=== PATIENT | female | born 1965 | race Caucasian/White ===

== ENCOUNTER 2020-10-10 13:19 | Observation (INO) | payer OTHER ==
--- NOTE | 2020-10-10 13:33 | ERPHSYRPT ---
- History of Present Illness Time Seen by Provider: 10/10/20 13:30 Source: patient Physician History: Patient is a 55-year-old female presents to our ED with complaints of shortness of breath and left lower quadrant pain. Patient has been experiencing left lower quadrant pain since September 01. Patient states the left lower quadrant pain has gotten worse. Pain described as a sharp sensation rated 8 out of 10. Patient states the pain makes her feel short of breath. No chest pain. No wendy sea or vomiting. No diaphoresis. No trauma. No fever. Symptoms are moderate in intensity. Movement and palpation to the left lower quadrant reproduces symptoms. Patient voices no other complaints concerns at this time. Timing/Duration: week(s) (3 weeks) Severity: moderate Modifying Factors: Improves With: nothing Associated Symptoms: shortness of breath, No nausea, No diaphoresis, No fever, No headaches, No syncope Allergies/Adverse Reactions: aripiprazole [From Abilify] Allergy (Verified 10/10/20 13:22) clarithromycin [From Biaxin] Allergy (Verified 10/10/20 13:22) prednisone Allergy (Verified 10/10/20 13:22) Sulfa (Sulfonamide Antibiotics) Allergy (Verified 10/10/20 13:22) zolpidem [From Ambien] Allergy (Verified 10/10/20 13:22) - Review of Systems Constitutional: No Symptoms, No Fever, No Chills Eyes: No Symptoms Ears, Nose, & Throat: No Symptoms Respiratory: No Symptoms, No Cough, No Dyspnea Cardiac: No Symptoms, No Chest Pain, No Edema, No Syncope Abdominal/Gastrointestinal: No Symptoms, No Abdominal Pain, No Nausea, No Vomiting, No Diarrhea Genitourinary Symptoms: No Symptoms, No Dysuria Musculoskeletal: No Symptoms, No Back Pain, No Neck Pain Skin: No Rash Neurological: No Dizziness, No Focal Weakness, No Sensory Changes Psychological: No Symptoms Endocrine: No Symptoms Hematologic/Lymphatic: No Symptoms Immunological/Allergic: No Symptoms All Other Systems: Reviewed and Negative - Nursing Vital Signs Nursing Vital Signs: Initial Vital Signs Temperature 98.8 F 10/10/20 13:23 Pulse Rate 82 10/10/20 13:23 Respiratory Rate 22 10/10/20 13:23 Blood Pressure 154/114 10/10/20 13:23 O2 Sat by Pulse Oximetry 98 10/10/20 13:23 Pain Scale Pain Intensity 4 - Physical Exam General Appearance: no apparent distress, alert Eye Exam: PERRL/EOMI, eyes nml inspection Ears, Nose, Throat Exam: normal ENT inspection, TMs normal, pharynx normal, moist mucous membranes Neck Exam: normal inspection, non-tender, supple, full range of motion Respiratory Exam: normal breath sounds, lungs clear, No respiratory distress Cardiovascular Exam: regular rate/rhythm, normal heart sounds, normal peripheral pulses Gastrointestinal/Abdomen Exam: soft, normal bowel sounds, other (Tenderness to palpation left lower quadrant.), No tenderness, No mass Pelvic Exam: other (No pelvic pain. Pain at left lower quadrant.) Back Exam: normal inspection, normal range of motion, No CVA tenderness, No vertebral tenderness Extremity Exam: normal inspection, normal range of motion, pelvis stable Neurologic Exam: alert, oriented x 3, cooperative, normal mood/affect, nml cerebellar function, nml station & gait, sensation nml, No motor deficits Skin Exam: normal color, warm, dry, No rash Lymphatic Exam: No adenopathy SpO2 Interpretation: normal SpO2: 98 O2 Delivery: Room Air - Course Nursing assessment & vital signs reviewed: Yes EKG Interpreted by Me: RATE (84), Sinus Rhythm, NORMAL AXIS, NORMAL INTERVALS - Radiology Exams Chest X-ray Interpretation: Teleradiologist Report (Portable chest demonstrates normal heart lungs and bony thorax.) - CT Exams Abdomen/Pelvis CT Interpretation: Tele-radiologist Report (Minimal urinary bladder wall thickening either incomplete distention versus cystitis, staple in the descending duodenum of uncertain etiology no perforation or complications. Incidental pulmonary emphysema.) Ordered Tests: Active Orders 24 hr Category Date Time Status Finance Vice President STAT Care 10/10/20 13:34 Active EKG-ER Only STAT Care 10/10/20 13:33 Active IV Insertion STAT Care 10/10/20 13:33 Active Pulse Oximetry (ED) STAT Care 10/10/20 13:33 Active ABDOMEN AND PELVIS W CONTRAST [CT] Stat Exams 10/10/20 15:03 Completed CHEST 1 VIEW (PORTABLE) Stat Exams 10/10/20 13:34 Completed CBC W DIFF Stat Lab 10/10/20 13:10 Completed CMP Stat Lab 10/10/20 13:10 Completed D-DIMER QUANTITATIVE Stat Lab 10/10/20 13:10 Completed HCG,QUALITATIVE URINE Stat Lab 10/10/20 13:36 Completed MAGNESIUM Stat Lab 10/10/20 13:10 Completed NT PRO BNP Stat Lab 10/10/20 13:10 Completed TROPONIN Q3H Lab 10/10/20 13:10 Completed TROPONIN Q3H Lab 10/10/20 17:45 Received TROPONIN Q3H Lab 10/10/20 19:45 Ordered TROPONIN Q3H Lab 10/10/20 22:45 Ordered TROPONIN Q3H Lab 10/11/20 01:45 Ordered UA W/RFX UR CULTURE Stat Lab 10/10/20 13:36 Completed Transfer Order Routine Transfer 10/10/20 Ordered Medication Summary Generic Name Dose Route Start Last Admin Trade Name Freq PRN Reason Stop Dose Admin Sodium Chloride 1,000 mls @ 100 mls/hr 10/10/20 13:45 10/10/20 13:39 Sodium Chloride 0.9% 1000 Ml IV 11/09/20 13:44 100 mls/hr .Q10H RIGOBERTO Administration Discontinued Medications Generic Name Dose Route Start Last Admin Trade Name Freq PRN Reason Stop Dose Admin Enoxaparin Sodium 80 mg 10/10/20 18:15 Enoxaparin Sodium SQ 10/10/20 18:16 STAT ONE Morphine Sulfate 2 mg 10/10/20 16:55 10/10/20 16:59 Morphine Sulfate 2 Mg Inj IV 10/10/20 16:56 2 mg STAT ONE Administration Morphine Sulfate Confirm 10/10/20 16:59 Morphine Sulfate 2 Mg Inj Administered 10/10/20 17:00 Dose 2 mg .ROUTE .[employer] [employer] ONE Lab/Rad Data: Laboratory Result Diagrams 10/10/20 13:10 10/10/20 13:10 Laboratory Results 10/10/20 10/10/20 10/10/20 Range/Units 13:36 13:36 13:10 WBC (4.0-10.5) K/mm3 RBC (4.1-5.4) M/mm3 Hgb (12.0-16.0) gm/dl Hct (35-47) % MCV (78-100) fl MCH (26-32) pg MCHC (32-36) g/dl RDW (11.5-14.0) % Plt Count (150-450) K/mm3 MPV (7.5-11.0) fl Gran % (36.0-66.0) % Eos # (Auto) (0-0.5) Absolute Lymphs (auto) (1.0-4.6) Absolute Monos (auto) (0.0-1.3) Lymphocytes % (24.0-44.0) % Monocytes % (0.0-12.0) % Eosinophils % (0.00-5.0) % Basophils % (0.0-0.4) % Absolute Granulocytes (1.4-6.9) Basophils # (0-0.4) D-Dimer (215-500) ng/mL Sodium (137-145) mmol/L Potassium (3.5-5.1) mmol/L Chloride (98-107) mmol/L Carbon Dioxide (22-30) mmol/L Anion Gap (5-15) MEQ/L BUN (7-17) mg/dL Creatinine (0.52-1.04) mg/dL Estimated GFR ML/MIN Glucose (74-106) mg/dL Calcium (8.4-10.2) mg/dL Magnesium (1.6-2.3) mg/dL Total Bilirubin (0.2-1.3) mg/dL AST (14-36) U/L ALT (0-35) U/L Alkaline Phosphatase (38-126) U/L Troponin I < 0.012 (0.000-0.034) ng/mL NT-Pro-B Natriuret Pep (0-900) pg/mL Serum Total Protein (6.3-8.2) g/dL Albumin (3.5-5.0) g/dL Urine Color YELLOW (YELLOW) Urine Appearance CLEAR (CLEAR) Urine pH 5.0 (5-6) Ur Specific [place] 1.021 (1.005-1.025) Urine Protein NEGATIVE (Negative) Urine Ketones NEGATIVE (NEGATIVE) Urine Blood SMALL (0-5) Oliver/ul Urine Nitrite NEGATIVE (NEGATIVE) Urine Bilirubin NEGATIVE (NEGATIVE) Urine Urobilinogen NEGATIVE (0-1) mg/dL Ur Leukocyte Esterase NEGATIVE (NEGATIVE) Urine WBC (Auto) NONE (0-5) /HPF Urine RBC (Auto) 0-2 (0-2) /HPF U Epithel Cells (Auto) NONE (FEW) /HPF Urine Bacteria (Auto) NONE (NEGATIVE) /HPF Urine Mucus (Auto) SLIGHT (NEGATIVE) /HPF Urine Culture Reflexed NO (NO) Urine Glucose NEGATIVE (NEGATIVE) mg/dL Urine HCG, Qual NEGATIVE (Negative) 10/10/20 10/10/20 10/10/20 Range/Units 13:10 13:10 13:10 WBC 7.0 (4.0-10.5) K/mm3 RBC 5.27 (4.1-5.4) M/mm3 Hgb 15.0 (12.0-16.0) gm/dl Hct 45.4 (35-47) % MCV 86.1 (78-100) fl MCH 28.5 (26-32) pg MCHC 33.0 (32-36) g/dl RDW 14.9 H (11.5-14.0) % Plt Count 350 (150-450) K/mm3 MPV 10.5 (7.5-11.0) fl Gran % 63.5 (36.0-66.0) % Eos # (Auto) 0.15 (0-0.5) Absolute Lymphs (auto) 1.68 (1.0-4.6) Absolute Monos (auto) 0.71 (0.0-1.3) Lymphocytes % 23.9 L (24.0-44.0) % Monocytes % 10.1 (0.0-12.0) % Eosinophils % 2.1 (0.00-5.0) % Basophils % 0.4 (0.0-0.4) % Absolute Granulocytes 4.46 (1.4-6.9) Basophils # 0.03 (0-0.4) D-Dimer 748 H* (215-500) ng/mL Sodium 141 (137-145) mmol/L Potassium 4.1 (3.5-5.1) mmol/L Chloride 109 H (98-107) mmol/L Carbon Dioxide 23 (22-30) mmol/L Anion Gap 12.0 (5-15) MEQ/L BUN 7 (7-17) mg/dL Creatinine 0.97 (0.52-1.04) mg/dL Estimated GFR > 60.0 ML/MIN Glucose 103 (74-106) mg/dL Calcium 10.6 H (8.4-10.2) mg/dL Magnesium 1.8 (1.6-2.3) mg/dL Total Bilirubin 0.60 (0.2-1.3) mg/dL AST 33 (14-36) U/L ALT 33 (0-35) U/L Alkaline Phosphatase 143 H (38-126) U/L Troponin I (0.000-0.034) ng/mL NT-Pro-B Natriuret Pep 91.3 (0-900) pg/mL Serum Total Protein 7.1 (6.3-8.2) g/dL Albumin 4.3 (3.5-5.0) g/dL Urine Color (YELLOW) Urine Appearance (CLEAR) Urine pH (5-6) Ur Specific [place] (1.005-1.025) Urine Protein (Negative) Urine Ketones (NEGATIVE) Urine Blood (0-5) Oliver/ul Urine Nitrite (NEGATIVE) Urine Bilirubin (NEGATIVE) Urine Urobilinogen (0-1) mg/dL Ur Leukocyte Esterase (NEGATIVE) Urine WBC (Auto) (0-5) /HPF Urine RBC (Auto) (0-2) /HPF U Epithel Cells (Auto) (FEW) /HPF Urine Bacteria (Auto) (NEGATIVE) /HPF Urine Mucus (Auto) (NEGATIVE) /HPF Urine Culture Reflexed (NO) Urine Glucose (NEGATIVE) mg/dL Urine HCG, Qual (Negative) - Progress Progress: improved Progress Note: 10/10/20 18:20 Patient reassessed. She continues to experience abdominal pain. CT scan reveals an incidental 1.5 cm staple-like foreign body in the duodenum. Case discussed with Dr. Torres who does not feel that the foreign body is causing patient's pain. D-dimer elevated. Patient already received a dose of contrast for her CT abdomen pelvis. She is not a candidate for CTA of her chest at this time. We will admit patient for intractable abdominal pain. We will perform repeat imaging study likely an x-ray/KUB to assess whether or not the foreign body has moved. There is a good possibility this stable may be residual from her previous surgery. Patient will have a CT of her chest tomorrow after 24 hours. Patient has no pelvic pain. No vaginal discharge. Pain is left to the umbilicus and slightly inferior. Care discussed with patient. She agrees to admission to [facility] for further evaluation and treatment. With a positive D-dimer patient received a dose of Lovenox to cover her until the CTA rules out PE. Patient be admitted to the Covid unit as we have a policy in our hospital that states if patient has been Covid positive for the last 90 days patient should be admitted to the Covid unit. Patient was Covid positive approximately 30 days ago. Therefore patient be admitted to the Covid unit. 10/10/20 18:22 10/10/20 18:23 Discussed with DrBrianda: Other (Mirta) Will see patient in: hospital (observation) Counseled pt/family regarding: lab results, diagnosis, rad results - Departure Clinical Impression: Abdominal pain, Pulmonary emphysema, Aortic calcification Condition: Stable Critical Care Time: No Referrals: JUAN GUDINO [Primary Care Provider] - Instructions: Chronic Obstructive Pulmonary Disease
[2020-10-10] MEDS: Sodium Chloride 0.9% 1000 ML 1,000 ML IV SCH (13:39)
[2020-10-10 13:54] LABS: Appearance CLEAR (CLEAR); Bilirubin NEGATIVE (NEGATIVE); Blood SMALL Ery/ul (0-5); Glucose NEGATIVE (NEGATIVE); Ketones NEGATIVE (NEGATIVE); Leukocyte Esterase NEGATIVE (NEGATIVE); Mucus SLIGHT /HPF (NEGATIVE); Nitrite NEGATIVE (NEGATIVE); Protein,Urine Dip NEGATIVE (Negative); RBC 0-2 /HPF (0-2); Specific Gravity 1.021 (1.005-1.025); Urobilinogen NEGATIVE mg/dL (0-1)
[2020-10-10 13:56] LABS: Absolute Neutrophil Ct (ANC) 4.46 (1.4-6.9); BASOPHIL % 0.4 % (0.0-0.4); Basophil (Absolute #) 0.03 (0-0.4); Eosinophil % 2.1 % (0.00-5.0); Eosinophil (Absolute #) 0.15 (0-0.5); Hematocrit 45.4 % (35-47); Lymphocyte (Absolute #) 1.68 (1.0-4.6); Lymphocytes % 23.9 % (24.0-44.0); Mean Cell Volume 86.1 fl (78-100); Mean Corpuscular Hemoglobin 28.5 pg (26-32); Mean Platelet Volume 10.5 fl (7.5-11.0); Monocyte (Absolute #) 0.71 (0.0-1.3); Monocytes % 10.1 % (0.0-12.0); Neutrophil % 63.5 % (36.0-66.0); Platelet Count 350 K/mm3 (150-450); Red Blood Count 5.27 M/mm3 (4.1-5.4); Red Cell Distribution Width 14.9 % (11.5-14.0)
[2020-10-10 14:10] LABS: ALBUMIN 4.3 g/dL (3.5-5.0); ALKALINE PHOSPHATASE 143 U/L (38-126); BLOOD UREA NITROGEN 7 mg/dL (7-17); CHLORIDE 109 mmol/L (98-107); Calcium 10.6 mg/dL (8.4-10.2); Carbon Dioxide 23 mmol/L (22-30); Creatinine 1 0.97 mg/dL (0.52-1.04); EST GLOMERULAR FILTRATION RATE > 60.0 ML/MIN; Glucose 103 mg/dL (74-106); MAGNESIUM 1.8 mg/dL (1.6-2.3); NT PRO BNP 91.3 pg/mL (0-900); Potassium 4.1 mmol/L (3.5-5.1); SGOT/AST 33 U/L (14-36); SGPT/ALT 33 U/L (0-35); SODIUM 141 mmol/L (137-145); Total Protein 7.1 g/dL (6.3-8.2)
--- NOTE | 2020-10-10 14:13 | XRAY ---
Indication: Short of breath. Positive Covid 19. Comparison: None. Portable chest demonstrates normal heart, lungs, and bony thorax.
--- NOTE | 2020-10-10 15:36 | XRAY ---
Indication: Bilateral pelvic pain. Diarrhea. Multiple contiguous axial images obtained through the abdomen and pelvis using 80 cc Isovue 370 contrast only. Comparison: None Lung bases demonstrates pulmonary emphysema and bibasilar posterior atelectasis/scarring. No effusion. Heart is not enlarged. Noncontrasted stomach and bowel loops appear nonobstructed. Descending duodenum demonstrates a 1.5 cm staple of uncertain etiology. Normal appendix. Previous cholecystectomy and hysterectomy. No free fluid/air. Urinary bladder normally distended with minimal wall thickening anteriorly either incomplete distention versus cystitis. Remaining liver, pancreas, spleen, adrenal glands, kidneys, ureters, and bladder appear unremarkable. Mild aortic calcifications. No AAA or pathologic retroperitoneal lymphadenopathy. Osseous structures intact. Impression: 1. Minimal urinary bladder wall thickening either incomplete distention versus cystitis. 2. Staple in the descending duodenum of uncertain etiology. No perforation or complications. 3. Incidental pulmonary emphysema.
[2020-10-10] MEDS ORDERED: MORPHINE SULFATE 2 MG INJ IV ONE (16:55)
[2020-10-10] MEDS ORDERED: MORPHINE SULFATE 2 MG INJ ONE (16:59)
[2020-10-10] MEDS ORDERED: ENOXAPARIN SODIUM SQ ONE ×2 (18:15→18:36)
[2020-10-10] MEDS: MORPHINE SULFATE 4 MG INJ IV PRN (22:08)
[2020-10-11] MEDS: Sodium Chloride 0.9% 1000 ML 1,000 ML IV SCH ×2 (00:13→21:46)
[2020-10-11] MEDS: MORPHINE SULFATE 4 MG INJ IV PRN ×4 (02:26→20:40)
[2020-10-11 02:40] LABS: ALBUMIN 3.8 g/dL (3.5-5.0); ANION GAP 9.7 MEQ/L (5-15); BILIRUBIN,TOTAL 0.7 mg/dL (0.2-1.3); Calcium 9.6 mg/dL (8.4-10.2); Creatinine 1 1.05 mg/dL (0.52-1.04); EST GLOMERULAR FILTRATION RATE 57.6 ML/MIN; Potassium 3.9 mmol/L (3.5-5.1); Total Protein 6.1 g/dL (6.3-8.2)
[2020-10-11 04:51] LABS: Absolute Neutrophil Ct (ANC) 2.49 (1.4-6.9); BASOPHIL % 0.2 % (0.0-0.4); Basophil (Absolute #) 0.01 (0-0.4); Eosinophil % 2.7 % (0.00-5.0); Eosinophil (Absolute #) 0.14 (0-0.5); Hematocrit 42.4 % (35-47); Hemoglobin 13.8 gm/dl (12.0-16.0); Lymphocyte (Absolute #) 1.86 (1.0-4.6); Lymphocytes % 35.4 % (24.0-44.0); Mean Cell Volume 88.1 fl (78-100); Mean Corpuscular Hemoglobin 28.7 pg (26-32); Mean Corpuscular Hgb Concent. 32.5 g/dl (32-36); Mean Platelet Volume 11.1 fl (7.5-11.0); Monocyte (Absolute #) 0.75 (0.0-1.3); Monocytes % 14.3 % (0.0-12.0); Neutrophil % 47.4 % (36.0-66.0); Platelet Count 297 K/mm3 (150-450); Red Blood Count 4.81 M/mm3 (4.1-5.4); Red Cell Distribution Width 14.9 % (11.5-14.0); White Blood Count 5.3 K/mm3 (4.0-10.5)
[2020-10-11] MEDS: Advair Hfa 115/21 Common canister IH SCH ×2 (07:38→19:28)
[2020-10-11] MEDS ORDERED: ENOXAPARIN SODIUM SQ ONE (08:52)
[2020-10-11] MEDS: FLAGYL 500 MG IVPB 500 MG/100 ML BAG IV SCH ×2 (10:45→18:22)
[2020-10-11] MEDS: Levofloxacin 500MG/100ML D5W 500 MG/100 ML BAG IV SCH (10:45)
--- NOTE | 2020-10-11 10:51 | XRAY ---
Indication: Abdomen pain. Foreign body on CT one day earlier. KUB nonacute and nonobstructed with contrast from CT one day earlier. 15 mm metallic density overlies the cecum, previously in duodenum on CT exam. Cholecystectomy clips. Remaining solid organs and osseous structures unremarkable.
--- NOTE | 2020-10-11 10:59 | XRAY ---
Indication: Short of breath. Elevated d-dimer. Multiple contiguous axial images obtained through the chest using 80 cc Isovue 370 contrast and PE protocol. Comparison: None There is good opacification of the pulmonary arteries to include the lobar and segmental branches. No pulmonary embolus. Heart is not enlarged. Aorta is minimally arteriosclerotic without aneurysm/dissection. No pathologic mediastinal/hilar lymphadenopathy. Lungs demonstrates moderate pulmonary emphysema, moderate bilateral dependent atelectasis greatest near the lung bases, and mild bibasilar fibrosis/scarring. No suspicious pulmonary mass, infiltrate, or effusion. Bony thorax intact. CT abdomen reported one day earlier. Impression: 1. Negative pulmonary embolus. No acute cardiopulmonary abnormalities. 2. Incidental pulmonary emphysema, bilateral dependent atelectasis, and bibasilar fibrosis/scarring.
[2020-10-11] MEDS ORDERED: MEDICATION INTERVENTION PO SCH (11:30)
[2020-10-11] MEDS ORDERED: Zestril 5 MG PO SCH (12:00)
--- NOTE | 2020-10-11 12:29 | PCM.HP ---
History of Present Illness - Chief Complaint Chief Complaint: Intractable Abdominal Pain, Intestinal Foreign Body, Elevated D-Dimer History of Present Illness: is a 55 year old female pt of Dr. Sterling in [place] who was admitted through ER with SOB and LLQ pain. She has had LLQ pain since Sep 01, is not 8/10, constant. Initially pain was in her back but is now in her abdomen. Worse with sitting up or walking. Has nausea and SOB when the pain is worse. No fever. Occ diarrhea. No vomiting. Abd xr found foreign body in the descending duodenum. Pt had elevated d-dimer and was given 1 dose of lovenox in the ER. Unable to do CT chest at that time. CT abd pelvis nonacute - some bladder wall thickening, possibly infectious. Has had gross hematuria x 3 weeks. - Review of Systems Abdominal/Gastrointestinal: Abdominal Pain, Diarrhea Genitourinary Symptoms: Hematuria Psychological: Depression, No Suicidal Ideations Medications & Allergies Home Medications: Home Medication List Dexlansoprazole [Dexilant] 60 mg PO HS 10/10/20 [History Confirmed 10/10/20] Donepezil HCl 10 mg [Aricept 10 MG] 10 mg PO HS 10/10/20 [History Confir med 10/10/20] Fluticasone/Vilanterol [Breo Ellipta 200-25 Mcg INH] 1 puff IH DAILY 10/10/20 [History Confirmed 10/10/20] Levothyroxine Sodium [Tirosint-Kymberly] 112 mcg PO DAILY 10/10/20 [History Confirmed 10/10/20] Lisinopril 10 mg [Zestril 10 MG] 5 mg PO DAILY 10/10/20 [History Confirmed 10/10/20] Memantine HCl [Memantine HCl ER] 28 mg PO HS 10/10/20 [History Confirmed 10/10/20] Non-Formulary Drug [Non-Formulary Item] 99 mg PO DAILY 10/10/20 [History Confirmed 10/10/20] Semaglutide [Ozempic] 0.5 mg SQ WEEKLY 10/10/20 [History Confirmed 10/10/20] Simvastatin 20Mg [Zocor 20Mg] 40 mg PO HS 10/10/20 [History Confirmed 10/10/20] Tizanidine HCl 4 mg [Zanaflex 4 MG] 12 mg PO HS 10/10/20 [History Confirmed 10/10/20] Allergies/Adverse Reactions: Allergies Allergy/AdvReac Type Severity Reaction Status Date / Time aripiprazole [From Abilify] Allergy Verified 10/10/20 13:22 clarithromycin [From Biaxin] Allergy Verified 10/10/20 13:22 prednisone Allergy Verified 10/10/20 13:22 Sulfa (Sulfonamide Allergy Verified 10/10/20 13:22 Antibiotics) zolpidem [From Ambien] Allergy Verified 10/10/20 13:22 - Past Medical History Past Medical History: Yes Neurological History: Alzheimer's Disease ENT History: No Pertinent History Cardiac History: Hypertension, Other Respiratory History: Asthma, COPD Endocrine Medical History: Diabetes Type II Musculoskelatal History: No Pertinent History GI Medical History: No Pertinent History History: No Pertinent History Pyscho-Social History: Bipolar, Depression Reproductive Disorders: No Pertinent History Comment: pt states early onset Alzheimers. mitral valve prolapse - Female History Hx Last Menstrual Period: hysterctomy Are you now?: No - Past Surgical History Past Surgical History: Yes Neuro Surgical History: No Pertinent History Cardiac History: No Pertinent History Respiratory Surgery: No Pertinent History GI Surgical History: Cholecystectomy Genitourinary Surgical Hx: No Pertinent History Musculskeletal Surgical Hx: Other Female Surgical History: Hysterectomy Other Surgical History: Lump removed from right breast. Tendon surgery right wrist. Exploratory surgery through belly button. Thyroid removed - Social History Smoking Status: Former smoker Exposure to second hand smoke: No Alcohol: None Drug Use: marijuana - Physical Exam Vital Signs: Vital Signs - 24 hr Temp Pulse Resp BP Pulse Ox 10/11/20 07:41 76 18 94 L 10/11/20 07:23 98.6 F 75 16 131/72 94 L 10/11/20 00:00 98.0 F 78 18 131/67 95 10/10/20 22:13 72 18 96 10/10/20 21:20 97.9 F 74 18 134/94 98 10/10/20 21:11 87 19 150/83 98 10/10/20 20:00 65 18 151/91 99 10/10/20 19:00 68 24 161/86 97 10/10/20 18:23 98 10/10/20 18:02 66 18 154/77 98 10/10/20 17:08 102 H 18 169/109 98 10/10/20 15:24 74 20 140/73 98 10/10/20 14:38 69 15 152/85 100 10/10/20 13:36 97 10/10/20 13:23 98.8 F 82 22 154/114 98 General Appearance: mild distress, alert, other (lying in the bed propped on her R side) Neurologic Exam: oriented x 3, cooperative Eye Exam: eyes nml inspection Ears, Nose, Throat Exam: moist mucous membranes Neck Exam: normal inspection Respiratory Exam: normal breath sounds, lungs clear, No crackles/rales, No rhonchi, No wheezing Cardiovascular Exam: regular rate/rhythm, normal heart sounds, No murmur Gastrointestinal/Abdomen Exam: soft, normal bowel sounds, tenderness (LLQ), No distention, No mass, No guarding, No rebound Back Exam: normal inspection, No CVA tenderness Extremity Exam: No pedal edema, No swelling Skin Exam: normal color, warm, dry, No rash Results - Labs Lab/Micro Results: Lab Results-Last 24 Hours 10/10/20 10/10/20 10/10/20 Range/Units 13:10 13:10 13:10 WBC 7.0 (4.0-10.5) K/mm3 RBC 5.27 (4.1-5.4) M/mm3 Hgb 15.0 (12.0-16.0) gm/dl Hct 45.4 (35-47) % MCV 86.1 (78-100) fl MCH 28.5 (26-32) pg MCHC 33.0 (32-36) g/dl RDW 14.9 H (11.5-14.0) % Plt Count 350 (150-450) K/mm3 MPV 10.5 (7.5-11.0) fl Gran % 63.5 (36.0-66.0) % Eos # (Auto) 0.15 (0-0.5) Absolute Lymphs (auto) 1.68 (1.0-4.6) Absolute Monos (auto) 0.71 (0.0-1.3) Lymphocytes % 23.9 L (24.0-44.0) % Monocytes % 10.1 (0.0-12.0) % Eosinophils % 2.1 (0.00-5.0) % Basophils % 0.4 (0.0-0.4) % Absolute Granulocytes 4.46 (1.4-6.9) Basophils # 0.03 (0-0.4) D-Dimer 748 H* (215-500) ng/mL Sodium 141 (137-145) mmol/L Potassium 4.1 (3.5-5.1) mmol/L Chloride 109 H (98-107) mmol/L Carbon Dioxide 23 (22-30) mmol/L Anion Gap 12.0 (5-15) MEQ/L BUN 7 (7-17) mg/dL Creatinine 0.97 (0.52-1.04) mg/dL Estimated GFR > 60.0 ML/MIN Glucose 103 (74-106) mg/dL POC Glucometer (74 to 106) mg/dL Hemoglobin A1c (4.5-6.0) % Calcium 10.6 H (8.4-10.2) mg/dL Magnesium 1.8 (1.6-2.3) mg/dL Total Bilirubin 0.60 (0.2-1.3) mg/dL AST 33 (14-36) U/L ALT 33 (0-35) U/L Alkaline Phosphatase 143 H (38-126) U/L Troponin I (0.000-0.034) ng/mL NT-Pro-B Natriuret Pep 91.3 (0-900) pg/mL Serum Total Protein 7.1 (6.3-8.2) g/dL Albumin 4.3 (3.5-5.0) g/dL Urine Color (YELLOW) Urine Appearance (CLEAR) Urine pH (5-6) Ur Specific [place] (1.005-1.025) Urine Protein (Negative) Urine Ketones (NEGATIVE) Urine Blood (0-5) Oliver/ul Urine Nitrite (NEGATIVE) Urine Bilirubin (NEGATIVE) Urine Urobilinogen (0-1) mg/dL Ur Leukocyte Esterase (NEGATIVE) Urine WBC (Auto) (0-5) /HPF Urine RBC (Auto) (0-2) /HPF U Epithel Cells (Auto) (FEW) /HPF Urine Bacteria (Auto) (NEGATIVE) /HPF Urine Mucus (Auto) (NEGATIVE) /HPF Urine Culture Reflexed (NO) Urine Glucose (NEGATIVE) mg/dL Urine HCG, Qual (Negative) 10/10/20 10/10/20 10/10/20 Range/Units 13:10 13:36 13:36 WBC (4.0-10.5) K/mm3 RBC (4.1-5.4) M/mm3 Hgb (12.0-16.0) gm/dl Hct (35-47) % MCV (78-100) fl MCH (26-32) pg MCHC (32-36) g/dl RDW (11.5-14.0) % Plt Count (150-450) K/mm3 MPV (7.5-11.0) fl Gran % (36.0-66.0) % Eos # (Auto) (0-0.5) Absolute Lymphs (auto) (1.0-4.6) Absolute Monos (auto) (0.0-1.3) Lymphocytes % (24.0-44.0) % Monocytes % (0.0-12.0) % Eosinophils % (0.00-5.0) % Basophils % (0.0-0.4) % Absolute Granulocytes (1.4-6.9) Basophils # (0-0.4) D-Dimer (215-500) ng/mL Sodium (137-145) mmol/L Potassium (3.5-5.1) mmol/L Chloride (98-107) mmol/L Carbon Dioxide (22-30) mmol/L Anion Gap (5-15) MEQ/L BUN (7-17) mg/dL Creatinine (0.52-1.04) mg/dL Estimated GFR ML/MIN Glucose (74-106) mg/dL POC Glucometer (74 to 106) mg/dL Hemoglobin A1c (4.5-6.0) % Calcium (8.4-10.2) mg/dL Magnesium (1.6-2.3) mg/dL Total Bilirubin (0.2-1.3) mg/dL AST (14-36) U/L ALT (0-35) U/L Alkaline Phosphatase (38-126) U/L Troponin I < 0.012 (0.000-0.034) ng/mL NT-Pro-B Natriuret Pep (0-900) pg/mL Serum Total Protein (6.3-8.2) g/dL Albumin (3.5-5.0) g/dL Urine Color YELLOW (YELLOW) Urine Appearance CLEAR (CLEAR) Urine pH 5.0 (5-6) Ur Specific [place] 1.021 (1.005-1.025) Urine Protein NEGATIVE (Negative) Urine Ketones NEGATIVE (NEGATIVE) Urine Blood SMALL (0-5) Oliver/ul Urine Nitrite NEGATIVE (NEGATIVE) Urine Bilirubin NEGATIVE (NEGATIVE) Urine Urobilinogen NEGATIVE (0-1) mg/dL Ur Leukocyte Esterase NEGATIVE (NEGATIVE) Urine WBC (Auto) NONE (0-5) /HPF Urine RBC (Auto) 0-2 (0-2) /HPF U Epithel Cells (Auto) NONE (FEW) /HPF Urine Bacteria (Auto) NONE (NEGATIVE) /HPF Urine Mucus (Auto) SLIGHT (NEGATIVE) /HPF Urine Culture Reflexed NO (NO) Urine Glucose NEGATIVE (NEGATIVE) mg/dL Urine HCG, Qual NEGATIVE (Negative) 10/10/20 10/10/20 10/10/20 Range/Units 17:45 19:50 22:47 WBC (4.0-10.5) K/mm3 RBC (4.1-5.4) M/mm3 Hgb (12.0-16.0) gm/dl Hct (35-47) % MCV (78-100) fl MCH (26-32) pg MCHC (32-36) g/dl RDW (11.5-14.0) % Plt Count (150-450) K/mm3 MPV (7.5-11.0) fl Gran % (36.0-66.0) % Eos # (Auto) (0-0.5) Absolute Lymphs (auto) (1.0-4.6) Absolute Monos (auto) (0.0-1.3) Lymphocytes % (24.0-44.0) % Monocytes % (0.0-12.0) % Eosinophils % (0.00-5.0) % Basophils % (0.0-0.4) % Absolute Granulocytes (1.4-6.9) Basophils # (0-0.4) D-Dimer (215-500) ng/mL Sodium (137-145) mmol/L Potassium (3.5-5.1) mmol/L Chloride (98-107) mmol/L Carbon Dioxide (22-30) mmol/L Anion Gap (5-15) MEQ/L BUN (7-17) mg/dL Creatinine (0.52-1.04) mg/dL Estimated GFR ML/MIN Glucose (74-106) mg/dL POC Glucometer (74 to 106) mg/dL Hemoglobin A1c (4.5-6.0) % Calcium (8.4-10.2) mg/dL Magnesium (1.6-2.3) mg/dL Total Bilirubin (0.2-1.3) mg/dL AST (14-36) U/L ALT (0-35) U/L Alkaline Phosphatase (38-126) U/L Troponin I < 0.012 < 0.012 < 0.012 (0.000-0.034) ng/mL NT-Pro-B Natriuret Pep (0-900) pg/mL Serum Total Protein (6.3-8.2) g/dL Albumin (3.5-5.0) g/dL Urine Color (YELLOW) Urine Appearance (CLEAR) Urine pH (5-6) Ur Specific [place] (1.005-1.025) Urine Protein (Negative) Urine Ketones (NEGATIVE) Urine Blood (0-5) Oliver/ul Urine Nitrite (NEGATIVE) Urine Bilirubin (NEGATIVE) Urine Urobilinogen (0-1) mg/dL Ur Leukocyte Esterase (NEGATIVE) Urine WBC (Auto) (0-5) /HPF Urine RBC (Auto) (0-2) /HPF U Epithel Cells (Auto) (FEW) /HPF Urine Bacteria (Auto) (NEGATIVE) /HPF Urine Mucus (Auto) (NEGATIVE) /HPF Urine Culture Reflexed (NO) Urine Glucose (NEGATIVE) mg/dL Urine HCG, Qual (Negative) 10/11/20 10/11/20 10/11/20 Range/Units 02:10 02:10 02:10 WBC 5.3 (4.0-10.5) K/mm3 RBC 4.81 (4.1-5.4) M/mm3 Hgb 13.8 (12.0-16.0) gm/dl Hct 42.4 (35-47) % MCV 88.1 (78-100) fl MCH 28.7 (26-32) pg MCHC 32.5 (32-36) g/dl RDW 14.9 H (11.5-14.0) % Plt Count 297 (150-450) K/mm3 MPV 11.1 H (7.5-11.0) fl Gran % 47.4 (36.0-66.0) % Eos # (Auto) 0.14 (0-0.5) Absolute Lymphs (auto) 1.86 (1.0-4.6) Absolute Monos (auto) 0.75 (0.0-1.3) Lymphocytes % 35.4 (24.0-44.0) % Monocytes % 14.3 H (0.0-12.0) % Eosinophils % 2.7 (0.00-5.0) % Basophils % 0.2 (0.0-0.4) % Absolute Granulocytes 2.49 (1.4-6.9) Basophils # 0.01 (0-0.4) D-Dimer (215-500) ng/mL Sodium 139 (137-145) mmol/L Potassium 3.9 (3.5-5.1) mmol/L Chloride 107 (98-107) mmol/L Carbon Dioxide 26 (22-30) mmol/L Anion Gap 9.7 (5-15) MEQ/L BUN 5 L (7-17) mg/dL Creatinine 1.05 H (0.52-1.04) mg/dL Estimated GFR 57.6 ML/MIN Glucose 93 (74-106) mg/dL POC Glucometer (74 to 106) mg/dL Hemoglobin A1c (4.5-6.0) % Calcium 9.6 (8.4-10.2) mg/dL Magnesium (1.6-2.3) mg/dL Total Bilirubin 0.70 (0.2-1.3) mg/dL AST 27 (14-36) U/L ALT 30 (0-35) U/L Alkaline Phosphatase 123 (38-126) U/L Troponin I < 0.012 (0.000-0.034) ng/mL NT-Pro-B Natriuret Pep (0-900) pg/mL Serum Total Protein 6.1 L (6.3-8.2) g/dL Albumin 3.8 (3.5-5.0) g/dL Urine Color (YELLOW) Urine Appearance (CLEAR) Urine pH (5-6) Ur Specific [place] (1.005-1.025) Urine Protein (Negative) Urine Ketones (NEGATIVE) Urine Blood (0-5) Oliver/ul Urine Nitrite (NEGATIVE) Urine Bilirubin (NEGATIVE) Urine Urobilinogen (0-1) mg/dL Ur Leukocyte Esterase (NEGATIVE) Urine WBC (Auto) (0-5) /HPF Urine RBC (Auto) (0-2) /HPF U Epithel Cells (Auto) (FEW) /HPF Urine Bacteria (Auto) (NEGATIVE) /HPF Urine Mucus (Auto) (NEGATIVE) /HPF Urine Culture Reflexed (NO) Urine Glucose (NEGATIVE) mg/dL Urine HCG, Qual (Negative) 10/11/20 10/11/20 Range/Units 05:00 11:45 WBC (4.0-10.5) K/mm3 RBC (4.1-5.4) M/mm3 Hgb (12.0-16.0) gm/dl Hct (35-47) % MCV (78-100) fl MCH (26-32) pg MCHC (32-36) g/dl RDW (11.5-14.0) % Plt Count (150-450) K/mm3 MPV (7.5-11.0) fl Gran % (36.0-66.0) % Eos # (Auto) (0-0.5) Absolute Lymphs (auto) (1.0-4.6) Absolute Monos (auto) (0.0-1.3) Lymphocytes % (24.0-44.0) % Monocytes % (0.0-12.0) % Eosinophils % (0.00-5.0) % Basophils % (0.0-0.4) % Absolute Granulocytes (1.4-6.9) Basophils # (0-0.4) D-Dimer (215-500) ng/mL Sodium (137-145) mmol/L Potassium (3.5-5.1) mmol/L Chloride (98-107) mmol/L Carbon Dioxide (22-30) mmol/L Anion Gap (5-15) MEQ/L BUN (7-17) mg/dL Creatinine (0.52-1.04) mg/dL Estimated GFR ML/MIN Glucose (74-106) mg/dL POC Glucometer 82 (74 to 106) mg/dL Hemoglobin A1c 5.14 (4.5-6.0) % Calcium (8.4-10.2) mg/dL Magnesium (1.6-2.3) mg/dL Total Bilirubin (0.2-1.3) mg/dL AST (14-36) U/L ALT (0-35) U/L Alkaline Phosphatase (38-126) U/L Troponin I (0.000-0.034) ng/mL NT-Pro-B Natriuret Pep (0-900) pg/mL Serum Total Protein (6.3-8.2) g/dL Albumin (3.5-5.0) g/dL Urine Color (YELLOW) Urine Appearance (CLEAR) Urine pH (5-6) Ur Specific [place] (1.005-1.025) Urine Protein (Negative) Urine Ketones (NEGATIVE) Urine Blood (0-5) Oliver/ul Urine Nitrite (NEGATIVE) Urine Bilirubin (NEGATIVE) Urine Urobilinogen (0-1) mg/dL Ur Leukocyte Esterase (NEGATIVE) Urine WBC (Auto) (0-5) /HPF Urine RBC (Auto) (0-2) /HPF U Epithel Cells (Auto) (FEW) /HPF Urine Bacteria (Auto) (NEGATIVE) /HPF Urine Mucus (Auto) (NEGATIVE) /HPF Urine Culture Reflexed (NO) Urine Glucose (NEGATIVE) mg/dL Urine HCG, Qual (Negative) Accuchecks Date 10/11/20 Time 07:00 - Radiology Impressions Radiology Exams & Impressions: Radiology Procedures Category Date Time Status ABDOMEN AND PELVIS W CONTRAST [CT] Stat Exams 10/10/20 15:03 Completed CHEST 1 VIEW (PORTABLE) Stat Exams 10/10/20 13:34 Completed CHEST WITH CONTRAST [CT] Routine Exams 10/11/20 10:44 Completed KUB Routine Exams 10/11/20 10:41 Completed - Other Procedures and Tests Respiratory Therapy 10/10/20 22:11 Respiratory Therapy Assessment DAILY Assessment/Plan (1) Abdominal pain Current Visit: Yes Status: Acute Qualifiers: Abdominal location: left lower quadrant Qualified Code(s): R10.32 - Left lower quadrant pain Assessment & Plan: Rechecking KUB to see if FB has moved. ER physician spoke with DR. Elias and he did not feel the FB was causing the pain. Treating for intestinal pathology with flagyl (pt also on levaquin for possible urinary issue). Code(s): R10.9 - UNSPECIFIED ABDOMINAL PAIN (2) Gross hematuria Current Visit: Yes Status: Acute Assessment & Plan: Will go ahead and treat for UTI with IV levaquin. Culture pending. (3) Foreign body Current Visit: Yes Status: Acute Assessment & Plan: In descending duodenum; possibly post-surgical. Code(s): [id number] -
[2020-10-11] MEDS: SYNTHROID 112 MCG PO SCH (13:15)
--- NOTE | 2020-10-11 15:18 | CONS ---
CONSULT DATE: 10/11/2020 HISTORY: The patient is a 55 year old female who has had chronic left lower quadrant pain since she had COVID infection in the past. She had back work up and results are unknown. She had a prior cholecystectomy in the past. CT scan showed a little metallic density over the duodenal area. It is unclear whether this is a clip from prior cholecystectomy versus something inside the abdomen that area where the duodenum, was soft in the left lower quadrant. It was felt that the emergency room was going to release the patient and apparently admitted the patient and asked that I see the patient here today. PAST MEDICAL HISTORY: Hypothyroidism, hypertension, chronic pain, hyperlipidemia. She had prior COVID infection. She has diabetes, chronic obstructive pulmonary disease. She has gradual onset of Alzheimer's. History of mitral valve prolapse. PAST SURGICAL HISTORY: Hysterectomy in the past. Last colonoscopy a year ago. It sounds like by one of the [facility] GI doctors. Surgery on the wrist. Right breast surgery. She had exploration surgery in the past. Thyroid surgery in the past. Cholecystectomy. MEDICATIONS: Dexilant, Aricept, Breo Ellipta, Tirosint-Kymberly, Zestril, memantine, Ozempic, Zocor, Zanaflex. ALLERGIES: SULFA. ARIPIPRAZOLE. BIAXIN. PREDNISONE. ZOLPIDEM. LAB DATA AND TESTS: White count 5.3, hemoglobin 13.8. Liver function test I think they said were okay. Troponins were negative. CT scan did not show any obvious acute process in the left lower quadrant where she is having her aches and pains. It should be noted that she did have KUB today that showed metallic density that I mentioned earlier may have been in bowel overlying the cecum previously with no free air. FAMILY HISTORY: Negative in regards to this specific problem. SOCIAL HISTORY: Former smoking. No alcohol abuse. REVIEW OF SYSTEMS: Fourteen systems reviewed. Chronic aches and pains since her COVID infection. No chest pain or palpitations. PHYSICAL EXAMINATION: GENERAL: No acute distress. HEENT: Sclera nonicteric. NECK: No JVD. CHEST: Equal excursion, nonlabored breathing. CVS: Regular rate and rhythm. ABDOMEN: Very soft. She has got some mild tenderness left lower quadrant. No rebound. No guarding. She is nontender over the right abdomen where her little metallic density was whether a clip or staple. EXTREMITIES: No cyanosis. NEURO: Alert, moving extremities symmetrically. No gross motor deficits. IMPRESSION: Afebrile, nontoxic female with normal white count. CT scan does not show any obvious acute process in the left lower abdomen where she is having her symptoms. She has a metallic density that may be passing through her GI tract. I do not feel this is causing her left lower quadrant pain as this is up in the right upper quadrant on original CT scan. Whether this is a clip from the time of her cholecystectomy or clip from another surgery or whether truly may be something she inadvertently ingested when eating that seems to be passing through according to the radiology report. No need for any emergent surgical intervention regarding that. As there does not appear to be any obvious acute surgical process, no acute surgical intervention necessary at this point. She might benefit from consideration of outpatient colonoscopy at some point in the future given her symptoms. Otherwise get MRI report and she may need to see a pain specialist. If she does end up needing endoscopy, she could follow up with her [facility] GI doctors if so desires as they scoped her in the past according to the patient. Either way no emergent general surgery necessary at this time. Continue medical management. She is afebrile, nontoxic. She had a normal white count of 5.3.
[2020-10-11] MEDS: Zanaflex 4 MG PO SCH (21:43)
[2020-10-11] MEDS: Protonix 40MG Tablet PO SCH (21:43)
[2020-10-11] MEDS ORDERED: NON-FORMULARY ITEM (Dexlansoprazole [Dexilant] 60 MG) PO SCH (22:00)
[2020-10-11] MEDS ORDERED: MEMANTINE HCL 28 MG PO SCH (22:00)
[2020-10-12] MEDS: FLAGYL 500 MG IVPB 500 MG/100 ML BAG IV SCH ×4 (00:09→18:09)
[2020-10-12] MEDS ORDERED: Sodium Chloride 0.9% 500 ML 500 ML IV ONE (01:00)
[2020-10-12] MEDS: Sodium Chloride 0.9% 1000 ML 1,000 ML IV SCH ×2 (04:04→18:09)
[2020-10-12] MEDS: Advair Hfa 115/21 Common canister IH SCH ×2 (06:57→19:42)
[2020-10-12] MEDS ORDERED: TYLENOL 325 MG PO PRN (09:13)
[2020-10-12] MEDS ORDERED: Zofran 4 MG/2 ML VIAL IV PRN (09:13)
--- NOTE | 2020-10-12 09:17 | PCM.NOTE ---
Date and Time: 10/12/20914 Subjective Assessment: patient continues to complain of low abd pain and nausea, no vomiting but is NPO. no acute surgical intervention plan, KUB yesterday showed foreign body moved to cecum Objective Exam General Appearance: no apparent distress, alert Skin Exam: normal color, warm, dry Respiratory Exam: normal breath sounds, lungs clear, No respiratory distress Cardiovascular Exam: regular rate/rhythm, normal heart sounds Gastrointestinal/Abdomen Exam: soft, normal bowel sounds, tenderness, No distention, No mass, No guarding, No rebound Extremity Exam: normal inspection, normal range of motion OBJECTIVE DATA Vital Signs: Vital Signs - 24 hr Temp Pulse Resp BP Pulse Ox 10/12/20 07:58 98.0 F 59 L 16 119/63 94 L 10/12/20 07:00 57 L 16 94 L 10/12/20 02:27 97.8 F 69 18 89/57 94 L 10/12/20 00:39 78/50 10/12/20 00:00 97.4 F 77 16 80/46 90 L 10/11/20 19:41 97.6 F 84 19 132/73 94 L 10/11/20 19:28 67 16 96 10/11/20 16:00 97.8 F 77 16 134/73 94 L 10/11/20 12:00 98.4 F 72 16 139/68 92 L Pain Assessment - Last Documented Pain Intensity 7 Pain Scale Used 0-10 Pain Scale Intake and Output: Intake & Output 10/09/20 10/10/20 10/11/20 10/12/20 11:59 11:59 11:59 11:59 Intake Total 0 3458 Output Total 900 2500 Balance -900 958 Weight 95.4 kg Lab Results: Lab Results-Last 24 Hours 10/11/20 10/11/20 10/11/20 Range/Units 05:00 11:45 16:19 POC Glucometer 82 79 (74 to 106) mg/dL Hemoglobin A1c 5.14 (4.5-6.0) % 10/11/20 10/12/20 Range/Units 21:51 08:13 POC Glucometer 90 88 (74 to 106) mg/dL Hemoglobin A1c (4.5-6.0) % Radiology Exams: Radiology Procedures Category Date Time Status ABDOMEN AND PELVIS W CONTRAST [CT] Stat Exams 10/10/20 15:03 Completed CHEST 1 VIEW (PORTABLE) Stat Exams 10/10/20 13:34 Completed CHEST WITH CONTRAST [CT] Routine Exams 10/11/20 10:44 Completed KUB Routine Exams 10/11/20 10:41 Completed KUB Routine Exams 10/12/20 Ordered Assessment/Plan (1) Abdominal pain Current Visit: Yes Status: Acute Qualifiers: Abdominal location: left lower quadrant Qualified Code(s): R10.32 - Left lower quadrant pain Assessment & Plan: no obvious etiology found, treating emperically with abx for presumed early diverticulitis but white count is normal and no evidence of intra-abdominal process on CT. PE was ruled out, continue PPI, start clear liquids Code(s): R10.9 - UNSPECIFIED ABDOMINAL PAIN (2) Foreign body Current Visit: Yes Status: Acute Assessment & Plan: f/u KUB today, r/o free air and verify location of metallic density, should pass since made it to the cecum Code(s): [id number] -
[2020-10-12 09:48] LABS: Absolute Neutrophil Ct (ANC) 3.17 (1.4-6.9); BASOPHIL % 0.2 % (0.0-0.4); Basophil (Absolute #) 0.01 (0-0.4); Eosinophil % 1.6 % (0.00-5.0); Eosinophil (Absolute #) 0.08 (0-0.5); Hematocrit 38.6 % (35-47); Hemoglobin 12.8 gm/dl (12.0-16.0); Lymphocyte (Absolute #) 1.24 (1.0-4.6); Lymphocytes % 24.6 % (24.0-44.0); Mean Cell Volume 87.7 fl (78-100); Mean Corpuscular Hemoglobin 29.1 pg (26-32); Mean Corpuscular Hgb Concent. 33.2 g/dl (32-36); Mean Platelet Volume 9.9 fl (7.5-11.0); Monocyte (Absolute #) 0.55 (0.0-1.3); Monocytes % 10.9 % (0.0-12.0); Neutrophil % 62.7 % (36.0-66.0); Platelet Count 241 K/mm3 (150-450); Red Cell Distribution Width 14.6 % (11.5-14.0); White Blood Count 5.1 K/mm3 (4.0-10.5)
[2020-10-12] MEDS ORDERED: LEVOTHYROXINE SODIUM 112 MCG PO SCH (10:00)
--- NOTE | 2020-10-12 10:06 | XRAY ---
Indication: Follow-up foreign body. Comparison: One day earlier. KUB remains nonacute and nonobstructed with previous 15 mm metallic density now seen right midabdomen, probable ascending colon. Remaining solid organs and osseous structures unremarkable again with incidental cholecystectomy clips.
[2020-10-12 10:18] LABS: ALBUMIN 3.3 g/dL (3.5-5.0); ALKALINE PHOSPHATASE 104 U/L (38-126); ANION GAP 8.2 MEQ/L (5-15); BLOOD UREA NITROGEN 6 mg/dL (7-17); CHLORIDE 111 mmol/L (98-107); Calcium 9.4 mg/dL (8.4-10.2); Carbon Dioxide 24 mmol/L (22-30); Creatinine 1 0.93 mg/dL (0.52-1.04); EST GLOMERULAR FILTRATION RATE > 60.0 ML/MIN; Glucose 99 mg/dL (74-106); Potassium 3.9 mmol/L (3.5-5.1); SGOT/AST 25 U/L (14-36); SGPT/ALT 27 U/L (0-35); SODIUM 139 mmol/L (137-145); Total Protein 5.8 g/dL (6.3-8.2)
[2020-10-12] MEDS: SYNTHROID 112 MCG PO SCH (10:44)
[2020-10-12] MEDS: Levofloxacin 500MG/100ML D5W 500 MG/100 ML BAG IV SCH (10:44)
[2020-10-12] MEDS: MORPHINE SULFATE 4 MG INJ IV PRN (17:03)
[2020-10-12] MEDS: Protonix 40MG Tablet PO SCH (21:34)
[2020-10-12] MEDS: Zanaflex 4 MG PO SCH (21:34)
[2020-10-13] MEDS: FLAGYL 500 MG IVPB 500 MG/100 ML BAG IV SCH ×2 (00:18→05:37)
[2020-10-13] MEDS: MORPHINE SULFATE 4 MG INJ IV PRN (04:38)
[2020-10-13 05:20] LABS: Absolute Neutrophil Ct (ANC) 2.14 (1.4-6.9); BASOPHIL % 0.3 % (0.0-0.4); Basophil (Absolute #) 0.01 (0-0.4); Eosinophil % 4.2 % (0.00-5.0); Eosinophil (Absolute #) 0.16 (0-0.5); Hematocrit 36.3 % (35-47); Hemoglobin 11.7 gm/dl (12.0-16.0); Lymphocytes % 26.4 % (24.0-44.0); Mean Cell Volume 89.4 fl (78-100); Mean Corpuscular Hemoglobin 28.8 pg (26-32); Mean Corpuscular Hgb Concent. 32.2 g/dl (32-36); Mean Platelet Volume 10.4 fl (7.5-11.0); Monocyte (Absolute #) 0.48 (0.0-1.3); Monocytes % 12.7 % (0.0-12.0); Neutrophil % 56.4 % (36.0-66.0); Platelet Count 245 K/mm3 (150-450); Red Blood Count 4.06 M/mm3 (4.1-5.4); Red Cell Distribution Width 14.9 % (11.5-14.0); White Blood Count 3.8 K/mm3 (4.0-10.5)
[2020-10-13 05:26] LABS: ALBUMIN 3.3 g/dL (3.5-5.0); ALKALINE PHOSPHATASE 93 U/L (38-126); ANION GAP 10.7 MEQ/L (5-15); BLOOD UREA NITROGEN 4 mg/dL (7-17); CHLORIDE 107 mmol/L (98-107); Calcium 9.5 mg/dL (8.4-10.2); Carbon Dioxide 24 mmol/L (22-30); Creatinine 1 0.94 mg/dL (0.52-1.04); EST GLOMERULAR FILTRATION RATE > 60.0 ML/MIN; Glucose 114 mg/dL (74-106); Potassium 4.2 mmol/L (3.5-5.1); SGOT/AST 22 U/L (14-36); SGPT/ALT 23 U/L (0-35); SODIUM 137 mmol/L (137-145); Total Protein 5.6 g/dL (6.3-8.2)
[2020-10-13] MEDS: Sodium Chloride 0.9% 1000 ML 1,000 ML IV SCH (05:37)
[2020-10-13] MEDS: Advair Hfa 115/21 Common canister IH SCH ×2 (07:33→19:07)
[2020-10-13] MEDS: Levofloxacin 500MG/100ML D5W 500 MG/100 ML BAG IV SCH (09:33)
[2020-10-13] MEDS: SYNTHROID 112 MCG PO SCH (09:33)
[2020-10-13] MEDS: Flagyl 500 MG PO SCH ×2 (13:52→21:07)
[2020-10-13] MEDS: Norco 10/325 MG Tablet PO PRN ×2 (13:53→21:07)
[2020-10-13] MEDS: Levofloxacin 500 MG Tablet PO SCH (13:53)
[2020-10-13] MEDS ORDERED: Sodium Chloride 0.9% 1000 ML 1,000 ML IV SCH (17:45)
[2020-10-13] MEDS: Protonix 40MG Tablet PO SCH (21:07)
[2020-10-13] MEDS: Zanaflex 4 MG PO SCH (21:08)
[2020-10-14] MEDS: Flagyl 500 MG PO SCH ×2 (06:17→10:59)
[2020-10-14] MEDS: Norco 10/325 MG Tablet PO PRN ×2 (06:18→10:48)
[2020-10-14 06:33] LABS: Absolute Neutrophil Ct (ANC) 2.19 (1.4-6.9); BASOPHIL % 0.2 % (0.0-0.4); Basophil (Absolute #) 0.01 (0-0.4); Eosinophil % 3.2 % (0.00-5.0); Eosinophil (Absolute #) 0.13 (0-0.5); Hematocrit 37.8 % (35-47); Hemoglobin 12.2 gm/dl (12.0-16.0); Lymphocyte (Absolute #) 1.23 (1.0-4.6); Lymphocytes % 29.9 % (24.0-44.0); Mean Cell Volume 88.7 fl (78-100); Mean Corpuscular Hemoglobin 28.6 pg (26-32); Mean Corpuscular Hgb Concent. 32.3 g/dl (32-36); Mean Platelet Volume 10.3 fl (7.5-11.0); Monocyte (Absolute #) 0.55 (0.0-1.3); Monocytes % 13.4 % (0.0-12.0); Neutrophil % 53.3 % (36.0-66.0); Platelet Count 238 K/mm3 (150-450); Red Blood Count 4.26 M/mm3 (4.1-5.4); Red Cell Distribution Width 14.9 % (11.5-14.0); White Blood Count 4.1 K/mm3 (4.0-10.5)
[2020-10-14 06:37] LABS: ALBUMIN 3.4 g/dL (3.5-5.0); ANION GAP 8.9 MEQ/L (5-15); BILIRUBIN,TOTAL 0.2 mg/dL (0.2-1.3); Calcium 9.5 mg/dL (8.4-10.2); Creatinine 1 1.03 mg/dL (0.52-1.04); EST GLOMERULAR FILTRATION RATE 58.9 ML/MIN; Potassium 3.5 mmol/L (3.5-5.1); Total Protein 5.7 g/dL (6.3-8.2)
[2020-10-14] MEDS: Sodium Chloride 0.9% 1000 ML 1,000 ML IV SCH (07:34)
[2020-10-14 07:52] VITALS: BP 101/49
[2020-10-14] MEDS: Advair Hfa 115/21 Common canister IH SCH (08:10)
[2020-10-14 08:45] VITALS: PULSE 70; O2SAT 98
[2020-10-14] MEDS: SYNTHROID 112 MCG PO SCH (09:26)
[2020-10-14] MEDS: Levofloxacin 500 MG Tablet PO SCH (09:26)
[2020-10-14] MEDS ORDERED: Levofloxacin 500 MG Tablet PO SCH (10:00)
--- NOTE | 2020-10-14 10:26 | PCM.DS ---
Discharge Summary Date of Admission: 10/10/20 21:08 Admitting Physician: SOFÍA DE PAZ Consults: Consults on Case 10/10/20 22:28 Consult Surgery ROUTINE Primary Care Provider: FEMI NEGRON Allergies Allergies aripiprazole [From Abilify] Allergy (Verified 10/10/20 13:22) clarithromycin [From Biaxin] Allergy (Verified 10/10/20 13:22) prednisone Allergy (Verified 10/10/20 13:22) Sulfa (Sulfonamide Antibiotics) Allergy (Verified 10/10/20 13:22) zolpidem [From Ambien] Allergy (Verified 10/10/20 13:22) Hospital Summary - Hospital Course Hospital Course: patient arrived with LLQ abd pain, had negative workup including ct, also had some chest pain. MN was ruled out, PE was ruled out with CTA as well. she had a metallic foreign body seen on ct, moved to cecum then ascending colon on f/u images, unknown etiology, surgery consulted and no intervention required, she is tolerating po intake. started emeperically on levaquin and flagyl for clinical diverticulitis, home today and will f/u with PCP next week - Vitals & Intake/Output Vital Signs: Vital Signs Temperature 97.6 F 10/14/20 07:52 Pulse Rate 70 10/14/20 08:10 Respiratory Rate 16 10/14/20 08:10 Blood Pressure 101/49 10/14/20 07:52 O2 Sat by Pulse Oximetry 98 10/14/20 08:10 Intake & Output: Intake & Output 10/11/20 10/12/20 10/13/20 10/14/20 11:59 11:59 11:59 11:59 Intake Total 0 3498 4206 1580 Output Total 900 2500 2400 500 Balance -466 245 2890 1080 Weight 95.4 kg - Lab Result Diagrams: 10/14/20 04:43 10/14/20 04:43 Lab Results-Last 24 Hrs: Lab Results-Last 24 Hours 10/13/20 10/13/20 10/13/20 Range/Units 11:11 16:13 20:21 WBC (4.0-10.5) K/mm3 RBC (4.1-5.4) M/mm3 Hgb (12.0-16.0) gm/dl Hct (35-47) % MCV (78-100) fl MCH (26-32) pg MCHC (32-36) g/dl RDW (11.5-14.0) % Plt Count (150-450) K/mm3 MPV (7.5-11.0) fl Gran % (36.0-66.0) % Eos # (Auto) (0-0.5) Absolute Lymphs (auto) (1.0-4.6) Absolute Monos (auto) (0.0-1.3) Lymphocytes % (24.0-44.0) % Monocytes % (0.0-12.0) % Eosinophils % (0.00-5.0) % Basophils % (0.0-0.4) % Absolute Granulocytes (1.4-6.9) Basophils # (0-0.4) Sodium (137-145) mmol/L Potassium (3.5-5.1) mmol/L Chloride (98-107) mmol/L Carbon Dioxide (22-30) mmol/L Anion Gap (5-15) MEQ/L BUN (7-17) mg/dL Creatinine (0.52-1.04) mg/dL Estimated GFR ML/MIN Glucose (74-106) mg/dL POC Glucometer 85 88 97 (74 to 106) mg/dL Calcium (8.4-10.2) mg/dL Total Bilirubin (0.2-1.3) mg/dL AST (14-36) U/L ALT (0-35) U/L Alkaline Phosphatase (38-126) U/L Serum Total Protein (6.3-8.2) g/dL Albumin (3.5-5.0) g/dL 10/14/20 10/14/20 Range/Units 04:43 04:43 WBC 4.1 (4.0-10.5) K/mm3 RBC 4.26 (4.1-5.4) M/mm3 Hgb 12.2 (12.0-16.0) gm/dl Hct 37.8 (35-47) % MCV 88.7 (78-100) fl MCH 28.6 (26-32) pg MCHC 32.3 (32-36) g/dl RDW 14.9 H (11.5-14.0) % Plt Count 238 (150-450) K/mm3 MPV 10.3 (7.5-11.0) fl Gran % 53.3 (36.0-66.0) % Eos # (Auto) 0.13 (0-0.5) Absolute Lymphs (auto) 1.23 (1.0-4.6) Absolute Monos (auto) 0.55 (0.0-1.3) Lymphocytes % 29.9 (24.0-44.0) % Monocytes % 13.4 H (0.0-12.0) % Eosinophils % 3.2 (0.00-5.0) % Basophils % 0.2 (0.0-0.4) % Absolute Granulocytes 2.19 (1.4-6.9) Basophils # 0.01 (0-0.4) Sodium 137 (137-145) mmol/L Potassium 3.5 (3.5-5.1) mmol/L Chloride 106 (98-107) mmol/L Carbon Dioxide 26 (22-30) mmol/L Anion Gap 8.9 (5-15) MEQ/L BUN 8 (7-17) mg/dL Creatinine 1.03 (0.52-1.04) mg/dL Estimated GFR 58.9 ML/MIN Glucose 114 H (74-106) mg/dL POC Glucometer (74 to 106) mg/dL Calcium 9.5 (8.4-10.2) mg/dL Total Bilirubin 0.20 (0.2-1.3) mg/dL AST 34 (14-36) U/L ALT 27 (0-35) U/L Alkaline Phosphatase 100 (38-126) U/L Serum Total Protein 5.7 L (6.3-8.2) g/dL Albumin 3.4 L (3.5-5.0) g/dL Micro Results-Entire Visit: Accuchecks Date 10/14/20 Date 10/13/20 Date 10/13/20 Date 10/13/20 Date 10/13/20 Time 07:00 Time 22:00 Time 22:00 Time 16:14 Time 11:30 - Radiology Exams Ordered Rad Exams-Entire Visit: Radiology Procedures Category Date Time Status KUB Routine Exams 10/12/20 09:57 Completed - Procedures and Test Procedures and Tests throughout Hospitalization: Therapy Orders & Screens 12/21/20 21:11 Respiratory Therapy Consult ROUTINE Comment: Reason For Exam: 10/10/20 22:11 Respiratory Therapy Assessment DAILY Comment: Diagnosis: Intractable Abdominal Pain, Intestinal Foreign Body, Elevated D-D palmer Discharge Exam General Appearance: no apparent distress, alert Neurologic Exam: alert, oriented x 3, cooperative, normal mood/affect, nml cerebellar function, sensation nml, No motor deficits Respiratory Exam: normal breath sounds, lungs clear, No respiratory distress Cardiovascular Exam: regular rate/rhythm, normal heart sounds Gastrointestinal/Abdomen Exam: soft, tenderness (minimal lower left abdomen), No distention, No mass, No guarding, No rebound, No hepatomegaly, No organomegaly Extremity Exam: normal inspection, normal range of motion Final Diagnosis/Problem List - Final Discharge Diagnosis/Problem (1) Diverticulitis Current Visit: Yes Status: Acute Assessment & Plan: emperically treated, white count normal, afebrile and tolerating po upon discharge Code(s): K57.92 - DVTRCLI OF INTEST, PART UNSP, W/O PERF OR ABSCESS W/O BLEED (2) Abdominal pain Current Visit: Yes Status: Acute Code(s): R10.9 - UNSPECIFIED ABDOMINAL PAIN (3) Foreign body Current Visit: Yes Status: Acute Assessment & Plan: no intervention required, surgery was consulted Code(s): IFR2609 - - Discharge Disposition: Home, Self-Care Condition: Stable Prescriptions: New Metronidazole 500 mg [Flagyl 500 MG] 500 mg PO Q8HT #21 tablet Levofloxacin [Levofloxacin 500 MG Tablet] 500 mg PO DAILY #7 tablet Hydrocodone/APAP 10/325 mg [Cornell 10/325 MG Tablet] 1 tab PO Q4H PRN PRN #30 tablet MDD 5 PRN Reason: Pain Ondansetron ODT 4 MG [Zofran Odt 4 mg] 4 mg PO Q6H PRN PRN #30 tab.rapdis PRN Reason: Nausea Continue Tizanidine HCl 4 mg [Zanaflex 4 MG] 12 mg PO HS Simvastatin 20Mg [Zocor 20Mg] 40 mg PO HS Semaglutide [Ozempic] 0.5 mg SQ WEEKLY Memantine HCl [Memantine HCl ER] 28 mg PO HS Lisinopril 10 mg [Zestril 10 MG] 5 mg PO DAILY Levothyroxine Sodium [Tirosint-Kymberly] 112 mcg PO DAILY Fluticasone/Vilanterol [Breo Ellipta 200-25 Mcg INH] 1 puff IH DAILY Donepezil HCl 10 mg [Aricept 10 MG] 10 mg PO HS Dexlansoprazole [Dexilant] 60 mg PO HS Non-Formulary Drug [Non-Formulary Item] 99 mg PO DAILY Instructions: Colitis Follow up with: FEMI NEGRON [Primary Care Provider] - 1 Week
[2020-10-14] MEDS ORDERED: ZOFRAN ODT 4 MG PO PRN (10:52)
== END 2020-10-14 11:33 | disposition home or self-care (01) ==
LOC: ED 13:19 → MED SURG 21:04
PROVIDERS: ADMIT Family Medicine; ATTEND Family Medicine
DX: K57.92 Diverticulitis of intestine, part unspecified, without perforation or abscess without bleeding (principal); R07.9 Chest pain, unspecified; Z79.899 Other long term (current) drug therapy; F32.9 Major depressive disorder, single episode, unspecified; R79.1 Abnormal coagulation profile; T18.3XXA Foreign body in small intestine, initial encounter; R31.9 Hematuria, unspecified; R19.7 Diarrhea, unspecified; J44.9 Chronic obstructive pulmonary disease, unspecified; E11.9 Type 2 diabetes mellitus without complications; I10 Essential (primary) hypertension; E03.9 Hypothyroidism, unspecified; E78.5 Hyperlipidemia, unspecified
CPT/HCPCS: 36000; 36415; 71045; 71260; 74018; 74177; 80053; 81001; 82947; 83036; 83735; 83880; 84484; 84703; 85025; 85379; 93005; 93041; 93268; 94640; 94760; 96372; 96374; 99284; G0378; J1650; J1956; J2270; J2405; Q0162; A9270-GY

== ENCOUNTER 2021-03-14 14:26 | Emergency (ER) | payer OTHER ==
--- NOTE | 2021-03-14 14:30 | ERPHSYRPT ---
- History of Present Illness Time Seen by Provider: 03/14/21 14:30 Historian: patient Exam Limitations: no limitations Physician History: This is a 55-year-old white female who has a known "spot" on her pancreas and presents with intermittent periumbilical abdominal pain without radiation described as a ache and associated intermittent vomiting episodes. Her symptoms have worsened in the last 4 days and she states she cannot hold anything down. She has had no diarrhea. She denies chest pain. She denies shortness of breath. Her primary care physician is in [facility]. Patient denies fevers and chills. She has a history of hypothyroidism, hypertension and Alzheimer's dementia. Timing/Duration: intermittent, other (Over 2 months) Quality: aching Abdominal Pain Onset Location: periumbilical Pain Radiation: no radiation Severity of Pain-Max: moderate Severity of Pain-Current: moderate Modifying Factors: Improves With: vomiting Associated Symptoms: nausea, vomiting, No chest pain, No diarrhea, No fever/chills, No shortness of breath Previous symptoms: same symptoms as today Allergies/Adverse Reactions: aripiprazole [From Abilify] Allergy (Verified 03/14/21 14:40) clarithromycin [From Biaxin] Allergy (Verified 03/14/21 14:40) prednisone Allergy (Verified 03/14/21 14:40) Sulfa (Sulfonamide Antibiotics) Allergy (Verified 03/14/21 14:40) zolpidem [From Ambien] Allergy (Verified 03/14/21 14:40) Home Medications: Dexlansoprazole [Dexilant] 60 mg PO HS 10/10/20 [History] Donepezil HCl 10 mg [Aricept 10 MG] 10 mg PO HS 10/10/20 [History] Fluticasone/Vilanterol [Breo Ellipta 200-25 Mcg INH] 1 puff IH DAILY 10/10/20 [History] Levothyroxine Sodium [Tirosint-Kymberly] 112 mcg PO DAILY 10/10/20 [History] Lisinopril 10 mg [Zestril 10 MG] 5 mg PO DAILY 10/10/20 [History] Memantine HCl [Memantine HCl ER] 28 mg PO HS 10/10/20 [History] Non-Formulary Drug [Non-Formulary Item] 99 mg PO DAILY 10/10/20 [History] Semaglutide [Ozempic] 0.5 mg SQ WEEKLY 10/10/20 [History] Simvastatin 20Mg [Zocor 20Mg] 40 mg PO HS 10/10/20 [History] Tizanidine HCl 4 mg [Zanaflex 4 MG] 12 mg PO HS 10/10/20 [History] Hx Influenza Vaccination/Date Given: Yes Hx Pneumococcal Vaccination/Date Given: No - Past Medical History Pertinent Past Medical History: Yes Neurological History: Alzheimer's Disease ENT History: No Pertinent History Cardiac History: Hypertension, Other Respiratory History: Asthma, COPD Endocrine Medical History: Diabetes Type II Musculoskeletal History: No Pertinent History GI Medical History: No Pertinent History History: No Pertinent History Psycho-Social History: Bipolar, Depression Female Reproductive Disorders: No Pertinent History Other Medical History: pt states early onset Alzheimers. mitral valve prolapse - Past Surgical History Past Surgical History: Yes Neuro Surgical History: No Pertinent History Cardiac: No Pertinent History Respiratory: No Pertinent History Gastrointestinal: Cholecystectomy Genitourinary: No Pertinent History Musculoskeletal: Other Female Surgical History: Hysterectomy Other Surgical History: Lump removed from right breast. Tendon surgery right wrist. Exploratory surgery through belly button. Thyroid removed - Social History Smoking Status: Former smoker Exposure to second hand smoke: No Drug Use: marijuana Patient Lives Alone: No - Nursing Vital Signs Nursing Vital Signs: Initial Vital Signs Temperature 97.8 F 03/14/21 14:40 Pulse Rate 76 03/14/21 14:40 Respiratory Rate 18 03/14/21 14:40 Blood Pressure 158/102 03/14/21 14:40 O2 Sat by Pulse Oximetry 99 03/14/21 14:40 Pain Scale Pain Intensity 7 Ordered Tests: Active Orders 24 hr Category Date Time Status IV Insertion STAT Care 03/14/21 14:43 Active Oxygen-ED Only Nasal Cannula 2 lpm Care 03/14/21 16:11 Active ABDOMEN AND PELVIS W/0 CONTRAS [CT] Stat Exams 03/14/21 14:44 Completed AMYLASE Stat Lab 03/14/21 14:50 Completed CBC W DIFF Stat Lab 03/14/21 14:50 Completed CMP Stat Lab 03/14/21 14:50 Completed LIPASE Stat Lab 03/14/21 14:50 Completed Lactic Acid Stat Lab 03/14/21 14:55 Completed Lactic Acid Stat Lab 03/14/21 16:59 Completed UA W/RFX UR CULTURE Stat Lab 03/14/21 14:46 Completed Medication Summary Discontinued Medications Generic Name Dose Route Start Last Admin Trade Name Abigail PRN Reason Stop Dose Admin Hydromorphone HCl 1 mg 03/14/21 14:43 03/14/21 14:50 Hydromorphone 1 Mg/Ml Injection IV 03/14/21 14:44 1 mg STAT ONE Administration Hydromorphone HCl Confirm 03/14/21 14:47 Hydromorphone 1 Mg/Ml Injection Administered 03/14/21 14:48 Dose 1 mg .ROUTE .STK-MED ONE Hydromorphone HCl 0.5 mg 03/14/21 16:54 03/14/21 16:59 Hydromorphone 1 Mg/Ml Injection IV 03/14/21 16:55 0.5 mg STAT ONE Administration Hydromorphone HCl Confirm 03/14/21 16:56 Hydromorphone 1 Mg/Ml Injection Administered 03/14/21 16:57 Dose 1 mg .ROUTE .STK-MED ONE Sodium Chloride 1,000 mls @ 999 mls/hr 03/14/21 14:43 03/14/21 16:14 Sodium Chloride 0.9% 1000 Ml IV 03/14/21 15:43 Infused .Q1H1M STA Infusion Sodium Chloride Confirm 03/14/21 14:47 Sodium Chloride 0.9% 1000 Ml Administered 03/14/21 14:48 Dose 1,000 mls @ ud .ROUTE .STK-MED ONE Sodium Chloride 500 mls @ 500 mls/hr 03/14/21 16:47 03/14/21 16:59 Sodium Chloride 0.9% 500 Ml IV 03/14/21 17:46 500 mls/hr .Q1H ONE Administration Sodium Chloride Confirm 03/14/21 16:56 Sodium Chloride 0.9% 500 Ml Administered 03/14/21 16:57 Dose 500 mls @ ud IV .STK-MED ONE Ondansetron HCl 4 mg 03/14/21 14:43 03/14/21 14:50 Zofran 4 Mg/2 Ml Vial IV 03/14/21 14:44 4 mg STAT ONE Administration Ondansetron HCl Confirm 03/14/21 14:47 Zofran 4 Mg/2 Ml Vial Administered 03/14/21 14:48 Dose 4 mg .ROUTE .[facility] ONE Pantoprazole Sodium 40 mg 03/14/21 16:54 03/14/21 16:59 Protonix 40 Mg Iv IV 03/14/21 16:55 40 mg STAT ONE Administration Pantoprazole Sodium Confirm 03/14/21 16:55 Protonix 40 Mg Iv Administered 03/14/21 16:56 Dose 40 mg IV .[facility] ONE Lab/Rad Data: Laboratory Result Diagrams 03/14/21 14:50 03/14/21 14:50 Laboratory Results 03/14/21 03/14/21 03/14/21 Range/Units 16:59 14:55 14:50 WBC (4.0-10.5) K/mm3 RBC (4.1-5.4) M/mm3 Hgb (12.0-16.0) gm/dl Hct (35-47) % MCV (78-100) fl MCH (26-32) pg MCHC (32-36) g/dl RDW (11.5-14.0) % Plt Count (150-450) K/mm3 MPV (7.5-11.0) fl Gran % (36.0-66.0) % Eos # (Auto) (0-0.5) Absolute Lymphs (auto) (1.0-4.6) Absolute Monos (auto) (0.0-1.3) Lymphocytes % (24.0-44.0) % Monocytes % (0.0-12.0) % Eosinophils % (0.00-5.0) % Basophils % (0.0-0.4) % Absolute Granulocytes (1.4-6.9) Basophils # (0-0.4) Sodium 138 (137-145) mmol/L Potassium 3.3 L (3.5-5.1) mmol/L Chloride 102 (98-107) mmol/L Carbon Dioxide 21 L (22-30) mmol/L Anion Gap 17.3 H (5-15) MEQ/L BUN 9 (7-17) mg/dL Creatinine 0.97 (0.52-1.04) mg/dL Estimated GFR > 60.0 ML/MIN Glucose 113 H (74-106) mg/dL Lactic Acid 0.9 3.1 H (0.4-2.0) Calcium 10.3 H (8.4-10.2) mg/dL Total Bilirubin 0.80 (0.2-1.3) mg/dL AST 34 (14-36) U/L ALT 24 (0-35) U/L Alkaline Phosphatase 111 (38-126) U/L Serum Total Protein 7.3 (6.3-8.2) g/dL Albumin 4.7 (3.5-5.0) g/dL Amylase 66 (30-110) U/L Lipase 153 (23-300) U/L Urine Color (YELLOW) Urine Appearance (CLEAR) Urine pH (5-6) Ur Specific Cooter (1.005-1.025) Urine Protein (Negative) Urine Ketones (NEGATIVE) Urine Blood (0-5) Oliver/ul Urine Nitrite (NEGATIVE) Urine Bilirubin (NEGATIVE) Urine Urobilinogen (0-1) mg/dL Ur Leukocyte Esterase (NEGATIVE) Urine WBC (Auto) (0-5) /HPF Urine RBC (Auto) (0-2) /HPF U Epithel Cells (Auto) (FEW) /HPF Urine Bacteria (Auto) (NEGATIVE) /HPF Urine Mucus (Auto) (NEGATIVE) /HPF Urine Culture Reflexed (NO) Urine Glucose (NEGATIVE) mg/dL 03/14/21 03/14/21 Range/Units 14:50 14:46 WBC 7.9 (4.0-10.5) K/mm3 RBC 5.79 H (4.1-5.4) M/mm3 Hgb 16.8 H (12.0-16.0) gm/dl Hct 49.3 H (35-47) % MCV 85.1 (78-100) fl MCH 29.0 (26-32) pg MCHC 34.1 (32-36) g/dl RDW 12.6 (11.5-14.0) % Plt Count 287 (150-450) K/mm3 MPV 11.8 H (7.5-11.0) fl Gran % 62.8 (36.0-66.0) % Eos # (Auto) 0.08 (0-0.5) Absolute Lymphs (auto) 2.02 (1.0-4.6) Absolute Monos (auto) 0.81 (0.0-1.3) Lymphocytes % 25.6 (24.0-44.0) % Monocytes % 10.3 (0.0-12.0) % Eosinophils % 1.0 (0.00-5.0) % Basophils % 0.3 (0.0-0.4) % Absolute Granulocytes 4.97 (1.4-6.9) Basophils # 0.02 (0-0.4) Sodium (137-145) mmol/L Potassium (3.5-5.1) mmol/L Chloride (98-107) mmol/L Carbon Dioxide (22-30) mmol/L Anion Gap (5-15) MEQ/L BUN (7-17) mg/dL Creatinine (0.52-1.04) mg/dL Estimated GFR ML/MIN Glucose (74-106) mg/dL Lactic Acid (0.4-2.0) Calcium (8.4-10.2) mg/dL Total Bilirubin (0.2-1.3) mg/dL AST (14-36) U/L ALT (0-35) U/L Alkaline Phosphatase (38-126) U/L Serum Total Protein (6.3-8.2) g/dL Albumin (3.5-5.0) g/dL Amylase (30-110) U/L Lipase (23-300) U/L Urine Color YELLOW (YELLOW) Urine Appearance CLEAR (CLEAR) Urine pH 5.0 (5-6) Ur Specific Cooter 1.018 (1.005-1.025) Urine Protein NEGATIVE (Negative) Urine Ketones NEGATIVE (NEGATIVE) Urine Blood SMALL (0-5) Oliver/ul Urine Nitrite NEGATIVE (NEGATIVE) Urine Bilirubin NEGATIVE (NEGATIVE) Urine Urobilinogen NEGATIVE (0-1) mg/dL Ur Leukocyte Esterase NEGATIVE (NEGATIVE) Urine WBC (Auto) 3-5 (0-5) /HPF Urine RBC (Auto) 0-2 (0-2) /HPF U Epithel Cells (Auto) NONE (FEW) /HPF Urine Bacteria (Auto) NONE (NEGATIVE) /HPF Urine Mucus (Auto) MANY (NEGATIVE) /HPF Urine Culture Reflexed NO (NO) Urine Glucose NEGATIVE (NEGATIVE) mg/dL - Progress Progress: improved Progress Note: 03/14/21 18:05 CAT scan of the abdomen and pelvis shows no acute obstruction of stomach or bowels although there is evidence of fluid within the stomach. ? gastritis Counseled pt/family regarding: lab results, diagnosis, need for follow-up - Departure Departure Disposition: Home Clinical Impression: Vomiting, Abdominal pain Condition: Stable Critical Care Time: No Referrals: FEMI NEGRON [Primary Care Provider] - Additional Instructions: Take all your medication as prescribed. Follow-up with your prescribing physician tomorrow morning for further management. Avoid fatty greasy spicy foods. Drink plenty of fluids. Prescriptions: Ondansetron ODT 4 MG [Zofran Odt 4 mg] 4 mg PO Q6H PRN PRN #10 tab.rapdis PRN Reason: Vomiting
[2021-03-14] MEDS ORDERED: Zofran 4 MG/2 ML VIAL IV ONE (14:43)
[2021-03-14] MEDS ORDERED: Hydromorphone 1 mg/ml Injection IV ONE ×2 (14:43→16:54)
[2021-03-14] MEDS ORDERED: Sodium Chloride 0.9% 1000 ML 1,000 ML IV STA (14:43)
[2021-03-14] MEDS ORDERED: Hydromorphone 1 mg/ml Injection ONE ×2 (14:47→16:56)
[2021-03-14] MEDS ORDERED: Zofran 4 MG/2 ML VIAL ONE (14:47)
[2021-03-14] MEDS ORDERED: Sodium Chloride 0.9% 1000 ML 1,000 ML ONE (14:47)
[2021-03-14 15:05] LABS: Absolute Neutrophil Ct (ANC) 4.97 (1.4-6.9); BASOPHIL % 0.3 % (0.0-0.4); Basophil (Absolute #) 0.02 (0-0.4); Eosinophil (Absolute #) 0.08 (0-0.5); Hematocrit 49.3 % (35-47); Hemoglobin 16.8 gm/dl (12.0-16.0); Lymphocyte (Absolute #) 2.02 (1.0-4.6); Lymphocytes % 25.6 % (24.0-44.0); Mean Cell Volume 85.1 fl (78-100); Mean Corpuscular Hgb Concent. 34.1 g/dl (32-36); Mean Platelet Volume 11.8 fl (7.5-11.0); Monocyte (Absolute #) 0.81 (0.0-1.3); Monocytes % 10.3 % (0.0-12.0); Neutrophil % 62.8 % (36.0-66.0); Platelet Count 287 K/mm3 (150-450); Red Blood Count 5.79 M/mm3 (4.1-5.4); Red Cell Distribution Width 12.6 % (11.5-14.0); White Blood Count 7.9 K/mm3 (4.0-10.5)
[2021-03-14 15:17] LABS: ALBUMIN 4.7 g/dL (3.5-5.0); ALKALINE PHOSPHATASE 111 U/L (38-126); AMYLASE 66 U/L (30-110); ANION GAP 17.3 MEQ/L (5-15); BLOOD UREA NITROGEN 9 mg/dL (7-17); CHLORIDE 102 mmol/L (98-107); Calcium 10.3 mg/dL (8.4-10.2); Carbon Dioxide 21 mmol/L (22-30); Creatinine 1 0.97 mg/dL (0.52-1.04); EST GLOMERULAR FILTRATION RATE > 60.0 ML/MIN; Glucose 113 mg/dL (74-106); LIPASE 153 U/L (23-300); Potassium 3.3 mmol/L (3.5-5.1); SGOT/AST 34 U/L (14-36); SGPT/ALT 24 U/L (0-35); SODIUM 138 mmol/L (137-145); Total Protein 7.3 g/dL (6.3-8.2)
--- NOTE | 2021-03-14 15:24 | XRAY ---
Indication: Abdomen pain, nausea, and vomiting. Multiple contiguous axial images obtained through the abdomen and pelvis without contrast. Comparison: October 10, 2020. Lung bases again demonstrates pulmonary emphysema and minimal right base fibrosis/scarring. No infiltrate or effusion. Heart is not enlarged. Stomach is moderately fluid distended. Noncontrasted stomach and bowel loops are nonobstructed. Normal appendix. Again cholecystectomy and hysterectomy. No free fluid/air. Remaining liver, pancreas, spleen, adrenal glands, kidneys, ureters, and bladder are unremarkable for noncontrast exam. Mild aortoiliac calcifications without AAA. Osseous structures intact. Impression: 1. New moderate fluid distended stomach either recent ingestion of fluid versus hypersecretory process such as gastritis. 2. Again incidental pulmonary emphysema. 3. Remaining CT abdomen/pelvis without contrast exam is negative.
[2021-03-14] MEDS ORDERED: Sodium Chloride 0.9% 500 ML 500 ML IV ONE ×2 (16:47→16:56)
[2021-03-14] MEDS ORDERED: PROTONIX 40 MG IV IV ONE ×2 (16:54→16:55)
[2021-03-14 17:38] LABS: Appearance CLEAR (CLEAR); Bilirubin NEGATIVE (NEGATIVE); Blood SMALL Ery/ul (0-5); Glucose NEGATIVE (NEGATIVE); Ketones NEGATIVE (NEGATIVE); Leukocyte Esterase NEGATIVE (NEGATIVE); Mucus MANY /HPF (NEGATIVE); Nitrite NEGATIVE (NEGATIVE); Protein,Urine Dip NEGATIVE (Negative); RBC 0-2 /HPF (0-2); Specific Gravity 1.018 (1.005-1.025); Urobilinogen NEGATIVE mg/dL (0-1)
[2021-03-14 18:03] VITALS: BP 155/95; PULSE 58; O2SAT 93
== END 2021-03-14 18:14 | disposition home or self-care (01) ==
LOC: ED 14:26
DX: R11.10 Vomiting, unspecified (principal); R10.9 Unspecified abdominal pain
CPT/HCPCS: 36000; 36415; 74176; 80053; 81001; 82150; 83605; 83690; 85025; 96360; 96374; 96375; 96376; 99284; J1170; J2405

== ENCOUNTER 2021-03-27 14:46 | Emergency (ER) | payer OTHER ==
[2021-03-27] MEDS ORDERED: Sodium Chloride 0.9% 1000 ML 1,000 ML IV STA (15:52)
[2021-03-27] MEDS ORDERED: Sodium Chloride 0.9% 1000 ML 1,000 ML ONE (15:53)
[2021-03-27] MEDS ORDERED: Zofran 4 MG/2 ML VIAL ONE (15:53)
[2021-03-27] MEDS ORDERED: Zofran 4 MG/2 ML VIAL IV ONE (15:53)
[2021-03-27 16:00] LABS: Absolute Neutrophil Ct (ANC) 8.37 (1.4-6.9); BASOPHIL % 0.2 % (0.0-0.4); Basophil (Absolute #) 0.03 (0-0.4); Eosinophil % 0.2 % (0.00-5.0); Eosinophil (Absolute #) 0.03 (0-0.5); Hematocrit 51.7 % (35-47); Hemoglobin 18.6 gm/dl (12.0-16.0); Lymphocyte (Absolute #) 2.74 (1.0-4.6); Lymphocytes % 22.6 % (24.0-44.0); Mean Cell Volume 81.3 fl (78-100); Mean Corpuscular Hemoglobin 29.2 pg (26-32); Mean Platelet Volume 11.8 fl (7.5-11.0); Monocyte (Absolute #) 0.98 (0.0-1.3); Monocytes % 8.1 % (0.0-12.0); Neutrophil % 68.9 % (36.0-66.0); Platelet Count 345 K/mm3 (150-450); Red Blood Count 6.36 M/mm3 (4.1-5.4); Red Cell Distribution Width 13.2 % (11.5-14.0); White Blood Count 12.2 K/mm3 (4.0-10.5)
[2021-03-27] MEDS ORDERED: Hydromorphone 1 mg/ml Injection IV ONE (16:32)
[2021-03-27] MEDS ORDERED: Hydromorphone 1 mg/ml Injection ONE (16:51)
[2021-03-27 17:08] LABS: ALBUMIN 4.2 g/dL (3.5-5.0); ANION GAP 15.5 MEQ/L (5-15); BILIRUBIN,TOTAL 0.7 mg/dL (0.2-1.3); Calcium 9.6 mg/dL (8.4-10.2); Creatinine 1 1.04 mg/dL (0.52-1.04); EST GLOMERULAR FILTRATION RATE 58.3 ML/MIN; Total Protein 6.6 g/dL (6.3-8.2)
[2021-03-27 17:16] LABS: Potassium 2.6 mmol/L (3.5-5.1)
[2021-03-27 17:49] LABS: Appearance CLEAR (CLEAR); Bilirubin NEGATIVE (NEGATIVE); Blood SMALL Ery/ul (0-5); Epithelial Cells RARE /HPF (FEW); Glucose NEGATIVE (NEGATIVE); Hyaline Casts 26-50 /LPF (0-2); Ketones NEGATIVE (NEGATIVE); Leukocyte Esterase NEGATIVE (NEGATIVE); Mucus MANY /HPF (NEGATIVE); Nitrite NEGATIVE (NEGATIVE); Protein,Urine Dip NEGATIVE (Negative); Specific Gravity 1.016 (1.005-1.025); Urobilinogen NEGATIVE mg/dL (0-1); WBC 0-2 /HPF (0-5)
--- NOTE | 2021-03-27 18:52 | ERPHSYRPT ---
- History of Present Illness Historian: patient Exam Limitations: no limitations Patient Subjective Stated Complaint: " I have had abdominal pain for a month and last night it got a lot worse and hasn't stopped. I have threw up 5 times." Triage Nursing Assessment: Pt presents to ER with complaints of upper middle epigastric and abdominal pains. Pt rates pain 8 on 10 scale and states it has been sharp and stabbing in nature, constant since last night. She states pains h ave been coming and going for a month but haven't stopped since last night. Pt states she has vomited 5 times, denies diarrhea. Abd is soft but tender upon exam. Pt states feels short of breath, respirations are slightly labored, lungs clear. Active bowel sounds. Unsteady weak gait noted. Pt appears in pain. Skin pink, warm, and dry. Physician History: 55 yo wf w epigastric pain x2 months. Pt under care of her GI physician for this pain. Pain is rated 8/10. stabbing, and nothing makes better or worse. She has chronic nausea/vomiting wo diarrhea/melena/hematochezia/fever/dysuria/hematuria. Timing/Duration: other (2 months) Quality: stabbing Abdominal Pain Onset Location: epigastric Pain Radiation: no radiation Modifying Factors: Improves With: nothing Associated Symptoms: nausea, vomiting, No back, No chest pain, No diaphoresis, No diarrhea, No fever/chills, No fatigue, No headache, No heartburn, No loss of appetite, No neck pain, No rash, No shortness of breath, No syncope, No weakness Previous symptoms: same symptoms as today, recently seen, recently treated Allergies/Adverse Reactions: aripiprazole [From Abilify] Allergy (Verified 03/27/21 15:19) clarithromycin [From Biaxin] Allergy (Verified 03/27/21 15:19) prednisone Allergy (Verified 03/27/21 15:19) Sulfa (Sulfonamide Antibiotics) Allergy (Verified 03/27/21 15:19) zolpidem [From Ambien] Allergy (Verified 03/27/21 15:19) Home Medications: Dexlansoprazole [Dexilant] 60 mg PO HS 10/10/20 [History] Donepezil HCl 10 mg [Aricept 10 MG] 10 mg PO HS 10/10/20 [History] Fluticasone/Vilanterol [Breo Ellipta 200-25 Mcg INH] 1 puff IH DAILY 10/10/20 [History] Levothyroxine Sodium [Tirosint-Kymberly] 112 mcg PO DAILY 10/10/20 [History] Lisinopril 10 mg [Zestril 10 MG] 5 mg PO DAILY 10/10/20 [History] Memantine HCl [Memantine HCl ER] 28 mg PO HS 10/10/20 [History] Non-Formulary Drug [Non-Formulary Item] 99 mg PO DAILY 10/10/20 [History] Semaglutide [Ozempic] 0.5 mg SQ WEEKLY 10/10/20 [History] Simvastatin 20Mg [Zocor 20Mg] 40 mg PO HS 10/10/20 [History] Tizanidine HCl 4 mg [Zanaflex 4 MG] 12 mg PO HS 10/10/20 [History] Hx Tetanus, Diphtheria Vaccination/Date Given: Yes Hx Influenza Vaccination/Date Given: Yes Hx Pneumococcal Vaccination/Date Given: No Immunizations Up to Date: Yes Travel Risk - International Travel Have you traveled outside of the country in past 3 weeks: No - Coronavirus Screening Are you exhibiting any of the following symptoms?: No - Vaccine Status Have you recieved a Covid-19 vaccination: No - Review of Systems Constitutional: No Symptoms Eyes: No Symptoms Ears, Nose, & Throat: No Symptoms Respiratory: No Symptoms Cardiac: No Symptoms, Orthopnea Abdominal/Gastrointestinal: Abdominal Pain, Nausea, Vomiting Genitourinary Symptoms: No Symptoms Musculoskeletal: No Symptoms Skin: No Symptoms Neurological: No Symptoms Psychological: No Symptoms Endocrine: No Symptoms Hematologic/Lymphatic: No Symptoms Immunological/Allergic: No Symptoms - Past Medical History Pertinent Past Medical History: Yes Neurological History: Alzheimer's Disease ENT History: No Pertinent History Cardiac History: Hypertension, Other Respiratory History: Asthma, COPD Endocrine Medical History: Diabetes Type II Musculoskeletal History: No Pertinent History GI Medical History: No Pertinent History History: No Pertinent History Psycho-Social History: Bipolar, Depression Female Reproductive Disorders: No Pertinent History Other Medical History: pt states early onset Alzheimers. mitral valve prolapse - Past Surgical History Past Surgical History: Yes Neuro Surgical History: No Pertinent History Cardiac: No Pertinent History Respiratory: No Pertinent History Gastrointestinal: Cholecystectomy Genitourinary: No Pertinent History Musculoskeletal: Other Female Surgical History: Hysterectomy Other Surgical History: Lump removed from right breast. Tendon surgery right wrist. Exploratory surgery through belly button. Thyroid removed - Social History Smoking Status: Never smoker Exposure to second hand smoke: No Drug Use: none Patient Lives Alone: No Significant Family History: no pertinent family hx - Female History Hx Last Menstrual Period: 2009 Hx Now: No - Nursing Vital Signs Nursing Vital Signs: Initial Vital Signs Temperature 97.5 F 03/27/21 15:10 Pulse Rate 116 H 03/27/21 15:10 Respiratory Rate 18 03/27/21 15:10 Blood Pressure 136/100 03/27/21 15:10 Pain Scale Pain Intensity 4 - Physical Exam General Appearance: no apparent distress Eye Exam: PERRL/EOMI, eyes nml inspection Ears, Nose, Throat Exam: normal ENT inspection, TMs normal, pharynx normal, moist mucous membranes Neck Exam: normal inspection, non-tender, supple, full range of motion, No meningismus, No mass, No Brudzinski, No Kernig's, No carotid bruit Respiratory Exam: normal breath sounds, lungs clear, airway intact, No respiratory distress Cardiovascular Exam: regular rate/rhythm, normal heart sounds, normal peripheral pulses, No murmur Gastrointestinal/Abdomen Exam: soft, normal bowel sounds, tenderness (Mild-mod epigastric TTP wo guarding or murmur) Pelvic Exam: not done Back Exam: normal inspection, normal range of motion, No CVA tenderness Extremity Exam: normal inspection, normal range of motion Neurologic Exam: alert, oriented x 3, cooperative, damage prevention coordinator II-XII nml as tested, normal mood/affect, nml station & gait, sensation nml Skin Exam: normal color, warm, dry Lymphatic Exam: adenopathy - Course Nursing assessment & vital signs reviewed: Yes EKG Interpreted by Me: RATE (NSR/R81/PVC/Prolonged QT-QTc/Nonspecific ST abnormality) - CT Exams Abdomen/Pelvis CT Interpretation: Discussed w/radiologist (Fluid filled stomach/Nothing acute) Ordered Tests: Active Orders 24 hr Category Date Time Status EKG-ER Only STAT Care 03/27/21 15:29 Completed IV Insertion STAT Care 03/27/21 15:29 Completed ABDOMEN AND PELVIS W CONTRAST [CT] Stat Exams 03/27/21 18:05 Taken AMYLASE Stat Lab 03/27/21 15:50 Completed CBC W DIFF Stat Lab 03/27/21 15:50 Completed CMP Stat Lab 03/27/21 15:50 Completed LIPASE Stat Lab 03/27/21 15:50 Completed TROPONIN Q3H Lab 03/27/21 15:50 Completed TROPONIN Q3H Lab 03/27/21 18:31 Completed UA W/RFX UR CULTURE Stat Lab 03/27/21 15:55 Completed Medication Summary Discontinued Medications Generic Name Dose Route Start Last Admin Trade Name Abigail PRN Reason Stop Dose Admin Hydromorphone HCl 1 mg 03/27/21 16:32 03/27/21 16:51 Hydromorphone 1 Mg/Ml Injection IV 03/27/21 16:33 1 mg STAT ONE Administration Hydromorphone HCl Confirm 03/27/21 16:51 Hydromorphone 1 Mg/Ml Injection Administered 03/27/21 16:52 Dose 1 mg .ROUTE .STK-MED ONE Sodium Chloride 1,000 mls @ 999 mls/hr 03/27/21 15:52 03/27/21 17:02 Sodium Chloride 0.9% 1000 Ml IV 03/27/21 16:52 Infused .Q1H1M STA Infusion Sodium Chloride Confirm 03/27/21 15:53 Sodium Chloride 0.9% 1000 Ml Administered 03/27/21 15:54 Dose 1,000 mls @ ud .ROUTE .STK-MED ONE Ondansetron HCl 4 mg 03/27/21 15:53 03/27/21 15:54 Zofran 4 Mg/2 Ml Vial IV 03/27/21 15:54 4 mg STAT ONE Administration Ondansetron HCl Confirm 03/27/21 15:53 Zofran 4 Mg/2 Ml Vial Administered 03/27/21 15:54 Dose 4 mg .ROUTE .STK-MED ONE Lab/Rad Data: Laboratory Result Diagrams 03/27/21 15:50 03/27/21 15:50 Laboratory Results 03/27/21 03/27/21 03/27/21 Range/Units 18:31 15:55 15:50 WBC (4.0-10.5) K/mm3 RBC (4.1-5.4) M/mm3 Hgb (12.0-16.0) gm/dl Hct (35-47) % MCV (78-100) fl MCH (26-32) pg MCHC (32-36) g/dl RDW (11.5-14.0) % Plt Count (150-450) K/mm3 MPV (7.5-11.0) fl Gran % (36.0-66.0) % Eos # (Auto) (0-0.5) Absolute Lymphs (auto) (1.0-4.6) Absolute Monos (auto) (0.0-1.3) Lymphocytes % (24.0-44.0) % Monocytes % (0.0-12.0) % Eosinophils % (0.00-5.0) % Basophils % (0.0-0.4) % Absolute Granulocytes (1.4-6.9) Basophils # (0-0.4) Sodium (137-145) mmol/L Potassium (3.5-5.1) mmol/L Chloride (98-107) mmol/L Carbon Dioxide (22-30) mmol/L Anion Gap (5-15) MEQ/L BUN (7-17) mg/dL Creatinine (0.52-1.04) mg/dL Estimated GFR ML/MIN Glucose (74-106) mg/dL Calcium (8.4-10.2) mg/dL Total Bilirubin (0.2-1.3) mg/dL AST (14-36) U/L ALT (0-35) U/L Alkaline Phosphatase (38-126) U/L Troponin I < 0.012 < 0.012 (0.000-0.034) ng/mL Serum Total Protein (6.3-8.2) g/dL Albumin (3.5-5.0) g/dL Amylase (30-110) U/L Lipase (23-300) U/L Urine Color YELLOW (YELLOW) Urine Appearance CLEAR (CLEAR) Urine pH 7.0 (5-6) Ur Specific [place] 1.016 (1.005-1.025) Urine Protein NEGATIVE (Negative) Urine Ketones NEGATIVE (NEGATIVE) Urine Blood SMALL (0-5) Oliver/ul Urine Nitrite NEGATIVE (NEGATIVE) Urine Bilirubin NEGATIVE (NEGATIVE) Urine Urobilinogen NEGATIVE (0-1) mg/dL Ur Leukocyte Esterase NEGATIVE (NEGATIVE) Urine WBC (Auto) 0-2 (0-5) /HPF Urine RBC (Auto) 3-5 (0-2) /HPF U Hyaline Cast (Auto) 26-50 (0-2) /LPF U Epithel Cells (Auto) RARE (FEW) /HPF Urine Bacteria (Auto) NONE (NEGATIVE) /HPF Urine Mucus (Auto) MANY (NEGATIVE) /HPF Urine Culture Reflexed NO (NO) Urine Glucose NEGATIVE (NEGATIVE) mg/dL 03/27/21 03/27/21 Range/Units 15:50 15:50 WBC 12.2 H (4.0-10.5) K/mm3 RBC 6.36 H* (4.1-5.4) M/mm3 Hgb 18.6 H (12.0-16.0) gm/dl Hct 51.7 H (35-47) % MCV 81.3 (78-100) fl MCH 29.2 (26-32) pg MCHC 36.0 (32-36) g/dl RDW 13.2 (11.5-14.0) % Plt Count 345 (150-450) K/mm3 MPV 11.8 H (7.5-11.0) fl Gran % 68.9 H (36.0-66.0) % Eos # (Auto) 0.03 (0-0.5) Absolute Lymphs (auto) 2.74 (1.0-4.6) Absolute Monos (auto) 0.98 (0.0-1.3) Lymphocytes % 22.6 L (24.0-44.0) % Monocytes % 8.1 (0.0-12.0) % Eosinophils % 0.2 (0.00-5.0) % Basophils % 0.2 (0.0-0.4) % Absolute Granulocytes 8.37 H (1.4-6.9) Basophils # 0.03 (0-0.4) Sodium 140 (137-145) mmol/L Potassium 2.6 L* (3.5-5.1) mmol/L Chloride 102 (98-107) mmol/L Carbon Dioxide 25 (22-30) mmol/L Anion Gap 15.5 H (5-15) MEQ/L BUN 6 L (7-17) mg/dL Creatinine 1.04 (0.52-1.04) mg/dL Estimated GFR 58.3 ML/MIN Glucose 87 (74-106) mg/dL Calcium 9.6 (8.4-10.2) mg/dL Total Bilirubin 0.70 (0.2-1.3) mg/dL AST 25 (14-36) U/L ALT 16 (0-35) U/L Alkaline Phosphatase 119 (38-126) U/L Troponin I (0.000-0.034) ng/mL Serum Total Protein 6.6 (6.3-8.2) g/dL Albumin 4.2 (3.5-5.0) g/dL Amylase 68 (30-110) U/L Lipase 111 (23-300) U/L Urine Color (YELLOW) Urine Appearance (CLEAR) Urine pH (5-6) Ur Specific [place] (1.005-1.025) Urine Protein (Negative) Urine Ketones (NEGATIVE) Urine Blood (0-5) Oliver/ul Urine Nitrite (NEGATIVE) Urine Bilirubin (NEGATIVE) Urine Urobilinogen (0-1) mg/dL Ur Leukocyte Esterase (NEGATIVE) Urine WBC (Auto) (0-5) /HPF Urine RBC (Auto) (0-2) /HPF U Hyaline Cast (Auto) (0-2) /LPF U Epithel Cells (Auto) (FEW) /HPF Urine Bacteria (Auto) (NEGATIVE) /HPF Urine Mucus (Auto) (NEGATIVE) /HPF Urine Culture Reflexed (NO) Urine Glucose (NEGATIVE) mg/dL - Progress Progress: improved Progress Note: 03/27/21 18:56 Pain much improved w 1mg IV dilaudid 03/27/21 22:18 1L NS bolus/4mg IV Zofran Pt started to vomit after IV removed and before discharge. She did not vomit during her entire hospital stay until after she was told that she was being discharged. Pt discharged and advised to f/u w her GI physician who is closely following her for this problem and to take her Zofran at home. She appeared nontoxic and in NAD. 03/27/21 22:21 Counseled pt/family regarding: lab results, diagnosis, need for follow-up, rad results - Departure Departure Disposition: Home Clinical Impression: Abdominal pain, Hypokalemia Condition: Stable Critical Care Time: No Referrals: FEMI NEGRON [Primary Care Provider] - Instructions: Hypokalemia (DC), Acute Abdomen (Belly Pain) Additional Instructions: Follow up with your GI physician in the AM Return to ER for increasing pain or temperature greater than 100.5 Prescriptions: Potassium Chloride 40 meq PO BID #10 [email or web address]
[2021-03-27 18:56] VITALS: BP 135/91; PULSE 85; O2SAT 97
--- NOTE | 2021-03-28 08:39 | XRAY ---
Indication: Abdomen pain and vomiting 2 months. Multiple contiguous images obtained through the abdomen and pelvis using 80 cc Isovue 370 contrast. Comparison: March 14, 2021. Lung bases again demonstrates mild pulmonary emphysema with minimal fibrosis/scarring and tiny right base calcified granuloma. No infiltrate or effusion. Heart not enlarged. Stomach remains moderately fluid distended either from recent ingestion versus hypersecretory process such as gastritis. Noncontrasted bowel loops nonobstructed with normal appendix. No free fluid/air. Again fatty liver, cholecystectomy, and hysterectomy. Remaining liver, pancreas, spleen, adrenal glands, kidneys, ureters, and bladder unremarkable. Mild aortoiliac calcifications without AAA or pathologic retroperitoneal lymphadenopathy. Osseous structures remain intact. Impression: 1. Continued fluid distended stomach either from recent ingestion versus gastritis. 2. Again incidental fatty liver and pulmonary emphysema.
== END 2021-03-27 19:17 | disposition home or self-care (01) ==
LOC: ED 14:46
DX: R10.9 Unspecified abdominal pain (principal); E87.6 Hypokalemia
CPT/HCPCS: 36000; 36415; 74177; 80053; 81001; 82150; 83690; 84484; 85025; 93005; 96360; 96374; 96375; 99284; J1170; J2405

== ENCOUNTER 2021-05-01 23:09 | Emergency (ER) | payer OTHER ==
[2021-05-01] MEDS ORDERED: Sodium Chloride 0.9% 1000 ML 1,000 ML IV STA (23:54)
[2021-05-02] MEDS ORDERED: Sodium Chloride 0.9% 1000 ML 1,000 ML ONE ×2 (00:06→02:57)
[2021-05-02 00:39] LABS: Absolute Neutrophil Ct (ANC) 3.72 (1.4-6.9); BASOPHIL % 0.3 % (0.0-0.4); Basophil (Absolute #) 0.02 (0-0.4); Eosinophil % 2.1 % (0.00-5.0); Eosinophil (Absolute #) 0.13 (0-0.5); Hematocrit 43.4 % (35-47); Hemoglobin 15.1 gm/dl (12.0-16.0); Lymphocyte (Absolute #) 1.72 (1.0-4.6); Lymphocytes % 28.4 % (24.0-44.0); Mean Cell Volume 86.3 fl (78-100); Mean Corpuscular Hgb Concent. 34.8 g/dl (32-36); Mean Platelet Volume 11.4 fl (7.5-11.0); Monocyte (Absolute #) 0.46 (0.0-1.3); Monocytes % 7.6 % (0.0-12.0); Neutrophil % 61.6 % (36.0-66.0); Platelet Count 245 K/mm3 (150-450); Red Blood Count 5.03 M/mm3 (4.1-5.4); Red Cell Distribution Width 13.3 % (11.5-14.0); White Blood Count 6.1 K/mm3 (4.0-10.5)
[2021-05-02 01:02] LABS: ACETAMINOPHEN < 10 ug/ml (10-30); ALBUMIN 3.7 g/dL (3.5-5.0); ALKALINE PHOSPHATASE 75 U/L (38-126); ANION GAP 13.4 MEQ/L (5-15); BLOOD UREA NITROGEN 8 mg/dL (7-17); CHLORIDE 101 mmol/L (98-107); Calcium 9.4 mg/dL (8.4-10.2); Carbon Dioxide 23 mmol/L (22-30); EST GLOMERULAR FILTRATION RATE 49.4 ML/MIN; ETHYL ALCOHOL < 10 mg/dL (0-10); Glucose 114 mg/dL (74-106); SALICYLATE < 1.0 mg/dL (2-20); SGOT/AST 30 U/L (14-36); SGPT/ALT 19 U/L (0-35); SODIUM 135 mmol/L (137-145); Total Protein 5.9 g/dL (6.3-8.2)
--- NOTE | 2021-05-02 01:30 | ERPHSYRPT ---
- History of Present Illness Time Seen by Provider: 05/01/21 23:30 Source: patient Exam Limitations: no limitations Patient Subjective Stated Complaint: pt states she got up to go to the bathroom and passed out. denies hitting her head. c/o pain in rt hip with movement Triage Nursing Assessment: pt wakes to voice, answers questions, alert and adrien ented x3. falls asleep quickly. pt arrive per ambulance on backboard. removed per md order. respirations nonlabored. lungs cta. pupils pinpoint and equal. skin tear x2 noted to rt lower arm with minmal bleeding. rt leg shortened and rotated. tenderness noted to rt hip area with palpation. pedal pulse and cap refill to bilat lower ext wnl. Physician History: Patient is a 55-year-old female presents to our ED via EMS for evaluation of a fall and hip pain. Patient lives with her mother. Mother states that patient tends to sleep walk. It is believed that patient was walking in her sleep and tripped over a fence that was set up by her door to stop the dog from going into her bedroom. Injury occurred prior to arrival. Pain at the right hip described as an ache that is well localized. No radiation. The right lower extremity is shortened and externally rotated. No other injuries reported. No BHT or LOC. Patient ANO x3. No chest pain or shortness of breath. No nausea vomiting or diaphoresis. No fevers. The fall was believed to be mechanical. Patient ot herwise feels well. She voices no other complaints or concerns at this time. Timing/Duration: today Severity: moderate Modifying Factors: Improves With: nothing Associated Symptoms: denies symptoms Allergies/Adverse Reactions: aripiprazole [From Abilify] Allergy (Verified 05/02/21 01:45) clarithromycin [From Biaxin] Allergy (Verified 05/02/21 01:45) prednisone Allergy (Verified 05/02/21 01:45) Sulfa (Sulfonamide Antibiotics) Allergy (Verified 05/02/21 01:45) zolpidem [From Ambien] Allergy (Verified 05/02/21 01:45) Home Medications: Donepezil HCl 10 mg [Aricept 10 MG] 10 mg PO HS 10/10/20 [History] Levothyroxine Sodium [Tirosint-Kymberly] 112 mcg PO DAILY 10/10/20 [History] Lisinopril 10 mg [Zestril 10 MG] 2.5 mg PO DAILY 10/10/20 [History] Memantine HCl [Memantine HCl ER] 28 mg PO HS 10/10/20 [History] Semaglutide [Ozempic] 0.5 mg SQ WEEKLY 10/10/20 [History] Simvastatin 20Mg [Zocor 20Mg] 40 mg PO HS 10/10/20 [History] Tizanidine HCl 4 mg [Zanaflex 4 MG] 12 mg PO HS 10/10/20 [History] Buprenorphine HCl [Belbuca] 300 mcg BC BID 05/02/21 [History] Cariprazine HCl [Vraylar] 1.5 mg PO DAILY 05/02/21 [History] Fluticasone/Umeclidin/Vilanter [Trelegy Ellipta 200-62.5-25] 1 each IH DAILY 05/02/21 [History] Hydrocodone/Acetaminophen [Hydrocodone-Acetamin 7.5-325] 1 each PO Q4-6HPRN PRN 05/02/21 [History] Topiramate 50 mg PO BID 05/02/21 [History] Hx Tetanus, Diphtheria Vaccination/Date Given: Yes Hx Influenza Vaccination/Date Given: Yes Hx Pneumococcal Vaccination/Date Given: No Immunizations Up to Date: Yes Travel Risk - International Travel Have you traveled outside of the country in past 3 weeks: No - Coronavirus Screening Are you exhibiting any of the following symptoms?: No Close contact with a COVID-19 positive Pt in past 14-21 Days: No - Vaccine Status Have you recieved a Covid-19 vaccination: No - Review of Systems Constitutional: No Symptoms, No Fever, No Chills Eyes: No Symptoms Ears, Nose, & Throat: No Symptoms Respiratory: No Symptoms, No Cough, No Dyspnea Cardiac: No Symptoms, No Chest Pain, No Edema, No Syncope Abdominal/Gastrointestinal: No Symptoms, No Abdominal Pain, No Nausea, No Vomiting, No Diarrhea Genitourinary Symptoms: No Symptoms, No Dysuria Musculoskeletal: No Symptoms, No Back Pain, No Neck Pain Skin: No Symptoms, No Rash Neurological: No Symptoms, No Dizziness, No Focal Weakness, No Sensory Changes Psychological: No Symptoms Endocrine: No Symptoms Hematologic/Lymphatic: No Symptoms Immunological/Allergic: No Symptoms All Other Systems: Reviewed and Negative - Past Medical History Pertinent Past Medical History: Yes Neurological History: Alzheimer's Disease ENT History: No Pertinent History Cardiac History: High Cholesterol, Hypertension, Other Respiratory History: Asthma, COPD Endocrine Medical History: Diabetes Type II Musculoskeletal History: No Pertinent History GI Medical History: No Pertinent History History: No Pertinent History Psycho-Social History: Bipolar, Depression Female Reproductive Disorders: No Pertinent History Other Medical History: pt states early onset Alzheimers. mitral valve prolapse - Past Surgical History Past Surgical History: Yes Neuro Surgical History: No Pertinent History Cardiac: No Pertinent History Respiratory: No Pertinent History Gastrointestinal: Cholecystectomy Genitourinary: No Pertinent History Musculoskeletal: Other Female Surgical History: Hysterectomy Other Surgical History: Lump removed from right breast. Tendon surgery right wrist. Exploratory surgery through belly button. Thyroid removed - Social History Smoking Status: Former smoker Exposure to second hand smoke: No Drug Use: none Patient Lives Alone: No Significant Family History: no pertinent family hx - Nursing Vital Signs Nursing Vital Signs: Initial Vital Signs Temperature 97.4 F 05/01/21 23:15 Pulse Rate 50 L 05/01/21 23:15 Respiratory Rate 16 05/01/21 23:15 Blood Pressure 97/64 05/01/21 23:15 O2 Sat by Pulse Oximetry 95 05/01/21 23:15 Pain Scale Pain Intensity 5 - Physical Exam General Appearance: no apparent distress, alert Eye Exam: PERRL/EOMI, eyes nml inspection Ears, Nose, Throat Exam: normal ENT inspection, TMs normal, pharynx normal, moist mucous membranes Neck Exam: normal inspection, non-tender, supple, full range of motion Respiratory Exam: normal breath sounds, lungs clear, No respiratory distress Cardiovascular Exam: regular rate/rhythm, normal heart sounds, normal peripheral pulses Gastrointestinal/Abdomen Exam: soft, normal bowel sounds, No tenderness, No mass Back Exam: normal inspection, normal range of motion, No CVA tenderness, No vertebral tenderness Extremity Exam: normal inspection, pelvis stable, other (Shortened and externally rotated. The extremity is neurovascular intact distally. Compartments are soft. Cap refill less than 2 seconds.) Neurologic Exam: alert, oriented x 3, cooperative, normal mood/affect, sensation nml, No motor deficits Skin Exam: normal color, warm, dry, No rash Lymphatic Exam: No adenopathy SpO2 Interpretation: normal SpO2: 96 O2 Delivery: Room Air - Course Nursing assessment & vital signs reviewed: Yes EKG Interpreted by Me: RATE (48), Sinus Terry, NORMAL AXIS, prolonged QT interval - Radiology Exams Chest X-ray Interpretation: Interpreted by me (The lung maldonado. Normal cardiac silhouette. Osteopenia. Intact bony thorax. No acute cardiopulmonary process. ) Femur X-ray Interpretation: Interpreted by me (Anteriorly displaced subcapital femur fracture.) - CT Exams Head CT Interpretation: Tele-radiologist Report (Intracranial findings. Posterior gl obe calcifications bilaterally. Postsurgical changes of the paranasal sinuses. Bilateral basal ganglia calcifications. Right basal ganglia dilated perivascular space. Mild chronic brain volume loss and chronic small vessel ischemic changes.) Cervical Spine CT Interpretation: Tele-radiologist Report Abdomen/Pelvis CT Interpretation: Tele-radiologist Report (Hepatic steatosis. Mild atherosclerotic changes of the arteries. Moderate right hip lipohemarthrosis. Anteriorly displaced subcapital right femoral neck fracture. Lumbar spine demonstrates mild degenerative changes at multiple levels. Tiny fat-containing umbilical hernia.) Ordered Tests: Active Orders 24 hr Category Date Time Status Motor Winder STAT Care 05/01/21 23:55 Active EKG-ER Only STAT Care 05/01/21 23:54 Active IV Insertion STAT Care 05/01/21 23:54 Active Pulse Oximetry (ED) STAT Care 05/01/21 23:54 Active ABDOMEN AND PELVIS W CONTRAST [CT] Routine Exams 05/02/21 01:42 Taken CERVICAL SPINE WO CONTRAST [CT] Routine Exams 05/02/21 01:18 Taken CHEST 1 VIEW (PORTABLE) Routine Exams 05/02/21 02:13 Taken FEMUR Routine Exams 05/02/21 00:15 Taken HEAD WITHOUT CONTRAST [CT] Routine Exams 05/02/21 01:13 Taken POCT GLUCOSE Stat Lab 05/01/21 23:41 Completed TROPONIN Q3H Lab 05/02/21 02:45 Completed TROPONIN Q3H Lab 05/02/21 05:45 Ordered TROPONIN Q3H Lab 05/02/21 08:45 Ordered TROPONIN Q3H Lab 05/02/21 11:45 Ordered TROPONIN Q3H Lab 05/02/21 14:45 Ordered Urine Triage Profile Stat Lab 05/02/21 02:35 Completed Medication Summary Generic Name Dose Route Start Last Admin Trade Name Freq PRN Reason Stop Dose Admin Potassium Chloride 20 meq in 100 mls @ 50 mls/hr 05/02/21 02:46 05/02/21 02:56 Potassium Chloride 20 Meq In Water 100ml IV 05/02/21 04:45 50 mls/hr STAT ONE Administration Sodium Chloride 1,000 mls @ 999 mls/hr 05/02/21 02:55 05/02/21 03:00 Sodium Chloride 0.9% 1000 Ml IV 05/02/21 03:55 999 mls/hr .Q1H1M STA Administration Discontinued Medications Generic Name Dose Route Start Last Admin Trade Name Abigail PRN Reason Stop Dose Admin Sodium Chloride 1,000 mls @ 999 mls/hr 05/01/21 23:54 05/02/21 03:01 Sodium Chloride 0.9% 1000 Ml IV 05/02/21 00:54 Infused .Q1H1M STA Infusion Sodium Chloride Confirm 05/02/21 00:06 Sodium Chloride 0.9% 1000 Ml Administered 05/02/21 00:07 Dose 1,000 mls @ ud .ROUTE .STK-MED ONE Potassium Chloride Confirm 05/02/21 02:53 Potassium Chloride 20 Meq In Water 100ml Administered 05/02/21 02:54 Dose 100 mls @ ud IV .STK-MED ONE Sodium Chloride Confirm 05/02/21 02:57 Sodium Chloride 0.9% 1000 Ml Administered 05/02/21 02:58 Dose 1,000 mls @ ud .ROUTE .STK-MED ONE Morphine Sulfate 2 mg 05/02/21 03:08 Morphine Sulfate 2 Mg Inj IV 05/02/21 03:09 STAT ONE Morphine Sulfate Confirm 05/02/21 03:09 Morphine Sulfate 2 Mg Inj Administered 05/02/21 03:10 Dose 2 mg .ROUTE .STK-MED ONE Lab/Rad Data: Laboratory Result Diagrams 05/01/21 00:30 05/01/21 00:30 Laboratory Results 05/02/21 05/02/21 05/01/21 Range/Units 02:45 02:35 23:41 WBC (4.0-10.5) K/mm3 RBC (4.1-5.4) M/mm3 Hgb (12.0-16.0) gm/dl Hct (35-47) % MCV (78-100) fl MCH (26-32) pg MCHC (32-36) g/dl RDW (11.5-14.0) % Plt Count (150-450) K/mm3 MPV (7.5-11.0) fl Gran % (36.0-66.0) % Eos # (Auto) (0-0.5) Absolute Lymphs (auto) (1.0-4.6) Absolute Monos (auto) (0.0-1.3) Lymphocytes % (24.0-44.0) % Monocytes % (0.0-12.0) % Eosinophils % (0.00-5.0) % Basophils % (0.0-0.4) % Absolute Granulocytes (1.4-6.9) Basophils # (0-0.4) Sodium (137-145) mmol/L Potassium (3.5-5.1) mmol/L Chloride (98-107) mmol/L Carbon Dioxide (22-30) mmol/L Anion Gap (5-15) MEQ/L BUN (7-17) mg/dL Creatinine (0.52-1.04) mg/dL Estimated GFR ML/MIN Glucose (74-106) mg/dL POC Glucometer 123 H (74 to 106) mg/dL Calcium (8.4-10.2) mg/dL Total Bilirubin (0.2-1.3) mg/dL AST (14-36) U/L ALT (0-35) U/L Alkaline Phosphatase (38-126) U/L Troponin I < 0.012 (0.000-0.034) ng/mL Serum Total Protein (6.3-8.2) g/dL Albumin (3.5-5.0) g/dL Salicylates (2-20) mg/dL Urine Opiates Level NEGATIVE (NEGATIVE) Ur Methadone NEGATIVE (NEGATIVE) Acetaminophen (10-30) ug/ml Urine Barbiturates NEGATIVE (NEGATIVE) Ur Phencyclidine (PCP) NEGATIVE (NEGATIVE) Urine Amphetamine NEGATIVE (NEGATIVE) U Benzodiazepine Level NEGATIVE (NEGATIVE) Urine Cocaine NEGATIVE (NEGATIVE) Urine Marijuana (THC) NEGATIVE (NEGATIVE) Ethyl Alcohol (0-10) mg/dL 05/01/21 05/01/21 Range/Units 00:30 00:30 WBC 6.1 (4.0-10.5) K/mm3 RBC 5.03 (4.1-5.4) M/mm3 Hgb 15.1 (12.0-16.0) gm/dl Hct 43.4 (35-47) % MCV 86.3 (78-100) fl MCH 30.0 (26-32) pg MCHC 34.8 (32-36) g/dl RDW 13.3 (11.5-14.0) % Plt Count 245 (150-450) K/mm3 MPV 11.4 H (7.5-11.0) fl Gran % 61.6 (36.0-66.0) % Eos # (Auto) 0.13 (0-0.5) Absolute Lymphs (auto) 1.72 (1.0-4.6) Absolute Monos (auto) 0.46 (0.0-1.3) Lymphocytes % 28.4 (24.0-44.0) % Monocytes % 7.6 (0.0-12.0) % Eosinophils % 2.1 (0.00-5.0) % Basophils % 0.3 (0.0-0.4) % Absolute Granulocytes 3.72 (1.4-6.9) Basophils # 0.02 (0-0.4) Sodium 135 L (137-145) mmol/L Potassium 3.0 L* (3.5-5.1) mmol/L Chloride 101 (98-107) mmol/L Carbon Dioxide 23 (22-30) mmol/L Anion Gap 13.4 (5-15) MEQ/L BUN 8 (7-17) mg/dL Creatinine 1.20 H (0.52-1.04) mg/dL Estimated GFR 49.4 ML/MIN Glucose 114 H (74-106) mg/dL POC Glucometer (74 to 106) mg/dL Calcium 9.4 (8.4-10.2) mg/dL Total Bilirubin 0.50 (0.2-1.3) mg/dL AST 30 (14-36) U/L ALT 19 (0-35) U/L Alkaline Phosphatase 75 (38-126) U/L Troponin I (0.000-0.034) ng/mL Serum Total Protein 5.9 L (6.3-8.2) g/dL Albumin 3.7 (3.5-5.0) g/dL Salicylates < 1.0 L (2-20) mg/dL Urine Opiates Level (NEGATIVE) Ur Methadone (NEGATIVE) Acetaminophen < 10 L (10-30) ug/ml Urine Barbiturates (NEGATIVE) Ur Phencyclidine (PCP) (NEGATIVE) Urine Amphetamine (NEGATIVE) U Benzodiazepine Level (NEGATIVE) Urine Cocaine (NEGATIVE) Urine Marijuana (THC) (NEGATIVE) Ethyl Alcohol < 10 (0-10) mg/dL - Progress Progress: improved Progress Note: Reassessed. Patient received morphine for pain control. Troponin negative. EKG similar to previous. CT head C-spine abdomen and pelvis negative for acute pathology. Abdomen pelvis incidentally observed a subcapital sure of the right femur. This was confirmed on x-ray. The fracture is anteriorly displaced. The involved extremity is neurovascular intact distally. Case discussed with Dr. Goodson surgeon at [facility] who accepts transfer. Plan of care discussed with patient and patient's mother who is at bedside. They agree to transfer to [facility] for further evaluation and treatment. They voiced no other complaints or concerns at this time. Potassium was slightly decreased at 3.0. Armando infused. Patient is maintained n.p.o. 05/02/21 03:12 Counseled pt/family regarding: lab results, diagnosis, rad results - Departure Departure Disposition: Transfer Clinical Impression: Cervical stenosis of spinal canal, Arthritis of spine, Emphysema lung, Hepatic steatosis, Atherosclerosis, Lipohemarthrosis, Subcapital fracture of right femur, Syncope and collapse, Hypokalemia Condition: Stable Critical Care Time: No Referrals: FEMI NEGRON [Primary Care Provider] - Instructions: Chronic Obstructive Pulmonary Disease
[2021-05-02] MEDS ORDERED: POTASSIUM CHLORIDE 20 mEq IN WATER 100ML 20 MEQ/100 ML BAG IV ONE (02:46)
[2021-05-02] MEDS ORDERED: POTASSIUM CHLORIDE 20 mEq IN WATER 100ML 100 ML IV ONE (02:53)
[2021-05-02] MEDS ORDERED: Sodium Chloride 0.9% 1000 ML 1,000 ML IV STA (02:55)
[2021-05-02 02:57] LABS: Amphetamine,Urine NEGATIVE (NEGATIVE); Barbiturate,Urine NEGATIVE (NEGATIVE); Benzodiazepine,Urine NEGATIVE (NEGATIVE); Cocaine,Urine NEGATIVE (NEGATIVE); Methadone,Urine NEGATIVE (NEGATIVE); Opiate,Urine NEGATIVE (NEGATIVE); PCP,Urine NEGATIVE (NEGATIVE); THC,Urine NEGATIVE (NEGATIVE)
[2021-05-02] MEDS ORDERED: MORPHINE SULFATE 2 MG INJ IV ONE (03:08)
[2021-05-02] MEDS ORDERED: MORPHINE SULFATE 2 MG INJ ONE (03:09)
[2021-05-02 03:17] VITALS: BP 109/61; PULSE 61; O2SAT 94
--- NOTE | 2021-05-02 22:15 | XRAY ---
Exam: AP portable chest film from 05/02/2021. Comparison: AP upright portable chest film from 10/10/2020. Indication: Fall. Findings: The heart size is normal. Vascular calcification is seen within the aortic arch, and there is slight tortuosity of the descending thoracic aorta. Otherwise, the wade and mediastinal structures appear unremarkable. There is average inflation of the lungs. The lung maldonado appear clear. Pulmonary vascularity is normal. No pneumothorax or pleural effusion is seen. Surgical clips consistent with prior cholecystectomy are seen. Impression: 1. No acute cardiopulmonary disease is seen, no change from 10/10/2020.
--- NOTE | 2021-05-02 22:22 | XRAY ---
Exam: 4 views of the right femur from 05/02/2021. Comparison: None. Indication: Patient fell and complains of right hip pain. Findings: 3 frontal views as the patient presented and a crosstable lateral view of the proximal right femur were obtained. There is an acute subcapital fracture of the right hip with moderate lateral displacement and mild posterior displacement of the distal right femoral shaft with respect to the femoral head. The right femoral shaft is also displaced slightly proximally with respect to the right femoral head. The right pubic ring appears intact. No other definite fracture of the right femur is seen. Impression: 1. Acute subcapital displaced fracture of the right hip, as discussed.
--- NOTE | 2021-05-02 22:42 | XRAY ---
Exam: CT of the cervical spine without IV contrast from 05/02/2021. CTDI: 41.95 mGy Comparison: None. Indication: Patient fell. Technique: Non-IV contrast axial images were obtained through the cervical spine. Reconstructed coronal and sagittal images were created and reviewed. Findings: I see no acute cervical spine fracture, AP subluxation, or prevertebral soft tissue swelling. Some degenerative changes seen at the preodontoid space. There is mild narrowing of both the C5-C6 and C6-C7 interspace heights associated with mild/moderate anterior and posterior vertebral endplate spurring indicating degenerative disc disease. The facet joints appear unremarkable. No central canal stenosis is seen. I note moderate degenerative changes of the C5-C6 uncovertebral joints bilaterally, and to a lesser extent, the C6-C7 uncovertebral joints. The C1-C2 relationship appears unremarkable on the coronal images. I believe there is mild narrowing of the C5-C6 neural foramen bilaterally. There is also minimal narrowing of the left C6-C7 neural foramen. The right C6-C7 neural foramen appears open. Some surgical clips are seen within the thyroid bed. Correlate clinically. The visualized lung apices reveal moderate centrilobular emphysematous changes. Some vascular calcification is seen within the large arteries arising from the aortic arch. Impression: 1. No acute cervical spine fracture or AP traumatic subluxation is seen. 2. Mild degenerative changes and neural foraminal narrowing are seen within the lower cervical spine, as discussed above. 3. Moderate centrilobular emphysematous changes within both visualized lung apices.
--- NOTE | 2021-05-02 23:07 | XRAY ---
Exam: CT of the abdomen and pelvis with IV contrast from 05/02/2021. CTDI: 3.28 mGy Comparison: CT of the abdomen and pelvis with IV contrast from 03/27/2021. Indication: 55-year-old female with injury/trauma; right lower quadrant; fall with pain in right hip area. Technique: Post-IV contrast axial images were obtained through the abdomen and pelvis during automated IV injection of Isovue-370 contrast material. Reconstructed coronal and sagittal images were created and reviewed. Findings: The lung bases reveal mild bilateral posterior dependent atelectatic changes. No posterior pleural fluid is seen. Some minimal left coronary vascular calcification is seen. The liver demonstrates diffuse fatty infiltration. No focal hepatic mass or biliary duct distention is seen. Surgical clips consistent with prior cholecystectomy are noted. The spleen is of normal size and reveals no mass. No abnormality of the pancreas or adrenal glands is seen. The kidneys appear of unremarkable size and function on delayed images. No renal mass or hydronephrosis is seen. No definite renal calculi are seen. The right kidney appears slightly small measuring about 8.5 cm in length on the coronal images. The left kidney measures about 9.4 cm in length. The abdominal aorta reveals mild atherosclerotic vascular calcification within its distal aspect. No abdominal aortic aneurysm or abnormal retroperitoneal lymphadenopathy is seen. There is no free intraperitoneal air or bowel containing ventral hernia. The appendix appears unremarkable within the right lower quadrant. I see no evidence of bowel obstruction or bowel wall thickening. A mild amount of scattered stool is seen within the colon. The pelvis reveals a surgically absent uterus. The urinary bladder appears unremarkable. No pelvic mass, abnormal pelvic lymphadenopathy, or free intraperitoneal fluid is seen. A few calcified phleboliths are seen within the lower pelvis. The skeleton reveals an acute subcapital fracture of the right hip with mild anterior displacement of the right femoral shaft with respect to the femoral head. No dislocation is seen. No other fracture or aggressive bone lesion is seen. Impression: 1. I note an acute subcapital fracture of the right hip with mild anterior displacement. 2. Hepatic steatosis. 3. Status post cholecystectomy and hysterectomy. 4. Small bilateral extrarenal pelvi are noted. There is no hydronephrosis. The right kidney is slightly small measuring 8.5 cm in length. The ureters and urinary bladder appear grossly unremarkable. 4. No other acute process is seen within the abdomen or pelvis.
--- NOTE | 2021-05-05 07:29 | XRAY ---
Exam: CT of the head without IV contrast from 05/02/2021. CTDI: 53.92 mGy Comparison: CT of the head without IV contrast from 08/26/2006. Indication: 55-year-old female with injury/trauma, patient fell. Technique: Non-IV contrast axial images were obtained through the brain. Reconstructed coronal and sagittal images were created and reviewed. Findings: The ventricles appear of normal size. No focal mass effect or midline shift is seen. I see no evidence of acute intracranial bleed. There is some prominence of the cortical sulci within the bifrontal subarachnoid space. This is somewhat more prominent as compared to 08/26/2006 and is likely due to cerebral volume loss/atrophy. Faint bilateral basal ganglia calcifications are seen. I note a prominent perivascular space at the inferior lateral aspect of the right lateral basal ganglia on axial image #28. This is easier to see on today's study as compared to 08/26/2006. A low attenuation infarct is not seen. The remainder of the cortical sulci and basilar cisterns appears unremarkable. The calvarium of the skull appears intact without fracture. There is evidence of prior paranasal sinus surgery with medial antral windows. Mild deviation of the anterior aspect of the nasal septum toward the right is seen. I believe there is also been some surgery within the lower aspect of the ethmoid sinus complex. The remainder of the paranasal sinuses appears clear. The mastoid air cells are clear without effusion. The orbits are remarkable for some calcification at the upper posterior margin of the globe of each eye. I believe this is faintly seen on the prior exam from 08/26/2006 as well. 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 Impression: 1. No acute intracranial bleed or other acute intracranial findings are seen. See above.
== END 2021-05-02 03:30 | disposition short-term general hospital (02) ==
LOC: ED 23:09
DX: S72.011A Unspecified intracapsular fracture of right femur, initial encounter for closed fracture (principal); W01.0XXA Fall on same level from slipping, tripping and stumbling without subsequent striking against object, initial encounter; M25.051 Hemarthrosis, right hip; E11.9 Type 2 diabetes mellitus without complications; R55 Syncope and collapse; I10 Essential (primary) hypertension; E78.00 Pure hypercholesterolemia, unspecified; Z79.899 Other long term (current) drug therapy; E87.6 Hypokalemia; M47.9 Spondylosis, unspecified; J43.9 Emphysema, unspecified; K76.0 Fatty (change of) liver, not elsewhere classified
CPT/HCPCS: 36000; 36415; 51702; 70450; 71045; 72125; 73552; 74177; 80053; 80307; 82947; 84484; 85025; 93005; 93041; 94760; 96360; 96374; 99285; G0480; J2270; J3480

== ENCOUNTER 2022-05-15 12:05 | Observation (INO) | payer MEDICARE ==
[2022-05-15] MEDS ORDERED: MORPHINE SULFATE 2 MG INJ IV ONE (13:11)
[2022-05-15] MEDS ORDERED: MORPHINE SULFATE 2 MG INJ ONE (13:20)
--- NOTE | 2022-05-15 13:28 | ERPHSYRPT ---
- History of Present Illness Time Seen by Provider: 05/15/22 12:45 Source: patient Exam Limitations: no limitations Patient Subjective Stated Complaint: C/O abdominal pain with vomiting and diarrhea since Saturday Triage Nursing Assessment: Patient shaking. Brought back to ED in a W/C. Pain in abdomen radiating through to her back. Abdomen is soft and flat. Some SOB noted. Patient is dry heaving during assessment. Unable to lay still for EKG; aritfact in reading. Physician History: Patient is a 56-year-old female presents to emergency department for evaluation of nausea vomiting and diarrhea x1 week. Patient states that she feels weak. She is experiencing epigastric pain. Patient also has been experiencing some mild chest discomfort and shortness of breath. Patient is not sure if the chest discomfort is due to the vomiting. She did not have chest pain when her nausea vomiting started 1 week ago. No trauma. No fever. No rash. Symptoms are mild to moderate in intensity. No specific worsening improving factors. Patient voices no other complaints or concerns at this time. Timing/Duration: week(s) (1 week) Severity: moderate Modifying Factors: Improves With: nothing Associated Symptoms: shortness of breath, chest pain, weakness Allergies/Adverse Reactions: aripiprazole [From Abilify] Allergy (Verified 05/15/22 12:10) clarithromycin [From Biaxin] Allergy (Verified 05/15/22 12:10) prednisone Allergy (Verified 05/15/22 12:10) Sulfa (Sulfonamide Antibiotics) Allergy (Verified 05/15/22 12:10) zolpidem [From Ambien] Allergy (Verified 05/15/22 12:10) Home Medications: Donepezil HCl 10 mg [Aricept 10 MG] 10 mg PO HS 10/10/20 [History] Levothyroxine Sodium [Tirosint-Kymberly] 112 mcg PO DAILY 10/10/20 [History] Lisinopril 10 mg [Zestril 10 MG] 2.5 mg PO DAILY 10/10/20 [History] Memantine HCl [Memantine HCl ER] 28 mg PO HS 10/10/20 [History] Semaglutide [Ozempic] 0.5 mg SQ WEEKLY 10/10/20 [History] Simvastatin 20Mg [Zocor 20Mg] 40 mg PO HS 10/10/20 [History] Tizanidine HCl 4 mg [Zanaflex 4 MG] 12 mg PO HS 10/10/20 [History] Buprenorphine HCl [Belbuca] 300 mcg BC BID 05/02/21 [History] Cariprazine HCl [Vraylar] 1.5 mg PO DAILY 05/02/21 [History] Fluticasone/Umeclidin/Vilanter [Trelegy Ellipta 200-62.5-25] 1 each IH DAILY 05/02/21 [History] Hydrocodone/Acetaminophen [Hydrocodone-Acetamin 7.5-325] 1 each PO Q4-6HPRN PRN 05/02/21 [History] Topiramate 50 mg PO BID 05/02/21 [History] Hx Tetanus, Diphtheria Vaccination/Date Given: Yes Hx Influenza Vaccination/Date Given: Yes Hx Pneumococcal Vaccination/Date Given: No Immunizations Up to Date: Yes Travel Risk - International Travel Have you traveled outside of the country in past 3 weeks: No - Coronavirus Screening Are you exhibiting any of the following symptoms?: Yes Symptoms: Shortness of Breath, Vomiting/Diarrhea - Vaccine Status Have you recieved a Covid-19 vaccination: Yes 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: [employer] - Vaccination Dates Date of 2cond Vaccination (if applicable): 2020 - Review of Systems Constitutional: No Symptoms, No Fever, No Chills Eyes: No Symptoms Ears, Nose, & Throat: No Symptoms Respiratory: No Symptoms, No Cough, No Dyspnea Cardiac: No Symptoms, No Chest Pain, No Edema, No Syncope Abdominal/Gastrointestinal: No Symptoms, No Abdominal Pain, No Nausea, No Vomiting, No Diarrhea Genitourinary Symptoms: No Symptoms, No Dysuria Musculoskeletal: No Symptoms, No Back Pain, No Neck Pain Skin: No Symptoms, No Rash Neurological: No Symptoms, No Dizziness, No Focal Weakness, No Sensory Changes Psychological: No Symptoms Endocrine: No Symptoms Hematologic/Lymphatic: No Symptoms Immunological/Allergic: No Symptoms All Other Systems: Reviewed and Negative - Past Medical History Pertinent Past Medical History: Yes Neurological History: Dementia ENT History: No Pertinent History Cardiac History: Arrhythmia, Hypertension, Other Respiratory History: Other Endocrine Medical History: Hypothyroidism Musculoskeletal History: Degenerative Disk Disease, Fractures, Osteoarthritis GI Medical History: Gallbladder Disease History: No Pertinent History Psycho-Social History: Bipolar, Depression Female Reproductive Disorders: No Pertinent History Other Medical History: RECENT DX (DURING HOSPITALIZATION) WITH CARDIOMYOPATHY WITH EJECTION FRACTION 15%. COVID AUGUST 2021. - Past Surgical History Past Surgical History: Yes Neuro Surgical History: No Pertinent History Cardiac: No Pertinent History Respiratory: No Pertinent History Gastrointestinal: Cholecystectomy Genitourinary: No Pertinent History Musculoskeletal: Other Female Surgical History: Hysterectomy, Lumpectomy Other Surgical History: Lump removed from right breast. Tendon surgery right wrist. Exploratory surgery through belly button. Thyroid removed - Social History Smoking Status: Former smoker Exposure to second hand smoke: No Drug Use: none Patient Lives Alone: No Significant Family History: no pertinent family hx - Nursing Vital Signs Nursing Vital Signs: Initial Vital Signs Temperature 97.6 F 05/15/22 12:10 Pulse Rate 120 H 05/15/22 12:10 Respiratory Rate 20 05/15/22 12:10 Blood Pressure 133/104 05/15/22 12:10 O2 Sat by Pulse Oximetry 99 05/15/22 12:10 Pain Scale Pain Intensity 5 - Physical Exam General Appearance: no apparent distress, alert Eye Exam: PERRL/EOMI, eyes nml inspection Ears, Nose, Throat Exam: normal ENT inspection, TMs normal, pharynx normal, moist mucous membranes Neck Exam: normal inspection, non-tender, supple, full range of motion Respiratory Exam: normal breath sounds, lungs clear, airway intact, No respiratory distress Cardiovascular Exam: regular rate/rhythm, normal heart sounds, normal peripheral pulses Gastrointestinal/Abdomen Exam: soft, normal bowel sounds, No tenderness, No mass Back Exam: normal inspection, normal range of motion, No CVA tenderness, No v ertebral tenderness Extremity Exam: normal inspection, normal range of motion, pelvis stable Neurologic Exam: alert, oriented x 3, cooperative, normal mood/affect, nml cerebellar function, nml station & gait, sensation nml, No motor deficits Skin Exam: normal color, warm, dry, No rash Lymphatic Exam: No adenopathy SpO2 Interpretation: normal SpO2: 97 O2 Delivery: Room Air - Course Nursing assessment & vital signs reviewed: Yes EKG Interpreted by Me: RATE ([id number]), Sinus Tach, NORMAL AXIS, NORMAL INTERVALS - Radiology Exams Chest X-ray Interpretation: Teleradiologist Report (No acute cardiopulmonary disease observed) Ordered Tests: Active Orders 24 hr Category Date Time Status Up With Assistance ROUTINE Activity 05/15/22 18:17 Active Code Status Order ROUTINE Care 05/15/22 18:17 Active EKG-ER Only STAT Care 05/15/22 13:11 Completed IV Care Q6H Care 05/15/22 18:17 Active IV Insertion STAT Care 05/15/22 13:11 Completed Neuro Checks Q4H Care 05/15/22 18:[address] in Observation ROUTINE Care 05/15/22 18:17 Active Telemetry q6h Care 05/15/22 18:17 Active Heart-Healthy Diet Diet 05/15/22 Dinner Active ABDOMEN AND PELVIS W/0 CONTRAS [CT] Stat Exams 05/15/22 13:13 Completed CHEST 1 VIEW (PORTABLE) Stat Exams 05/15/22 13:16 Completed CBC W DIFF AM.LAB Lab 05/16/22 04:00 Ordered CBC W DIFF Stat Lab 05/15/22 13:40 Completed CMP AM.LAB Lab 05/16/22 04:00 Ordered CMP Stat Lab 05/15/22 13:40 Completed LIPASE Stat Lab 05/15/22 13:40 Completed TROPONIN Q3H Lab 05/15/22 13:40 Completed TROPONIN Q3H Lab 05/15/22 14:59 Completed TROPONIN Q3H Lab 05/15/22 19:15 Ordered TROPONIN Q3H Lab 05/15/22 22:15 Ordered TROPONIN Q3H Lab 05/16/22 01:15 Ordered UA W/RFX CULTURE Stat Lab 05/15/22 Ordered Transfer Order Routine Transfer 05/15/22 Completed Medication Summary Generic Name Dose Route Start Last Admin Trade Name Freq PRN Reason Stop Dose Admin Sodium Chloride 1,000 mls @ 100 mls/hr 05/15/22 18:17 Sodium Chloride 0.9% 1000 Ml IV 06/14/22 18:16 .Q10H RIGOBERTO Morphine Sulfate 2 mg 05/15/22 18:17 Morphine Sulfate 2 Mg/Ml Inj IV 05/20/22 18:16 Q4H PRN PRN PAIN Discontinued Medications Generic Name Dose Route Start Last Admin Trade Name Freq PRN Reason Stop Dose Admin Diphenhydramine HCl 25 mg 05/15/22 13:33 05/15/22 13:41 Diphenhydramine Hcl 50 Mg/Ml Vial IV 05/15/22 13:34 25 mg STAT ONE Administration Diphenhydramine HCl Confirm 05/15/22 13:33 Diphenhydramine Hcl 50 Mg/Ml Vial Administered 05/15/22 13:34 Dose 50 mg .ROUTE .STK-MED ONE Diphenhydramine HCl 25 mg 05/15/22 17:55 05/15/22 18:05 Diphenhydramine Hcl 50 Mg/Ml Vial IV 05/15/22 17:56 25 mg STAT ONE Administration Diphenhydramine HCl Confirm 05/15/22 18:04 Diphenhydramine Hcl 50 Mg/Ml Vial Administered 05/15/22 18:05 Dose 50 mg .ROUTE .STK-MED ONE Potassium Chloride 20 meq in 100 mls @ 50 mls/hr 05/15/22 16:45 Potassium Chloride 20 Meq In Water 100ml IV 05/15/22 20:44 Q2H RIGOBERTO Sodium Chloride 1,000 mls @ 999 mls/hr 05/15/22 16:34 05/15/22 17:07 Sodium Chloride 0.9% 1000 Ml IV 05/15/22 17:34 999 mls/hr .Q1H1M STA Administration Magnesium Sulfate/Dextrose 100 mls @ 100 mls/hr 05/15/22 16:45 05/15/22 17:49 Magnesium 1 Gm / 100 Ml D5w IV 05/15/22 18:44 100 mls/hr Q1H RIGOBERTO Administration Sodium Chloride Confirm 05/15/22 17:06 Sodium Chloride 0.9% 1000 Ml Administered 05/15/22 17:07 Dose 1,000 mls @ ud .ROUTE .STK-MED ONE Magnesium Sulfate/Dextrose Confirm 05/15/22 17:06 Magnesium 1 Gm / 100 Ml D5w Administered 05/15/22 17:07 Dose 100 mls @ ud IV .STK-MED ONE Magnesium Sulfate/Dextrose Confirm 05/15/22 17:44 Magnesium 1 Gm / 100 Ml D5w Administered 05/15/22 17:45 Dose 100 mls @ ud IV .STK-MED ONE Morphine Sulfate 2 mg 05/15/22 13:11 05/15/22 13:21 Morphine Sulfate 2 Mg/Ml Inj IV 05/15/22 13:12 2 mg STAT ONE Administration Morphine Sulfate Confirm 05/15/22 13:20 Morphine Sulfate 2 Mg/Ml Inj Administered 05/15/22 13:21 Dose 2 mg .ROUTE .STK-MED ONE Prochlorperazine Edisylate 10 mg 05/15/22 13:32 05/15/22 13:41 Prochlorperazine Edisylate 10 Mg/2 Ml Vial IV 05/15/22 13:33 10 mg STAT ONE Administration Prochlorperazine Edisylate Confirm 05/15/22 13:34 Prochlorperazine Edisylate 10 Mg/2 Ml Vial Administered 05/15/22 13:35 Dose 10 mg .ROUTE .[facility] ONE Prochlorperazine Edisylate 10 mg 05/15/22 17:54 05/15/22 18:05 Prochlorperazine Edisylate 10 Mg/2 Ml Vial IV 05/15/22 17:55 10 mg STAT ONE Administration Prochlorperazine Edisylate Confirm 05/15/22 18:04 Prochlorperazine Edisylate 10 Mg/2 Ml Vial Administered 05/15/22 18:05 Dose 10 mg .ROUTE .[facility] Lab/Rad Data: Laboratory Result Diagrams 05/15/22 13:40 05/15/22 13:40 Laboratory Results 05/15/22 05/15/22 05/15/22 Range/Units 14:59 14:15 13:40 WBC (4.0-10.5) x10^3/uL RBC (4.1-5.4) x10^6/uL Hgb (12.0-16.0) g/dL Hct (35-47) % MCV (78-100) fL MCH (26-32) pg MCHC (32-36) g/dL RDW (11.5-14.0) % Plt Count (150-450) x10^3/uL MPV (7.5-11.0) fL Gran % (36.0-66.0) % Immature Gran % (Auto) (0.00-0.4) % Nucleat RBC Rel Count (0.00-0.1) % Eos # (Auto) (0-0.5) x10^3/uL Immature Gran # (Auto) (0.00-0.03) x10^3u/L Absolute Lymphs (auto) (1.0-4.6) x10^3/uL Absolute Monos (auto) (0.0-1.3) x10^3/uL Absolute Nucleated RBC (0.00-0.01) x10^3u/L Lymphocytes % (24.0-44.0) % Monocytes % (0.0-12.0) % Eosinophils % (0.00-5.0) % Basophils % (0.0-0.4) % Absolute Granulocytes (1.4-6.9) x10^3/uL Basophils # (0-0.4) x10^3/uL Sodium (137-145) mmol/L Potassium (3.5-5.1) mmol/L Chloride (98-107) mmol/L Carbon Dioxide (22-30) mmol/L Anion Gap (5-15) MEQ/L BUN (7-17) mg/dL Creatinine (0.52-1.04) mg/dL Estimated GFR ML/MIN Glucose (74-106) mg/dL Calcium (8.4-10.2) mg/dL Total Bilirubin (0.2-1.3) mg/dL AST (14-36) U/L ALT (0-35) U/L Alkaline Phosphatase (38-126) U/L Troponin I < 0.012 < 0.012 (0.000-0.034) ng/mL Serum Total Protein (6.3-8.2) g/dL Albumin (3.5-5.0) g/dL Lipase (23-300) U/L Influenza Type A Ag NEGATIVE (NEGATIVE) Influenza Type B Ag NEGATIVE (NEGATIVE) RSV (PCR) NEGATIVE (Negative) SARS-CoV-2 (PCR) NEGATIVE (NEGATIVE) 05/15/22 05/15/22 Range/Units 13:40 13:40 WBC 11.1 H (4.0-10.5) x10^3/uL RBC 6.05 H (4.1-5.4) x10^6/uL Hgb 18.1 H (12.0-16.0) g/dL Hct 52.5 H (35-47) % MCV 86.8 (78-100) fL MCH 29.9 (26-32) pg MCHC 34.5 (32-36) g/dL RDW 12.7 (11.5-14.0) % Plt Count 411 (150-450) x10^3/uL MPV 11.8 H (7.5-11.0) fL Gran % 69.7 H (36.0-66.0) % Immature Gran % (Auto) 0.5 H (0.00-0.4) % Nucleat RBC Rel Count 0.0 (0.00-0.1) % Eos # (Auto) 0 (0-0.5) x10^3/uL Immature Gran # (Auto) 0.06 H (0.00-0.03) x10^3u/L Absolute Lymphs (auto) 2.28 (1.0-4.6) x10^3/uL Absolute Monos (auto) 0.94 (0.0-1.3) x10^3/uL Absolute Nucleated RBC 0.00 (0.00-0.01) x10^3u/L Lymphocytes % 20.5 L (24.0-44.0) % Monocytes % 8.5 (0.0-12.0) % Eosinophils % 0.0 (0.00-5.0) % Basophils % 0.8 (0.0-0.4) % Absolute Granulocytes 7.73 H (1.4-6.9) x10^3/uL Basophils # 0.09 (0-0.4) x10^3/uL Sodium 142 (137-145) mmol/L Potassium 2.8 L* (3.5-5.1) mmol/L Chloride 101 (98-107) mmol/L Carbon Dioxide 21 L (22-30) mmol/L Anion Gap 24.0 H (5-15) MEQ/L BUN 8 (7-17) mg/dL Creatinine 1.68 H (0.52-1.04) mg/dL Estimated GFR 33.4 ML/MIN Glucose 110 H (74-106) mg/dL Calcium 11.0 H (8.4-10.2) mg/dL Total Bilirubin 1.30 (0.2-1.3) mg/dL AST 29 (14-36) U/L ALT 45 H (0-35) U/L Alkaline Phosphatase 154 H (38-126) U/L Troponin I (0.000-0.034) ng/mL Serum Total Protein 9.2 H (6.3-8.2) g/dL Albumin 5.4 H (3.5-5.0) g/dL Lipase 153 (23-300) U/L Influenza Type A Ag (NEGATIVE) Influenza Type B Ag (NEGATIVE) RSV (PCR) (Negative) SARS-CoV-2 (PCR) (NEGATIVE) - Progress Progress: improved Progress Note: Patient reassessed. She feels better. Work-up reveals dehydration, acute renal injury, hypokalemia. Patient received K rider as well as 2 g of magnesium. IV fluids infused. Case discussed with Dr. Timmons who excepts admission to observation. COVID test negative. Troponin negative. urinalysis ordered however patient has not produced urine. We advised the receiving floor to collect urine and send off urinalysis. Plan of care discussed with patient. She agrees to admission at [facility] for further evaluation and treatment. 05/15/22 18:[address] Nory Will see patient in: hospital (observation) Counseled pt/family regarding: lab results, diagnosis, rad results - Departure Departure Disposition: Observation Clinical Impression: Leukocytosis, Polycythemia, Hypokalemia, High anion gap metabolic acidosis, Acute renal injury, Nausea and vomiting, Dehydration Condition: Stable Critical Care Time: No
[2022-05-15] MEDS ORDERED: Compazine 10 MG/2 ML IV ONE ×2 (13:32→17:54)
[2022-05-15] MEDS ORDERED: BENADRYL 50 MG/ML ONE ×2 (13:33→18:04)
[2022-05-15] MEDS ORDERED: BENADRYL 50 MG/ML IV ONE ×2 (13:33→17:55)
[2022-05-15] MEDS ORDERED: Compazine 10 MG/2 ML ONE ×2 (13:34→18:04)
[2022-05-15 14:06] LABS: Absolute Neutrophil Ct (ANC) 7.73 x10^3/uL (1.4-6.9); Basophil (Absolute #) 0.09 x10^3/uL (0-0.4); Eosinophil (Absolute #) 0 x10^3/uL (0-0.5); Hematocrit 52.5 % (35-47); Hemoglobin 18.1 g/dL (12.0-16.0); Lymphocyte (Absolute #) 2.28 x10^3/uL (1.0-4.6); Lymphocytes % 20.5 % (24.0-44.0); Mean Cell Volume 86.8 fL (78-100); Mean Corpuscular Hemoglobin 29.9 pg (26-32); Mean Corpuscular Hgb Concent. 34.5 g/dL (32-36); Mean Platelet Volume 11.8 fL (7.5-11.0); Monocyte (Absolute #) 0.94 x10^3/uL (0.0-1.3); Monocytes % 8.5 % (0.0-12.0); Neutrophil % 69.7 % (36.0-66.0); Platelet Count 411 x10^3/uL (150-450); Red Blood Count 6.05 x10^6/uL (4.1-5.4); Red Cell Distribution Width 12.7 % (11.5-14.0); White Blood Count 11.1 x10^3/uL (4.0-10.5)
--- NOTE | 2022-05-15 14:16 | XRAY ---
Exam: AP upright portable chest film from 05/15/2022. Comparison: AP portable chest film from 05/02/2021. Indication: 56-year-old female with shortness of breath. Findings: The heart size and contour are normal. Minimal atherosclerotic calcification of the aortic arch and slight tortuosity of the descending thoracic aorta are seen. The wade and mediastinal structures appear unremarkable. The lungs are adequately expanded and appear clear. There is slight deformity of the lateral aspect of the right fourth rib suggestive of an old healed fracture. The pulmonary vascularity is normal. No pneumothorax or pleural effusion is seen. Surgical clips consistent with prior cholecystectomy are seen at the inferior margin of the film. No acute osseous process is seen. Impression: 1. No acute cardiopulmonary disease is seen.
[2022-05-15 14:21] LABS: ALBUMIN 5.4 g/dL (3.5-5.0); BILIRUBIN,TOTAL 1.3 mg/dL (0.2-1.3); Creatinine 1 1.68 mg/dL (0.52-1.04); EST GLOMERULAR FILTRATION RATE 33.4 ML/MIN; Total Protein 9.2 g/dL (6.3-8.2)
[2022-05-15 14:29] LABS: Potassium 2.8 mmol/L (3.5-5.1)
[2022-05-15 14:56] LABS: INFLUENZA A NEGATIVE (NEGATIVE); INFLUENZA B NEGATIVE (NEGATIVE); RESPIRATORY SYNCTIAL VIRUS NEGATIVE (Negative); SARS-CoV-2 Xpert Express NEGATIVE (NEGATIVE)
--- NOTE | 2022-05-15 14:56 | XRAY ---
Exam: CT of the abdomen and pelvis without IV contrast from 05/15/2022. CTDI: 4.69 mGy Comparison: CT of the abdomen and pelvis with IV contrast from 05/02/2021. Indication: 56-year-old female with mid abdominal pain and vomiting; shortness of breath for one week. Technique: Non-IV contrast axial images were obtained through the abdomen and pelvis. Reconstructed coronal and sagittal images were created and reviewed. No oral contrast was given. Findings: The visualized lung bases reveal mild compression atelectatic changes within both posterior lung sulci, right greater than left. The patient appears slightly rotated toward the right on the CT table. The heart size is normal. Assessment of the solid organs is limited without the use of IV contrast. With this limitation in mind, both the liver and spleen appear of unremarkable size and uniform attenuation. No intrahepatic biliary duct distention is seen. Surgical clips consistent with prior cholecystectomy are seen within the subhepatic space. The pancreas appears unremarkable. The adrenal glands appear unremarkable. The right kidney again appears to be slightly small measuring about 8.4 cm in greatest length on coronal image #80. The left kidney measures 9.5 cm in length on sagittal image #135. No renal calculi or hydronephrosis is seen. No gross renal mass is seen. The visualized ureters appear unremarkable. Beam hardening artifact from the patient's right hip arthroplasty makes assessment within the lower pelvis difficult. Atherosclerotic vascular calcification is seen within the distal descending thoracic aorta and abdominal aorta and proximal right common iliac artery. No abdominal aortic aneurysm is seen. No abnormal retroperitoneal lymphadenopathy is seen. No ventral abdominal wall hernia or free intraperitoneal air is seen. A portion of the appendix is seen within the right hemipelvis and appears unremarkable. Beam hardening artifact from the patient's right hip arthroplasty makes assessment more difficult in the lower pelvis. The uterus is surgically absent. I do not see either ovary. Correlate with surgical history. The urinary bladder is only partially distended. No other pelvic mass, abnormal lymphadenopathy, or free fluid within the pelvis is seen. I again see a right hip arthroplasty. Moderate L4-L5 and L5-S1 facet joint arthropathy is seen bilaterally. Minimal anterior vertebral endplate spurs are seen within the upper lumbar spine. Impression: 1. No acute intra-abdominal or pelvic process is seen. I see no findings to suggest appendicitis. 2. The patient is status post cholecystectomy and hysterectomy. I do not see either ovary with confidence. Correlate with surgical history. 3. The right kidney again appears to be slightly small measuring only about 8.4 cm in greatest length. This is unchanged. 4. The patient is status post right hip arthroplasty. This causes beam hardening artifact within the lower pelvis.
[2022-05-15] MEDS ORDERED: Sodium Chloride 0.9% 1000 ML 1,000 ML IV STA (16:34)
[2022-05-15] MEDS ORDERED: Magnesium 1 Gm / 100 Ml D5W*** 100 ML IV ONE ×2 (17:06→17:44)
[2022-05-15] MEDS ORDERED: Sodium Chloride 0.9% 1000 ML 1,000 ML ONE (17:06)
[2022-05-15] MEDS: Magnesium 1 Gm / 100 Ml D5W*** 100 ML IV SCH ×2 (17:07→17:49)
[2022-05-15] MEDS ORDERED: MORPHINE SULFATE 2 MG INJ IV PRN (18:17)
[2022-05-15] MEDS ORDERED: POTASSIUM CHLORIDE 20 mEq IN WATER 100ML 100 ML IV ONE ×2 (18:26→20:31)
[2022-05-15] MEDS: POTASSIUM CHLORIDE 20 mEq IN WATER 100ML 20 MEQ/100 ML BAG IV SCH ×2 (18:51→20:32)
[2022-05-15] MEDS: Sodium Chloride 0.9% 1000 ML 1,000 ML IV SCH (20:04)
[2022-05-15] MEDS ORDERED: Zanaflex 4 MG PO PRN (20:23)
[2022-05-15] MEDS ORDERED: Zanaflex 4 MG PO SCH (22:00)
[2022-05-15] MEDS ORDERED: Namenda 5 MG PO SCH ×2 (22:00)
[2022-05-15] MEDS: ZOCOR 20MG PO SCH (22:14)
[2022-05-15] MEDS: TOPIRAMATE PO SCH (22:16)
[2022-05-15] MEDS: Aricept 10 MG PO SCH (22:16)
[2022-05-16] MEDS: Sodium Chloride 0.9% 1000 ML 1,000 ML IV SCH ×3 (01:32→17:12)
[2022-05-16] MEDS: POTASSIUM CHLORIDE 20 mEq IN WATER 100ML 20 MEQ/100 ML BAG IV SCH ×2 (01:32→03:57)
[2022-05-16] MEDS ORDERED: Sodium Chloride 0.9% 1000 ML 1,000 ML ONE (06:42)
[2022-05-16] MEDS ORDERED: Sodium Chloride 0.9% 1000 ML 1,000 ML IV STA ×2 (06:50→07:53)
[2022-05-16 08:38] LABS: Absolute Neutrophil Ct (ANC) 2.42 x10^3/uL (1.4-6.9); Basophil (Absolute #) 0.06 x10^3/uL (0-0.4); Eosinophil % 1.3 % (0.00-5.0); Eosinophil (Absolute #) 0.06 x10^3/uL (0-0.5); Hematocrit 32.9 % (35-47); Hemoglobin 10.8 g/dL (12.0-16.0); Lymphocyte (Absolute #) 1.51 x10^3/uL (1.0-4.6); Lymphocytes % 33.2 % (24.0-44.0); Mean Cell Volume 92.2 fL (78-100); Mean Corpuscular Hemoglobin 30.3 pg (26-32); Mean Corpuscular Hgb Concent. 32.8 g/dL (32-36); Monocyte (Absolute #) 0.48 x10^3/uL (0.0-1.3); Monocytes % 10.5 % (0.0-12.0); Neutrophil % 53.3 % (36.0-66.0); Platelet Count 195 x10^3/uL (150-450); Red Blood Count 3.57 x10^6/uL (4.1-5.4); White Blood Count 4.6 x10^3/uL (4.0-10.5)
[2022-05-16 09:05] LABS: ALBUMIN 2.3 g/dL (3.5-5.0); ANION GAP 7.8 MEQ/L (5-15); BILIRUBIN,TOTAL 0.6 mg/dL (0.2-1.3); Creatinine 1 1.17 mg/dL (0.52-1.04); EST GLOMERULAR FILTRATION RATE 50.7 ML/MIN; Potassium 3.6 mmol/L (3.5-5.1); Total Protein 4.3 g/dL (6.3-8.2)
[2022-05-16 09:11] LABS: Calcium 7.3 mg/dL (8.4-10.2)
[2022-05-16] MEDS ORDERED: [UNRECOGNIZED DRUG - REMARK] SQ SCH (09:30)
[2022-05-16] MEDS ORDERED: MEDICATION INTERVENTION MC SCH ×4 (09:45→10:00)
[2022-05-16] MEDS ORDERED: BUPRENORPHINE HCL 300 MCG BC SCH (10:00)
[2022-05-16] MEDS ORDERED: NON-FORMULARY ITEM (Fluticasone/Umeclidin/Vilanter [Trelegy Ellipta 200-62.5-25] 1 EACH Bl IH SCH (10:00)
[2022-05-16] MEDS ORDERED: NON-FORMULARY ITEM (Cariprazine Hcl [Vraylar] 1.5 MG Capsule) PO SCH (10:00)
[2022-05-16] MEDS ORDERED: NON-FORMULARY ITEM (Lansoprazole [Lansoprazole] 30 MG Capsule.Dr) PO SCH (10:00)
[2022-05-16] MEDS ORDERED: LEVOTHYROXINE SODIUM PO SCH (10:00)
[2022-05-16] MEDS: TOPIRAMATE PO SCH ×2 (10:20→21:42)
[2022-05-16] MEDS: SYNTHROID 100 MCG PO SCH (10:20)
[2022-05-16] MEDS: Protonix 40MG Tablet PO SCH (10:20)
[2022-05-16] MEDS: Namenda 5 MG PO SCH ×2 (10:20→21:42)
[2022-05-16 10:42] LABS: MAGNESIUM 2.3 mg/dL (1.6-2.3); Potassium 2.9 mmol/L (3.5-5.1)
--- NOTE | 2022-05-16 13:11 | PCM.HP ---
History of Present Illness - Chief Complaint Chief Complaint: c/o nusea vomiting and diarrhea for 2-3 days History of Present Illness: is a 56 year old female.presents to emergency department for evaluation of nausea vomiting and diarrhea x1 week. Patient states that she feels weak. She is experiencing epigastric pain. Patient also has been experiencing some mild chest discomfort and shortness of breath. Patient is not sure if the chest discomfort is due to the vomiting. She did not have chest pain when her nausea vomiting started 1 week ago. No trauma. No fever. No rash. Symptoms are mild to moderate in intensity. No specific worsening improving factors. Patient voices no other complaints or concerns at this time. Timing/Duration: week(s) (1 week) Severity: moderate Modifying Factors: Improves With: nothing Associated Symptoms: shortness of breath, chest pain, weakness - Review of Systems Constitutional: Lethargy, Weakness, No Fever, No Chills Eyes: No Symptoms Ears, Nose, & Throat: No Symptoms Respiratory: No Cough, No Short Of Breath Cardiac: No Chest Pain, No Edema, No Syncope Abdominal/Gastrointestinal: Nausea, Vomiting, Diarrhea, No Abdominal Pain Genitourinary Symptoms: No Dysuria Musculoskeletal: No Back Pain, No Neck Pain Skin: No Rash Neurological: No Dizziness, No Focal Weakness, No Sensory Changes Psychological: No Symptoms Endocrine: No Symptoms Hematologic/Lymphatic: No Symptoms Immunological/Allergic: No Symptoms Medications & Allergies Home Medications: Home Medication List Donepezil HCl 10 mg [Aricept 10 MG] 10 mg PO HS 10/10/20 [History Confirmed 05/15/22] Levothyroxine Sodium [Tirosint-Kymberly] 100 mcg PO DAILY 10/10/20 [History Confirmed 05/15/22] Lisinopril 10 mg [Zestril 10 MG] 10 mg PO DAILY 10/10/20 [History Confirmed 05/15/22] Memantine HCl [Memantine HCl ER] 28 mg PO HS 10/10/20 [History Confirmed 05/15/22] Semaglutide [Ozempic] 0.5 mg SQ WEEKLY 10/10/20 [History Confirmed 05/15/22] Simvastatin 20Mg [Zocor 20Mg] 40 mg PO HS 10/10/20 [History Confirmed 05/15/22] Tizanidine HCl 4 mg [Zanaflex 4 MG] 12 mg PO HS 10/10/20 [History Confirmed 05/15/22] Buprenorphine HCl [Belbuca] 300 mcg BC BID 05/02/21 [History Confirmed 05/15/22] Cariprazine HCl [Vraylar] 1.5 mg PO DAILY 05/02/21 [History Confirmed 05/15/22] Fluticasone/Umeclidin/Vilanter [Trelegy Ellipta 200-62.5-25] 1 each IH DAILY [History Confirmed 05/15/22] Topiramate 50 mg PO BID 05/02/21 [History Confirmed 05/15/22] Lansoprazole 30 mg PO DAILY 05/15/22 [History Confirmed 05/15/22] Ondansetron ODT 4 MG [Zofran Odt 4 mg] 4 mg PO Q6-8HPRN PRN 05/15/22 [History Confirmed 05/15/22] Allergies/Adverse Reactions: Allergies Allergy/AdvReac Type Severity Reaction Status Date / Time aripiprazole [From Abilify] Allergy Verified 05/15/22 12:10 clarithromycin [From Biaxin] Allergy Verified 05/15/22 12:10 prednisone Allergy Verified 05/15/22 12:10 Sulfa (Sulfonamide Allergy Verified 05/15/22 12:10 Antibiotics) zolpidem [From Ambien] Allergy Verified 05/15/22 12:10 - Past Medical History Past Medical History: Yes Neurological History: Dementia ENT History: No Pertinent History Cardiac History: Arrhythmia, Hypertension, Other Respiratory History: Other Endocrine Medical History: Hypothyroidism Musculoskelatal History: Degenerative Disk Disease, Fractures, Osteoarthritis GI Medical History: Gallbladder Disease History: No Pertinent History Pyscho-Social History: Bipolar, Depression Reproductive Disorders: No Pertinent History Comment: RECENT DX (DURING HOSPITALIZATION) WITH CARDIOMYOPATHY WITH EJECTION FRACTION 15%. COVID AUGUST 2021. - Female History Are you now?: No - Past Surgical History Past Surgical History: Yes Neuro Surgical History: No Pertinent History Cardiac History: No Pertinent History Respiratory Surgery: No Pertinent History GI Surgical History: Cholecystectomy Genitourinary Surgical Hx: No Pertinent History Musculskeletal Surgical Hx: Other Female Surgical History: Hysterectomy, Lumpectomy Other Surgical History: Lump removed from right breast. Tendon surgery right wrist. Exploratory surgery through belly button. Thyroid removed - Social History Smoking Status: Former smoker Exposure to second hand smoke: No Alcohol: None Drug Use: none Significant Family History: no pertinent family hx - Physical Exam Vital Signs: Vital Signs - 24 hr Temp Pulse Resp BP Pulse Ox 05/16/22 12:21 97.7 F 61 16 111/62 98 05/16/22 12:00 16 05/16/22 10:32 69/45 05/16/22 08:00 16 05/16/22 07:52 97.9 F 58 L 16 69/44 97 05/16/22 04:00 97.1 F 72 16 76/50 94 L 05/16/22 00:00 18 05/15/22 23:49 97.8 F 81 18 117/66 97 05/15/22 20:00 20 05/15/22 19:54 96.4 F 101 H 20 176/102 94 L 05/15/22 18:36 96.4 F 101 H 20 176/102 94 L 05/15/22 18:28 97 05/15/22 17:09 99 H 180/119 97 05/15/22 15:00 94 H 26 H 153/100 98 05/15/22 14:38 94 H 97 05/15/22 13:10 111 H 22 167/111 97 General Appearance: no apparent distress, alert Neurologic Exam: alert, oriented x 3, cooperative, normal mood/affect, nml cerebellar function, nml station & gait, sensation nml, No motor deficits Eye Exam: PERRL/EOMI, eyes nml inspection Ears, Nose, Throat Exam: normal ENT inspection, TMs normal, pharynx normal, moist mucous membranes Neck Exam: normal inspection, non-tender, supple, full range of motion Respiratory Exam: normal breath sounds, lungs clear, No respiratory distress Cardiovascular Exam: regular rate/rhythm, normal heart sounds, normal peripheral pulses Gastrointestinal/Abdomen Exam: soft, normal bowel sounds, No tenderness, No mass Back Exam: normal inspection, normal range of motion, No CVA tenderness, No vertebral tenderness Extremity Exam: normal inspection, normal range of motion, pelvis stable Skin Exam: normal color, warm, dry, No rash Lymphatic Exam: No adenopathy Results - Labs Lab/Micro Results: Lab Results-Last 24 Hours 05/15/22 05/15/22 05/15/22 Range/Units 00:09 00:09 13:40 WBC 11.1 H (4.0-10.5) x10^3/uL RBC 6.05 H (4.1-5.4) x10^6/uL Hgb 18.1 H (12.0-16.0) g/dL Hct 52.5 H (35-47) % MCV 86.8 (78-100) fL MCH 29.9 (26-32) pg MCHC 34.5 (32-36) g/dL RDW 12.7 (11.5-14.0) % Plt Count 411 (150-450) x10^3/uL MPV 11.8 H (7.5-11.0) fL Gran % 69.7 H (36.0-66.0) % Immature Gran % (Auto) 0.5 H (0.00-0.4) % Nucleat RBC Rel Count 0.0 (0.00-0.1) % Eos # (Auto) 0 (0-0.5) x10^3/uL Immature Gran # (Auto) 0.06 H (0.00-0.03) x10^3u/L Absolute Lymphs (auto) 2.28 (1.0-4.6) x10^3/uL Absolute Monos (auto) 0.94 (0.0-1.3) x10^3/uL Absolute Nucleated RBC 0.00 (0.00-0.01) x10^3u/L Lymphocytes % 20.5 L (24.0-44.0) % Monocytes % 8.5 (0.0-12.0) % Eosinophils % 0.0 (0.00-5.0) % Basophils % 0.8 (0.0-0.4) % Absolute Granulocytes 7.73 H (1.4-6.9) x10^3/uL Basophils # 0.09 (0-0.4) x10^3/uL Sodium (137-145) mmol/L Potassium Cancelled Chloride (98-107) mmol/L Carbon Dioxide (22-30) mmol/L Anion Gap (5-15) MEQ/L BUN (7-17) mg/dL Creatinine (0.52-1.04) mg/dL Estimated GFR ML/MIN Glucose (74-106) mg/dL POC Glucometer (74 to 106) mg/dL Calcium (8.4-10.2) mg/dL Magnesium Cancelled Total Bilirubin (0.2-1.3) mg/dL AST (14-36) U/L ALT (0-35) U/L Alkaline Phosphatase (38-126) U/L Troponin I Cancelled Serum Total Protein (6.3-8.2) g/dL Albumin (3.5-5.0) g/dL Lipase (23-300) U/L Influenza Type A Ag (NEGATIVE) Influenza Type B Ag (NEGATIVE) RSV (PCR) (Negative) SARS-CoV-2 (PCR) (NEGATIVE) 05/15/22 05/15/22 05/15/22 Range/Units 13:40 13:40 14:15 WBC (4.0-10.5) x10^3/uL RBC (4.1-5.4) x10^6/uL Hgb (12.0-16.0) g/dL Hct (35-47) % MCV (78-100) fL MCH (26-32) pg MCHC (32-36) g/dL RDW (11.5-14.0) % Plt Count (150-450) x10^3/uL MPV (7.5-11.0) fL Gran % (36.0-66.0) % Immature Gran % (Auto) (0.00-0.4) % Nucleat RBC Rel Count (0.00-0.1) % Eos # (Auto) (0-0.5) x10^3/uL Immature Gran # (Auto) (0.00-0.03) x10^3u/L Absolute Lymphs (auto) (1.0-4.6) x10^3/uL Absolute Monos (auto) (0.0-1.3) x10^3/uL Absolute Nucleated RBC (0.00-0.01) x10^3u/L Lymphocytes % (24.0-44.0) % Monocytes % (0.0-12.0) % Eosinophils % (0.00-5.0) % Basophils % (0.0-0.4) % Absolute Granulocytes (1.4-6.9) x10^3/uL Basophils # (0-0.4) x10^3/uL Sodium 142 (137-145) mmol/L Potassium 2.8 L* Chloride 101 (98-107) mmol/L Carbon Dioxide 21 L (22-30) mmol/L Anion Gap 24.0 H (5-15) MEQ/L BUN 8 (7-17) mg/dL Creatinine 1.68 H (0.52-1.04) mg/dL Estimated GFR 33.4 ML/MIN Glucose 110 H (74-106) mg/dL POC Glucometer (74 to 106) mg/dL Calcium 11.0 H (8.4-10.2) mg/dL Magnesium Total Bilirubin 1.30 (0.2-1.3) mg/dL AST 29 (14-36) U/L ALT 45 H (0-35) U/L Alkaline Phosphatase 154 H (38-126) U/L Troponin I < 0.012 Serum Total Protein 9.2 H (6.3-8.2) g/dL Albumin 5.4 H (3.5-5.0) g/dL Lipase 153 (23-300) U/L Influenza Type A Ag NEGATIVE (NEGATIVE) Influenza Type B Ag NEGATIVE (NEGATIVE) RSV (PCR) NEGATIVE (Negative) SARS-CoV-2 (PCR) NEGATIVE (NEGATIVE) 05/15/22 05/15/22 05/15/22 Range/Units 14:59 19:37 20:26 WBC (4.0-10.5) x10^3/uL RBC (4.1-5.4) x10^6/uL Hgb (12.0-16.0) g/dL Hct (35-47) % MCV (78-100) fL MCH (26-32) pg MCHC (32-36) g/dL RDW (11.5-14.0) % Plt Count (150-450) x10^3/uL MPV (7.5-11.0) fL Gran % (36.0-66.0) % Immature Gran % (Auto) (0.00-0.4) % Nucleat RBC Rel Count (0.00-0.1) % Eos # (Auto) (0-0.5) x10^3/uL Immature Gran # (Auto) (0.00-0.03) x10^3u/L Absolute Lymphs (auto) (1.0-4.6) x10^3/uL Absolute Monos (auto) (0.0-1.3) x10^3/uL Absolute Nucleated RBC (0.00-0.01) x10^3u/L Lymphocytes % (24.0-44.0) % Monocytes % (0.0-12.0) % Eosinophils % (0.00-5.0) % Basophils % (0.0-0.4) % Absolute Granulocytes (1.4-6.9) x10^3/uL Basophils # (0-0.4) x10^3/uL Sodium (137-145) mmol/L Potassium Chloride (98-107) mmol/L Carbon Dioxide (22-30) mmol/L Anion Gap (5-15) MEQ/L BUN (7-17) mg/dL Creatinine (0.52-1.04) mg/dL Estimated GFR ML/MIN Glucose (74-106) mg/dL POC Glucometer 96 (74 to 106) mg/dL Calcium (8.4-10.2) mg/dL Magnesium Total Bilirubin (0.2-1.3) mg/dL AST (14-36) U/L ALT (0-35) U/L Alkaline Phosphatase (38-126) U/L Troponin I < 0.012 < 0.012 Serum Total Protein (6.3-8.2) g/dL Albumin (3.5-5.0) g/dL Lipase (23-300) U/L Influenza Type A Ag (NEGATIVE) Influenza Type B Ag (NEGATIVE) RSV (PCR) (Negative) SARS-CoV-2 (PCR) (NEGATIVE) 05/16/22 05/16/22 05/16/22 Range/Units 00:09 00:09 07:41 WBC (4.0-10.5) x10^3/uL RBC (4.1-5.4) x10^6/uL Hgb (12.0-16.0) g/dL Hct (35-47) % MCV (78-100) fL MCH (26-32) pg MCHC (32-36) g/dL RDW (11.5-14.0) % Plt Count (150-450) x10^3/uL MPV (7.5-11.0) fL Gran % (36.0-66.0) % Immature Gran % (Auto) (0.00-0.4) % Nucleat RBC Rel Count (0.00-0.1) % Eos # (Auto) (0-0.5) x10^3/uL Immature Gran # (Auto) (0.00-0.03) x10^3u/L Absolute Lymphs (auto) (1.0-4.6) x10^3/uL Absolute Monos (auto) (0.0-1.3) x10^3/uL Absolute Nucleated RBC (0.00-0.01) x10^3u/L Lymphocytes % (24.0-44.0) % Monocytes % (0.0-12.0) % Eosinophils % (0.00-5.0) % Basophils % (0.0-0.4) % Absolute Granulocytes (1.4-6.9) x10^3/uL Basophils # (0-0.4) x10^3/uL Sodium (137-145) mmol/L Potassium 2.9 L* Chloride (98-107) mmol/L Carbon Dioxide (22-30) mmol/L Anion Gap (5-15) MEQ/L BUN (7-17) mg/dL Creatinine (0.52-1.04) mg/dL Estimated GFR ML/MIN Glucose (74-106) mg/dL POC Glucometer 94 (74 to 106) mg/dL Calcium (8.4-10.2) mg/dL Magnesium 2.3 Total Bilirubin (0.2-1.3) mg/dL AST (14-36) U/L ALT (0-35) U/L Alkaline Phosphatase (38-126) U/L Troponin I 0.013 Serum Total Protein (6.3-8.2) g/dL Albumin (3.5-5.0) g/dL Lipase (23-300) U/L Influenza Type A Ag (NEGATIVE) Influenza Type B Ag (NEGATIVE) RSV (PCR) (Negative) SARS-CoV-2 (PCR) (NEGATIVE) 05/16/22 05/16/22 05/16/22 Range/Units 08:09 08:09 08:09 WBC 4.6 (4.0-10.5) x10^3/uL RBC 3.57 L (4.1-5.4) x10^6/uL Hgb 10.8 L D (12.0-16.0) g/dL Hct 32.9 L (35-47) % MCV 92.2 D (78-100) fL MCH 30.3 (26-32) pg MCHC 32.8 (32-36) g/dL RDW 13.0 (11.5-14.0) % Plt Count 195 D (150-450) x10^3/uL MPV 11.0 (7.5-11.0) fL Gran % 53.3 (36.0-66.0) % Immature Gran % (Auto) 0.4 (0.00-0.4) % Nucleat RBC Rel Count 0.0 (0.00-0.1) % Eos # (Auto) 0.06 (0-0.5) x10^3/uL Immature Gran # (Auto) 0.02 (0.00-0.03) x10^3u/L Absolute Lymphs (auto) 1.51 (1.0-4.6) x10^3/uL Absolute Monos (auto) 0.48 (0.0-1.3) x10^3/uL Absolute Nucleated RBC 0.00 (0.00-0.01) x10^3u/L Lymphocytes % 33.2 (24.0-44.0) % Monocytes % 10.5 (0.0-12.0) % Eosinophils % 1.3 (0.00-5.0) % Basophils % 1.3 (0.0-0.4) % Absolute Granulocytes 2.42 (1.4-6.9) x10^3/uL Basophils # 0.06 (0-0.4) x10^3/uL Sodium 137 (137-145) mmol/L Potassium 3.6 D Chloride 113 H (98-107) mmol/L Carbon Dioxide 20 L (22-30) mmol/L Anion Gap 7.8 (5-15) MEQ/L BUN 6 L (7-17) mg/dL Creatinine 1.17 H (0.52-1.04) mg/dL Estimated GFR 50.7 ML/MIN Glucose 96 (74-106) mg/dL POC Glucometer (74 to 106) mg/dL Calcium 7.3 L D (8.4-10.2) mg/dL Magnesium Total Bilirubin 0.60 (0.2-1.3) mg/dL AST 17 (14-36) U/L ALT 10 (0-35) U/L Alkaline Phosphatase 69 (38-126) U/L Troponin I < 0.012 Serum Total Protein 4.3 L (6.3-8.2) g/dL Albumin 2.3 L (3.5-5.0) g/dL Lipase (23-300) U/L Influenza Type A Ag (NEGATIVE) Influenza Type B Ag (NEGATIVE) RSV (PCR) (Negative) SARS-CoV-2 (PCR) (NEGATIVE) 05/16/22 Range/Units 11:55 WBC (4.0-10.5) x10^3/uL RBC (4.1-5.4) x10^6/uL Hgb (12.0-16.0) g/dL Hct (35-47) % MCV (78-100) fL MCH (26-32) pg MCHC (32-36) g/dL RDW (11.5-14.0) % Plt Count (150-450) x10^3/uL MPV (7.5-11.0) fL Gran % (36.0-66.0) % Immature Gran % (Auto) (0.00-0.4) % Nucleat RBC Rel Count (0.00-0.1) % Eos # (Auto) (0-0.5) x10^3/uL Immature Gran # (Auto) (0.00-0.03) x10^3u/L Absolute Lymphs (auto) (1.0-4.6) x10^3/uL Absolute Monos (auto) (0.0-1.3) x10^3/uL Absolute Nucleated RBC (0.00-0.01) x10^3u/L Lymphocytes % (24.0-44.0) % Monocytes % (0.0-12.0) % Eosinophils % (0.00-5.0) % Basophils % (0.0-0.4) % Absolute Granulocytes (1.4-6.9) x10^3/uL Basophils # (0-0.4) x10^3/uL Sodium (137-145) mmol/L Potassium Chloride (98-107) mmol/L Carbon Dioxide (22-30) mmol/L Anion Gap (5-15) MEQ/L BUN (7-17) mg/dL Creatinine (0.52-1.04) mg/dL Estimated GFR ML/MIN Glucose (74-106) mg/dL POC Glucometer 83 (74 to 106) mg/dL Calcium (8.4-10.2) mg/dL Magnesium Total Bilirubin (0.2-1.3) mg/dL AST (14-36) U/L ALT (0-35) U/L Alkaline Phosphatase (38-126) U/L Troponin I Serum Total Protein (6.3-8.2) g/dL Albumin (3.5-5.0) g/dL Lipase (23-300) U/L Influenza Type A Ag (NEGATIVE) Influenza Type B Ag (NEGATIVE) RSV (PCR) (Negative) SARS-CoV-2 (PCR) (NEGATIVE) Accuchecks Date 05/16/22 Time 12:22 Time 22:00 - Radiology Impressions Radiology Exams & Impressions: Radiology Procedures Category Date Time Status ABDOMEN AND PELVIS W/0 CONTRAS [CT] Stat Exams 05/15/22 13:13 Completed CHEST 1 VIEW (PORTABLE) Stat Exams 05/15/22 13:16 Completed Assessment/Plan (1) Hypokalemia Current Visit: Yes Status: Acute Code(s): E87.6 - HYPOKALEMIA (2) Dehydration Current Visit: Yes Status: Acute Code(s): E86.0 - DEHYDRATION (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
[2022-05-16] MEDS: ZOFRAN ODT 4 MG PO PRN (17:13)
[2022-05-16 17:32] LABS: 027 TOX PROD PRESUMPTIVE POSITIVE (NEGATIVE)
[2022-05-16 17:34] LABS: TOXIGENIC C. DIFF ORG POSITIVE (NEGATIVE)
[2022-05-16] MEDS: FLAGYL 500 MG IVPB 500 MG/100 ML BAG IV SCH (17:52)
[2022-05-16] MEDS: ZOCOR 20MG PO SCH (21:41)
[2022-05-16] MEDS: Aricept 10 MG PO SCH (21:42)
[2022-05-17] MEDS: ZOFRAN ODT 4 MG PO PRN
[2022-05-17] MEDS: Sodium Chloride 0.9% 1000 ML 1,000 ML IV SCH ×2 (03:22→20:24)
[2022-05-17] MEDS ORDERED: Sodium Chloride 0.9% 1000 ML 1,000 ML IV SCH (03:30)
[2022-05-17 05:05] LABS: Basophil (Absolute #) 0.08 x10^3/uL (0-0.4); Eosinophil % 1.5 % (0.00-5.0); Eosinophil (Absolute #) 0.09 x10^3/uL (0-0.5); Hematocrit 40.5 % (35-47); Hemoglobin 13.5 g/dL (12.0-16.0); Lymphocyte (Absolute #) 2.06 x10^3/uL (1.0-4.6); Lymphocytes % 35.2 % (24.0-44.0); Mean Cell Volume 91.4 fL (78-100); Mean Corpuscular Hemoglobin 30.5 pg (26-32); Mean Corpuscular Hgb Concent. 33.3 g/dL (32-36); Mean Platelet Volume 11.3 fL (7.5-11.0); Monocyte (Absolute #) 0.51 x10^3/uL (0.0-1.3); Monocytes % 8.7 % (0.0-12.0); Platelet Count 217 x10^3/uL (150-450); Red Blood Count 4.43 x10^6/uL (4.1-5.4); Red Cell Distribution Width 13.1 % (11.5-14.0); White Blood Count 5.9 x10^3/uL (4.0-10.5)
[2022-05-17] MEDS: FLAGYL 500 MG IVPB 500 MG/100 ML BAG IV SCH ×3 (05:12→20:43)
[2022-05-17 05:38] LABS: ALBUMIN 2.9 g/dL (3.5-5.0); ANION GAP 9.1 MEQ/L (5-15); BILIRUBIN,TOTAL 0.4 mg/dL (0.2-1.3); Calcium 8.3 mg/dL (8.4-10.2); Creatinine 1 1.16 mg/dL (0.52-1.04); EST GLOMERULAR FILTRATION RATE 51.2 ML/MIN; Total Protein 5.2 g/dL (6.3-8.2)
[2022-05-17] MEDS: POTASSIUM CHLORIDE 20 mEq IN WATER 100ML 20 MEQ/100 ML BAG IV SCH ×2 (06:33→08:56)
[2022-05-17 07:22] LABS: Mucus SLIGHT /HPF (NEGATIVE)
[2022-05-17 07:23] LABS: Appearance CLEAR (CLEAR); Bilirubin NEGATIVE (NEGATIVE); Glucose NEGATIVE (NEGATIVE); Ketones NEGATIVE (NEGATIVE); Nitrite NEGATIVE (NEGATIVE); Protein,Urine Dip NEGATIVE (Negative); RBC NEGATIVE Ery/ul (0-5); Specific Gravity 1.015 (1.005-1.025); Urine Cultured Indicated? NO; Urobilinogen 0.2 mg/dL (0-1)
[2022-05-17 07:25] LABS: Dipstick done @ ? MAIN LAB
[2022-05-17] MEDS: SYNTHROID 100 MCG PO SCH (08:57)
[2022-05-17] MEDS: Protonix 40MG Tablet PO SCH (08:57)
[2022-05-17] MEDS: TOPIRAMATE PO SCH ×2 (08:57→20:43)
[2022-05-17] MEDS: Namenda 5 MG PO SCH ×2 (08:57→20:44)
[2022-05-17] MEDS: Klor Con PO SCH ×2 (10:24→20:44)
[2022-05-17] MEDS: Sodium Chloride 0.9% W/ 20 mEq KCl/LITER 1,000 ML IV SCH ×2 (11:04→14:44)
[2022-05-17] MEDS: PATIENT OWN MEDICATION IH SCH (12:00)
[2022-05-17] MEDS: Zofran 4 MG/2 ML VIAL IV PRN (12:54)
[2022-05-17] MEDS: Zestril 10 MG PO SCH (15:21)
--- NOTE | 2022-05-17 20:08 | PCM.NOTE ---
Date and Time: 05/17/222005 Subjective Assessment: doing better. Stool positive for c diff. - Review of Systems Constitutional: No Fever, No Chills Eyes: No Symptoms Ears, Nose, & Throat: No Symptoms Respiratory: No Cough, No Short Of Breath Cardiac: No Chest Pain, No Edema, No Syncope Abdominal/Gastrointestinal: No Abdominal Pain, No Nausea, No Vomiting, No Diarrhea Genitourinary Symptoms: No Dysuria Musculoskeletal: No Back Pain, No Neck Pain Skin: No Rash Neurological: No Dizziness, No Focal Weakness, No Sensory Changes Psychological: No Symptoms Endocrine: No Symptoms Hematologic/Lymphatic: No Symptoms Immunological/Allergic: No Symptoms Objective Exam General Appearance: no apparent distress, alert Neurologic Exam: alert, oriented x 3, cooperative, normal mood/affect, nml cerebellar function, sensation nml, No motor deficits Skin Exam: normal color, warm, dry Eye Exam: PERRL, EOMI, eyes nml inspection Ears, Nose, Throat Exam: normal ENT inspection, pharynx normal, moist mucous membranes Neck Exam: normal inspection, non-tender, supple, full range of motion Respiratory Exam: normal breath sounds, lungs clear, No respiratory distress Cardiovascular Exam: regular rate/rhythm, normal heart sounds Gastrointestinal/Abdomen Exam: soft, No tenderness, No mass Extremity Exam: normal inspection, normal range of motion Back Exam: normal inspection, normal range of motion, No CVA tenderness, No vertebral tenderness Pelvic Exam: deferred Rectal Exam: deferred OBJECTIVE DATA Vital Signs: Vital Signs - 24 hr Temp Pulse Resp BP Pulse Ox 05/17/22 20:00 97.1 F 71 18 184/85 96 05/17/22 18:56 72 16 98 05/17/22 16:00 97.4 F 84 16 164/86 95 05/17/22 12:00 97.5 F 72 16 181/92 97 05/17/22 08:00 16 05/17/22 07:30 98.6 F 68 16 134/77 95 05/17/22 07:00 97 05/17/22 03:43 97.1 F 72 16 134/79 95 05/17/22 00:00 97.5 F 92 H 16 124/67 95 Pain Assessment - Last Documented Pain Intensity 0 Pain Scale Used 0-10 Pain Scale Intake and Output: Intake & Output 05/15/22 05/16/22 05/17/22 05/18/22 11:59 11:59 11:59 11:59 Intake Total 340 0559 300 Output Total 400 2300 1000 Balance -60 4223 -700 Weight 62 kg Lab Results: Lab Results-Last 24 Hours 05/15/22 05/16/22 05/17/22 Range/Units Unknown 20:59 05:02 WBC 5.9 (4.0-10.5) x10^3/uL RBC 4.43 (4.1-5.4) x10^6/uL Hgb 13.5 D (12.0-16.0) g/dL Hct 40.5 (35-47) % MCV 91.4 (78-100) fL MCH 30.5 (26-32) pg MCHC 33.3 (32-36) g/dL RDW 13.1 (11.5-14.0) % Plt Count 217 (150-450) x10^3/uL MPV 11.3 H (7.5-11.0) fL Gran % 53.0 (36.0-66.0) % Immature Gran % (Auto) 0.2 (0.00-0.4) % Nucleat RBC Rel Count 0.0 (0.00-0.1) % Eos # (Auto) 0.09 (0-0.5) x10^3/uL Immature Gran # (Auto) 0.01 (0.00-0.03) x10^3u/L Absolute Lymphs (auto) 2.06 (1.0-4.6) x10^3/uL Absolute Monos (auto) 0.51 (0.0-1.3) x10^3/uL Absolute Nucleated RBC 0.00 (0.00-0.01) x10^3u/L Lymphocytes % 35.2 (24.0-44.0) % Monocytes % 8.7 (0.0-12.0) % Eosinophils % 1.5 (0.00-5.0) % Basophils % 1.4 (0.0-0.4) % Absolute Granulocytes 3.10 (1.4-6.9) x10^3/uL Basophils # 0.08 (0-0.4) x10^3/uL Sodium (137-145) mmol/L Potassium (3.5-5.1) mmol/L Chloride (98-107) mmol/L Carbon Dioxide (22-30) mmol/L Anion Gap (5-15) MEQ/L BUN (7-17) mg/dL Creatinine (0.52-1.04) mg/dL Estimated GFR ML/MIN Glucose (74-106) mg/dL POC Glucometer 72 L (74 to 106) mg/dL Calcium (8.4-10.2) mg/dL Total Bilirubin (0.2-1.3) mg/dL AST (14-36) U/L ALT (0-35) U/L Alkaline Phosphatase (38-126) U/L Serum Total Protein (6.3-8.2) g/dL Albumin (3.5-5.0) g/dL Urinalys Dipstick Clnc MAIN LAB Urine Color YELLOW (YELLOW) Urine Appearance CLEAR (CLEAR) Urine pH 7.0 (5-6) Ur Specific [place] 1.015 (1.005-1.025) POC Urine Protein Conf NEGATIVE (Negative) Urine Ketones NEGATIVE (NEGATIVE) Urine Nitrite NEGATIVE (NEGATIVE) Urine Bilirubin NEGATIVE (NEGATIVE) Urine Urobilinogen 0.2 (0-1) mg/dL Urine Leukocytes NEGATIVE (NEGATIVE) Urine WBC (Auto) NONE (0-5) /HPF Urine RBC (Auto) NONE (0-2) /HPF U Epithel Cells (Auto) NONE (FEW) /HPF Urine Bacteria (Auto) NONE (NEGATIVE) /HPF Urine RBC NEGATIVE (0-5) Oliver/ul Urine Mucus (Auto) SLIGHT (NEGATIVE) /HPF Ur Culture Indicated? NO Urine Glucose NEGATIVE (NEGATIVE) mg/dL 05/17/22 05/17/22 05/17/22 Range/Units 05:02 07:05 11:40 WBC (4.0-10.5) x10^3/uL RBC (4.1-5.4) x10^6/uL Hgb (12.0-16.0) g/dL Hct (35-47) % MCV (78-100) fL MCH (26-32) pg MCHC (32-36) g/dL RDW (11.5-14.0) % Plt Count (150-450) x10^3/uL MPV (7.5-11.0) fL Gran % (36.0-66.0) % Immature Gran % (Auto) (0.00-0.4) % Nucleat RBC Rel Count (0.00-0.1) % Eos # (Auto) (0-0.5) x10^3/uL Immature Gran # (Auto) (0.00-0.03) x10^3u/L Absolute Lymphs (auto) (1.0-4.6) x10^3/uL Absolute Monos (auto) (0.0-1.3) x10^3/uL Absolute Nucleated RBC (0.00-0.01) x10^3u/L Lymphocytes % (24.0-44.0) % Monocytes % (0.0-12.0) % Eosinophils % (0.00-5.0) % Basophils % (0.0-0.4) % Absolute Granulocytes (1.4-6.9) x10^3/uL Basophils # (0-0.4) x10^3/uL Sodium 142 (137-145) mmol/L Potassium 3.0 L* (3.5-5.1) mmol/L Chloride 116 H (98-107) mmol/L Carbon Dioxide 20 L (22-30) mmol/L Anion Gap 9.1 (5-15) MEQ/L BUN 5 L (7-17) mg/dL Creatinine 1.16 H (0.52-1.04) mg/dL Estimated GFR 51.2 ML/MIN Glucose 85 (74-106) mg/dL POC Glucometer 81 80 (74 to 106) mg/dL Calcium 8.3 L (8.4-10.2) mg/dL Total Bilirubin 0.40 (0.2-1.3) mg/dL AST 23 (14-36) U/L ALT 13 (0-35) U/L Alkaline Phosphatase 88 (38-126) U/L Serum Total Protein 5.2 L (6.3-8.2) g/dL Albumin 2.9 L (3.5-5.0) g/dL Urinalys Dipstick Clnc Urine Color (YELLOW) Urine Appearance (CLEAR) Urine pH (5-6) Ur Specific [place] (1.005-1.025) POC Urine Protein Conf (Negative) Urine Ketones (NEGATIVE) Urine Nitrite (NEGATIVE) Urine Bilirubin (NEGATIVE) Urine Urobilinogen (0-1) mg/dL Urine Leukocytes (NEGATIVE) Urine WBC (Auto) (0-5) /HPF Urine RBC (Auto) (0-2) /HPF U Epithel Cells (Auto) (FEW) /HPF Urine Bacteria (Auto) (NEGATIVE) /HPF Urine RBC (0-5) Oliver/ul Urine Mucus (Auto) (NEGATIVE) /HPF Ur Culture Indicated? Urine Glucose (NEGATIVE) mg/dL 05/17/22 05/17/22 Range/Units 13:14 16:58 WBC (4.0-10.5) x10^3/uL RBC (4.1-5.4) x10^6/uL Hgb (12.0-16.0) g/dL Hct (35-47) % MCV (78-100) fL MCH (26-32) pg MCHC (32-36) g/dL RDW (11.5-14.0) % Plt Count (150-450) x10^3/uL MPV (7.5-11.0) fL Gran % (36.0-66.0) % Immature Gran % (Auto) (0.00-0.4) % Nucleat RBC Rel Count (0.00-0.1) % Eos # (Auto) (0-0.5) x10^3/uL Immature Gran # (Auto) (0.00-0.03) x10^3u/L Absolute Lymphs (auto) (1.0-4.6) x10^3/uL Absolute Monos (auto) (0.0-1.3) x10^3/uL Absolute Nucleated RBC (0.00-0.01) x10^3u/L Lymphocytes % (24.0-44.0) % Monocytes % (0.0-12.0) % Eosinophils % (0.00-5.0) % Basophils % (0.0-0.4) % Absolute Granulocytes (1.4-6.9) x10^3/uL Basophils # (0-0.4) x10^3/uL Sodium (137-145) mmol/L Potassium 4.8 D (3.5-5.1) mmol/L Chloride (98-107) mmol/L Carbon Dioxide (22-30) mmol/L Anion Gap (5-15) MEQ/L BUN (7-17) mg/dL Creatinine (0.52-1.04) mg/dL Estimated GFR ML/MIN Glucose (74-106) mg/dL POC Glucometer 68 L (74 to 106) mg/dL Calcium (8.4-10.2) mg/dL Total Bilirubin (0.2-1.3) mg/dL AST (14-36) U/L ALT (0-35) U/L Alkaline Phosphatase (38-126) U/L Serum Total Protein (6.3-8.2) g/dL Albumin (3.5-5.0) g/dL Urinalys Dipstick Clnc Urine Color (YELLOW) Urine Appearance (CLEAR) Urine pH (5-6) Ur Specific [place] (1.005-1.025) POC Urine Protein Conf (Negative) Urine Ketones (NEGATIVE) Urine Nitrite (NEGATIVE) Urine Bilirubin (NEGATIVE) Urine Urobilinogen (0-1) mg/dL Urine Leukocytes (NEGATIVE) Urine WBC (Auto) (0-5) /HPF Urine RBC (Auto) (0-2) /HPF U Epithel Cells (Auto) (FEW) /HPF Urine Bacteria (Auto) (NEGATIVE) /HPF Urine RBC (0-5) Oliver/ul Urine Mucus (Auto) (NEGATIVE) /HPF Ur Culture Indicated? Urine Glucose (NEGATIVE) mg/dL Multi-Disciplinary Progress Notes: Multi-Disciplinary Progress Notes 05/17/22 09:17 Case Management Note by [facility] PATIENT REPORTS SHE IS INDEPENDENT AT HOME, HAS MOTHER TO HELP IF NEEDED. NO ANTICIPATED D/C NEEDS, WILL FOLLOW FOR ANY D/C NEEDS. Initialized on 05/17/22 09:17 - END OF NOTE Assessment/Plan (1) C. difficile diarrhea Current Visit: Yes Status: Acute Assessment & Plan: Last Vital Signs Temp 97.1 F 05/17/22 20:00 Pulse 71 05/17/22 20:00 Resp 18 05/17/22 20:00 BP 184/85 05/17/22 20:00 Pulse Ox 96 05/17/22 20:00 Allergies aripiprazole [From Abilify] Allergy (Verified 05/15/22 12:10) clarithromycin [From Biaxin] Allergy (Verified 05/15/22 12:10) prednisone Allergy (Verified 05/15/22 12:10) Sulfa (Sulfonamide Antibiotics) Allergy (Verified 05/15/22 12:10) zolpidem [From Ambien] Allergy (Verified 05/15/22 12:10) Active Medications Donepezil HCl (Donepezil Hcl 10 Mg Tablet) 10 mg PO HS RIGOBERTO Stop: 06/14/22 21:59 Last Admin: 05/16/22 21:42 Dose: 10 mg Metronidazole (Flagyl 500 Mg Ivpb) 500 mg in 100 mls @ 200 mls/hr IV Q8HT RIGOBERTO Stop: 05/26/22 21:59 Last Admin: 05/17/22 13:51 Dose: 200 mls/hr Levothyroxine Sodium (Levothyroxine Sodium 100 Mcg Tablet) 100 mcg PO DAILY RIGOBERTO Stop: 06/15/22 09:59 Last Admin: 05/17/22 08:57 Dose: 100 mcg Lisinopril (Lisinopril 10 Mg Tablet) 10 mg PO DAILY RIGOBERTO Stop: 06/16/22 14:59 Last Admin: 05/17/22 15:21 Dose: 10 mg Memantine (Memantine Hcl 5 Mg Tablet) 10 mg PO BID RIGOBERTO Stop: 06/15/22 09:59 Last Admin: 05/17/22 08:57 Dose: 10 mg Miscellaneous Information (Medication Intervention 1 Each Each) 1 each MC .RN TO CHECK RIGOBERTO Stop: 06/15/22 09:59 Miscellaneous Information (Medication Intervention 1 Each Each) 1 each MC .RN TO CHECK RIGOBERTO Stop: 06/15/22 09:59 Morphine Sulfate (Morphine Sulfate 2 Mg/Ml Inj) 2 mg IV Q4H PRN PRN PRN Reason: PAIN Stop: 05/20/22 18:16 Ondansetron HCl (Zofran 4 Mg/Udtablet Orally Disintegrating) 4 mg PO Q6HPRN PRN PRN Reason: VOMITING Stop: 06/15/22 09:24 Last Admin: 05/17/22 00:00 Dose: 4 mg Ondansetron HCl (Ondansetron Hcl 4 Mg/2 Ml Vial) 4 mg IV Q4H PRN PRN PRN Reason: NAUSEA/VOMITING Stop: 06/16/22 09:05 Last Admin: 05/17/22 12:54 Dose: 4 mg Pantoprazole Sodium (Protonix (Pantoprazole) 40 Mg Tablet) 40 mg PO DAILY RIGOBERTO Stop: 06/15/22 09:59 Last Admin: 05/17/22 08:57 Dose: 40 mg Trelegy Inhaler 200/ (62.5/25mcg) 1 each 07 RIGOBERTO Stop: 06/16/22 11:59 Last Admin: 05/17/22 12:00 Dose: 1 each Potassium Chloride (Potassium Chloride Tab 10 Meq Tab) 10 meq PO BID RIGOBERTO Stop: 06/16/22 09:59 Last Admin: 05/17/22 10:24 Dose: 10 meq Simvastatin (Simvastatin 20 Mg Tablet) 40 mg PO HS RIGOBERTO Stop: 06/14/22 21:59 Last Admin: 05/16/22 21:41 Dose: 40 mg Topiramate (Topiramate 50 Mg Tablet) 50 mg PO BID RIGOBERTO Stop: 06/14/22 21:59 Last Admin: 05/17/22 08:57 Dose: 50 mg Intake & Output 05/17/22 05/18/22 11:59 11:59 Intake Total 6523 300 Output Total 2300 1000 Balance 4223 -700 Orders 05/16/22 22:00 Metronidazole 500 mg Premix [Flagyl 500 mg Ivpb] 500 mg in 100 ml IV Q8HT 05/17/22 07:00 Respiratory MDI DAILY 05/17/22 09:06 Ondansetron HCl 4 mg/2 ml [Zofran 4 MG/2 ML VIAL] 4 mg IV Q4H PRN PRN 05/17/22 10:00 Potassium Chloride Tab* [Klor Con] 10 meq PO BID 05/17/22 12:00 Patient Own Med [Patient Own Medication] 1 each 0705/17/22 13:34 Pulse Oximetry ROUTINE 05/17/22 15:00 Lisinopril 10 mg [Zestril 10 MG] 10 mg PO DAILY 05/18/22 07:00 Respiratory Therapy Assessment DAILY Lab Tests 05/15/22 05/16/22 05/17/22 Unknown 20:59 05:02 WBC 5.9 RBC 4.43 Hgb 13.5 D Hct 40.5 MCV 91.4 MCH 30.5 MCHC 33.3 RDW 13.1 Plt Count 217 MPV 11.3 H Gran % 53.0 Immature Gran % (Auto) 0.2 Nucleat RBC Rel Count 0.0 Eos # (Auto) 0.09 Immature Gran # (Auto) 0.01 Absolute Lymphs (auto) 2.06 Absolute Monos (auto) 0.51 Absolute Nucleated RBC 0.00 Lymphocytes % 35.2 Monocytes % 8.7 Eosinophils % 1.5 Basophils % 1.4 Absolute Granulocytes 3.10 Basophils # 0.08 Sodium Potassium Chloride Carbon Dioxide Anion Gap BUN Creatinine Estimated GFR Glucose POC Glucometer 72 L Calcium Total Bilirubin AST ALT Alkaline Phosphatase Serum Total Protein Albumin Urinalys Dipstick Clnc MAIN LAB Urine Color YELLOW Urine Appearance CLEAR Urine pH 7.0 Ur Specific [place] 1.015 POC Urine Protein Conf NEGATIVE Urine Ketones NEGATIVE Urine Nitrite NEGATIVE Urine Bilirubin NEGATIVE Urine Urobilinogen 0.2 Urine Leukocytes NEGATIVE Urine WBC (Auto) NONE Urine RBC (Auto) NONE U Epithel Cells (Auto) NONE Urine Bacteria (Auto) NONE Urine RBC NEGATIVE Urine Mucus (Auto) SLIGHT Ur Culture Indicated? NO Urine Glucose NEGATIVE 05/17/22 05/17/22 05/17/22 05:02 07:05 11:40 WBC RBC Hgb Hct MCV MCH MCHC RDW Plt Count MPV Gran % Immature Gran % (Auto) Nucleat RBC Rel Count Eos # (Auto) Immature Gran # (Auto) Absolute Lymphs (auto) Absolute Monos (auto) Absolute Nucleated RBC Lymphocytes % Monocytes % Eosinophils % Basophils % Absolute Granulocytes Basophils # Sodium 142 Potassium 3.0 L* Chloride 116 H Carbon Dioxide 20 L Anion Gap 9.1 BUN 5 L Creatinine 1.16 H Estimated GFR 51.2 Glucose 85 POC Glucometer 81 80 Calcium 8.3 L Total Bilirubin 0.40 AST 23 ALT 13 Alkaline Phosphatase 88 Serum Total Protein 5.2 L Albumin 2.9 L Urinalys Dipstick Clnc Urine Color Urine Appearance Urine pH Ur Specific [place] POC Urine Protein Conf Urine Ketones Urine Nitrite Urine Bilirubin Urine Urobilinogen Urine Leukocytes Urine WBC (Auto) Urine RBC (Auto) U Epithel Cells (Auto) Urine Bacteria (Auto) Urine RBC Urine Mucus (Auto) Ur Culture Indicated? Urine Glucose 05/17/22 05/17/22 13:14 16:58 WBC RBC Hgb Hct MCV MCH MCHC RDW Plt Count MPV Gran % Immature Gran % (Auto) Nucleat RBC Rel Count Eos # (Auto) Immature Gran # (Auto) Absolute Lymphs (auto) Absolute Monos (auto) Absolute Nucleated RBC Lymphocytes % Monocytes % Eosinophils % Basophils % Absolute Granulocytes Basophils # Sodium Potassium 4.8 D Chloride Carbon Dioxide Anion Gap BUN Creatinine Estimated GFR Glucose POC Glucometer 68 L Calcium Total Bilirubin AST ALT Alkaline Phosphatase Serum Total Protein Albumin Urinalys Dipstick Clnc Urine Color Urine Appearance Urine pH Ur Specific [place] POC Urine Protein Conf Urine Ketones Urine Nitrite Urine Bilirubin Urine Urobilinogen Urine Leukocytes Urine WBC (Auto) Urine RBC (Auto) U Epithel Cells (Auto) Urine Bacteria (Auto) Urine RBC Urine Mucus (Auto) Ur Culture Indicated? 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
[2022-05-17] MEDS: ZOCOR 20MG PO SCH (20:43)
[2022-05-17] MEDS: Aricept 10 MG PO SCH (20:44)
[2022-05-18] MEDS: Zofran 4 MG/2 ML VIAL IV PRN (00:51)
[2022-05-18] MEDS: FLAGYL 500 MG IVPB 500 MG/100 ML BAG IV SCH (05:23)
[2022-05-18 05:42] LABS: Hemoglobin 14.2 g/dL (12.0-16.0); Mean Cell Volume 89.9 fL (78-100); Mean Corpuscular Hemoglobin 31.1 pg (26-32); Mean Corpuscular Hgb Concent. 34.6 g/dL (32-36); Platelet Count 210 x10^3/uL (150-450); Red Blood Count 4.56 x10^6/uL (4.1-5.4); Red Cell Distribution Width 12.9 % (11.5-14.0); White Blood Count 6.4 x10^3/uL (4.0-10.5)
[2022-05-18 05:50] LABS: ALBUMIN 3.4 g/dL (3.5-5.0); ANION GAP 10.1 MEQ/L (5-15); BILIRUBIN,TOTAL 0.4 mg/dL (0.2-1.3); Calcium 9.2 mg/dL (8.4-10.2); Creatinine 1 1.22 mg/dL (0.52-1.04); EST GLOMERULAR FILTRATION RATE 48.3 ML/MIN; Potassium 3.4 mmol/L (3.5-5.1); Total Protein 5.7 g/dL (6.3-8.2)
[2022-05-18 08:16] VITALS: BP 174/97
[2022-05-18] MEDS: Namenda 5 MG PO SCH (09:09)
[2022-05-18] MEDS: Klor Con PO SCH (09:09)
[2022-05-18] MEDS: Zestril 10 MG PO SCH (09:10)
[2022-05-18] MEDS: Protonix 40MG Tablet PO SCH (09:10)
[2022-05-18] MEDS: SYNTHROID 100 MCG PO SCH (09:10)
[2022-05-18] MEDS: TOPIRAMATE PO SCH (09:10)
[2022-05-18] MEDS: PATIENT OWN MEDICATION IH SCH (09:19)
[2022-05-18 09:20] VITALS: PULSE 94; O2SAT 94
--- NOTE | 2022-05-18 13:01 | PCM.DS ---
Discharge Summary Date of Admission: 05/15/22 18:14 Admitting Physician: KARLEY GARCIA Primary Care Provider: FEMI NEGRON Allergies Allergies aripiprazole [From Abilify] Allergy (Verified 05/15/22 12:10) clarithromycin [From Biaxin] Allergy (Verified 05/15/22 12:10) prednisone Allergy (Verified 05/15/22 12:10) Sulfa (Sulfonamide Antibiotics) Allergy (Verified 05/15/22 12:10) zolpidem [From Ambien] Allergy (Verified 05/15/22 12:10) Hospital Summary - Hospital Course Hospital Course: Chief Complaint Diagnosis c/o nusea vomiting and diarrhea for 2-3 days Allergies Allergy/AdvReac Type Severity Reaction Status Date / Time aripiprazole [From Abilify] Allergy Verified 05/15/22 12:10 clarithromycin [From Biaxin] Allergy Verified 05/15/22 12:10 prednisone Allergy Verified 05/15/22 12:10 Sulfa (Sulfonamide Allergy Verified 05/15/22 12:10 Antibiotics) zolpidem [From Ambien] Allergy Verified 05/15/22 12:10 Vital Signs (Last 24 hours) Temp Pulse Resp BP Pulse Ox 05/18/22 09:19 94 H 18 94 L 05/18/22 08:00 96.3 F 103 H 18 174/97 95 05/18/22 04:00 96.8 F 84 16 127/83 96 05/18/22 00:00 97.3 F 82 16 175/96 98 05/17/22 20:00 97.1 F 71 18 184/85 96 05/17/22 18:56 72 16 98 05/17/22 16:00 97.4 F 84 16 164/86 95 Home Medications Medication Instructions Recorded Confirmed Last Taken Type Lansoprazole 30 mg PO DAILY 05/15/22 05/15/22 Unknown History Ondansetron ODT 4 MG [Zofran 4 mg PO Q6-8HPRN PRN 05/15/22 05/15/22 Unknown History Odt 4 mg] Metronidazole 500 mg [Flagyl 500 mg PO TID #21 tablet 05/18/22 Unknown Rx 500 MG] Current Medications Discontinued Medications Generic Name Dose Route Start Last Admin Trade Name Freq PRN Reason Stop Dose Admin Diphenhydramine HCl 25 mg 05/15/22 13:33 05/15/22 13:41 Diphenhydramine Hcl 50 Mg/Ml Vial IV 05/15/22 13:34 25 mg STAT ONE Administration Diphenhydramine HCl Confirm 05/15/22 13:33 Diphenhydramine Hcl 50 Mg/Ml Vial Administered 05/15/22 13:34 Dose 50 mg .ROUTE .STK-MED ONE Diphenhydramine HCl 25 mg 05/15/22 17:55 05/15/22 18:05 Diphenhydramine Hcl 50 Mg/Ml Vial IV 05/15/22 17:56 25 mg STAT ONE Administration Diphenhydramine HCl Confirm 05/15/22 18:04 Diphenhydramine Hcl 50 Mg/Ml Vial Administered 05/15/22 18:05 Dose 50 mg .ROUTE .STK-MED ONE Donepezil HCl 10 mg 05/15/22 22:00 05/17/22 20:44 Donepezil Hcl 10 Mg Tablet PO 06/14/22 21:59 10 mg HS RIGOBERTO Administration Potassium Chloride 20 meq in 100 mls @ 50 mls/hr 05/15/22 16:45 05/15/22 20:32 Potassium Chloride 20 Meq In Water 100ml IV 05/15/22 20:44 50 mls/hr Q2H RIGOBERTO Administration Sodium Chloride 1,000 mls @ 999 mls/hr 05/15/22 16:34 05/15/22 18:28 Sodium Chloride 0.9% 1000 Ml IV 05/15/22 17:34 Infused .Q1H1M STA Infusion Magnesium Sulfate/Dextrose 100 mls @ 100 mls/hr 05/15/22 16:45 05/15/22 17:49 Magnesium 1 Gm / 100 Ml D5w IV 05/15/22 18:44 100 mls/hr Q1H RIGOBERTO Administration Sodium Chloride Confirm 05/15/22 17:06 Sodium Chloride 0.9% 1000 Ml Administered 05/15/22 17:07 Dose 1,000 mls @ ud .ROUTE .STK-MED ONE Magnesium Sulfate/Dextrose Confirm 05/15/22 17:06 Magnesium 1 Gm / 100 Ml D5w Administered 05/15/22 17:07 Dose 100 mls @ ud IV .STK-MED ONE Magnesium Sulfate/Dextrose Confirm 05/15/22 17:44 Magnesium 1 Gm / 100 Ml D5w Administered 05/15/22 17:45 Dose 100 mls @ ud IV .STK-MED ONE Sodium Chloride 1,000 mls @ 250 mls/hr 05/15/22 18:17 05/17/22 20:24 Sodium Chloride 0.9% 1000 Ml IV 06/14/22 18:16 Not Given .Q4H RIGOBERTO Potassium Chloride Confirm 05/15/22 18:26 Potassium Chloride 20 Meq In Water 100ml Administered 05/15/22 18:27 Dose 100 mls @ ud IV .STK-MED ONE Potassium Chloride Confirm 05/15/22 20:31 Potassium Chloride 20 Meq In Water 100ml Administered 05/15/22 20:32 Dose 100 mls @ ud IV .STK-MED ONE Potassium Chloride 20 meq in 100 mls @ 50 mls/hr 05/16/22 01:30 05/16/22 03:57 Potassium Chloride 20 Meq In Water 100ml IV 05/16/22 05:29 50 mls/hr Q2H RIGOBERTO Administration Sodium Chloride Confirm 05/16/22 06:42 Sodium Chloride 0.9% 1000 Ml Administered 05/16/22 06:43 Dose 1,000 mls @ ud .ROUTE .STK-MED ONE Sodium Chloride 1,000 mls @ 999 mls/hr 05/16/22 07:53 05/16/22 08:02 Sodium Chloride 0.9% 1000 Ml IV 05/16/22 08:53 999 mls/hr .Q1H1M STA Administration Sodium Chloride 1,000 mls @ 999 mls/hr 05/16/22 06:50 05/16/22 06:55 Sodium Chloride 0.9% 1000 Ml IV 05/16/22 07:50 999 mls/hr .Q1H1M STA Administration Metronidazole 500 mg in 100 mls @ 200 mls/hr 05/16/22 22:00 05/18/22 05:23 Flagyl 500 Mg Ivpb IV 05/26/22 21:59 200 mls/hr Q8HT RIGOBERTO Administration Sodium Chloride 1,000 mls @ 100 mls/hr 05/17/22 03:30 05/17/22 03:26 Sodium Chloride 0.9% 1000 Ml IV 06/16/22 03:29 100 mls/hr .Q10H RIGOBERTO Administration Potassium Chloride 20 meq in 100 mls @ 50 mls/hr 05/17/22 06:30 05/17/22 08:56 Potassium Chloride 20 Meq In Water 100ml IV 05/17/22 10:29 50 mls/hr Q2H RIGOBERTO Administration Potassium Chloride/Sodium Chloride 1,000 mls @ 100 mls/hr 05/17/22 06:30 0 05/17/22 14:44 Sodium Chloride 0.9% W/ 20 Meq Kcl/Liter IV 06/16/22 06:29 Not Given .Q10H RIGOBERTO Levothyroxine Sodium 100 mcg 05/16/22 10:00 05/18/22 09:10 Levothyroxine Sodium 100 Mcg Tablet PO 06/15/22 09:59 100 mcg DAILY RIGOBERTO Administration Lisinopril 10 mg 05/17/22 15:00 05/18/22 09:10 Lisinopril 10 Mg Tablet PO 06/16/22 14:59 10 mg DAILY RIGOBERTO Administration Memantine 10 mg 05/15/22 22:00 Memantine Hcl 5 Mg Tablet PO 06/14/22 21:59 BID RIGOBERTO Memantine 25 mg 05/15/22 22:00 05/15/22 22:15 Memantine Hcl 5 Mg Tablet PO 06/14/22 21:59 25 mg BID RIGOBERTO Administration Memantine 10 mg 05/16/22 10:00 05/18/22 09:09 Memantine Hcl 5 Mg Tablet PO 06/15/22 09:59 10 mg BID RIGOBERTO Administration Miscellaneous Information 1 each 05/16/22 09:45 Medication Intervention 1 Each Each 06/15/22 09:44 .RT TO CHECK RIGOBERTO Miscellaneous Information 1 each 05/16/22 10:00 Medication Intervention 1 Each Each 06/15/22 09:59 .RN TO CHECK RIGOBERTO Miscellaneous Information 1 each 05/16/22 10:00 Medication Intervention 1 Each Each 06/15/22 09:59 .RN TO CHECK RIGOBERTO Miscellaneous Information 1 each 05/16/22 10:00 Medication Intervention 1 Each Each 06/15/22 09:59 .RN TO CHECK RIGOBERTO Morphine Sulfate 2 mg 05/15/22 13:11 05/15/22 13:21 Morphine Sulfate 2 Mg/Ml Inj IV 05/15/22 13:12 2 mg STAT ONE Administration Morphine Sulfate Confirm 05/15/22 13:20 Morphine Sulfate 2 Mg/Ml Inj Administered 05/15/22 13:21 Dose 2 mg .ROUTE .STK-MED ONE Morphine Sulfate 2 mg 05/15/22 18:17 Morphine Sulfate 2 Mg/Ml Inj IV 05/20/22 18:16 Q4H PRN PRN PAIN Ondansetron HCl 4 mg 05/16/22 09:25 05/17/22 00:00 Zofran 4 Mg/Udtablet Orally Disintegrating PO 06/15/22 09:24 4 mg Q6HPRN PRN Administration VOMITING Ondansetron HCl 4 mg 05/17/22 09:06 05/18/22 00:51 Ondansetron Hcl 4 Mg/2 Ml Vial IV 06/16/22 09:05 4 mg Q4H PRN PRN Administration NAUSEA/VOMITING Pantoprazole Sodium 40 mg 05/16/22 10:00 05/18/22 09:10 Protonix (Pantoprazole) 40 Mg Tablet PO 06/15/22 09:59 40 mg DAILY RIGOBERTO Administration Trelegy Inhaler 200/ 1 each 05/17/22 12:00 05/18/22 09:19 62.5/25mcg IH 06/16/22 11:59 1 each 0700 RIGOBERTO Administration Potassium Chloride 10 meq 05/17/22 10:00 05/18/22 09:09 Potassium Chloride Tab 10 Meq Tab PO 06/16/22 09:59 10 meq BID RIGOBERTO Administration Prochlorperazine Edisylate 10 mg 05/15/22 13:32 05/15/22 13:41 Prochlorperazine Edisylate 10 Mg/2 Ml Vial IV 05/15/22 13:33 10 mg STAT ONE Administration Prochlorperazine Edisylate Confirm 05/15/22 13:34 Prochlorperazine Edisylate 10 Mg/2 Ml Vial Administered 05/15/22 13:35 Dose 10 mg .ROUTE .STK-MED ONE Prochlorperazine Edisylate 10 mg 05/15/22 17:54 05/15/22 18:05 Prochlorperazine Edisylate 10 Mg/2 Ml Vial IV 05/15/22 17:55 10 mg STAT ONE Administration Prochlorperazine Edisylate Confirm 05/15/22 18:04 Prochlorperazine Edisylate 10 Mg/2 Ml Vial Administered 05/15/22 18:05 Dose 10 mg .ROUTE .STK-MED ONE Simvastatin 40 mg 05/15/22 22:00 05/17/22 20:43 Simvastatin 20 Mg Tablet PO 06/14/22 21:59 40 mg HS RIGOBERTO Administration Tizanidine HCl 4 mg 05/15/22 20:23 Tizanidine Hcl 4 Mg Tablet PO 06/14/22 20:22 HSPRN PRN MUSCLE SPASMS Tizanidine HCl 12 mg 05/15/22 22:00 05/15/22 22:15 Tizanidine Hcl 4 Mg Tablet PO 06/14/22 21:59 12 mg HS RIGOBERTO Administration Topiramate 50 mg 05/15/22 22:00 05/18/22 09:10 Topiramate 50 Mg Tablet PO 06/14/22 21:59 50 mg BID RIGOBERTO Administration Intake & Output (Last 24 hours) 05/16/22 05/17/22 05/18/22 05/19/22 11:59 11:59 11:59 11:59 Intake Total 340 6523 1140 Output Total 400 2300 1900 Balance -60 4223 -760 Weight 62 kg Laboratory Results (Last 24 hours) 05/18/22 05/18/22 05/18/22 07:46 05:40 04:25 WBC 6.4 RBC 4.56 Hgb 14.2 Hct 41.0 MCV 89.9 MCH 31.1 MCHC 34.6 RDW 12.9 Plt Count 210 MPV 12.0 H Sodium 141 Potassium 3.4 L D Chloride 111 H Carbon Dioxide 23 Anion Gap 10.1 BUN 4 L Creatinine 1.22 H Estimated GFR 48.3 Glucose 89 POC Glucometer 88 Calcium 9.2 Total Bilirubin 0.40 AST 18 ALT 12 Alkaline Phosphatase 98 Serum Total Protein 5.7 L Albumin 3.4 L 05/17/22 05/17/22 05/17/22 20:33 16:58 13:14 WBC RBC Hgb Hct MCV MCH MCHC RDW Plt Count MPV Sodium Potassium 4.8 D Chloride Carbon Dioxide Anion Gap BUN Creatinine Estimated GFR Glucose POC Glucometer 85 68 L Calcium Total Bilirubin AST ALT Alkaline Phosphatase Serum Total Protein Albumin Orders (Last 24 hours) Category Date Time Status Discharge Routine Discharge 05/18/22 Ordered CBC Routine Lab 05/18/22 05:40 Completed CMP AM.LAB Lab 05/18/22 04:25 Completed POCT GLUCOSE Stat Lab 05/17/22 16:58 Completed POCT GLUCOSE Stat Lab 05/17/22 20:33 Completed POCT GLUCOSE Stat Lab 05/18/22 07:46 Completed Pot [Potassium] Urgent Lab 05/17/22 13:14 Completed Lisinopril 10 mg [Zestril 10 MG] Med 05/17/22 15:00 Discontinued 10 mg PO DAILY Patient Own Med [Patient Own Medication] Med 05/17/22 12:00 Discontinued 1 each IH 0700 Pulse Oximetry ROUTINE RT 05/17/22 13:34 Completed Respiratory Therapy Assessment DAILY RT 05/18/22 07:00 Completed Patient Care Notes (Last 24 hours) 05/18/22 10:05 Case Management Note by Genesis Asif PLANS TO D/C TODAY. DENIED ANY D/C NEEDS WILL CONTINUE TO FOLLOW IF ANY NEEDS ARISE. Initialized on 05/18/22 10:05 - END OF NOTE 05/17/22 14:39 SBAR Note by Elsa Kruger SITUATION I am calling about RODOLFO RICCI the patient's code status is Full Code The problem I am calling about is: Called Dr Garcia with pt's K+ level results, updated on pt's increased B/P and holding IV fluids. Received new orders. ASSESSMENT RECOMMENDATION Physician notified at 1439 New Orders received: Vital Signs (Last 4 hours) Temp Pulse Resp BP Pulse Ox 05/17/22 12:00 97.5 F 72 16 181/92 97 Diagnois, Code Status Date of Arrival on Unit 05/15/22 Admitted From Emergency Dept Diagnosis c/o nusea vomiting and diarrhea for 2-3 days Resucitation Status Full Code Intake and Output 12 Hours 05/17/22 05/17/22 06:59 18:59 Intake Total 1371 1071 Output Total 1500 600 Balance -129 471 Intake: Intake, Oral Amount 360 60 Intake, IV Amount 1011 1011 Output: Output, Urine Amount 1500 600 Physical Assessment Anxiety Level None,at ease,Awake,Calm,Low Mental Status Alert Patient Orientation Person,Place,Time Coma Scale Total 15 Breath Sounds [Anterior/ Clear Posterior Bilateral Throughout ] Breath Sounds [Anterior/ Clear Posterior Bilateral Throughout ] Cardiac Rhythm-[facility] Sinus Rhythm Bowel Sounds [All Quadrants] Present Abdomen Description Soft Urine Appearance Clear Urine Color Yellow Skin Color Normal for Race Skin Temperature Warm Pain Scale (Last 12 Hours) Pain Intensity 0 Pain Intensity 0 Pain Intensity 0 PAST MEDICAL HISTORY Neurological History Dementia ENT History No Pertinent History Endocrine Medical History Hypothyroidism Respiratory History Other Cardiac History Arrhythmia,Hypertension,Other GI Medical History Gallbladder Disease History No Pertinent History Reproductive Disorders No Pertinent History Pyscho-Social History Bipolar,Depression Communicable Disease No Pertinent History Comment RECENT DX (DURING HOSPITALIZATION) WITH CARDIOMYOPATHY WITH EJECTION FRACTION 15%. COVID AUGUST 2021. Diabetic (Last 12 Hours) Time 11:45 Time 07:31 POCT Glucose (LAST VALUE) 80 mg/dL (74 to 106) POCT Glucose (LAST VALUE) 81 mg/dL (74 to 106) Lab Results (Last 12 Hours) 05/17/22 05/17/22 05/17/22 Range/Units 13:14 11:40 07:05 WBC (4.0-10.5) x10^3/uL RBC (4.1-5.4) x10^6/uL Hgb (12.0-16.0) g/dL Hct (35-47) % MCV (78-100) fL MCH (26-32) pg MCHC (32-36) g/dL RDW (11.5-14.0) % Plt Count (150-450) x10^3/uL MPV (7.5-11.0) fL Gran % (36.0-66.0) % Immature Gran % (Auto) (0.00-0.4) % Nucleat RBC Rel Count (0.00-0.1) % Eos # (Auto) (0-0.5) x10^3/uL Immature Gran # (Auto) (0.00-0.03) x10^3u/L Absolute Lymphs (auto) (1.0-4.6) x10^3/uL Absolute Monos (auto) (0.0-1.3) x10^3/uL Absolute Nucleated RBC (0.00-0.01) x10^3u/L Lymphocytes % (24.0-44.0) % Monocytes % (0.0-12.0) % Eosinophils % (0.00-5.0) % Basophils % (0.0-0.4) % Absolute Granulocytes (1.4-6.9) x10^3/uL Basophils # (0-0.4) x10^3/uL Sodium (137-145) mmol/L Potassium 4.8 D (3.5-5.1) mmol/L Chloride (98-107) mmol/L Carbon Dioxide (22-30) mmol/L Anion Gap (5-15) MEQ/L BUN (7-17) mg/dL Creatinine (0.52-1.04) mg/dL Estimated GFR ML/MIN Glucose (74-106) mg/dL POC Glucometer 80 81 (74 to 106) mg/dL Calcium (8.4-10.2) mg/dL Total Bilirubin (0.2-1.3) mg/dL AST (14-36) U/L ALT (0-35) U/L Alkaline Phosphatase (38-126) U/L Serum Total Protein (6.3-8.2) g/dL Albumin (3.5-5.0) g/dL Urinalys Dipstick Clnc Urine Color (YELLOW) Urine Appearance (CLEAR) Urine pH (5-6) Ur Specific Lewis (1.005-1.025) POC Urine Protein Conf (Negative) Urine Ketones (NEGATIVE) Urine Nitrite (NEGATIVE) Urine Bilirubin (NEGATIVE) Urine Urobilinogen (0-1) mg/dL Urine Leukocytes (NEGATIVE) Urine WBC (Auto) (0-5) /HPF Urine RBC (Auto) (0-2) /HPF U Epithel Cells (Auto) (FEW) /HPF Urine Bacteria (Auto) (NEGATIVE) /HPF Urine RBC (0-5) Oliver/ul Urine Mucus (Auto) (NEGATIVE) /HPF Ur Culture Indicated? Urine Glucose (NEGATIVE) mg/dL 05/17/22 05/17/22 05/15/22 Range/Units 05:02 05:02 Unknown WBC 5.9 (4.0-10.5) x10^3/uL RBC 4.43 (4.1-5.4) x10^6/uL Hgb 13.5 D (12.0-16.0) g/dL Hct 40.5 (35-47) % MCV 91.4 (78-100) fL MCH 30.5 (26-32) pg MCHC 33.3 (32-36) g/dL RDW 13.1 (11.5-14.0) % Plt Count 217 (150-450) x10^3/uL MPV 11.3 H (7.5-11.0) fL Gran % 53.0 (36.0-66.0) % Immature Gran % (Auto) 0.2 (0.00-0.4) % Nucleat RBC Rel Count 0.0 (0.00-0.1) % Eos # (Auto) 0.09 (0-0.5) x10^3/uL Immature Gran # (Auto) 0.01 (0.00-0.03) x10^3u/L Absolute Lymphs (auto) 2.06 (1.0-4.6) x10^3/uL Absolute Monos (auto) 0.51 (0.0-1.3) x10^3/uL Absolute Nucleated RBC 0.00 (0.00-0.01) x10^3u/L Lymphocytes % 35.2 (24.0-44.0) % Monocytes % 8.7 (0.0-12.0) % Eosinophils % 1.5 (0.00-5.0) % Basophils % 1.4 (0.0-0.4) % Absolute Granulocytes 3.10 (1.4-6.9) x10^3/uL Basophils # 0.08 (0-0.4) x10^3/uL Sodium 142 (137-145) mmol/L Potassium 3.0 L* (3.5-5.1) mmol/L Chloride 116 H (98-107) mmol/L Carbon Dioxide 20 L (22-30) mmol/L Anion Gap 9.1 (5-15) MEQ/L BUN 5 L (7-17) mg/dL Creatinine 1.16 H (0.52-1.04) mg/dL Estimated GFR 51.2 ML/MIN Glucose 85 (74-106) mg/dL POC Glucometer (74 to 106) mg/dL Calcium 8.3 L (8.4-10.2) mg/dL Total Bilirubin 0.40 (0.2-1.3) mg/dL AST 23 (14-36) U/L ALT 13 (0-35) U/L Alkaline Phosphatase 88 (38-126) U/L Serum Total Protein 5.2 L (6.3-8.2) g/dL Albumin 2.9 L (3.5-5.0) g/dL Urinalys Dipstick Clnc MAIN LAB Urine Color YELLOW (YELLOW) Urine Appearance CLEAR (CLEAR) Urine pH 7.0 (5-6) Ur Specific Lewis 1.015 (1.005-1.025) POC Urine Protein Conf NEGATIVE (Negative) Urine Ketones NEGATIVE (NEGATIVE) Urine Nitrite NEGATIVE (NEGATIVE) Urine Bilirubin NEGATIVE (NEGATIVE) Urine Urobilinogen 0.2 (0-1) mg/dL Urine Leukocytes NEGATIVE (NEGATIVE) Urine WBC (Auto) NONE (0-5) /HPF Urine RBC (Auto) NONE (0-2) /HPF U Epithel Cells (Auto) NONE (FEW) /HPF Urine Bacteria (Auto) NONE (NEGATIVE) /HPF Urine RBC NEGATIVE (0-5) Oliver/ul Urine Mucus (Auto) SLIGHT (NEGATIVE) /HPF Ur Culture Indicated? NO Urine Glucose NEGATIVE (NEGATIVE) mg/dL Orders (Last 12 Hours) Category Date Time Status NaCl 0.9% 1000 ml + KCl 20 Meq [Sodium Chloride 0.9% W/ Med 05/17/22 06:30 Active 20 mEq KCl/LITER] 1,000 ml IV 100 mls/hr Ondansetron HCl 4 mg/2 ml [Zofran 4 MG/2 ML VIAL] Med 05/17/22 09:06 Active 4 mg IV Q4H PRN PRN Patient Own Med [Patient Own Medication] Med 05/17/22 12:00 Active 1 each IH 0700 Potassium Chloride Tab* [Klor Con] Med 05/17/22 10:00 Active 10 meq PO BID Pulse Oximetry ROUTINE RT 05/17/22 13:34 Active Respiratory MDI DAILY RT 05/17/22 07:00 Active Respiratory Therapy Assessment DAILY RT 05/18/22 07:00 Active Nursing Notes (Last 12 hours) 05/17/22 12:19 Nursing Note by Elsa Kruger Sat up with noon meal. Re-checked B/P without IV fluids infusing; 182/78; continue to monitor. Initialized on 05/17/22 12:19 - END OF NOTE 05/17/22 11:34 Nursing Note by Elsa Kruger Noted pt's B/P 181/92 after receiving K-Armando; fluids turned off at this time. Plan to recheck B/P. Initialized on 05/17/22 11:34 - END OF NOTE 05/17/22 10:16 Nursing Note by Elsa Kruger Called pt's mother,Heydi, with pt's health update, stated she would bring her home meds that are not available at the hospital. Initialized on 05/17/22 10:16 - END OF NOTE 05/17/22 07:00 Nursing Note by Vaibhav Daniels 05/17/[address] Garcia notified of K+ 3.0 orders received. Initialized on 05/17/22 07:00 - END OF NOTE Active Visit Medications Generic Name Dose Route Start Last Admin Trade Name Freq PRN Reason Stop Dose Admin Donepezil HCl 10 mg 05/15/22 22:00 05/16/22 21:42 Donepezil Hcl 10 Mg Tablet PO 06/14/22 21:59 10 mg HS RIGOBERTO Administration Metronidazole 500 mg in 100 mls @ 200 mls/hr 05/16/22 22:00 05/17/22 13:51 Flagyl 500 Mg Ivpb IV 05/26/22 21:59 200 mls/hr Q8HT RIGOBERTO Administration Potassium Chloride/Sodium Chloride 1,000 mls @ 100 mls/hr 05/17/22 06:30 05/17/22 11:04 Sodium Chloride 0.9% W/ 20 Meq Kcl/Liter IV 06/16/22 06:29 100 mls/hr .Q10H RIGOBERTO Administration Levothyroxine Sodium 100 mcg 05/16/22 10:00 05/17/22 08:57 Levothyroxine Sodium 100 Mcg Tablet PO 06/15/22 09:59 100 mcg DAILY RIGOBERTO Administration Memantine 10 mg 05/16/22 10:00 05/17/22 08:57 Memantine Hcl 5 Mg Tablet PO 06/15/22 09:59 10 mg BID RIGOBERTO Administration Miscellaneous Information 1 each 05/16/22 10:00 Medication Intervention 1 Each Each MC 06/15/22 09:59 .RN TO CHECK RIGOBERTO Miscellaneous Information 1 each 05/16/22 10:00 Medication Intervention 1 Each Each MC 06/15/22 09:59 .RN TO CHECK RIGOBERTO Morphine Sulfate 2 mg 05/15/22 18:17 Morphine Sulfate 2 Mg/Ml Inj IV 05/20/22 18:16 Q4H PRN PRN PAIN Ondansetron HCl 4 mg 05/16/22 09:25 05/17/22 00:00 Zofran 4 Mg/Udtablet Orally Disintegrating PO 06/15/22 09:24 4 mg Q6HPRN PRN Administration VOMITING Ondansetron HCl 4 mg 05/17/22 09:06 05/17/22 12:54 Ondansetron Hcl 4 Mg/2 Ml Vial IV 06/16/22 09:05 4 mg Q4H PRN PRN Administration NAUSEA/VOMITING Pantoprazole Sodium 40 mg 05/16/22 10:00 05/17/22 08:57 Protonix (Pantoprazole) 40 Mg Tablet PO 06/15/22 09:59 40 mg DAILY RIGOBERTO Administration Trelegy Inhaler 200/ 1 each 05/17/22 12:00 05/17/22 12:00 62.5/25mcg IH 06/16/22 11:59 1 each 0700 RIGOBERTO Administration Potassium Chloride 10 meq 05/17/22 10:00 05/17/22 10:24 Potassium Chloride Tab 10 Meq Tab PO 06/16/22 09:59 10 meq BID RIGOBERTO Administration Simvastatin 40 mg 05/15/22 22:00 05/16/22 21:41 Simvastatin 20 Mg Tablet PO 06/14/22 21:59 40 mg HS RIGOBERTO Administration Topiramate 50 mg 05/15/22 22:00 05/17/22 08:57 Topiramate 50 Mg Tablet PO 06/14/22 21:59 50 mg BID RIGOBERTO Administration Home Medications Medication Instructions Recorded Confirmed Last Taken Type Lansoprazole 30 mg PO DAILY 05/15/22 05/15/22 Unknown History Ondansetron ODT 4 MG [Zofran 4 mg PO Q6-8HPRN PRN 05/15/22 05/15/22 Unknown History Odt 4 mg] Initialized on 05/17/22 14:39 - END OF NOTE 05/17/22 13:25 (created 05/17/22 16:21) Nursing Note by Elsa Kruger Pt stated she had sl nausea at this time. Initialized on 05/17/22 16:21 - END OF NOTE doing well, discharge home today. Flagyl 500 mg po three times a day for 7 days - Vitals & Intake/Output Vital Signs: Vital Signs Temperature 96.3 F 05/18/22 08:00 Pulse Rate 94 H 05/18/22 09:19 Respiratory Rate 18 05/18/22 09:19 Blood Pressure 174/97 05/18/22 08:00 O2 Sat by Pulse Oximetry 94 L 05/18/22 09:19 Intake & Output: Intake & Output 05/16/22 05/17/22 05/18/22 05/19/22 11:59 11:59 11:59 11:59 Intake Total 340 6523 1140 Output Total 400 2300 1900 Balance -60 7083 -297 Weight 62 kg - Lab Result Diagrams: 05/18/22 05:40 05/18/22 04:25 Lab Results-Last 24 Hrs: Lab Results-Last 24 Hours 05/17/22 05/17/22 05/17/22 Range/Units 13:14 16:58 20:33 WBC (4.0-10.5) x10^3/uL RBC (4.1-5.4) x10^6/uL Hgb (12.0-16.0) g/dL Hct (35-47) % MCV (78-100) fL MCH (26-32) pg MCHC (32-36) g/dL RDW (11.5-14.0) % Plt Count (150-450) x10^3/uL MPV (7.5-11.0) fL Sodium (137-145) mmol/L Potassium 4.8 D (3.5-5.1) mmol/L Chloride (98-107) mmol/L Carbon Dioxide (22-30) mmol/L Anion Gap (5-15) MEQ/L BUN (7-17) mg/dL Creatinine (0.52-1.04) mg/dL Estimated GFR ML/MIN Glucose (74-106) mg/dL POC Glucometer 68 L 85 (74 to 106) mg/dL Calcium (8.4-10.2) mg/dL Total Bilirubin (0.2-1.3) mg/dL AST (14-36) U/L ALT (0-35) U/L Alkaline Phosphatase (38-126) U/L Serum Total Protein (6.3-8.2) g/dL Albumin (3.5-5.0) g/dL 05/18/22 05/18/22 05/18/22 Range/Units 04:25 05:40 07:46 WBC 6.4 (4.0-10.5) x10^3/uL RBC 4.56 (4.1-5.4) x10^6/uL Hgb 14.2 (12.0-16.0) g/dL Hct 41.0 (35-47) % MCV 89.9 (78-100) fL MCH 31.1 (26-32) pg MCHC 34.6 (32-36) g/dL RDW 12.9 (11.5-14.0) % Plt Count 210 (150-450) x10^3/uL MPV 12.0 H (7.5-11.0) fL Sodium 141 (137-145) mmol/L Potassium 3.4 L D (3.5-5.1) mmol/L Chloride 111 H (98-107) mmol/L Carbon Dioxide 23 (22-30) mmol/L Anion Gap 10.1 (5-15) MEQ/L BUN 4 L (7-17) mg/dL Creatinine 1.22 H (0.52-1.04) mg/dL Estimated GFR 48.3 ML/MIN Glucose 89 (74-106) mg/dL POC Glucometer 88 (74 to 106) mg/dL Calcium 9.2 (8.4-10.2) mg/dL Total Bilirubin 0.40 (0.2-1.3) mg/dL AST 18 (14-36) U/L ALT 12 (0-35) U/L Alkaline Phosphatase 98 (38-126) U/L Serum Total Protein 5.7 L (6.3-8.2) g/dL Albumin 3.4 L (3.5-5.0) g/dL Micro Results-Entire Visit: Accuchecks Date 05/17/22 Date 05/17/22 Date 05/17/22 Time 21:41 Time 17:27 Time 17:05 - Procedures and Test Procedures and Tests throughout Hospitalization: Therapy Orders & Screens 05/17/22 07:00 Respiratory MDI DAILY Comment: Advair 115/21 2 puffs BID Diagnosis: c/o nusea vomiting and diarrhea for 2-3 days 05/18/22 07:00 Respiratory Therapy Assessment DAILY Comment: Diagnosis: c/o nusea vomiting and diarrhea for 2-3 days Discharge Exam General Appearance: no apparent distress, alert Neurologic Exam: alert, oriented x 3, cooperative, normal mood/affect, nml cerebellar function, sensation nml, No motor deficits Eye Exam: PERRL, EOMI, eyes nml inspection Ears, Nose, Throat Exam: normal ENT inspection, pharynx normal, moist mucous membranes Neck Exam: normal inspection, non-tender, supple, full range of motion Respiratory Exam: normal breath sounds, lungs clear, No respiratory distress Cardiovascular Exam: regular rate/rhythm, normal heart sounds Gastrointestinal/Abdomen Exam: soft, No tenderness, No mass Pelvic Exam: deferred Rectal Exam: deferred Back Exam: normal inspection, normal range of motion, No CVA tenderness, No vertebral tenderness Extremity Exam: normal inspection, normal range of motion Skin Exam: normal color, warm, dry Final Diagnosis/Problem List - Final Discharge Diagnosis/Problem (1) C. difficile diarrhea Status: Acute Assessment & Plan: Chief Complaint Diagnosis c/o nusea vomiting and diarrhea for 2-3 days Allergies Allergy/AdvReac Type Severity Reaction Status Date / Time aripiprazole [From Abilify] Allergy Verified 05/15/22 12:10 clarithromycin [From Biaxin] Allergy Verified 05/15/22 12:10 prednisone Allergy Verified 05/15/22 12:10 Sulfa (Sulfonamide Allergy Verified 05/15/22 12:10 Antibiotics) zolpidem [From Ambien] Allergy Verified 05/15/22 12:10 Vital Signs (Last 24 hours) Temp Pulse Resp BP Pulse Ox 05/18/22 09:19 94 H 18 94 L 05/18/22 08:00 96.3 F 103 H 18 174/97 95 05/18/22 04:00 96.8 F 84 16 127/83 96 05/18/22 00:00 97.3 F 82 16 175/96 98 05/17/22 20:00 97.1 F 71 18 184/85 96 05/17/22 18:56 72 16 98 05/17/22 16:00 97.4 F 84 16 164/86 95 Home Medications Medication Instructions Recorded Confirmed Last Taken Type Lansoprazole 30 mg PO DAILY 05/15/22 05/15/22 Unknown History Ondansetron ODT 4 MG [Zofran 4 mg PO Q6-8HPRN PRN 05/15/22 05/15/22 Unknown History Odt 4 mg] Metronidazole 500 mg [Flagyl 500 mg PO TID #21 tablet 05/18/22 Unknown Rx 500 MG] Current Medications Discontinued Medications Generic Name Dose Route Start Last Admin Trade Name Freq PRN Reason Stop Dose Admin Diphenhydramine HCl 25 mg 05/15/22 13:33 05/15/22 13:41 Diphenhydramine Hcl 50 Mg/Ml Vial IV 05/15/22 13:34 25 mg STAT ONE Administration Diphenhydramine HCl Confirm 05/15/22 13:33 Diphenhydramine Hcl 50 Mg/Ml Vial Administered 05/15/22 13:34 Dose 50 mg .ROUTE .STK-MED ONE Diphenhydramine HCl 25 mg 05/15/22 17:55 05/15/22 18:05 Diphenhydramine Hcl 50 Mg/Ml Vial IV 05/15/22 17:56 25 mg STAT ONE Administration Diphenhydramine HCl Confirm 05/15/22 18:04 Diphenhydramine Hcl 50 Mg/Ml Vial Administered 05/15/22 18:05 Dose 50 mg .ROUTE .STK-MED ONE Donepezil HCl 10 mg 05/15/22 22:00 05/17/22 20:44 Donepezil Hcl 10 Mg Tablet PO 06/14/22 21:59 10 mg HS RIGOBERTO Administration Potassium Chloride 20 meq in 100 mls @ 50 mls/hr 05/15/22 16:45 05/15/22 20:32 Potassium Chloride 20 Meq In Water 100ml IV 05/15/22 20:44 50 mls/hr Q2H RIGOBERTO Administration Sodium Chloride 1,000 mls @ 999 mls/hr 05/15/22 16:34 05/15/22 18:28 Sodium Chloride 0.9% 1000 Ml IV 05/15/22 17:34 Infused .Q1H1M STA Infusion Magnesium Sulfate/Dextrose 100 mls @ 100 mls/hr 05/15/22 16:45 05/15/22 17:49 Magnesium 1 Gm / 100 Ml D5w IV 05/15/22 18:44 100 mls/hr Q1H RIGOBERTO Administration Sodium Chloride Confirm 05/15/22 17:06 Sodium Chloride 0.9% 1000 Ml Administered 05/15/22 17:07 Dose 1,000 mls @ ud .ROUTE .STK-MED ONE Magnesium Sulfate/Dextrose Confirm 05/15/22 17:06 Magnesium 1 Gm / 100 Ml D5w Administered 05/15/22 17:07 Dose 100 mls @ ud IV .STK-MED ONE Magnesium Sulfate/Dextrose Confirm 05/15/22 17:44 Magnesium 1 Gm / 100 Ml D5w Administered 05/15/22 17:45 Dose 100 mls @ ud IV .STK-MED ONE Sodium Chloride 1,000 mls @ 250 mls/hr 05/15/22 18:17 05/17/22 20:24 Sodium Chloride 0.9% 1000 Ml IV 06/14/22 18:16 Not Given .Q4H RIGOBERTO Potassium Chloride Confirm 05/15/22 18:26 Potassium Chloride 20 Meq In Water 100ml Administered 05/15/22 18:27 Dose 100 mls @ ud IV .STK-MED ONE Potassium Chloride Confirm 05/15/22 20:31 Potassium Chloride 20 Meq In Water 100ml Administered 05/15/22 20:32 Dose 100 mls @ ud IV .STK-MED ONE Potassium Chloride 20 meq in 100 mls @ 50 mls/hr 05/16/22 01:30 05/16/22 03:57 Potassium Chloride 20 Meq In Water 100ml IV 05/16/22 05:29 50 mls/hr Q2H RIGOBERTO Administration Sodium Chloride Confirm 05/16/22 06:42 Sodium Chloride 0.9% 1000 Ml Administered 05/16/22 06:43 Dose 1,000 mls @ ud .ROUTE .STK-MED ONE Sodium Chloride 1,000 mls @ 999 mls/hr 05/16/22 07:53 05/16/22 08:02 Sodium Chloride 0.9% 1000 Ml IV 05/16/22 08:53 999 mls/hr .Q1H1M STA Administration Sodium Chloride 1,000 mls @ 999 mls/hr 05/16/22 06:50 05/16/22 06:55 Sodium Chloride 0.9% 1000 Ml IV 05/16/22 07:50 999 mls/hr .Q1H1M STA Administration Metronidazole 500 mg in 100 mls @ 200 mls/hr 05/16/22 22:00 05/18/22 05:23 Flagyl 500 Mg Ivpb IV 05/26/22 21:59 200 mls/hr Q8HT RIGOBERTO Administration Sodium Chloride 1,000 mls @ 100 mls/hr 05/17/22 03:30 05/17/22 03:26 Sodium Chloride 0.9% 1000 Ml IV 06/16/22 03:29 100 mls/hr .Q10H RIGOBERTO Administration Potassium Chloride 20 meq in 100 mls @ 50 mls/hr 05/17/22 06:30 05/17/22 08:56 Potassium Chloride 20 Meq In Water 100ml IV 05/17/22 10:29 50 mls/hr Q2H RIGOBERTO Administration Potassium Chloride/Sodium Chloride 1,000 mls @ 100 mls/hr 05/17/22 06:30 05/17/22 14:44 Sodium Chloride 0.9% W/ 20 Meq Kcl/Liter IV 06/16/22 06:29 Not Given .Q10H RIGOBERTO Levothyroxine Sodium 100 mcg 05/16/22 10:00 05/18/22 09:10 Levothyroxine Sodium 100 Mcg Tablet PO 06/15/22 09:59 100 mcg DAILY RIGOBERTO Administration Lisinopril 10 mg 05/17/22 15:00 05/18/22 09:10 Lisinopril 10 Mg Tablet PO 06/16/22 14:59 10 mg DAILY RIGOBERTO Administration Memantine 10 mg 05/15/22 22:00 Memantine Hcl 5 Mg Tablet PO 06/14/22 21:59 BID RIGOBERTO Memantine 25 mg 05/15/22 22:00 05/15/22 22:15 Memantine Hcl 5 Mg Tablet PO 06/14/22 21:59 25 mg BID RIGOBERTO Administration Memantine 10 mg 05/16/22 10:00 05/18/22 09:09 Memantine Hcl 5 Mg Tablet PO 06/15/22 09:59 10 mg BID RIGOBERTO Administration Miscellaneous Information 1 each 05/16/22 09:45 Medication Intervention 1 Each Each 06/15/22 09:44 .RT TO CHECK RIGOBERTO Miscellaneous Information 1 each 05/16/22 10:00 Medication Intervention 1 Each Each 06/15/22 09:59 .RN TO CHECK RIGOBERTO Miscellaneous Information 1 each 05/16/22 10:00 Medication Intervention 1 Each Each 06/15/22 09:59 .RN TO CHECK RIGOBERTO Miscellaneous Information 1 each 05/16/22 10:00 Medication Intervention 1 Each Each 06/15/22 09:59 .RN TO CHECK RIGOBERTO Morphine Sulfate 2 mg 05/15/22 13:11 05/15/22 13:21 Morphine Sulfate 2 Mg/Ml Inj IV 05/15/22 13:12 2 mg STAT ONE Administration Morphine Sulfate Confirm 05/15/22 13:20 Morphine Sulfate 2 Mg/Ml Inj Administered 05/15/22 13:21 Dose 2 mg .ROUTE .STK-MED ONE Morphine Sulfate 2 mg 05/15/22 18:17 Morphine Sulfate 2 Mg/Ml Inj IV 05/20/22 18:16 Q4H PRN PRN PAIN Ondansetron HCl 4 mg 05/16/22 09:25 05/17/22 00:00 Zofran 4 Mg/Udtablet Orally Disintegrating PO 06/15/22 09:24 4 mg Q6HPRN PRN Administration VOMITING Ondansetron HCl 4 mg 05/17/22 09:06 05/18/22 00:51 Ondansetron Hcl 4 Mg/2 Ml Vial IV 06/16/22 09:05 4 mg Q4H PRN PRN Administration NAUSEA/VOMITING Pantoprazole Sodium 40 mg 05/16/22 10:00 05/18/22 09:10 Protonix (Pantoprazole) 40 Mg Tablet PO 06/15/22 09:59 40 mg DAILY RIGOBERTO Administration Trelegy Inhaler 200/ 1 each 05/17/22 12:00 05/18/22 09:19 62.5/25mcg IH 06/16/22 11:59 1 each 0700 RIGOBERTO Administration Potassium Chloride 10 meq 05/17/22 10:00 05/18/22 09:09 Potassium Chloride Tab 10 Meq Tab PO 06/16/22 09:59 10 meq BID RIGOBERTO Administration Prochlorperazine Edisylate 10 mg 05/15/22 13:32 05/15/22 13:41 Prochlorperazine Edisylate 10 Mg/2 Ml Vial IV 05/15/22 13:33 10 mg STAT ONE Administration Prochlorperazine Edisylate Confirm 05/15/22 13:34 Prochlorperazine Edisylate 10 Mg/2 Ml Vial Administered 05/15/22 13:35 Dose 10 mg .ROUTE .STK-MED ONE Prochlorperazine Edisylate 10 mg 05/15/22 17:54 05/15/22 18:05 Prochlorperazine Edisylate 10 Mg/2 Ml Vial IV 05/15/22 17:55 10 mg STAT ONE Administration Prochlorperazine Edisylate Confirm 05/15/22 18:04 Prochlorperazine Edisylate 10 Mg/2 Ml Vial Administered 05/15/22 18:05 Dose 10 mg .ROUTE .STK-MED ONE Simvastatin 40 mg 05/15/22 22:00 05/17/22 20:43 Simvastatin 20 Mg Tablet PO 06/14/22 21:59 40 mg HS RIGOBERTO Administration Tizanidine HCl 4 mg 05/15/22 20:23 Tizanidine Hcl 4 Mg Tablet PO 06/14/22 20:22 HSPRN PRN MUSCLE SPASMS Tizanidine HCl 12 mg 05/15/22 22:00 05/15/22 22:15 Tizanidine Hcl 4 Mg Tablet PO 06/14/22 21:59 12 mg HS RIGOBERTO Administration Topiramate 50 mg 05/15/22 22:00 05/18/22 09:10 Topiramate 50 Mg Tablet PO 06/14/22 21:59 50 mg BID RIGOBERTO Administration Intake & Output (Last 24 hours) 05/16/22 05/17/22 05/18/22 05/19/22 11:59 11:59 11:59 11:59 Intake Total 340 6523 1140 Output Total 400 2300 1900 Balance -60 4223 -760 Weight 62 kg Laboratory Results (Last 24 hours) 05/18/22 05/18/22 05/18/22 07:46 05:40 04:25 WBC 6.4 RBC 4.56 Hgb 14.2 Hct 41.0 MCV 89.9 MCH 31.1 MCHC 34.6 RDW 12.9 Plt Count 210 MPV 12.0 H Sodium 141 Potassium 3.4 L D Chloride 111 H Carbon Dioxide 23 Anion Gap 10.1 BUN 4 L Creatinine 1.22 H Estimated GFR 48.3 Glucose 89 POC Glucometer 88 Calcium 9.2 Total Bilirubin 0.40 AST 18 ALT 12 Alkaline Phosphatase 98 Serum Total Protein 5.7 L Albumin 3.4 L 05/17/22 05/17/22 05/17/22 20:33 16:58 13:14 WBC RBC Hgb Hct MCV MCH MCHC RDW Plt Count MPV Sodium Potassium 4.8 D Chloride Carbon Dioxide Anion Gap BUN Creatinine Estimated GFR Glucose POC Glucometer 85 68 L Calcium Total Bilirubin AST ALT Alkaline Phosphatase Serum Total Protein Albumin Orders (Last 24 hours) Category Date Time Status Discharge Routine Discharge 05/18/22 Ordered CBC Routine Lab 05/18/22 05:40 Completed CMP AM.LAB Lab 05/18/22 04:25 Completed POCT GLUCOSE Stat Lab 05/17/22 16:58 Completed POCT GLUCOSE Stat Lab 05/17/22 20:33 Completed POCT GLUCOSE Stat Lab 05/18/22 07:46 Completed Pot [Potassium] Urgent Lab 05/17/22 13:14 Completed Lisinopril 10 mg [Zestril 10 MG] Med 05/17/22 15:00 Discontinued 10 mg PO DAILY Pulse Oximetry ROUTINE RT 05/17/22 13:34 Completed Respiratory Therapy Assessment DAILY RT 05/18/22 07:00 Completed Patient Care Notes (Last 24 hours) 05/18/22 10:05 Case Management Note by Genesis Asif PLANS TO D/C TODAY. DENIED ANY D/C NEEDS WILL CONTINUE TO FOLLOW IF ANY NEEDS ARISE. Initialized on 05/18/22 10:05 - END OF NOTE 05/17/22 14:39 SBAR Note by Elsa Kruger SITUATION I am calling about RODOLFO RICCI the patient's code status is Full Code The problem I am calling about is: Called Dr Garcia with pt's K+ level results, updated on pt's increased B/P and holding IV fluids. Received new orders. ASSESSMENT RECOMMENDATION Physician notified at 1439 New Orders received: Vital Signs (Last 4 hours) Temp Pulse Resp BP Pulse Ox 05/17/22 12:00 97.5 F 72 16 181/92 97 Diagnois, Code Status Date of Arrival on Unit 05/15/22 Admitted From Emergency Dept Diagnosis c/o nusea vomiting and diarrhea for 2-3 days Resucitation Status Full Code Intake and Output 12 Hours 05/17/22 05/17/22 06:59 18:59 Intake Total 1371 1071 Output Total 1500 600 Balance -129 471 Intake: Intake, Oral Amount 360 60 Intake, IV Amount 1011 1011 Output: Output, Urine Amount 1500 600 Physical Assessment Anxiety Level None,at ease,Awake,Calm,Low Mental Status Alert Patient Orientation Person,Place,Time Coma Scale Total 15 Breath Sounds [Anterior/ Clear Posterior Bilateral Throughout ] Breath Sounds [Anterior/ Clear Posterior Bilateral Throughout ] Cardiac Rhythm-[facility] Sinus Rhythm Bowel Sounds [All Quadrants] Present Abdomen Description Soft Urine Appearance Clear Urine Color Yellow Skin Color Normal for Race Skin Temperature Warm Pain Scale (Last 12 Hours) Pain Intensity 0 Pain Intensity 0 Pain Intensity 0 PAST MEDICAL HISTORY Neurological History Dementia ENT History No Pertinent History Endocrine Medical History Hypothyroidism Respiratory History Other Cardiac History Arrhythmia,Hypertension,Other GI Medical History Gallbladder Disease History No Pertinent History Reproductive Disorders No Pertinent History Pyscho-Social History Bipolar,Depression Communicable Disease No Pertinent History Comment RECENT DX (DURING HOSPITALIZATION) WITH CARDIOMYOPATHY WITH EJECTION FRACTION 15%. COVID AUGUST 2021. Diabetic (Last 12 Hours) Time 11:45 Time 07:31 POCT Glucose (LAST VALUE) 80 mg/dL (74 to 106) POCT Glucose (LAST VALUE) 81 mg/dL (74 to 106) Lab Results (Last 12 Hours) 05/17/22 05/17/22 05/17/22 Range/Units 13:14 11:40 07:05 WBC (4.0-10.5) x10^3/uL RBC (4.1-5.4) x10^6/uL Hgb (12.0-16.0) g/dL Hct (35-47) % MCV (78-100) fL MCH (26-32) pg MCHC (32-36) g/dL RDW (11.5-14.0) % Plt Count (150-450) x10^3/uL MPV (7.5-11.0) fL Gran % (36.0-66.0) % Immature Gran % (Auto) (0.00-0.4) % Nucleat RBC Rel Count (0.00-0.1) % Eos # (Auto) (0-0.5) x10^3/uL Immature Gran # (Auto) (0.00-0.03) x10^3u/L Absolute Lymphs (auto) (1.0-4.6) x10^3/uL Absolute Monos (auto) (0.0-1.3) x10^3/uL Absolute Nucleated RBC (0.00-0.01) x10^3u/L Lymphocytes % (24.0-44.0) % Monocytes % (0.0-12.0) % Eosinophils % (0.00-5.0) % Basophils % (0.0-0.4) % Absolute Granulocytes (1.4-6.9) x10^3/uL Basophils # (0-0.4) x10^3/uL Sodium (137-145) mmol/L Potassium 4.8 D (3.5-5.1) mmol/L Chloride (98-107) mmol/L Carbon Dioxide (22-30) mmol/L Anion Gap (5-15) MEQ/L BUN (7-17) mg/dL Creatinine (0.52-1.04) mg/dL Estimated GFR ML/MIN Glucose (74-106) mg/dL POC Glucometer 80 81 (74 to 106) mg/dL Calcium (8.4-10.2) mg/dL Total Bilirubin (0.2-1.3) mg/dL AST (14-36) U/L ALT (0-35) U/L Alkaline Phosphatase (38-126) U/L Serum Total Protein (6.3-8.2) g/dL Albumin (3.5-5.0) g/dL Urinalys Dipstick Clnc Urine Color (YELLOW) Urine Appearance (CLEAR) Urine pH (5-6) Ur Specific Lewis (1.005-1.025) POC Urine Protein Conf (Negative) Urine Ketones (NEGATIVE) Urine Nitrite (NEGATIVE) Urine Bilirubin (NEGATIVE) Urine Urobilinogen (0-1) mg/dL Urine Leukocytes (NEGATIVE) Urine WBC (Auto) (0-5) /HPF Urine RBC (Auto) (0-2) /HPF U Epithel Cells (Auto) (FEW) /HPF Urine Bacteria (Auto) (NEGATIVE) /HPF Urine RBC (0-5) Oliver/ul Urine Mucus (Auto) (NEGATIVE) /HPF Ur Culture Indicated? Urine Glucose (NEGATIVE) mg/dL 05/17/22 05/17/22 05/15/22 Range/Units 05:02 05:02 Unknown WBC 5.9 (4.0-10.5) x10^3/uL RBC 4.43 (4.1-5.4) x10^6/uL Hgb 13.5 D (12.0-16.0) g/dL Hct 40.5 (35-47) % MCV 91.4 (78-100) fL MCH 30.5 (26-32) pg MCHC 33.3 (32-36) g/dL RDW 13.1 (11.5-14.0) % Plt Count 217 (150-450) x10^3/uL MPV 11.3 H (7.5-11.0) fL Gran % 53.0 (36.0-66.0) % Immature Gran % (Auto) 0.2 (0.00-0.4) % Nucleat RBC Rel Count 0.0 (0.00-0.1) % Eos # (Auto) 0.09 (0-0.5) x10^3/uL Immature Gran # (Auto) 0.01 (0.00-0.03) x10^3u/L Absolute Lymphs (auto) 2.06 (1.0-4.6) x10^3/uL Absolute Monos (auto) 0.51 (0.0-1.3) x10^3/uL Absolute Nucleated RBC 0.00 (0.00-0.01) x10^3u/L Lymphocytes % 35.2 (24.0-44.0) % Monocytes % 8.7 (0.0-12.0) % Eosinophils % 1.5 (0.00-5.0) % Basophils % 1.4 (0.0-0.4) % Absolute Granulocytes 3.10 (1.4-6.9) x10^3/uL Basophils # 0.08 (0-0.4) x10^3/uL Sodium 142 (137-145) mmol/L Potassium 3.0 L* (3.5-5.1) mmol/L Chloride 116 H (98-107) mmol/L Carbon Dioxide 20 L (22-30) mmol/L Anion Gap 9.1 (5-15) MEQ/L BUN 5 L (7-17) mg/dL Creatinine 1.16 H (0.52-1.04) mg/dL Estimated GFR 51.2 ML/MIN Glucose 85 (74-106) mg/dL POC Glucometer (74 to 106) mg/dL Calcium 8.3 L (8.4-10.2) mg/dL Total Bilirubin 0.40 (0.2-1.3) mg/dL AST 23 (14-36) U/L ALT 13 (0-35) U/L Alkaline Phosphatase 88 (38-126) U/L Serum Total Protein 5.2 L (6.3-8.2) g/dL Albumin 2.9 L (3.5-5.0) g/dL Urinalys Dipstick Clnc MAIN LAB Urine Color YELLOW (YELLOW) Urine Appearance CLEAR (CLEAR) Urine pH 7.0 (5-6) Ur Specific Lewis 1.015 (1.005-1.025) POC Urine Protein Conf NEGATIVE (Negative) Urine Ketones NEGATIVE (NEGATIVE) Urine Nitrite NEGATIVE (NEGATIVE) Urine Bilirubin NEGATIVE (NEGATIVE) Urine Urobilinogen 0.2 (0-1) mg/dL Urine Leukocytes NEGATIVE (NEGATIVE) Urine WBC (Auto) NONE (0-5) /HPF Urine RBC (Auto) NONE (0-2) /HPF U Epithel Cells (Auto) NONE (FEW) /HPF Urine Bacteria (Auto) NONE (NEGATIVE) /HPF Urine RBC NEGATIVE (0-5) Oliver/ul Urine Mucus (Auto) SLIGHT (NEGATIVE) /HPF Ur Culture Indicated? NO Urine Glucose NEGATIVE (NEGATIVE) mg/dL Orders (Last 12 Hours) Category Date Time Status NaCl 0.9% 1000 ml + KCl 20 Meq [Sodium Chloride 0.9% W/ Med 05/17/22 06:30 Active 20 mEq KCl/LITER] 1,000 ml IV 100 mls/hr Ondansetron HCl 4 mg/2 ml [Zofran 4 MG/2 ML VIAL] Med 05/17/22 09:06 Active 4 mg IV Q4H PRN PRN Patient Own Med [Patient Own Medication] Med 05/17/22 12:00 Active 1 each IH 0700 Potassium Chloride Tab* [Klor Con] Med 05/17/22 10:00 Active 10 meq PO BID Pulse Oximetry ROUTINE RT 05/17/22 13:34 Active Respiratory MDI DAILY RT 05/17/22 07:00 Active Respiratory Therapy Assessment DAILY RT 05/18/22 07:00 Active Nursing Notes (Last 12 hours) 05/17/22 12:19 Nursing Note by Elsa Kruger Sat up with noon meal. Re-checked B/P without IV fluids infusing; 182/78; c ontinue to monitor. Initialized on 05/17/22 12:19 - END OF NOTE 05/17/22 11:34 Nursing Note by Elsa Kruger Noted pt's B/P 181/92 after receiving K-Armando; fluids turned off at this time. Plan to recheck B/P. Initialized on 05/17/22 11:34 - END OF NOTE 05/17/22 10:16 Nursing Note by Elsa Kruger Called pt's mother,Heydi, with pt's health update, stated she would bring her home meds that are not available at the hospital. Initialized on 05/17/22 10:16 - END OF NOTE 05/17/22 07:00 Nursing Note by Vaibhav Daniels 05/17/[address] Garcia notified of K+ 3.0 orders received. Initialized on 05/17/22 07:00 - END OF NOTE Active Visit Medications Generic Name Dose Route Start Last Admin Trade Name Freq PRN Reason Stop Dose Admin Donepezil HCl 10 mg 05/15/22 22:00 05/16/22 21:42 Donepezil Hcl 10 Mg Tablet PO 06/14/22 21:59 10 mg HS RIGOBERTO Administration Metronidazole 500 mg in 100 mls @ 200 mls/hr 05/16/22 22:00 05/17/22 13:51 Flagyl 500 Mg Ivpb IV 05/26/22 21:59 200 mls/hr Q8HT RIGOBERTO Administration Potassium Chloride/Sodium Chloride 1,000 mls @ 100 mls/hr 05/17/22 06:30 05/17/22 11:04 Sodium Chloride 0.9% W/ 20 Meq Kcl/Liter IV 06/16/22 06:29 100 mls/hr .Q10H RIGOBERTO Administration Levothyroxine Sodium 100 mcg 05/16/22 10:00 05/17/22 08:57 Levothyroxine Sodium 100 Mcg Tablet PO 06/15/22 09:59 100 mcg DAILY RIGOBERTO Administration Memantine 10 mg 05/16/22 10:00 05/17/22 08:57 Memantine Hcl 5 Mg Tablet PO 06/15/22 09:59 10 mg BID RIGOBERTO Administration Miscellaneous Information 1 each 05/16/22 10:00 Medication Intervention 1 Each Each 06/15/22 09:59 .RN TO CHECK RIGOBERTO Miscellaneous Information 1 each 05/16/22 10:00 Medication Intervention 1 Each Each 06/15/22 09:59 .RN TO CHECK RIGOBERTO Morphine Sulfate 2 mg 05/15/22 18:17 Morphine Sulfate 2 Mg/Ml Inj IV 05/20/22 18:16 Q4H PRN PRN PAIN Ondansetron HCl 4 mg 05/16/22 09:25 05/17/22 00:00 Zofran 4 Mg/Udtablet Orally Disintegrating PO 06/15/22 09:24 4 mg Q6HPRN PRN Administration VOMITING Ondansetron HCl 4 mg 05/17/22 09:06 05/17/22 12:54 Ondansetron Hcl 4 Mg/2 Ml Vial IV 06/16/22 09:05 4 mg Q4H PRN PRN Administration NAUSEA/VOMITING Pantoprazole Sodium 40 mg 05/16/22 10:00 05/17/22 08:57 Protonix (Pantoprazole) 40 Mg Tablet PO 06/15/22 09:59 40 mg DAILY RIGOBERTO Administration Trelegy Inhaler 200/ 1 each 05/17/22 12:00 05/17/22 12:00 62.5/25mcg IH 06/16/22 11:59 1 each 0700 RIGOBERTO Administration Potassium Chloride 10 meq 05/17/22 10:00 05/17/22 10:24 Potassium Chloride Tab 10 Meq Tab PO 06/16/22 09:59 10 meq BID RIGOBERTO Administration Simvastatin 40 mg 05/15/22 22:00 05/16/22 21:41 Simvastatin 20 Mg Tablet PO 06/14/22 21:59 40 mg HS RIGOBERTO Administration Topiramate 50 mg 05/15/22 22:00 05/17/22 08:57 Topiramate 50 Mg Tablet PO 06/14/22 21:59 50 mg BID RIGOBERTO Administration Home Medications Medication Instructions Recorded Confirmed Last Taken Type Lansoprazole 30 mg PO DAILY 05/15/22 05/15/22 Unknown History Ondansetron ODT 4 MG [Zofran 4 mg PO Q6-8HPRN PRN 05/15/22 05/15/22 Unknown History Odt 4 mg] Initialized on 05/17/22 14:39 - END OF NOTE 05/17/22 13:25 (created 05/17/22 16:21) Nursing Note by Elsa Kruger Pt stated she had sl nausea at this time. 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 Code(s): G30.9 - ALZHEIMER'S DISEASE, UNSPECIFIED; F02.80 - DEMENTIA IN OTH DISEASES CLASSD ELSWHR W/O BEHAVRL DISTURB - Discharge Disposition: Home, Self-Care Condition: Stable Prescriptions: New Metronidazole 500 mg [Flagyl 500 MG] 500 mg PO TID #21 tablet Continue Tizanidine HCl 4 mg [Zanaflex 4 MG] 12 mg PO HS Simvastatin 20Mg [Zocor 20Mg] 40 mg PO HS Semaglutide [Ozempic] 0.5 mg SQ WEEKLY Memantine HCl [Memantine HCl ER] 28 mg PO HS Lisinopril 10 mg [Zestril 10 MG] 10 mg PO DAILY Levothyroxine Sodium [Tirosint-Kymberly] 100 mcg PO DAILY Donepezil HCl 10 mg [Aricept 10 MG] 10 mg PO HS Fluticasone/Umeclidin/Vilanter [Trelegy Ellipta 200-62.5-25] 1 each IH DAILY Cariprazine HCl [Vraylar] 1.5 mg PO DAILY Topiramate 50 mg PO BID Lansoprazole 30 mg PO DAILY Ondansetron ODT 4 MG [Zofran Odt 4 mg] 4 mg PO Q6-8HPRN PRN PRN Reason: Vomiting Instructions: Clostridioides difficile (DC) Follow up with: FEMI NEGRON [Primary Care Provider] - (CALL TO MAKE FOLLOW UP APPT)
== END 2022-05-18 11:05 | disposition home or self-care (01) ==
LOC: ED 12:05 → MED SURG 18:14
PROVIDERS: ADMIT General Practice; ATTEND General Practice
DX: A04.72 Enterocolitis due to Clostridium difficile, not specified as recurrent (principal); E87.6 Hypokalemia; E86.0 Dehydration; G30.9 Alzheimer's disease, unspecified; I10 Essential (primary) hypertension; E03.9 Hypothyroidism, unspecified; R07.9 Chest pain, unspecified; R06.02 Shortness of breath; Z79.899 Other long term (current) drug therapy; Z20.828 Contact with and (suspected) exposure to other viral communicable diseases
CPT/HCPCS: 0241U; 36000; 36415; 71045; 74176; 80053; 81015; 82947; 83036; 83690; 83735; 84132; 84484; 85025; 85027; 87493; 93005; 93268; 94640; 94760; 96365; 96374; 96375; 96376; 99285; G0378; J1200; J2270; J2405; J3475; J3480; Q0162; A9270-GY

== ENCOUNTER 2022-05-24 17:09 | Emergency (ER) | payer MEDICARE ==
[2022-05-24] MEDS ORDERED: Sodium Chloride 0.9% 1000 ML 1,000 ML IV STA (17:43)
[2022-05-24] MEDS ORDERED: Zofran 4 MG/2 ML VIAL IV ONE (17:43)
[2022-05-24] MEDS ORDERED: MORPHINE SULFATE 4 MG INJ IV ONE ×2 (17:43→19:20)
[2022-05-24] MEDS ORDERED: Sodium Chloride 0.9% 1000 ML 1,000 ML ONE (17:55)
[2022-05-24] MEDS ORDERED: Zofran 4 MG/2 ML VIAL ONE (17:55)
[2022-05-24] MEDS ORDERED: MORPHINE SULFATE 4 MG INJ ONE ×2 (17:55→19:25)
[2022-05-24 18:01] LABS: Absolute Neutrophil Ct (ANC) 4.12 x10^3/uL (1.4-6.9); Basophil (Absolute #) 0.07 x10^3/uL (0-0.4); Eosinophil % 0.1 % (0.00-5.0); Eosinophil (Absolute #) 0.01 x10^3/uL (0-0.5); Hematocrit 44.7 % (35-47); Hemoglobin 15.6 g/dL (12.0-16.0); Lymphocyte (Absolute #) 2.35 x10^3/uL (1.0-4.6); Lymphocytes % 31.7 % (24.0-44.0); Mean Corpuscular Hemoglobin 30.7 pg (26-32); Mean Corpuscular Hgb Concent. 34.9 g/dL (32-36); Mean Platelet Volume 11.1 fL (7.5-11.0); Monocyte (Absolute #) 0.83 x10^3/uL (0.0-1.3); Monocytes % 11.2 % (0.0-12.0); Neutrophil % 55.7 % (36.0-66.0); Platelet Count 309 x10^3/uL (150-450); Red Blood Count 5.08 x10^6/uL (4.1-5.4); Red Cell Distribution Width 12.9 % (11.5-14.0); White Blood Count 7.4 x10^3/uL (4.0-10.5)
[2022-05-24 18:12] LABS: ALBUMIN 4.4 g/dL (3.5-5.0); ANION GAP 16.3 MEQ/L (5-15); BILIRUBIN,TOTAL 0.4 mg/dL (0.2-1.3); Calcium 10.6 mg/dL (8.4-10.2); Creatinine 1 1.17 mg/dL (0.52-1.04); EST GLOMERULAR FILTRATION RATE 50.7 ML/MIN; Potassium 3.4 mmol/L (3.5-5.1)
[2022-05-24 19:43] LABS: Appearance CLEAR (CLEAR); Bilirubin NEGATIVE (NEGATIVE); Dipstick done @ ? MAIN LAB; Glucose NEGATIVE (NEGATIVE); Ketones NEGATIVE (NEGATIVE); Nitrite NEGATIVE (NEGATIVE); Protein,Urine Dip NEGATIVE (Negative); RBC NEGATIVE Ery/ul (0-5); Urobilinogen 0.2 mg/dL (0-1)
[2022-05-24 19:45] LABS: Urine Cultured Indicated? NO
--- NOTE | 2022-05-24 21:00 | ERPHSYRPT ---
- History of Present Illness Time Seen by Provider: 05/24/22 17:32 Historian: patient Exam Limitations: no limitations Patient Subjective Stated Complaint: Vomiting Triage Nursing Assessment: Patient ambulated back to ED and transferred self to bed. Patient A+O X3. Patient's skin pink, warm and dry. Patient complains of vomiting and diarrhea that started last night. Patient currently being treated for C-diff and discharged from hospital on 05/19/2022. Patient complains of upper abdominal pain /. Abdomen soft and round with BS X 4. Physician History: 56-year-old female with a history of hypertension, hyperlipidemia, hypothyroidism, recently diagnosed with C. difficile colitis on Flagyl presented to the ER with generalized worsening of abdominal pain since yesterday and since morning having multiple episodes of nonprojectile, nonbilious vomiting without hematemesis. Not able to hold anything down. She is also having loose stool multiple episodes without hematochezia. They are foul-smelling as she had it with start of C. difficile last week. No fever or chills reported. Feels weak fatigued tired and dehydrated. Timing/Duration: today, gradual onset, worse Activities at Onset: rest Quality: cramping Abdominal Pain Onset Location: generalized abdomen Pain Radiation: no radiation Severity of Pain-Max: moderate Severity of Pain-Current: moderate Modifying Factors: Improves With: nothing Associated Symptoms: diarrhea, nausea, vomiting Previous symptoms: same symptoms as today Allergies/Adverse Reactions: aripiprazole [From Abilify] Allergy (Verified 05/24/22 17:24) clarithromycin [From Biaxin] Allergy (Verified 05/24/22 17:24) prednisone Allergy (Verified 05/24/22 17:24) Sulfa (Sulfonamide Antibiotics) Allergy (Verified 05/24/22 17:24) zolpidem [From Ambien] Allergy (Verified 05/24/22 17:24) Home Medications: Donepezil HCl 10 mg [Aricept 10 MG] 10 mg PO HS 10/10/20 [History] Levothyroxine Sodium [Tirosint-Kymberly] 100 mcg PO DAILY 10/10/20 [History] Lisinopril 10 mg [Zestril 10 MG] 10 mg PO DAILY 10/10/20 [History] Memantine HCl [Memantine HCl ER] 28 mg PO HS 10/10/20 [History] Semaglutide [Ozempic] 0.5 mg SQ WEEKLY 10/10/20 [History] Simvastatin 20Mg [Zocor 20Mg] 40 mg PO HS 10/10/20 [History] Tizanidine HCl 4 mg [Zanaflex 4 MG] 12 mg PO HS 10/10/20 [History] Cariprazine HCl [Vraylar] 1.5 mg PO DAILY 05/02/21 [History] Fluticasone/Umeclidin/Vilanter [Trelegy Ellipta 200-62.5-25] 1 each IH DAILY 05/02/21 [History] Topiramate 50 mg PO BID 05/02/21 [History] Lansoprazole 30 mg PO DAILY 05/15/22 [History] Ondansetron ODT 4 MG [Zofran Odt 4 mg] 4 mg PO Q6-8HPRN PRN 05/15/22 [History] Hx Tetanus, Diphtheria Vaccination/Date Given: Yes Hx Influenza Vaccination/Date Given: Yes Hx Pneumococcal Vaccination/Date Given: No Immunizations Up to Date: Yes Travel Risk - International Travel Have you traveled outside of the country in past 3 weeks: No - Coronavirus Screening Are you exhibiting any of the following symptoms?: No Close contact with a COVID-19 positive Pt in past 14-21 Days: No - Vaccine Status Have you recieved a Covid-19 vaccination: Yes 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: [employer] - Vaccination Dates Date of 2cond Vaccination (if applicable): 2020 - Review of Systems Constitutional: Fatigue, Weakness Eyes: No Symptoms Ears, Nose, & Throat: No Symptoms Respiratory: No Symptoms Cardiac: No Symptoms Abdominal/Gastrointestinal: Abdominal Pain, Nausea, Vomiting, Diarrhea Genitourinary Symptoms: No Symptoms Musculoskeletal: No Symptoms Skin: No Symptoms Neurological: No Symptoms Psychological: No Symptoms Endocrine: No Symptoms Hematologic/Lymphatic: No Symptoms Immunological/Allergic: No Symptoms - Past Medical History Pertinent Past Medical History: Yes Neurological History: Dementia ENT History: No Pertinent History Cardiac History: Arrhythmia, Hypertension, Other Respiratory History: Other Endocrine Medical History: Hypothyroidism Musculoskeletal History: Degenerative Disk Disease, Fractures, Osteoarthritis GI Medical History: Gallbladder Disease History: No Pertinent History Psycho-Social History: Bipolar, Depression Female Reproductive Disorders: No Pertinent History Other Medical History: RECENT DX (DURING HOSPITALIZATION) WITH CARDIOMYOPATHY WITH EJECTION FRACTION 15%. COVID AUGUST 2021. - Past Surgical History Past Surgical History: Yes Neuro Surgical History: No Pertinent History Cardiac: No Pertinent History Respiratory: No Pertinent History Gastrointestinal: Cholecystectomy Genitourinary: No Pertinent History Musculoskeletal: Other Female Surgical History: Hysterectomy, Lumpectomy Other Surgical History: Lump removed from right breast. Tendon surgery right wrist. Exploratory surgery through belly button. Thyroid removed - Social History Smoking Status: Former smoker Exposure to second hand smoke: No Drug Use: none Patient Lives Alone: No Significant Family History: no pertinent family hx - Nursing Vital Signs Nursing Vital Signs: Initial Vital Signs Temperature 97.7 F 05/24/22 17:25 Pulse Rate 81 05/24/22 17:25 Respiratory Rate 18 05/24/22 17:25 Blood Pressure 171/136 05/24/22 17:25 O2 Sat by Pulse Oximetry 100 05/24/22 17:25 Pain Scale Pain Intensity 5 - Physical Exam General Appearance: no apparent distress, alert Eye Exam: PERRL/EOMI Ears, Nose, Throat Exam: normal ENT inspection, TMs normal, pharynx normal, moist mucous membranes Neck Exam: normal inspection, non-tender, supple, full range of motion Respiratory Exam: normal breath sounds, lungs clear Cardiovascular Exam: regular rate/rhythm, normal heart sounds Gastrointestinal/Abdomen Exam: soft, normal bowel sounds, tenderness (Mild generalized), No guarding Back Exam: normal inspection, normal range of motion Extremity Exam: normal inspection, normal range of motion Neurologic Exam: alert, oriented x 3, cooperative Skin Exam: normal color SpO2 Interpretation: normal SpO2: 98 O2 Delivery: Room Air Ordered Tests: Active Orders 24 hr Category Date Time Status IV Insertion STAT Care 05/24/22 17:43 Active NPO (ED) STAT Care 05/24/22 17:43 Active ABDOMEN AND PELVIS W/0 CONTRAS [CT] Stat Exams 05/24/22 17:44 Taken CBC W DIFF Stat Lab 05/24/22 17:40 Completed CMP Stat Lab 05/24/22 17:40 Completed LIPASE Stat Lab 05/24/22 17:40 Completed Lactic Acid Stat Lab 05/24/22 17:43 Completed PROCALCITONIN Stat Lab 05/24/22 17:40 Completed UA W/RFX CULTURE Stat Lab 05/24/22 19:06 Completed Medication Summary Discontinued Medications Generic Name Dose Route Start Last Admin Trade Name Abigail PRN Reason Stop Dose Admin Sodium Chloride 1,000 mls @ 999 mls/hr 05/24/22 17:43 05/24/22 19:15 Sodium Chloride 0.9% 1000 Ml IV 05/24/22 18:43 Infused .Q1H1M STA Infusion Sodium Chloride Confirm 05/24/22 17:55 Sodium Chloride 0.9% 1000 Ml Administered 05/24/22 17:56 Dose 1,000 mls @ ud .ROUTE .STK-MED ONE Morphine Sulfate 4 mg 05/24/22 17:43 05/24/22 17:57 Morphine Sulfate 4 Mg/Ml Injection IV 05/24/22 17:44 4 mg STAT ONE Administration Morphine Sulfate Confirm 05/24/22 17:55 Morphine Sulfate 4 Mg/Ml Injection Administered 05/24/22 17:56 Dose 4 mg .ROUTE .STK-MED ONE Morphine Sulfate 4 mg 05/24/22 19:20 05/24/22 19:26 Morphine Sulfate 4 Mg/Ml Injection IV 05/24/22 19:21 4 mg STAT ONE Administration Morphine Sulfate Confirm 05/24/22 19:25 Morphine Sulfate 4 Mg/Ml Injection Administered 05/24/22 19:26 Dose 4 mg .ROUTE .STK-MED ONE Ondansetron HCl 4 mg 05/24/22 17:43 05/24/22 17:56 Ondansetron Hcl 4 Mg/2 Ml Vial IV 05/24/22 17:44 4 mg STAT ONE Administration Ondansetron HCl Confirm 05/24/22 17:55 Ondansetron Hcl 4 Mg/2 Ml Vial Administered 05/24/22 17:56 Dose 4 mg .ROUTE .STK-MED ONE Lab/Rad Data: Laboratory Result Diagrams 05/24/22 17:40 05/24/22 17:40 Laboratory Results 05/24/22 05/24/22 05/24/22 Range/Units 20:45 19:06 17:43 WBC (4.0-10.5) x10^3/uL RBC (4.1-5.4) x10^6/uL Hgb (12.0-16.0) g/dL Hct (35-47) % MCV (78-100) fL MCH (26-32) pg MCHC (32-36) g/dL RDW (11.5-14.0) % Plt Count (150-450) x10^3/uL MPV (7.5-11.0) fL Gran % (36.0-66.0) % Immature Gran % (Auto) (0.00-0.4) % Nucleat RBC Rel Count (0.00-0.1) % Eos # (Auto) (0-0.5) x10^3/uL Immature Gran # (Auto) (0.00-0.03) x10^3u/L Absolute Lymphs (auto) (1.0-4.6) x10^3/uL Absolute Monos (auto) (0.0-1.3) x10^3/uL Absolute Nucleated RBC (0.00-0.01) x10^3u/L Lymphocytes % (24.0-44.0) % Monocytes % (0.0-12.0) % Eosinophils % (0.00-5.0) % Basophils % (0.0-0.4) % Absolute Granulocytes (1.4-6.9) x10^3/uL Basophils # (0-0.4) x10^3/uL Sodium (137-145) mmol/L Potassium (3.5-5.1) mmol/L Chloride (98-107) mmol/L Carbon Dioxide (22-30) mmol/L Anion Gap (5-15) MEQ/L BUN (7-17) mg/dL Creatinine (0.52-1.04) mg/dL Estimated GFR ML/MIN Glucose (74-106) mg/dL Lactic Acid 1.9 (0.4-2.0) Calcium (8.4-10.2) mg/dL Total Bilirubin (0.2-1.3) mg/dL AST (14-36) U/L ALT (0-35) U/L Alkaline Phosphatase (38-126) U/L Serum Total Protein (6.3-8.2) g/dL Albumin (3.5-5.0) g/dL Lipase (23-300) U/L Procalcitonin (0.030-0.080) ng/mL Urinalys Dipstick Clnc MAIN LAB Urine Color YELLOW (YELLOW) Urine Appearance CLEAR (CLEAR) Urine pH 7.0 (5-6) Ur Specific Candor 1.010 (1.005-1.025) POC Urine Protein Conf NEGATIVE (Negative) Urine Ketones NEGATIVE (NEGATIVE) Urine Nitrite NEGATIVE (NEGATIVE) Urine Bilirubin NEGATIVE (NEGATIVE) Urine Urobilinogen 0.2 (0-1) mg/dL Urine Leukocytes SMALL (NEGATIVE) Urine WBC (Auto) NONE (0-5) /HPF Urine RBC (Auto) NONE (0-2) /HPF U Epithel Cells (Auto) NONE (FEW) /HPF Urine Bacteria (Auto) NONE (NEGATIVE) /HPF Urine RBC NEGATIVE (0-5) Oliver/ul Ur Culture Indicated? NO Urine Glucose NEGATIVE (NEGATIVE) mg/dL C. difficile Screen POSITIVE (NEGATIVE) C.difficile 027-[id number] PRESUMPTIVE POSITIVE (NEGATIVE) 05/24/22 05/24/22 05/24/22 Range/Units 17:40 17:40 17:40 WBC 7.4 (4.0-10.5) x10^3/uL RBC 5.08 (4.1-5.4) x10^6/uL Hgb 15.6 (12.0-16.0) g/dL Hct 44.7 (35-47) % MCV 88.0 (78-100) fL MCH 30.7 (26-32) pg MCHC 34.9 (32-36) g/dL RDW 12.9 (11.5-14.0) % Plt Count 309 (150-450) x10^3/uL MPV 11.1 H (7.5-11.0) fL Gran % 55.7 (36.0-66.0) % Immature Gran % (Auto) 0.4 (0.00-0.4) % Nucleat RBC Rel Count 0.0 (0.00-0.1) % Eos # (Auto) 0.01 (0-0.5) x10^3/uL Immature Gran # (Auto) 0.03 (0.00-0.03) x10^3u/L Absolute Lymphs (auto) 2.35 (1.0-4.6) x10^3/uL Absolute Monos (auto) 0.83 (0.0-1.3) x10^3/uL Absolute Nucleated RBC 0.00 (0.00-0.01) x10^3u/L Lymphocytes % 31.7 (24.0-44.0) % Monocytes % 11.2 (0.0-12.0) % Eosinophils % 0.1 (0.00-5.0) % Basophils % 0.9 (0.0-0.4) % Absolute Granulocytes 4.12 (1.4-6.9) x10^3/uL Basophils # 0.07 (0-0.4) x10^3/uL Sodium 140 (137-145) mmol/L Potassium 3.4 L (3.5-5.1) mmol/L Chloride 108 H (98-107) mmol/L Carbon Dioxide 20 L (22-30) mmol/L Anion Gap 16.3 H (5-15) MEQ/L BUN 4 L (7-17) mg/dL Creatinine 1.17 H (0.52-1.04) mg/dL Estimated GFR 50.7 ML/MIN Glucose 85 (74-106) mg/dL Lactic Acid (0.4-2.0) Calcium 10.6 H (8.4-10.2) mg/dL Total Bilirubin 0.40 (0.2-1.3) mg/dL AST 23 (14-36) U/L ALT 15 (0-35) U/L Alkaline Phosphatase 111 (38-126) U/L Serum Total Protein 7.0 (6.3-8.2) g/dL Albumin 4.4 (3.5-5.0) g/dL Lipase 203 (23-300) U/L Procalcitonin 0.076 (0.030-0.080) ng/mL Urinalys Dipstick Clnc Urine Color (YELLOW) Urine Appearance (CLEAR) Urine pH (5-6) Ur Specific Candor (1.005-1.025) POC Urine Protein Conf (Negative) Urine Ketones (NEGATIVE) Urine Nitrite (NEGATIVE) Urine Bilirubin (NEGATIVE) Urine Urobilinogen (0-1) mg/dL Urine Leukocytes (NEGATIVE) Urine WBC (Auto) (0-5) /HPF Urine RBC (Auto) (0-2) /HPF U Epithel Cells (Auto) (FEW) /HPF Urine Bacteria (Auto) (NEGATIVE) /HPF Urine RBC (0-5) Oliver/ul Ur Culture Indicated? Urine Glucose (NEGATIVE) mg/dL C. difficile Screen (NEGATIVE) C.difficile 027-NAP1-B1 (NEGATIVE) - Progress Progress: improved, re-examined Progress Note: 05/24/22 22:08 56-year-old is evaluated for abdominal pain with nausea vomiting diarrhea. She has recent positive C. difficile colitis and is on oral Flagyl. Work-up showed normal white count, chemistry profile consistent with some dehydration. CT abdomen pelvis negative for any acute intra-abdominal/pelvic findings. No UTI. Stool recheck is positive for C. difficile still. As per criteria patient does not have severe disease with white count less than 15 and creatinine less than 1.5. I have discussed with Dr. Carreno and he also recommended continuing with oral Flagyl 3 times a day. Discussed with patient about course of disease and diarrhea part of it. Patient is counseled about hydration and outpatient follow-up. Discussed signs symptoms of worsening needing return to ER which she seems understanding. Discussed with Dr.: Ashley Counseled pt/family regarding: lab results, diagnosis, need for follow-up, rad results - Departure Departure Disposition: Home Clinical Impression: Nausea and vomiting, C. difficile diarrhea Condition: Stable Critical Care Time: No Referrals: FEMI NEGRON [Primary Care Provider] - Follow up/PCP as directed (Call kristin iglesias for reevaluation) Instructions: Clostridioides difficile (DC) Additional Instructions: Drink plenty of fluids. Take Tylenol/Zofran as needed. Follow-up with primary care for reevaluation. Continue with Flagyl your antibiotic for full course. Return to ER for worsening abdominal pain, diarrhea or if develop fever chills etc. Prescriptions: Ondansetron ODT 4 MG [Zofran Odt 4 mg] 1 ea PO QIDPRN PRN #7 tablet PRN Reason: n/v
[2022-05-24 21:46] LABS: 027 TOX PROD PRESUMPTIVE POSITIVE (NEGATIVE)
[2022-05-24 21:47] LABS: TOXIGENIC C. DIFF ORG POSITIVE (NEGATIVE)
[2022-05-24 22:14] VITALS: BP 173/74; PULSE 60; O2SAT 96
--- NOTE | 2022-05-25 20:36 | XRAY ---
Exam: CT of the abdomen and pelvis without IV contrast from 05/24/2022. CTDI: 4.73 mGy Comparison: CT of the abdomen and pelvis without IV contrast from 05/15/2022. Indication: 56-year-old female with vomiting and diarrhea since yesterday; rule out colitis. I'm given a history that the patient is status post cholecystectomy and hysterectomy. She also has a right hip replacement. Technique: Non-IV contrast axial images were obtained through the abdomen and pelvis. Reconstructed coronal and sagittal images were created and reviewed. No oral contrast was given. Findings: The visualized lung bases reveal minimal posterior compression atelectatic changes versus scarring/atelectasis, right greater than left. No active lung disease is seen at the lung bases. Assessment of the solid organs is limited without the use of IV contrast. The liver and spleen appear of normal size and uniform attenuation. No obvious mass or intrahepatic biliary duct distention is seen. Surgical clips consistent with prior cholecystectomy are seen within the right upper quadrant. The pancreas reveals no significant abnormality. The adrenal glands are of normal size and configuration. The right kidney again appears slightly small measuring about 8.7 cm in greatest length on coronal image #79. The left kidney is of normal size measuring 9.6 cm in length on sagittal image #131. I see no renal calculi or hydronephrosis. There appear to be small bilateral extrarenal pelvi. The ureters appear of normal diameter without evidence of ureterolith. Assessment within the lower right pelvis is limited due to beam hardening artifact from the metallic orthopedic hardware within the right hip. Moderate atherosclerotic calcification is seen within the abdominal aorta and right common iliac artery. No abdominal aortic aneurysm or abnormal retroperitoneal lymphadenopathy is seen. No bowel containing ventral hernia or free intraperitoneal air is seen. The bowel is not distended. Assessment of the bowel wall is somewhat limited without the use of IV contrast, but no obvious bowel wall thickening is seen. The appendix appears unremarkable within the right lower quadrant. I cannot exclude some small scattered colonic diverticula. No evidence of diverticulitis is seen. I do note some scattered air-fluid levels within nondilated bowel which may be due to the patient's diarrheal state. The uterus is surgically absent. No other abnormal pelvic soft tissue mass or lymphadenopathy is seen. The urinary bladder reveals no gross abnormality. Assessment of the urinary bladder along its right posterior lateral aspect is limited because of beam hardening artifact from the right hip replacement. No free intraperitoneal fluid is seen. The visualized right hip replacement appears unremarkable. Mild lower lumbar facet joint arthropathy is seen bilaterally at L4-L5 and L5-S1. No acute fracture or aggressive bone lesion is seen. Impression: 1. There is no evidence of bowel obstruction or definite bowel wall thickening. Assessment of the colon wall is mildly limited without IV contrast. I believe there are a few scattered diverticula within the colon, but no evidence of diverticulitis. The appendix appears unremarkable within the right lower quadrant. 2. There are a few scattered air-fluid levels within nondilated bowel, perhaps due to the patient's diarrheal state. 3. Some other incidental findings are seen, as discussed above. No acute intra-abdominal or pelvic process is seen.
== END 2022-05-24 22:22 | disposition home or self-care (01) ==
LOC: ED 17:09
DX: R11.2 Nausea with vomiting, unspecified (principal); A04.72 Enterocolitis due to Clostridium difficile, not specified as recurrent; R10.84 Generalized abdominal pain; R53.83 Other fatigue; I10 Essential (primary) hypertension; E78.5 Hyperlipidemia, unspecified; Z79.899 Other long term (current) drug therapy; Z86.16 Personal history of COVID-19
CPT/HCPCS: 36000; 36415; 74176; 80053; 81015; 83605; 83690; 84145; 85025; 87493; 96360; 96374; 96375; 96376; 99284; J2270; J2405

== ENCOUNTER 2022-08-25 21:13 | Emergency (ER) | payer MEDICARE ==
[2022-08-25] MEDS ORDERED: Zofran 4 MG/2 ML VIAL IV ONE ×2 (21:14→21:15)
[2022-08-25] MEDS ORDERED: Ativan 2 MG/1 ML VIAL IV ONE ×2 (21:14→21:17)
[2022-08-25] MEDS ORDERED: CALAN IV ONE (21:14)
[2022-08-25] MEDS ORDERED: Sodium Chloride 0.9% 1000 ML 1,000 ML IV STA (21:15)
[2022-08-25] MEDS ORDERED: SODIUM BICARBONATE 50 MEQ/50 ML ABBOJECT IV ONE ×2 (21:25→21:33)
[2022-08-25 21:27] LABS: VBG BASE EXCESS -23.6 (-2.0-2.0); VBG CARBOXYHEMOGLOBIN 2.5 % T HGB (0.0-6.9); VBG HCO3- 8.1 meq/L (22-28); VBG HEMOGLOBIN 15.6; VBG O2 SATURATION 87.8 (95-100); VBG POTASSIUM 3.7 (3.5-5.1)
[2022-08-25 21:28] LABS: VBG pH 6.95 (7.32-7.42)
[2022-08-25 21:28] LABS: Hematocrit 48.1 % (35-47); Hemoglobin 14.9 g/dL (12.0-16.0); Mean Cell Volume 107.8 fL (78-100); Mean Corpuscular Hemoglobin 33.4 pg (26-32); Platelet Count 427 x10^3/uL (150-450); Red Blood Count 4.46 x10^6/uL (4.1-5.4); Red Cell Distribution Width 15.2 % (11.5-14.0); White Blood Count 16.1 x10^3/uL (4.0-10.5)
[2022-08-25 21:35] LABS: Bacteria FEW /HPF (NEGATIVE); Epithelial Cells RARE /HPF (FEW); Hyaline Casts 0-2 /LPF (0-2); WBC 51-100 /HPF (0-5)
[2022-08-25 21:38] LABS: Appearance SLIGHTLY CLOUDY (CLEAR); Bilirubin NEGATIVE (NEGATIVE); Dipstick done @ ? MAIN LAB; Glucose NEGATIVE (NEGATIVE); Ketones NEGATIVE (NEGATIVE); Nitrite NEGATIVE (NEGATIVE); Protein,Urine Dip 30 (Negative); RBC TRACE-INTACT Ery/ul (0-5); Specific Gravity 1.015 (1.005-1.025); Urobilinogen 0.2 mg/dL (0-1)
[2022-08-25 21:39] LABS: Urine Cultured Indicated? YES
[2022-08-25 21:47] LABS: Barbiturate,Urine NEGATIVE (NEGATIVE); Benzodiazepine,Urine NEGATIVE (NEGATIVE); Cocaine,Urine NEGATIVE (NEGATIVE); Methadone,Urine NEGATIVE (NEGATIVE); Opiate,Urine NEGATIVE (NEGATIVE); PCP,Urine NEGATIVE (NEGATIVE); THC,Urine POSITIVE (NEGATIVE)
[2022-08-25 21:49] LABS: ACETAMINOPHEN < 10 ug/ml (10-30); ALBUMIN 5.2 g/dL (3.5-5.0); ALKALINE PHOSPHATASE 131 U/L (38-126); ANION GAP 38.1 MEQ/L (5-15); BLOOD UREA NITROGEN 5 mg/dL (7-17); CHLORIDE 102 mmol/L (98-107); Calcium 10.9 mg/dL (8.4-10.2); Creatinine 1 1.36 mg/dL (0.52-1.04); EST GLOMERULAR FILTRATION RATE 42.6 ML/MIN; ETHYL ALCOHOL < 10 mg/dL (0-10); Glucose 253 mg/dL (74-106); INR 1.03 (0.8-3.0); PROTIME 10.9 SECONDS (9.4-12.5); Potassium 4.5 mmol/L (3.5-5.1); SALICYLATE < 1.0 mg/dL (2-20); SGOT/AST 41 U/L (14-36); SGPT/ALT 27 U/L (0-35); SODIUM 143 mmol/L (137-145); Total Protein 8.1 g/dL (6.3-8.2)
[2022-08-25 21:51] LABS: Amphetamine,Urine NEGATIVE (NEGATIVE)
[2022-08-25 22:02] LABS: Carbon Dioxide 6 mmol/L (22-30)
[2022-08-25] MEDS ORDERED: ROCEPHIN 2 Gm-D5w 50ML BAG** 2 G/50 ML IVPB IV STA (22:30)
[2022-08-25] MEDS ORDERED: Keppra 500 MG/5 ML*** 1,000 MG in D5w 100ML Mini Bag 100 ML 100 ML IV ONE (22:37)
[2022-08-25] MEDS ORDERED: ROCEPHIN 2 Gm-D5w 50ML BAG** 2 G/50 ML IVPB IV ONE (22:39)
[2022-08-25] MEDS ORDERED: Keppra 500 MG/5 ML ONE (22:39)
[2022-08-25] MEDS ORDERED: D5w 100ML Mini Bag 100 ML 100 ML IV ONE (22:40)
[2022-08-25] MEDS ORDERED: Sodium Chloride 0.9% 1000 ML 1,000 ML ONE (22:45)
[2022-08-25] MEDS: Sodium Chloride 0.9% 1000 ML 1,000 ML IV SCH (22:48)
--- NOTE | 2022-08-25 23:20 | ERPHSYRPT ---
- History of Present Illness Time Seen by Provider: 08/25/22 21:15 Source: family, EMS Exam Limitations: clinical condition Patient Subjective Stated Complaint: unresponsive at home Triage Nursing Assessment: pt to ED by EMS c/o unresponsiveness at home. family walked past room and noticed pt "half in bed half on the floor" per EMS report. EMS reports that they noticed CBD items in room but family reports that she does not use recreational substances. pt was seizing on arrival- see nurses note. Hypertensive and tachycardic on arrival. pt unable to respond on arrival, 2049, answering questions and denying drug use to MD at this time, 2129. Physician History: 56-year-old female with history of hypertension,, hypothyroidism, early onset dementia presented in the ER via EMS after she was found unresponsive at home. EMS report patient was minimally responsive, started to feel better and was talking while in route to ER but confused. She has seizure-like activity on presentation in the ER and then she was restless, thrashing everywhere. She is given Ativan and calmed down. Patient blood pressure was in 200s, tachycardic in 140s/150s. EMS reports CBD products and the room where she was found unresponsive. Family denies being on drugs. Timing/Duration: today Severity: moderate, severe Associated Symptoms: loss of consciousness, seizures Allergies/Adverse Reactions: aripiprazole [From Abilify] Allergy (Verified 05/24/22 17:24) bee venom protein (honey bee) Allergy (Verified 08/26/22 05:27) clarithromycin [From Biaxin] Allergy (Verified 05/24/22 17:24) ketorolac [From Toradol] Allergy (Verified 08/26/22 05:27) lidocaine [From Lidoderm] Allergy (Verified 08/26/22 05:27) methocarbamol [From Robaxin] Allergy (Verified 08/26/22 05:27) methylprednisolone [From Medrol] Allergy (Verified 08/26/22 05:27) prednisone Allergy (Verified 05/24/22 17:24) Sulfa (Sulfonamide Antibiotics) Allergy (Verified 05/24/22 17:24) zolpidem [From Ambien] Allergy (Verified 05/24/22 17:24) triamcinolone [From Kenalog] Adverse Reaction (Verified 08/26/22 05:27) Home Medications: Donepezil HCl 10 mg [Aricept 10 MG] 10 mg PO HS 10/10/20 [History] Levothyroxine Sodium [Tirosint-Kymberly] 100 mcg PO DAILY 10/10/20 [History] Lisinopril 10 mg [Zestril 10 MG] 10 mg PO DAILY 10/10/20 [History] Memantine HCl [Memantine HCl ER] 28 mg PO HS 10/10/20 [History] Semaglutide [Ozempic] 0.5 mg SQ WEEKLY 10/10/20 [History] Simvastatin 20Mg [Zocor 20Mg] 40 mg PO HS 10/10/20 [History] Tizanidine HCl 4 mg [Zanaflex 4 MG] 12 mg PO HS 10/10/20 [History] Cariprazine HCl [Vraylar] 1.5 mg PO DAILY 05/02/21 [History] Fluticasone/Umeclidin/Vilanter [Trelegy Ellipta 200-62.5-25] 1 each IH DAILY 05/02/21 [History] Topiramate 50 mg PO BID 05/02/21 [History] Lansoprazole 30 mg PO DAILY 05/15/22 [History] Ondansetron ODT 4 MG [Zofran Odt 4 mg] 4 mg PO Q6-8HPRN PRN 05/15/22 [History] Hx Tetanus, Diphtheria Vaccination/Date Given: Yes Hx Influenza Vaccination/Date Given: Yes Hx Pneumococcal Vaccination/Date Given: No Immunizations Up to Date: Yes Travel Risk - International Travel Have you traveled outside of the country in past 3 weeks: No - Coronavirus Screening Are you exhibiting any of the following symptoms?: No Close contact with a COVID-19 positive Pt in past 14-21 Days: No - Vaccine Status Have you recieved a Covid-19 vaccination: Yes 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: [employer] - Vaccination Dates Date of 2cond Vaccination (if applicable): 2020 - Review of Systems All Other Systems: Unable due to condition - Past Medical History Pertinent Past Medical History: Yes Neurological History: Dementia ENT History: No Pertinent History Cardiac History: Arrhythmia, Hypertension, Other Respiratory History: Other Endocrine Medical History: Hypothyroidism Musculoskeletal History: Degenerative Disk Disease, Fractures, Osteoarthritis GI Medical History: Gallbladder Disease History: No Pertinent History Psycho-Social History: Bipolar, Depression Female Reproductive Disorders: No Pertinent History Other Medical History: RECENT DX (DURING HOSPITALIZATION) WITH CARDIOMYOPATHY WITH EJECTION FRACTION 15%. COVID AUGUST 2021. - Past Surgical History Past Surgical History: Yes Neuro Surgical History: No Pertinent History Cardiac: No Pertinent History Respiratory: No Pertinent History Gastrointestinal: Cholecystectomy Genitourinary: No Pertinent History Musculoskeletal: Other Female Surgical History: Hysterectomy, Lumpectomy Other Surgical History: Lump removed from right breast. Tendon surgery right wrist. Exploratory surgery through belly button. Thyroid removed - Social History Smoking Status: Former smoker Exposure to second hand smoke: No Drug Use: none Patient Lives Alone: No Significant Family History: no pertinent family hx - Nursing Vital Signs Nursing Vital Signs: Initial Vital Signs Temperature 97.1 F 08/25/22 21:20 Pulse Rate 141 H 08/25/22 21:20 Respiratory Rate 26 H 08/25/22 21:20 Blood Pressure 188/109 08/25/22 21:20 O2 Sat by Pulse Oximetry 100 08/25/22 21:20 Pain Scale Pain Intensity 0 - Physical Exam General Appearance: moderate distress Eye Exam: bilateral eye: normal inspection, PERRL Ears, Nose, Throat Exam: TMs normal, pharynx normal, moist mucous membranes Neck Exam: normal inspection, non-tender, supple Respiratory: normal breath sounds, lungs clear Cardiovascular: normal heart sounds, tachycardia Gastrointestinal: soft, normal bowel sounds, No tenderness Extremity Exam: normal inspection, pelvis stable 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 Exam: No normal speech, No facial droop Motor/Sensory: no motor deficit (Moving all 4 extremities gross motor intact) DTR: bicep (R): 2+, bicep (L): 2+, knee (R): 2+, knee (L): 2+ Skin Exam: normal color SpO2 Interpretation: O2 applied SpO2: 98 O2 Delivery: Non-rebreather - Course EKG Interpreted by Me: RATE ([id number]), Sinus Tach, NORMAL AXIS, NORMAL INTERVALS, Non-specific ST Changes Ordered Tests: Medication Summary Discontinued Medications Generic Name Dose Route Start Last Admin Trade Name Freq PRN Reason Stop Dose Admin Sodium Chloride 1,000 mls @ 999 mls/hr 08/25/22 21:15 08/25/22 21:52 Sodium Chloride 0.9% 1000 Ml IV 08/25/22 22:15 Not Given .Q1H1M STA Sodium Chloride 1,000 mls @ 125 mls/hr 08/25/22 21:15 08/26/22 06:52 Sodium Chloride 0.9% 1000 Ml IV 09/24/22 21:14 125 mls/hr .Q8H RIGOBERTO Administration Ceftriaxone Sodium/Dextrose 2 g in 50 mls @ 100 mls/hr 08/25/22 22:30 08/25/22 23:38 Rocephin 2 Gm-D5w 50ml Bag IV 08/25/22 22:59 Infused STAT STA Infusion Levetiracetam 1,000 mg/ 110 mls @ 220 mls/hr 08/25/22 22:37 08/25/22 22:40 Dextrose IV 08/25/22 23:06 220 mls/hr STAT ONE Administration Ceftriaxone Sodium/Dextrose Confirm 08/25/22 22:39 Rocephin 2 Gm-D5w 50ml Bag Administered 08/25/22 22:40 Dose 2 g in 50 mls @ ud IV .STK-MED ONE Dextrose Confirm 08/25/22 22:40 D5w 100ml Mini Bag 100 Ml Administered 08/25/22 22:41 Dose 100 mls @ ud IV .STK-MED ONE Sodium Chloride 1,000 mls @ 999 mls/hr 08/26/22 00:07 08/26/22 01:15 EDT Sodium Chloride 0.9% 1000 Ml IV 08/26/22 01:07 EST Infused .Q1H1M STA Infusion Sodium Chloride Confirm 08/25/22 22:45 Sodium Chloride 0.9% 1000 Ml Administered 08/25/22 22:46 Dose 1,000 mls @ ud .ROUTE .STK-MED ONE Sodium Chloride Confirm 08/26/22 06:50 Sodium Chloride 0.9% 1000 Ml Administered 08/26/22 06:51 Dose 1,000 mls @ ud .ROUTE .STK-MED ONE Labetalol HCl 10 mg 08/26/22 00:38 08/26/22 00:41 Labetalol Hcl 20 Mg/4 Ml Disp.Syringe IV 08/26/22 00:39 10 mg STAT ONE Administration Labetalol HCl Confirm 08/26/22 00:40 Labetalol Hcl 20 Mg/4 Ml Disp.Syringe Administered 08/26/22 00:41 Dose 20 mg IV .STK-MED ONE Levetiracetam Confirm 08/25/22 22:39 Levetiracetam 500 Mg/5 Ml Vial Administered 08/25/22 22:40 Dose 1,000 mg .ROUTE .STK-MED ONE Lorazepam 2 mg 08/25/22 21:17 08/25/22 21:51 Lorazepam 2 Mg/1 Ml 2 Mg Vial IV 08/25/22 21:18 Not Given STAT ONE Ondansetron HCl 4 mg 08/25/22 21:15 08/25/22 21:52 Ondansetron Hcl 4 Mg/2 Ml Vial IV 08/25/22 21:16 Not Given STAT ONE Sodium Bicarbonate Confirm 08/25/22 21:25 Sodium Bicarbonate 1 Meq/Ml 50ml Syringe Administered 08/25/22 21:26 Dose 50 meq IV .STK-MED ONE Sodium Bicarbonate 50 meq 08/25/22 21:33 08/25/22 21:51 Sodium Bicarbonate 1 Meq/Ml 50ml Syringe IV 08/25/22 21:34 Not Given STAT ONE Lab/Rad Data: Laboratory Result Diagrams 08/25/22 21:24 08/25/22 21:24 Laboratory Results 08/26/22 08/26/22 08/25/22 Range/Units 04:15 00:52 23:39 WBC (4.0-10.5) x10^3/uL RBC (4.1-5.4) x10^6/uL Hgb (12.0-16.0) g/dL Hct (35-47) % MCV (78-100) fL MCH (26-32) pg MCHC (32-36) g/dL RDW (11.5-14.0) % Plt Count (150-450) x10^3/uL MPV (7.5-11.0) fL Segmented Neutrophils (36.0-66.0) % Lymphocytes (Manual) (24-44) % Monocytes (Manual) (0.0-12.0) % Platelet Estimate (NORMAL) RBC Morphology Anisocytosis PT (9.4-12.5) SECONDS INR (0.8-3.0) Puncture Site RIGHT BRACHIAL pCO2 35 (35-45) mmHg pO2 94 (75-100) mmHg pO2/FiO2 Ratio % Base Excess 0.0 (-2.0-2.0) O2 Saturation 96.7 (94-100) g/dF ABG pH 7.44 (7.35-7.45) ABG HCO3 23.8 (22-28) ABG O2 Sat (Measured) 98.4 (95-100) % Reynold Test NOT APPLICABLE VBG pH (7.32-7.42) VBG pCO2 at Pat Temp (42-55) mm/Hg VBG pO2 at Pat Temp (25-40) mm/Hg VBG HCO3 (22-28) meq/L VBG O2 Sat (Luca) (95-100) VBG Base Excess (-2.0-2.0) VBG Hemoglobin VBG Carboxyhemoglobin (0.0-6.9) % T HGB A-a Gradient 62 a/A Ratio 0.60 Hemoglobin 13.1 Carboxyhemoglobin 0.7 (0.0-6.9) % THgb Methemoglobin 1.0 L (1.4-1.5) % POC Potassium (3.5-5.1) Temperature 37.0 C POC O2 Flow Rate 28 % Sodium (137-145) mmol/L Potassium 3.2 L (3.5-5.1) mmol/L Chloride (98-107) mmol/L Carbon Dioxide (22-30) mmol/L Anion Gap (5-15) MEQ/L BUN (7-17) mg/dL Creatinine (0.52-1.04) mg/dL Estimated GFR ML/MIN Glucose (74-106) mg/dL Lactic Acid (0.4-2.0) Calcium (8.4-10.2) mg/dL Total Bilirubin (0.2-1.3) mg/dL AST (14-36) U/L ALT (0-35) U/L Alkaline Phosphatase (38-126) U/L Troponin I 0.060 H* 0.056 H* (0.000-0.034) ng/mL Serum Total Protein (6.3-8.2) g/dL Albumin (3.5-5.0) g/dL Thyroxine (T4) (5.53-10.96) ug/dL TSH 3rd Generation (0.47-4.68) mIU/L Urinalys Dipstick Clnc Urine Color (YELLOW) Urine Appearance (CLEAR) Urine pH (5-6) Ur Specific [place] (1.005-1.025) POC Urine Protein Conf (Negative) Urine Ketones (NEGATIVE) Urine Nitrite (NEGATIVE) Urine Bilirubin (NEGATIVE) Urine Urobilinogen (0-1) mg/dL Urine Leukocytes (NEGATIVE) Urine WBC (Auto) (0-5) /HPF Urine RBC (Auto) (0-2) /HPF U Hyaline Cast (Auto) (0-2) /LPF U Epithel Cells (Auto) (FEW) /HPF Urine Bacteria (Auto) (NEGATIVE) /HPF Urine RBC (0-5) Oliver/ul Ur Culture Indicated? Urine Glucose (NEGATIVE) mg/dL Salicylates (2-20) mg/dL Urine Opiates Level (NEGATIVE) Ur Methadone (NEGATIVE) Acetaminophen (10-30) ug/ml Urine Barbiturates (NEGATIVE) Ur Phencyclidine (PCP) (NEGATIVE) Urine Amphetamine (NEGATIVE) U Benzodiazepine Level (NEGATIVE) Urine Cocaine (NEGATIVE) Urine Marijuana (THC) (NEGATIVE) Ethyl Alcohol (0-10) mg/dL 08/25/22 08/25/22 08/25/22 Range/Units 23:39 22:50 22:50 WBC (4.0-10.5) x10^3/uL RBC (4.1-5.4) x10^6/uL Hgb (12.0-16.0) g/dL Hct (35-47) % MCV (78-100) fL MCH (26-32) pg MCHC (32-36) g/dL RDW (11.5-14.0) % Plt Count (150-450) x10^3/uL MPV (7.5-11.0) fL Segmented Neutrophils (36.0-66.0) % Lymphocytes (Manual) (24-44) % Monocytes (Manual) (0.0-12.0) % Platelet Estimate (NORMAL) RBC Morphology Anisocytosis PT (9.4-12.5) SECONDS INR (0.8-3.0) Puncture Site pCO2 (35-45) mmHg pO2 (75-100) mmHg pO2/FiO2 Ratio % Base Excess (-2.0-2.0) O2 Saturation (94-100) g/dF ABG pH (7.35-7.45) ABG HCO3 (22-28) ABG O2 Sat (Measured) (95-100) % Reynold Test VBG pH (7.32-7.42) VBG pCO2 at Pat Temp (42-55) mm/Hg VBG pO2 at Pat Temp (25-40) mm/Hg VBG HCO3 (22-28) meq/L VBG O2 Sat (Luca) (95-100) VBG Base Excess (-2.0-2.0) VBG Hemoglobin VBG Carboxyhemoglobin (0.0-6.9) % T HGB A-a Gradient a/A Ratio Hemoglobin Carboxyhemoglobin (0.0-6.9) % THgb Methemoglobin (1.4-1.5) % POC Potassium (3.5-5.1) Temperature C POC O2 Flow Rate % Sodium (137-145) mmol/L Potassium (3.5-5.1) mmol/L Chloride (98-107) mmol/L Carbon Dioxide (22-30) mmol/L Anion Gap (5-15) MEQ/L BUN (7-17) mg/dL Creatinine (0.52-1.04) mg/dL Estimated GFR ML/MIN Glucose (74-106) mg/dL Lactic Acid 3.9 H (0.4-2.0) Calcium (8.4-10.2) mg/dL Total Bilirubin (0.2-1.3) mg/dL AST (14-36) U/L ALT (0-35) U/L Alkaline Phosphatase (38-126) U/L Troponin I (0.000-0.034) ng/mL Serum Total Protein (6.3-8.2) g/dL Albumin (3.5-5.0) g/dL Thyroxine (T4) 17.4 H (5.53-10.96) ug/dL TSH 3rd Generation 16.900 H (0.47-4.68) mIU/L Urinalys Dipstick Clnc Urine Color (YELLOW) Urine Appearance (CLEAR) Urine pH (5-6) Ur Specific [place] (1.005-1.025) POC Urine Protein Conf (Negative) Urine Ketones (NEGATIVE) Urine Nitrite (NEGATIVE) Urine Bilirubin (NEGATIVE) Urine Urobilinogen (0-1) mg/dL Urine Leukocytes (NEGATIVE) Urine WBC (Auto) (0-5) /HPF Urine RBC (Auto) (0-2) /HPF U Hyaline Cast (Auto) (0-2) /LPF U Epithel Cells (Auto) (FEW) /HPF Urine Bacteria (Auto) (NEGATIVE) /HPF Urine RBC (0-5) Oliver/ul Ur Culture Indicated? Urine Glucose (NEGATIVE) mg/dL Salicylates (2-20) mg/dL Urine Opiates Level (NEGATIVE) Ur Methadone (NEGATIVE) Acetaminophen (10-30) ug/ml Urine Barbiturates (NEGATIVE) Ur Phencyclidine (PCP) (NEGATIVE) Urine Amphetamine (NEGATIVE) U Benzodiazepine Level (NEGATIVE) Urine Cocaine (NEGATIVE) Urine Marijuana (THC) (NEGATIVE) Ethyl Alcohol (0-10) mg/dL 08/25/22 08/25/22 08/25/22 Range/Units 21:25 21:24 21:24 WBC (4.0-10.5) x10^3/uL RBC (4.1-5.4) x10^6/uL Hgb (12.0-16.0) g/dL Hct (35-47) % MCV (78-100) fL MCH (26-32) pg MCHC (32-36) g/dL RDW (11.5-14.0) % Plt Count (150-450) x10^3/uL MPV (7.5-11.0) fL Segmented Neutrophils (36.0-66.0) % Lymphocytes (Manual) (24-44) % Monocytes (Manual) (0.0-12.0) % Platelet Estimate (NORMAL) RBC Morphology Anisocytosis PT 10.9 (9.4-12.5) SECONDS INR 1.03 (0.8-3.0) Puncture Site pCO2 (35-45) mmHg pO2 (75-100) mmHg pO2/FiO2 Ratio % Base Excess (-2.0-2.0) O2 Saturation (94-100) g/dF ABG pH (7.35-7.45) ABG HCO3 (22-28) ABG O2 Sat (Measured) (95-100) % Reynold Test VBG pH (7.32-7.42) VBG pCO2 at Pat Temp (42-55) mm/Hg VBG pO2 at Pat Temp (25-40) mm/Hg VBG HCO3 (22-28) meq/L VBG O2 Sat (Luca) (95-100) VBG Base Excess (-2.0-2.0) VBG Hemoglobin VBG Carboxyhemoglobin (0.0-6.9) % T HGB A-a Gradient a/A Ratio Hemoglobin Carboxyhemoglobin (0.0-6.9) % THgb Methemoglobin (1.4-1.5) % POC Potassium (3.5-5.1) Temperature C POC O2 Flow Rate % Sodium (137-145) mmol/L Potassium (3.5-5.1) mmol/L Chloride (98-107) mmol/L Carbon Dioxide (22-30) mmol/L Anion Gap (5-15) MEQ/L BUN (7-17) mg/dL Creatinine (0.52-1.04) mg/dL Estimated GFR ML/MIN Glucose (74-106) mg/dL Lactic Acid (0.4-2.0) Calcium (8.4-10.2) mg/dL Total Bilirubin (0.2-1.3) mg/dL AST (14-36) U/L ALT (0-35) U/L Alkaline Phosphatase (38-126) U/L Troponin I 0.013 (0.000-0.034) ng/mL Serum Total Protein (6.3-8.2) g/dL Albumin (3.5-5.0) g/dL Thyroxine (T4) (5.53-10.96) ug/dL TSH 3rd Generation (0.47-4.68) mIU/L Urinalys Dipstick Clnc MAIN LAB Urine Color YELLOW (YELLOW) Urine Appearance SLIGHTLY CLOUDY A (CLEAR) Urine pH 6.0 (5-6) Ur Specific [place] 1.015 (1.005-1.025) POC Urine Protein Conf 30 A (Negative) Urine Ketones NEGATIVE (NEGATIVE) Urine Nitrite NEGATIVE (NEGATIVE) Urine Bilirubin NEGATIVE (NEGATIVE) Urine Urobilinogen 0.2 (0-1) mg/dL Urine Leukocytes LARGE A (NEGATIVE) Urine WBC (Auto) 51-100 A (0-5) /HPF Urine RBC (Auto) 3-5 A (0-2) /HPF U Hyaline Cast (Auto) 0-2 (0-2) /LPF U Epithel Cells (Auto) RARE (FEW) /HPF Urine Bacteria (Auto) FEW A (NEGATIVE) /HPF Urine RBC TRACE-INTACT A (0-5) Oliver/ul Ur Culture Indicated? YES Urine Glucose NEGATIVE (NEGATIVE) mg/dL Salicylates (2-20) mg/dL Urine Opiates Level (NEGATIVE) Ur Methadone (NEGATIVE) Acetaminophen (10-30) ug/ml Urine Barbiturates (NEGATIVE) Ur Phencyclidine (PCP) (NEGATIVE) Urine Amphetamine (NEGATIVE) U Benzodiazepine Level (NEGATIVE) Urine Cocaine (NEGATIVE) Urine Marijuana (THC) (NEGATIVE) Ethyl Alcohol (0-10) mg/dL 08/25/22 08/25/22 08/25/22 Range/Units 21:24 21:24 21:24 WBC 16.1 H (4.0-10.5) x10^3/uL RBC 4.46 (4.1-5.4) x10^6/uL Hgb 14.9 (12.0-16.0) g/dL Hct 48.1 H (35-47) % MCV 107.8 H (78-100) fL MCH 33.4 H (26-32) pg MCHC 31.0 L (32-36) g/dL RDW 15.2 H (11.5-14.0) % Plt Count 427 (150-450) x10^3/uL MPV 11.0 (7.5-11.0) fL Segmented Neutrophils 51 (36.0-66.0) % Lymphocytes (Manual) 43 (24-44) % Monocytes (Manual) 6 (0.0-12.0) % Platelet Estimate NORMAL (NORMAL) RBC Morphology ABNORMAL Anisocytosis 1+ PT (9.4-12.5) SECONDS INR (0.8-3.0) Puncture Site pCO2 (35-45) mmHg pO2 (75-100) mmHg pO2/FiO2 Ratio % Base Excess (-2.0-2.0) O2 Saturation (94-100) g/dF ABG pH (7.35-7.45) ABG HCO3 (22-28) ABG O2 Sat (Measured) (95-100) % Reynold Test VBG pH (7.32-7.42) VBG pCO2 at Pat Temp (42-55) mm/Hg VBG pO2 at Pat Temp (25-40) mm/Hg VBG HCO3 (22-28) meq/L VBG O2 Sat (Luca) (95-100) VBG Base Excess (-2.0-2.0) VBG Hemoglobin VBG Carboxyhemoglobin (0.0-6.9) % T HGB A-a Gradient a/A Ratio Hemoglobin Carboxyhemoglobin (0.0-6.9) % THgb Methemoglobin (1.4-1.5) % POC Potassium (3.5-5.1) Temperature C POC O2 Flow Rate % Sodium 143 (137-145) mmol/L Potassium 4.5 (3.5-5.1) mmol/L Chloride 102 (98-107) mmol/L Carbon Dioxide 6 L* (22-30) mmol/L Anion Gap 38.1 H (5-15) MEQ/L BUN 5 L (7-17) mg/dL Creatinine 1.36 H (0.52-1.04) mg/dL Estimated GFR 42.6 ML/MIN Glucose 253 H (74-106) mg/dL Lactic Acid (0.4-2.0) Calcium 10.9 H (8.4-10.2) mg/dL Total Bilirubin 0.90 (0.2-1.3) mg/dL AST 41 H (14-36) U/L ALT 27 (0-35) U/L Alkaline Phosphatase 131 H (38-126) U/L Troponin I (0.000-0.034) ng/mL Serum Total Protein 8.1 (6.3-8.2) g/dL Albumin 5.2 H (3.5-5.0) g/dL Thyroxine (T4) (5.53-10.96) ug/dL TSH 3rd Generation (0.47-4.68) mIU/L Urinalys Dipstick Clnc Urine Color (YELLOW) Urine Appearance (CLEAR) Urine pH (5-6) Ur Specific [place] (1.005-1.025) POC Urine Protein Conf (Negative) Urine Ketones (NEGATIVE) Urine Nitrite (NEGATIVE) Urine Bilirubin (NEGATIVE) Urine Urobilinogen (0-1) mg/dL Urine Leukocytes (NEGATIVE) Urine WBC (Auto) (0-5) /HPF Urine RBC (Auto) (0-2) /HPF U Hyaline Cast (Auto) (0-2) /LPF U Epithel Cells (Auto) (FEW) /HPF Urine Bacteria (Auto) (NEGATIVE) /HPF Urine RBC (0-5) Oliver/ul Ur Culture Indicated? Urine Glucose (NEGATIVE) mg/dL Salicylates < 1.0 L (2-20) mg/dL Urine Opiates Level NEGATIVE (NEGATIVE) Ur Methadone NEGATIVE (NEGATIVE) Acetaminophen < 10 L (10-30) ug/ml Urine Barbiturates NEGATIVE (NEGATIVE) Ur Phencyclidine (PCP) NEGATIVE (NEGATIVE) Urine Amphetamine NEGATIVE (NEGATIVE) U Benzodiazepine Level NEGATIVE (NEGATIVE) Urine Cocaine NEGATIVE (NEGATIVE) Urine Marijuana (THC) POSITIVE (NEGATIVE) Ethyl Alcohol < 10 (0-10) mg/dL 08/25/22 08/25/22 Range/Units 21:15 21:15 WBC (4.0-10.5) x10^3/uL RBC (4.1-5.4) x10^6/uL Hgb (12.0-16.0) g/dL Hct (35-47) % MCV (78-100) fL MCH (26-32) pg MCHC (32-36) g/dL RDW (11.5-14.0) % Plt Count (150-450) x10^3/uL MPV (7.5-11.0) fL Segmented Neutrophils (36.0-66.0) % Lymphocytes (Manual) (24-44) % Monocytes (Manual) (0.0-12.0) % Platelet Estimate (NORMAL) RBC Morphology Anisocytosis PT (9.4-12.5) SECONDS INR (0.8-3.0) Puncture Site pCO2 (35-45) mmHg pO2 (75-100) mmHg pO2/FiO2 Ratio 21.0 % Base Excess (-2.0-2.0) O2 Saturation (94-100) g/dF ABG pH (7.35-7.45) ABG HCO3 (22-28) ABG O2 Sat (Measured) (95-100) % Reynold Test VBG pH 6.95 L* (7.32-7.42) VBG pCO2 at Pat Temp 37 L (42-55) mm/Hg VBG pO2 at Pat Temp 72 H (25-40) mm/Hg VBG HCO3 8.1 L* (22-28) meq/L VBG O2 Sat (Luca) 87.8 L (95-100) VBG Base Excess -23.6 L (-2.0-2.0) VBG Hemoglobin 15.6 VBG Carboxyhemoglobin 2.5 (0.0-6.9) % T HGB A-a Gradient a/A Ratio Hemoglobin Carboxyhemoglobin (0.0-6.9) % THgb Methemoglobin (1.4-1.5) % POC Potassium 3.7 (3.5-5.1) Temperature C POC O2 Flow Rate % Sodium (137-145) mmol/L Potassium (3.5-5.1) mmol/L Chloride (98-107) mmol/L Carbon Dioxide (22-30) mmol/L Anion Gap (5-15) MEQ/L BUN (7-17) mg/dL Creatinine (0.52-1.04) mg/dL Estimated GFR ML/MIN Glucose (74-106) mg/dL Lactic Acid 17.0 H (0.4-2.0) Calcium (8.4-10.2) mg/dL Total Bilirubin (0.2-1.3) mg/dL AST (14-36) U/L ALT (0-35) U/L Alkaline Phosphatase (38-126) U/L Troponin I (0.000-0.034) ng/mL Serum Total Protein (6.3-8.2) g/dL Albumin (3.5-5.0) g/dL Thyroxine (T4) (5.53-10.96) ug/dL TSH 3rd Generation (0.47-4.68) mIU/L Urinalys Dipstick Clnc Urine Color (YELLOW) Urine Appearance (CLEAR) Urine pH (5-6) Ur Specific [place] (1.005-1.025) POC Urine Protein Conf (Negative) Urine Ketones (NEGATIVE) Urine Nitrite (NEGATIVE) Urine Bilirubin (NEGATIVE) Urine Urobilinogen (0-1) mg/dL Urine Leukocytes (NEGATIVE) Urine WBC (Auto) (0-5) /HPF Urine RBC (Auto) (0-2) /HPF U Hyaline Cast (Auto) (0-2) /LPF U Epithel Cells (Auto) (FEW) /HPF Urine Bacteria (Auto) (NEGATIVE) /HPF Urine RBC (0-5) Oliver/ul Ur Culture Indicated? Urine Glucose (NEGATIVE) mg/dL Salicylates (2-20) mg/dL Urine Opiates Level (NEGATIVE) Ur Methadone (NEGATIVE) Acetaminophen (10-30) ug/ml Urine Barbiturates (NEGATIVE) Ur Phencyclidine (PCP) (NEGATIVE) Urine Amphetamine (NEGATIVE) U Benzodiazepine Level (NEGATIVE) Urine Cocaine (NEGATIVE) Urine Marijuana (THC) (NEGATIVE) Ethyl Alcohol (0-10) mg/dL - Progress Progress: improved, re-examined Progress Note: 08/25/22 23:21 Patient has a seizure on presentation in the ER and was thrashing everywhere. She is given Ativan 2 mg x 2 and she started to improve. EKG showed sinus tach. Given fluids. ABG showed pH of 6.95 with a bicarb of 8.1 and given IV an ampule of bicarb. Chest x-ray no acute findings reviewed by me, patient was initially placed on nonrebreather and currently on 2 L with saturation around 98%. CT head is obtained and is negative for any acute intracranial findings. Patient has no obvious focal neurodeficit. She is much improved and almost at her baseline but feeling weak and tired all over. Patient has a lactate of greater than 17 which probably is secondary to seizure and is getting fluid boluses. She has a white count of 16, some TORIBIO with a creatinine of 1.36 and does have UTI for which she is given Rocephin. Urine drug screen positive for THC. Do not know the exact cause of her seizure 08/25/22 23:41 No beds are available in both hospitals in [place]. Discussed with Dr. Katz at [facility], reviewed history, work-up and agreed with transfer. Discussed with .: Lakisha, Other Counseled pt/family regarding: lab results, diagnosis, rad results - Departure Departure Disposition: Transfer Clinical Impression: Altered mental status, Seizure, Lactic acidosis, Substance abuse Condition: Fair Critical Care Time: Yes Critical Care Time(excluding separately billable procedures): Critical 30-74 mins Referrals: FEMI NEGRON [Primary Care Provider] - Follow up/PCP as directed
[2022-08-26 00:06] LABS: A-aADO2 62; ABG HEMOGLOBIN 13.1; ABG POTASSIUM 3.2 (3.5-5.1); ABG SITE RIGHT BRACHIAL; ARTERIAL BLD GAS O2 SATURATION 98.4 % (95-100); ARTERIAL BLOOD GAS FIO2 28 %; ARTERIAL BLOOD GAS PCO2 35 mmHg (35-45); ARTERIAL BLOOD GAS PO2 94 mmHg (75-100); ARTERIAL BLOOD GAS pH 7.44 (7.35-7.45); CARBOXYHEMOGLOBIN 0.7 % THgb (0.0-6.9); HCO3- 23.8 (22-28); HGB O2 SAT 96.7 g/dF (94-100)
[2022-08-26] MEDS ORDERED: Sodium Chloride 0.9% 1000 ML 1,000 ML IV STA (00:07)
[2022-08-26] MEDS ORDERED: TRANDATE 20 MG/4 ML SYRINGE IV ONE ×2 (00:38→00:40)
[2022-08-26 01:39] LABS: Lymphocytes 43 % (24-44); Monocyte 6 % (0.0-12.0); Total Cells Counted 100
[2022-08-26 01:40] LABS: ANISOCYTOSIS 1+; Platelet Estimate NORMAL (NORMAL)
[2022-08-26] MEDS ORDERED: Sodium Chloride 0.9% 1000 ML 1,000 ML ONE (06:50)
[2022-08-26] MEDS: Sodium Chloride 0.9% 1000 ML 1,000 ML IV SCH (06:52)
[2022-08-26 08:45] VITALS: BP 171/118; PULSE 122; O2SAT 98
--- NOTE | 2022-08-26 09:10 | XRAY ---
Indication: Acute mental status change. Seizure. Multiple contiguous axial images obtained through the head without contrast. Comparison: May 02, 2021 Normal appearing brain parenchyma, ventricles, and bony calvarium for patient's age. Paranasal sinuses and mastoid air cells are clear. Impression: Continued normal CT head without contrast exam. Comment: Preliminary interpretation made by [facility]. No critical discrepancy.
--- NOTE | 2022-08-26 09:12 | XRAY ---
Indication: Acute mental status change. Comparison: May 15, 2022 Portable chest unchanged and remains clear. Heart not enlarged. Bony thorax intact again with osteopenia. No new/acute findings.
== END 2022-08-26 09:00 | disposition short-term general hospital (02) ==
LOC: ED 21:13
DX: R41.82 Altered mental status, unspecified (principal); R56.9 Unspecified convulsions; E87.20 Acidosis, unspecified; F12.10 Cannabis abuse, uncomplicated; R77.8 Other specified abnormalities of plasma proteins; I10 Essential (primary) hypertension; Z79.899 Other long term (current) drug therapy; Z86.16 Personal history of COVID-19
CPT/HCPCS: 36000; 36415; 36600; 70450; 71045; 80053; 80307; 81015; 82375; 82803; 82805; 83605; 84436; 84443; 84484; 85025; 85610; 87040; 87086; 93005; 94799; 96360; 96361; 96365; 96368; 96374; 96375; 96376; 99285; 99291; G0480; J0696; J1953; J2060; J2405

== ENCOUNTER 2023-01-28 19:17 | Inpatient (IN) | payer MEDICARE ==
--- NOTE | 2023-01-28 19:32 | ERPHSYRPT ---
- History of Present Illness Time Seen by Provider: 01/28/23 19:31 Source: patient, EMS Exam Limitations: clinical condition Physician History: This is a 57-year-old white female patient who was brought in by the paramedics/ambulance service because her mother found her on the ground with facial drooping and slurred speech. Patient's mother states that this patient was last seen normal yesterday. Additional history was provided by the patient's mother and the poultry farmworker. Patient is able to answer questions. She does have a left facial droop and slightly slurred speech with left-sided weakness. She states that the weakness started on 01/27/2023. Patient states that she got her foot caught in the bed sheets and fell to the ground where she stayed there on the ground since approximately 8:00 this morning. Patient has a history of hypothyroidism, bipolar disorder, depression, arrhythmia, osteoarthritis, degenerative joint disease and dementia. Patient also arrives with a low-grade fever 100.5 F Occurred: yesterday Reason for Fall: tripped (Per her report 8:00 in the morning on 01/28/2023 when her feet got caught in the bed sheets) Injuries/Pain Location: upper extremity (Left shoulder), pelvis (Bilateral hips) Loss of Consciousness: no loss of consciousness, memory impairment (Chronic dementia) Severity of Pain-Max: mild Severity of Pain-Current: mild Modifying Factors: Improves With: movement Associated Symptoms (Fall): slurred speech, trouble walking Allergies/Adverse Reactions: aripiprazole [From Abilify] Allergy (Verified 01/28/23 19:21) bee venom protein (honey bee) Allergy (Verified 01/28/23 19:21) clarithromycin [From Biaxin] Allergy (Verified 01/28/23 19:21) ketorolac [From Toradol] Allergy (Verified 01/28/23 19:21) lidocaine [From Lidoderm] Allergy (Verified 01/28/23 19:21) methocarbamol [From Robaxin] Allergy (Verified 01/28/23 19:21) methylprednisolone [From Medrol] Allergy (Verified 01/28/23 19:21) prednisone Allergy (Verified 01/28/23 19:21) Sulfa (Sulfonamide Antibiotics) Allergy (Verified 01/28/23 19:21) zolpidem [From Ambien] Allergy (Verified 01/28/23 19:21) triamcinolone [From Kenalog] Adverse Reaction (Verified 01/28/23 19:21) Home Medications: Donepezil HCl 10 mg [Aricept 10 MG] 10 mg PO HS 10/10/20 [History] Levothyroxine Sodium [Tirosint-Kymberly] 100 mcg PO DAILY 10/10/20 [History] Lisinopril 10 mg [Zestril 10 MG] 10 mg PO DAILY 10/10/20 [History] Memantine HCl [Memantine HCl ER] 28 mg PO HS 10/10/20 [History] Semaglutide [Ozempic] 0.5 mg SQ WEEKLY 10/10/20 [History] Simvastatin 20Mg [Zocor 20Mg] 40 mg PO HS 10/10/20 [History] Tizanidine HCl 4 mg [Zanaflex 4 MG] 12 mg PO HS 10/10/20 [History] Cariprazine HCl [Vraylar] 1.5 mg PO DAILY 05/02/21 [History] Fluticasone/Umeclidin/Vilanter [Trelegy Ellipta 200-62.5-25] 1 each IH DAILY 05/02/21 [History] Topiramate 50 mg PO BID 05/02/21 [History] Lansoprazole 30 mg PO DAILY 05/15/22 [History] Ondansetron ODT 4 MG [Zofran Odt 4 mg] 4 mg PO Q6-8HPRN PRN 05/15/22 [History] Hx Tetanus, Diphtheria Vaccination/Date Given: Yes Hx Influenza Vaccination/Date Given: Yes Hx Pneumococcal Vaccination/Date Given: No Travel Risk - International Travel Have you traveled outside of the country in past 3 weeks: No - Coronavirus Screening Are you exhibiting any of the following symptoms?: No Close contact with a COVID-19 positive Pt in past 14-21 Days: No - Vaccine Status Have you recieved a Covid-19 vaccination: Yes [employer] 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: [employer] - Vaccination Dates Date of 2cond Vaccination (if applicable): 2020 - Review of Systems Constitutional: Weakness Eyes: No Symptoms Ears, Nose, & Throat: No Symptoms Respiratory: No Symptoms Cardiac: No Symptoms Abdominal/Gastrointestinal: No Symptoms Genitourinary Symptoms: No Symptoms Musculoskeletal: Fall, Injury (Left shoulder and bilateral hips) Skin: Other (Mild skin abrasions bilateral anterior knees) Neurological: Gait Changes, Other (Facial droop left side) Psychological: No Symptoms Endocrine: No Symptoms Hematologic/Lymphatic: No Symptoms Immunological/Allergic: No Symptoms All Other Systems: Reviewed and Negative - Past Medical History Pertinent Past Medical History: Yes Neurological History: Dementia ENT History: No Pertinent History Cardiac History: Arrhythmia, Hypertension, Other Respiratory History: Other Endocrine Medical History: Hypothyroidism Musculoskeletal History: Degenerative Disk Disease, Fractures, Osteoarthritis GI Medical History: Gallbladder Disease History: No Pertinent History Psycho-Social History: Bipolar, Depression Female Reproductive Disorders: No Pertinent History Other Medical History: RECENT DX (DURING HOSPITALIZATION) WITH CARDIOMYOPATHY WITH EJECTION FRACTION 15%. COVID AUGUST 2021. - Past Surgical History Past Surgical History: Yes Neuro Surgical History: No Pertinent History Cardiac: No Pertinent History Respiratory: No Pertinent History Gastrointestinal: Cholecystectomy Genitourinary: No Pertinent History Musculoskeletal: Other Female Surgical History: Hysterectomy, Lumpectomy Other Surgical History: Lump removed from right breast. Tendon surgery right wrist. Exploratory surgery through belly button. Thyroid removed - Social History Smoking Status: Former smoker Exposure to second hand smoke: No Drug Use: none Patient Lives Alone: No Significant Family History: no pertinent family hx - Nursing Vital Signs Nursing Vital Signs: Initial Vital Signs Temperature 100.5 F 01/28/23 19:23 Pulse Rate 90 01/28/23 19:23 Respiratory Rate 16 01/28/23 19:23 Blood Pressure 159/98 01/28/23 19:23 O2 Sat by Pulse Oximetry 98 01/28/23 19:23 Pain Scale Pain Intensity 0 - Sammi Coma Score Best Eye Response (Sammi): (4) open spontaneously Best Verbal Response (Sammi): (5) oriented - Physical Exam General Appearance: no apparent distress, alert, anxiety Head Injury: no evidence of injury Eye Exam: PERRL/EOMI, eyes nml inspection ENT Exam: airway nml, nml ext.inspection, No evidence of ENT injury Neck Exam: supple, trachea midline, full range of motion, normal alignment, normal inspection Respiratory/Chest Exam: normal breath sounds, No chest tenderness, No respiratory distress, No ecchymosis, No crepitus Cardiovascular Exam: normal heart sounds, regular rate/rhythm Gastrointestinal Exam: soft, normal bowel sounds, No tenderness Rectal Exam: not done Back Exam: normal inspection, normal range of motion, No CVA tenderness, No vertebral tenderness Extremity Exam: hip tenderness (Lateral without deformity), tenderness (Left shoulder) Neurologic Exam: alert, oriented x 3, cooperative, 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 II-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 nml as tested, facial droop (Left side), slurred speech (Mild) Skin Exam: normal color, warm, dry O2 Delivery: Room Air - Course Nursing assessment & vital signs reviewed: Yes EKG Interpreted by Me: RATE (93), A-fib, Right [place] Deviation, NORMAL INTERVALS, Other (No acute ischemic changes on today's twelve-lead EKG.) Ordered Tests: Active Orders 24 hr Category Date Time Status Assembler Lay Ups STAT Care 01/28/23 19:34 Active EKG-ER Only STAT Care 01/28/23 19:34 Active IV Insertion STAT Care 01/28/23 19:34 Active NPO (ED) STAT Care 01/28/23 19:34 Active POCT Glucose Check STAT Care 01/28/23 19:34 Active Pulse Oximetry (ED) STAT Care 01/28/23 19:34 Active CHEST 1 VIEW (PORTABLE) Stat Exams 01/28/23 20:39 Taken HEAD WITHOUT CONTRAST [CT] Stat Exams 01/28/23 19:34 Taken HIPS WILLARD(2V) INCL PEL IF DONE Stat Exams 01/28/23 20:06 Taken SHOULDER Stat Exams 01/28/23 20:05 Taken CBC W DIFF Stat Lab 01/28/23 19:30 Completed CK-Creatinine Phosphokinase Stat Lab 01/28/23 19:30 Completed CMP Stat Lab 01/28/23 19:30 Completed LIPID PROFILE Stat Lab 01/28/23 22:34 Ordered Lactic Acid Stat Lab 01/28/23 19:34 Completed TSH [TSH, 3RD Generation] Stat Lab 01/28/23 22:33 Ordered UA W/RFX UR CULTURE Stat Lab 01/28/23 22:41 Ordered Urine Triage Profile Stat Lab 01/28/23 22:41 Ordered Medication Summary Generic Name Dose Route Start Last Admin Trade Name Freq PRN Reason Stop Dose Admin Aspirin 324 mg 01/29/23 10:00 Aspirin 81 Mg Tablet.Ec PO 02/28/23 09:59 DAILY RIGOBERTO Sodium Chloride 1,000 mls @ 100 mls/hr 01/28/23 19:45 04/10/23 19:56 Sodium Chloride 0.9% 1000 Ml IV 02/27/23 19:44 100 mls/hr .Q10H RIGOBERTO Administration Discontinued Medications Generic Name Dose Route Start Last Admin Trade Name Abigail PRN Reason Stop Dose Admin Atorvastatin Calcium 40 mg 01/28/23 22:34 Atorvastatin Calcium 40 Mg Tablet PO 01/28/23 22:35 STAT STA Lab/Rad Data: Laboratory Result Diagrams 01/28/23 19:30 01/28/23 19:30 Laboratory Results 01/28/23 01/28/23 01/28/23 Range/Units 19:34 19:30 19:30 WBC (4.0-10.5) x10^3/uL RBC (4.1-5.4) x10^6/uL Hgb (12.0-16.0) g/dL Hct (35-47) % MCV (78-100) fL MCH (26-32) pg MCHC (32-36) g/dL RDW (11.5-14.0) % Plt Count (150-450) x10^3/uL MPV (7.5-11.0) fL Gran % (36.0-66.0) % Immature Gran % (Auto) (0.00-0.4) % Nucleat RBC Rel Count (0.00-0.1) % Eos # (Auto) (0-0.5) x10^3/uL Immature Gran # (Auto) (0.00-0.03) x10^3u/L Absolute Lymphs (auto) (1.0-4.6) x10^3/uL Absolute Monos (auto) (0.0-1.3) x10^3/uL Absolute Nucleated RBC (0.00-0.01) x10^3u/L Lymphocytes % (24.0-44.0) % Monocytes % (0.0-12.0) % Eosinophils % (0.00-5.0) % Basophils % (0.0-0.4) % Absolute Granulocytes (1.4-6.9) x10^3/uL Basophils # (0-0.4) x10^3/uL Sodium 140 (137-145) mmol/L Potassium 3.4 L (3.5-5.1) mmol/L Chloride 103 (98-107) mmol/L Carbon Dioxide 25 (22-30) mmol/L Anion Gap 14.7 (5-15) MEQ/L BUN 5 L (7-17) mg/dL Creatinine 0.99 (0.52-1.04) mg/dL Estimated GFR > 60.0 ML/MIN Glucose 103 (74-106) mg/dL Lactic Acid 2.2 H (0.4-2.0) Calcium 10.0 (8.4-10.2) mg/dL Total Bilirubin 1.10 (0.2-1.3) mg/dL AST 37 H (14-36) U/L ALT 20 (0-35) U/L Alkaline Phosphatase 136 H (38-126) U/L Creatine Kinase 894 H (30-135) U/L Serum Total Protein 6.8 (6.3-8.2) g/dL Albumin 4.4 (3.5-5.0) g/dL 01/28/23 Range/Units 19:30 WBC 11.0 H (4.0-10.5) x10^3/uL RBC 4.69 (4.1-5.4) x10^6/uL Hgb 14.3 (12.0-16.0) g/dL Hct 41.1 (35-47) % MCV 87.6 (78-100) fL MCH 30.5 (26-32) pg MCHC 34.8 (32-36) g/dL RDW 14.1 H (11.5-14.0) % Plt Count 326 (150-450) x10^3/uL MPV 10.6 (7.5-11.0) fL Gran % 81.5 H (36.0-66.0) % Immature Gran % (Auto) 0.4 (0.00-0.4) % Nucleat RBC Rel Count 0.0 (0.00-0.1) % Eos # (Auto) 0 (0-0.5) x10^3/uL Immature Gran # (Auto) 0.04 H (0.00-0.03) x10^3u/L Absolute Lymphs (auto) 1.24 (1.0-4.6) x10^3/uL Absolute Monos (auto) 0.73 (0.0-1.3) x10^3/uL Absolute Nucleated RBC 0.00 (0.00-0.01) x10^3u/L Lymphocytes % 11.3 L (24.0-44.0) % Monocytes % 6.6 (0.0-12.0) % Eosinophils % 0.0 (0.00-5.0) % Basophils % 0.2 (0.0-0.4) % Absolute Granulocytes 8.96 H (1.4-6.9) x10^3/uL Basophils # 0.02 (0-0.4) x10^3/uL Sodium (137-145) mmol/L Potassium (3.5-5.1) mmol/L Chloride (98-107) mmol/L Carbon Dioxide (22-30) mmol/L Anion Gap (5-15) MEQ/L BUN (7-17) mg/dL Creatinine (0.52-1.04) mg/dL Estimated GFR ML/MIN Glucose (74-106) mg/dL Lactic Acid (0.4-2.0) Calcium (8.4-10.2) mg/dL Total Bilirubin (0.2-1.3) mg/dL AST (14-36) U/L ALT (0-35) U/L Alkaline Phosphatase (38-126) U/L Creatine Kinase (30-135) U/L Serum Total Protein (6.3-8.2) g/dL Albumin (3.5-5.0) g/dL - Progress Progress: improved, re-examined Progress Note: 01/28/23 21:[address] with [address] Lawler, teleneurologist. The initial consult went out as a phone only. However this was incorrect. This is going to be corrected. I did provide her with the patient past medical history, history of present illness, and findings on CT scan of the head without contrast. She did tell me that there are no acute treatment that the patient qualifies for because of the extended time from the patient last being seen. 01/28/23 22:17 This patient was evaluated by telemetry neurologist Dr. Lawler. The neurologist again stated there is no acute care management or intervention at this time for this patient. Specifically the neurologist did not feel the patient needed to be transferred anywhere. Patient should be taken off her Xarelto for approximately 2 weeks and put on aspirin and Lipitor. Patient should have physical therapy consultation, patient should have hemoglobin A1c, TSH level, lipid profile obtained. She also recommended an MRI for tomorrow. She feels that the patient looks very good at this time. However if there is a change in the patient in terms of lethargy, a repeat CT scan/MRI should be p erformed. 01/28/23 22:42 This patient's medical issue is 1 of high complexity. The level of complexity and the work-up performed is based on review of the patient's past medical history, medication list, medication allergy list, history of present illness and physical findings on examination. The work-up includes a CT scan of the head without contrast, chest x-ray, placement of intravenous line, infusion of intravenous fluids, CBC, CMP, twelve-lead EKG, urinalysis, urine triage, teleneurology consultation. I spoke with Dr. Pat who is the hospitalist news content specialist this evening. I reviewed the history of this patient as well as the history of present illness, and physical findings on examination. I reviewed the results of the work-up I ordered and the recommendations by the teleneurologist with her. Together we decided to admit the patient into the hospital and perform a lipid profile, hemoglobin A1c and TSH level. We will also obtain physical therapy consultation. We will also order an echocardiogram, bilateral carotid Dopplers, and an MRI of the brain to be performed tomorrow. We are still awaiting the urinalysis, urine triage and viral tests results. Counseled pt/family regarding: lab results, diagnosis, rad results Medical Desision Making - Independent Historian Additional History obtained from: Mother, Lag Screwer/EMT - External Record(s) Reviewed Records reviewed as a part of evaluation & management: EMS - Discussion of managment Care discussed with:: on-call "doc" Reviewed:: Test results, Need for additional workup Agreed on:: Treatment plan, decision to admit Will see patient: in hospital - Diagnostic Testing Diagnostic test were ordered, analyzed, and reviewed by me: Yes Radiological Interpretation: Interpreted by me, Reviewed by me, Teleradiologist Report - Risk of complications The pt has a high risk of morbidity or mortality based on: Decision regarding hospitilization or escalation of hosp level of care - Departure Departure Disposition: In-patient Admission Clinical Impression: CVA (cerebral vascular accident) Condition: Serious Critical Care Time: Yes Critical Care Time(excluding separately billable procedures): Critical 30-74 mins (45) Referrals: FEMI NEGRON [Primary Care Provider] - Follow up/PCP as directed
[2023-01-28] MEDS ORDERED: Sodium Chloride 0.9% 1000 ML 1,000 ML IV SCH (19:45)
[2023-01-28 19:48] LABS: Absolute Neutrophil Ct (ANC) 8.96 x10^3/uL (1.4-6.9); BASOPHIL % 0.2 % (0.0-0.4); Basophil (Absolute #) 0.02 x10^3/uL (0-0.4); Eosinophil (Absolute #) 0 x10^3/uL (0-0.5); Hematocrit 41.1 % (35-47); Hemoglobin 14.3 g/dL (12.0-16.0); IMMATURE GRAN # 0.04 x10^3u/L (0.00-0.03); IMMATURE GRAN % 0.4 % (0.00-0.4); Lymphocyte (Absolute #) 1.24 x10^3/uL (1.0-4.6); Lymphocytes % 11.3 % (24.0-44.0); Mean Cell Volume 87.6 fL (78-100); Mean Corpuscular Hemoglobin 30.5 pg (26-32); Mean Corpuscular Hgb Concent. 34.8 g/dL (32-36); Mean Platelet Volume 10.6 fL (7.5-11.0); Monocyte (Absolute #) 0.73 x10^3/uL (0.0-1.3); Monocytes % 6.6 % (0.0-12.0); Neutrophil % 81.5 % (36.0-66.0); Platelet Count 326 x10^3/uL (150-450); Red Blood Count 4.69 x10^6/uL (4.1-5.4); Red Cell Distribution Width 14.1 % (11.5-14.0)
[2023-01-28] MEDS ORDERED: Sodium Chloride 0.9% 1000 ML 1,000 ML ONE (19:54)
[2023-01-28 20:00] LABS: ALBUMIN 4.4 g/dL (3.5-5.0); ALKALINE PHOSPHATASE 136 U/L (38-126); ANION GAP 14.7 MEQ/L (5-15); BLOOD UREA NITROGEN 5 mg/dL (7-17); CHLORIDE 103 mmol/L (98-107); Carbon Dioxide 25 mmol/L (22-30); Creatinine 1 0.99 mg/dL (0.52-1.04); EST GLOMERULAR FILTRATION RATE > 60.0 ML/MIN; Glucose 103 mg/dL (74-106); Potassium 3.4 mmol/L (3.5-5.1); SGOT/AST 37 U/L (14-36); SGPT/ALT 20 U/L (0-35); SODIUM 140 mmol/L (137-145); Total Protein 6.8 g/dL (6.3-8.2)
[2023-01-28] MEDS ORDERED: LIPITOR 40MG PO STA (22:34)
[2023-01-28 22:55] LABS: Appearance Clear (Clear); Bacteria None Seen /HPF (None Seen); Bilirubin Negative (Negative); Blood Large (Negative); Epithelial Cells Few /HPF (None Seen); Glucose, Urine Negative (Negative); Ketones 15 (Negative); Leukocyte Esterase Moderate (Negative); Nitrite Negative (Negative); Protein,Urine Dip Negative (Negative); RBC 21-50 /HPF (0-5); Urobilinogen 0.2 mg/dL (0.2); WBC 21-50 /HPF (0-5)
[2023-01-28 22:57] LABS: ADD URINE CULTURE? YES (NO)
[2023-01-28] MEDS ORDERED: LIPITOR 40MG ONE (22:57)
[2023-01-28 23:08] LABS: INFLUENZA A NEGATIVE (NEGATIVE); INFLUENZA B NEGATIVE (NEGATIVE); RESPIRATORY SYNCTIAL VIRUS NEGATIVE (NEGATIVE); SARS-CoV-2 Xpert Express NEGATIVE (NEGATIVE)
[2023-01-28] MEDS ORDERED: Ecotrin 325 MG ONE (23:10)
[2023-01-29 00:36] LABS: Risk Ratio 4.3
[2023-01-29] MEDS: Zofran 4 MG/2 ML VIAL IV PRN (01:52)
[2023-01-29] MEDS: Zestril 10 MG PO SCH ×2 (01:52→09:38)
[2023-01-29] MEDS: Lopressor 25MG Tab PO SCH ×2 (01:52→09:38)
[2023-01-29] MEDS: TYLENOL 325 MG PO PRN ×2 (05:35→10:49)
[2023-01-29 05:38] LABS: Absolute Neutrophil Ct (ANC) 6.28 x10^3/uL (1.4-6.9); BASOPHIL % 0.6 % (0.0-0.4); Basophil (Absolute #) 0.05 x10^3/uL (0-0.4); Eosinophil % 0.1 % (0.00-5.0); Eosinophil (Absolute #) 0.01 x10^3/uL (0-0.5); Hemoglobin 13.6 g/dL (12.0-16.0); IMMATURE GRAN # 0.03 x10^3u/L (0.00-0.03); IMMATURE GRAN % 0.3 % (0.00-0.4); Lymphocytes % 17.4 % (24.0-44.0); Mean Cell Volume 89.7 fL (78-100); Mean Corpuscular Hemoglobin 29.8 pg (26-32); Mean Corpuscular Hgb Concent. 33.2 g/dL (32-36); Mean Platelet Volume 12.7 fL (7.5-11.0); Monocyte (Absolute #) 0.75 x10^3/uL (0.0-1.3); Monocytes % 8.7 % (0.0-12.0); Neutrophil % 72.9 % (36.0-66.0); Platelet Count 218 x10^3/uL (150-450); Red Blood Count 4.57 x10^6/uL (4.1-5.4); Red Cell Distribution Width 14.2 % (11.5-14.0); White Blood Count 8.6 x10^3/uL (4.0-10.5)
[2023-01-29] MEDS: Sodium Chloride 0.9% 1000 ML 1,000 ML IV SCH ×3 (05:44→20:17)
[2023-01-29 06:32] LABS: ALKALINE PHOSPHATASE 108 U/L (38-126); BLOOD UREA NITROGEN 6 mg/dL (7-17); CHLORIDE 106 mmol/L (98-107); Calcium 9.1 mg/dL (8.4-10.2); Carbon Dioxide 23 mmol/L (22-30); Creatinine 1 0.99 mg/dL (0.52-1.04); EST GLOMERULAR FILTRATION RATE > 60.0 ML/MIN; Glucose 98 mg/dL (74-106); Potassium 3.5 mmol/L (3.5-5.1); SGOT/AST 50 U/L (14-36); SGPT/ALT 17 U/L (0-35); SODIUM 140 mmol/L (137-145); Total Protein 6.6 g/dL (6.3-8.2)
[2023-01-29] MEDS: Advair Hfa 115/21 Common canister IH SCH ×2 (06:53→19:02)
[2023-01-29] MEDS ORDERED: Advair Hfa 115/21 Common canister IH SCH (07:00)
--- NOTE | 2023-01-29 08:51 | XRAY ---
Indication: Spatial droop. Stroke. Multiple contiguous axial images obtained through the head without contrast. Comparison: August 25, 2022 New large focus cytotoxic edema right parietal lobe favoring acute ischemia. No acute intracranial hemorrhage, abnormal extra axial fluid collection, or mass effect. Fourth ventricle is midline without hydrocephalus. Bony calvarium intact. Visualized paranasal sinuses and mastoid air cells are clear. Impression: New large right MCA acute ischemia. No acute intracranial hemorrhage/mass effect. Comment: Telephone report given to ordering clinician, Dr. Steele at 2018 hrs. on January 28, 2023.
--- NOTE | 2023-01-29 08:53 | XRAY ---
Indication: Fever. Status post fall. Comparison: August 25, 2022 Portable chest demonstrates normal heart and lungs. Bony thorax intact. No new/acute findings.
--- NOTE | 2023-01-29 08:57 | XRAY ---
Indication: Status post fall. Comparison: None AP pelvis and 2 view left and right hip demonstrates osteopenia. Right total hip arthroplasty with intact bipolar prosthesis and adjacent heterotopic ossifications. No other bony, articular, or soft tissue abnormalities.
--- NOTE | 2023-01-29 08:59 | XRAY ---
Indication: Pain following fall. Comparison: None 3 view left shoulder demonstrates osteopenia, mild acromioclavicular degenerative arthropathy, and old left 6/7 rib fractures. High riding humeral head commonly seen with rotator cuff tear. No other bony, articular, or soft tissue abnormalities.
[2023-01-29] MEDS: ECOTRIN 81 MG PO SCH (09:38)
[2023-01-29] MEDS ORDERED: ECOTRIN 81 MG PO SCH (10:00)
--- NOTE | 2023-01-29 10:49 | XRAY ---
Indication: CVA. Two-dimensional sonogram and color Doppler imaging of the carotid arteries of the neck performed. Comparison: None Examination of the right carotid circulation demonstrates very minimal petechial calcified plaquing in the proximal internal carotid artery. Remaining common carotid, carotid bulb, and external carotid arteries are widely patent. PSV of the CCA is 70 cm/s. PSV of the ICA is 92 cm/s. ICA/CCA ratio is 1.3. Normal antegrade vertebral artery flow. Examination of the left carotid circulation demonstrates minimal soft plaquing throughout the common carotid artery. Carotid bulb demonstrates minimal eccentric calcified plaquing. Remaining internal carotid and external carotid arteries are widely patent. PSV of the CCA is 65 cm/s. PSV of the ICA is 72 cm/s. ICA/CCA ratio is 1.1. Normal antegrade vertebral artery flow. Impression: Minimal arteriosclerotic plaquing bilaterally as detailed. Velocity measurements and ratios are negative for hemodynamically significant flow limiting stenosis.
[2023-01-29] MEDS ORDERED: MEDICATION INTERVENTION MC SCH (11:45)
--- NOTE | 2023-01-29 13:20 | PCM.HP ---
History of Present Illness - Chief Complaint Chief Complaint: CVA History of Present Illness: is a 57 year old female patient who was brought in by the paramedics/ambulance service because her mother found her on the ground with facial drooping and slurred speech and left sided weakness. Patient was last seen normal yesterday per mother. Patient is able to answer questions but ER info collected from Mother and paramedics. In ER had left facial droop and slightly slurred speech with left-sided weakness. She states that the weakness started on 01/27/2023. Patient states that she got her foot caught in the bed sheets and fell to the ground where she stayed there on the ground since approximately 8:00 this morning. PMHx includes hypothyroidism, bipolar disorder, depression, arrhythmia, osteoarthritis, degenerative joint disease and dementia. ER low-grade fever 100.5 F ER evaluation - This patient was evaluated by telemetry neurologist Dr. Lawler - stated there is no acute care management or intervention at this time for this patient. Specifically the neurologist did not feel the patient needed to be transferred anywhere. Patient should be taken off her Xarelto for approximately 2 weeks and put on aspirin and Lipitor. Patient should have physical therapy consultation, patient should have hemoglobin A1c, TSH level, lipid profile obtained. She also recommended an MRI brain in the AM. ER work-up includes a CT scan of the head without contrast, chest x- ray,infusion of intravenous fluids, CBC, CMP, twelve-lead EKG, urinalysis, urine triage, lipid profile, hemoglobin A1c and TSH level. Ordered physical therapy /OT/Speech Tx consultation,echocardiogram, bilateral carotid dopplers, and an MRI of the brain. Eval this AM - is swallowing without difficulty and has improved left hand carton filler and can move her left leg. speech is a little slurred. B/P systoloc was 180with pulse 100 and Metoprolol was given. - Review of Systems Constitutional: Fever Eyes: No Symptoms Ears, Nose, & Throat: No Symptoms Respiratory: No Symptoms Cardiac: No Symptoms Abdominal/Gastrointestinal: No Symptoms Genitourinary Symptoms: No Symptoms Musculoskeletal: Arthralgias, Fall (knee abrasions) Skin: Skin Lesions (superficial knee abrasions) Neurological: Paralysis (left sided) Endocrine: No Symptoms Hematologic/Lymphatic: Other (was on Xarelto -Afib) Medications & Allergies Home Medications: Home Medication List Donepezil HCl 10 mg [Aricept 10 MG] 10 mg PO HS 10/10/20 [History Confirmed 01/29/23] Lisinopril 10 mg [Zestril 10 MG] 10 mg PO BID 10/10/20 [History Confirmed 01/29/23] Memantine HCl [Memantine HCl ER] 28 mg PO HS 10/10/20 [History Confirmed 01/29/23] Tizanidine HCl 4 mg [Zanaflex 4 MG] 4 mg PO DAILY 10/10/20 [History Confirmed 01/29/23] Cariprazine HCl [Vraylar] 1.5 mg PO DAILY 05/02/21 [History Confirmed 01/29/23] Fluticasone/Umeclidin/Vilanter [Trelegy Ellipta 200-62.5-25] 1 each IH DAILY 05/02/21 [History Confirmed 01/29/23] Topiramate 50 mg PO BID 05/02/21 [History Confirmed 01/29/23] Levothyroxine Sodium [Tirosint] 112 mcg PO DAILY 01/29/23 [History Confirmed ] Rivaroxaban 10 mg Tablet [Xarelto 10 mg Tablet] 20 mg PO EVENING MEAL 01/29/23 [History Confirmed 01/29/23] Tizanidine HCl 4 mg [Zanaflex 4 MG] 12 mg PO QHS 01/29/23 [History Confirmed 01/29/23] levETIRAcetam [Levetiracetam] 500 mg PO BID 01/29/23 [History Confirmed 01/29/23] Allergies/Adverse Reactions: Allergies Allergy/AdvReac Type Severity Reaction Status Date / Time aripiprazole [From Abilify] Allergy Verified 01/28/23 19:21 bee venom protein (honey bee) Allergy Verified 01/28/23 19:21 clarithromycin [From Biaxin] Allergy Verified 01/28/23 19:21 ketorolac [From Toradol] Allergy Verified 01/28/23 19:21 lidocaine [From Lidoderm] Allergy Verified 01/28/23 19:21 methocarbamol [From Robaxin] Allergy Verified 01/28/23 19:21 methylprednisolone Allergy Verified 01/28/23 19:21 [From Medrol] prednisone Allergy Verified 01/28/23 19:21 Sulfa (Sulfonamide Allergy Verified 01/28/23 19:21 Antibiotics) zolpidem [From Ambien] Allergy Verified 01/28/23 19:21 triamcinolone [From Kenalog] AdvReac Verified 01/28/23 19:21 - Past Medical History Past Medical History: Yes Neurological History: Dementia ENT History: No Pertinent History Cardiac History: Arrhythmia, Hypertension, Other Respiratory History: Other Endocrine Medical History: Hypothyroidism Musculoskelatal History: Degenerative Disk Disease, Fractures, Osteoarthritis GI Medical History: Gallbladder Disease History: No Pertinent History Pyscho-Social History: Bipolar, Depression Reproductive Disorders: No Pertinent History Comment: RECENT DX (DURING HOSPITALIZATION) WITH CARDIOMYOPATHY WITH EJECTION FRACTION 15%. COVID AUGUST 2021. - Female History Are you now?: No - Past Surgical History Past Surgical History: Yes Neuro Surgical History: No Pertinent History Cardiac History: No Pertinent History Respiratory Surgery: No Pertinent History GI Surgical History: Cholecystectomy Genitourinary Surgical Hx: No Pertinent History Musculskeletal Surgical Hx: Other Female Surgical History: Hysterectomy, Lumpectomy Other Surgical History: Lump removed from right breast. Tendon surgery right wrist. Exploratory surgery through belly button. Thyroid removed. R HIP REPLACEMENT - Social History Smoking Status: Former smoker Exposure to second hand smoke: No Alcohol: Rarely Drug Use: none Significant Family History: no pertinent family hx - Physical Exam Vital Signs: Vital Signs - 24 hr Temp Pulse Resp BP Pulse Ox 01/29/23 12:00 97.7 F 70 16 143/85 92 L 01/29/23 08:00 97.1 F 91 H 16 177/89 01/29/23 07:27 82 18 94 L 01/29/23 04:05 98.0 F 83 21 178/86 96 01/29/23 04:00 18 191/94 98 01/29/23 00:07 18 191/94 98 01/29/23 00:01 89 16 97 01/29/23 00:00 92 H 18 180/88 98 01/28/23 23:09 102 H 16 170/107 94 L 01/28/23 22:47 100.5 F 01/28/23 22:00 105 H 24 174/118 98 01/28/23 21:00 99 H 21 167/87 98 01/28/23 19:34 99 01/28/23 19:23 100.5 F 90 16 159/98 98 General Appearance: no apparent distress (sitting up in bedside chair) Neurologic Exam: alert, oriented x 3, motor weakness (left), facial droop, slurred speech (mild) Eye Exam: eyes nml inspection Ears, Nose, Throat Exam: normal ENT inspection Neck Exam: normal inspection Respiratory Exam: other (no wheeze or ronchi or rales) Gastrointestinal/Abdomen Exam: soft (nontender) Pelvic Exam: not done Rectal Exam: not done Back Exam: muscle spasm Extremity Exam: paralysis (weakness LUE,LLE) Skin Exam: normal color, warm, dry, abrasion (bilat knees,superficial ,dry) Wound Assessment: Skin/Wound Assessment Wound/Incision Assessment Start: 01/29/23 00:55 Text: Status: Active Freq: Q6H Protocol: Document 01/29/23 00:55 WW (Rec: 01/29/23 01:21 WW [id number]) Wound Photo Photo Taken Yes Results - Labs Lab/Micro Results: Lab Results-Last 24 Hours 01/28/23 01/28/23 01/28/23 Range/Units 19:30 19:30 19:30 WBC 11.0 H (4.0-10.5) x10^3/uL RBC 4.69 (4.1-5.4) x10^6/uL Hgb 14.3 (12.0-16.0) g/dL Hct 41.1 (35-47) % MCV 87.6 (78-100) fL MCH 30.5 (26-32) pg MCHC 34.8 (32-36) g/dL RDW 14.1 H (11.5-14.0) % Plt Count 326 (150-450) x10^3/uL MPV 10.6 (7.5-11.0) fL Gran % 81.5 H (36.0-66.0) % Immature Gran % (Auto) 0.4 (0.00-0.4) % Nucleat RBC Rel Count 0.0 (0.00-0.1) % Eos # (Auto) 0 (0-0.5) x10^3/uL Immature Gran # (Auto) 0.04 H (0.00-0.03) x10^3u/L Absolute Lymphs (auto) 1.24 (1.0-4.6) x10^3/uL Absolute Monos (auto) 0.73 (0.0-1.3) x10^3/uL Absolute Nucleated RBC 0.00 (0.00-0.01) x10^3u/L Lymphocytes % 11.3 L (24.0-44.0) % Monocytes % 6.6 (0.0-12.0) % Eosinophils % 0.0 (0.00-5.0) % Basophils % 0.2 (0.0-0.4) % Absolute Granulocytes 8.96 H (1.4-6.9) x10^3/uL Basophils # 0.02 (0-0.4) x10^3/uL Sodium 140 (137-145) mmol/L Potassium 3.4 L (3.5-5.1) mmol/L Chloride 103 (98-107) mmol/L Carbon Dioxide 25 (22-30) mmol/L Anion Gap 14.7 (5-15) MEQ/L BUN 5 L (7-17) mg/dL Creatinine 0.99 (0.52-1.04) mg/dL Estimated GFR > 60.0 ML/MIN Glucose 103 (74-106) mg/dL Lactic Acid (0.4-2.0) Calcium 10.0 (8.4-10.2) mg/dL Total Bilirubin 1.10 (0.2-1.3) mg/dL AST 37 H (14-36) U/L ALT 20 (0-35) U/L Alkaline Phosphatase 136 H (38-126) U/L Creatine Kinase 894 H (30-135) U/L Serum Total Protein 6.8 (6.3-8.2) g/dL Albumin 4.4 (3.5-5.0) g/dL Prealbumin (17.6-36.0) mg/dL Triglycerides (30-150) mg/dL Cholesterol (50-200) mg/dL LDL Cholesterol HDL Cholesterol (40-60) mg/dL Heart Disease Risk Ratio TSH 3rd Generation (0.47-4.68) mIU/L Urine Color (Yellow) Urine Appearance (Clear) Urine pH (4.6-8.0) Ur Specific [place] (1.005-1.030) Urine Protein (Negative) Urine Glucose (UA) (Negative) mg/dL Urine Ketones (Negative) Urine Blood (Negative) Urine Nitrite (Negative) Urine Bilirubin (Negative) Urine Urobilinogen (0.2) mg/dL Ur Leukocyte Esterase (Negative) U Hyaline Cast (Auto) (0-2) /LPF Urine Microscopic RBC (0-5) /HPF Urine Microscopic WBC (0-5) /HPF Ur Epithelial Cells (None Seen) /HPF Urine Bacteria (None Seen) /HPF Urine Culture Reflexed (NO) Influenza Type A Ag (NEGATIVE) Influenza Type B Ag (NEGATIVE) RSV (PCR) (NEGATIVE) SARS-CoV-2 (PCR) (NEGATIVE) 01/28/23 01/28/23 01/28/23 Range/Units 19:34 22:22 22:33 WBC (4.0-10.5) x10^3/uL RBC (4.1-5.4) x10^6/uL Hgb (12.0-16.0) g/dL Hct (35-47) % MCV (78-100) fL MCH (26-32) pg MCHC (32-36) g/dL RDW (11.5-14.0) % Plt Count (150-450) x10^3/uL MPV (7.5-11.0) fL Gran % (36.0-66.0) % Immature Gran % (Auto) (0.00-0.4) % Nucleat RBC Rel Count (0.00-0.1) % Eos # (Auto) (0-0.5) x10^3/uL Immature Gran # (Auto) (0.00-0.03) x10^3u/L Absolute Lymphs (auto) (1.0-4.6) x10^3/uL Absolute Monos (auto) (0.0-1.3) x10^3/uL Absolute Nucleated RBC (0.00-0.01) x10^3u/L Lymphocytes % (24.0-44.0) % Monocytes % (0.0-12.0) % Eosinophils % (0.00-5.0) % Basophils % (0.0-0.4) % Absolute Granulocytes (1.4-6.9) x10^3/uL Basophils # (0-0.4) x10^3/uL Sodium (137-145) mmol/L Potassium (3.5-5.1) mmol/L Chloride (98-107) mmol/L Carbon Dioxide (22-30) mmol/L Anion Gap (5-15) MEQ/L BUN (7-17) mg/dL Creatinine (0.52-1.04) mg/dL Estimated GFR ML/MIN Glucose (74-106) mg/dL Lactic Acid 2.2 H (0.4-2.0) Calcium (8.4-10.2) mg/dL Total Bilirubin (0.2-1.3) mg/dL AST (14-36) U/L ALT (0-35) U/L Alkaline Phosphatase (38-126) U/L Creatine Kinase (30-135) U/L Serum Total Protein (6.3-8.2) g/dL Albumin (3.5-5.0) g/dL Prealbumin (17.6-36.0) mg/dL Triglycerides (30-150) mg/dL Cholesterol (50-200) mg/dL LDL Cholesterol HDL Cholesterol (40-60) mg/dL Heart Disease Risk Ratio TSH 3rd Generation 16.300 H (0.47-4.68) mIU/L Urine Color (Yellow) Urine Appearance (Clear) Urine pH (4.6-8.0) Ur Specific [place] (1.005-1.030) Urine Protein (Negative) Urine Glucose (UA) (Negative) mg/dL Urine Ketones (Negative) Urine Blood (Negative) Urine Nitrite (Negative) Urine Bilirubin (Negative) Urine Urobilinogen (0.2) mg/dL Ur Leukocyte Esterase (Negative) U Hyaline Cast (Auto) (0-2) /LPF Urine Microscopic RBC (0-5) /HPF Urine Microscopic WBC (0-5) /HPF Ur Epithelial Cells (None Seen) /HPF Urine Bacteria (None Seen) /HPF Urine Culture Reflexed (NO) Influenza Type A Ag NEGATIVE (NEGATIVE) Influenza Type B Ag NEGATIVE (NEGATIVE) RSV (PCR) NEGATIVE (NEGATIVE) SARS-CoV-2 (PCR) NEGATIVE (NEGATIVE) 01/28/23 01/28/23 01/29/23 Range/Units 22:34 22:41 04:25 WBC 8.6 (4.0-10.5) x10^3/uL RBC 4.57 (4.1-5.4) x10^6/uL Hgb 13.6 (12.0-16.0) g/dL Hct 41.0 (35-47) % MCV 89.7 (78-100) fL MCH 29.8 (26-32) pg MCHC 33.2 (32-36) g/dL RDW 14.2 H (11.5-14.0) % Plt Count 218 (150-450) x10^3/uL MPV 12.7 H (7.5-11.0) fL Gran % 72.9 H (36.0-66.0) % Immature Gran % (Auto) 0.3 (0.00-0.4) % Nucleat RBC Rel Count 0.0 (0.00-0.1) % Eos # (Auto) 0.01 (0-0.5) x10^3/uL Immature Gran # (Auto) 0.03 (0.00-0.03) x10^3u/L Absolute Lymphs (auto) 1.50 (1.0-4.6) x10^3/uL Absolute Monos (auto) 0.75 (0.0-1.3) x10^3/uL Absolute Nucleated RBC 0.00 (0.00-0.01) x10^3u/L Lymphocytes % 17.4 L (24.0-44.0) % Monocytes % 8.7 (0.0-12.0) % Eosinophils % 0.1 (0.00-5.0) % Basophils % 0.6 (0.0-0.4) % Absolute Granulocytes 6.28 (1.4-6.9) x10^3/uL Basophils # 0.05 (0-0.4) x10^3/uL Sodium (137-145) mmol/L Potassium (3.5-5.1) mmol/L Chloride (98-107) mmol/L Carbon Dioxide (22-30) mmol/L Anion Gap (5-15) MEQ/L BUN (7-17) mg/dL Creatinine (0.52-1.04) mg/dL Estimated GFR ML/MIN Glucose (74-106) mg/dL Lactic Acid (0.4-2.0) Calcium (8.4-10.2) mg/dL Total Bilirubin (0.2-1.3) mg/dL AST (14-36) U/L ALT (0-35) U/L Alkaline Phosphatase (38-126) U/L Creatine Kinase (30-135) U/L Serum Total Protein (6.3-8.2) g/dL Albumin (3.5-5.0) g/dL Prealbumin (17.6-36.0) mg/dL Triglycerides 110 (30-150) mg/dL Cholesterol 276 H (50-200) mg/dL LDL Cholesterol Pending HDL Cholesterol 64 H (40-60) mg/dL Heart Disease Risk Ratio 4.3 TSH 3rd Generation (0.47-4.68) mIU/L Urine Color Yellow (Yellow) Urine Appearance Clear (Clear) Urine pH 7.0 (4.6-8.0) Ur Specific [place] 1.010 (1.005-1.030) Urine Protein Negative (Negative) Urine Glucose (UA) Negative (Negative) mg/dL Urine Ketones 15 A (Negative) Urine Blood Large A (Negative) Urine Nitrite Negative (Negative) Urine Bilirubin Negative (Negative) Urine Urobilinogen 0.2 (0.2) mg/dL Ur Leukocyte Esterase Moderate A (Negative) U Hyaline Cast (Auto) 3-5 A (0-2) /LPF Urine Microscopic RBC 21-50 A (0-5) /HPF Urine Microscopic WBC 21-50 A (0-5) /HPF Ur Epithelial Cells Few (None Seen) /HPF Urine Bacteria None Seen (None Seen) /HPF Urine Culture Reflexed YES (NO) Influenza Type A Ag (NEGATIVE) Influenza Type B Ag (NEGATIVE) RSV (PCR) (NEGATIVE) SARS-CoV-2 (PCR) (NEGATIVE) 01/29/23 01/29/23 Range/Units 04:25 04:25 WBC (4.0-10.5) x10^3/uL RBC (4.1-5.4) x10^6/uL Hgb (12.0-16.0) g/dL Hct (35-47) % MCV (78-100) fL MCH (26-32) pg MCHC (32-36) g/dL RDW (11.5-14.0) % Plt Count (150-450) x10^3/uL MPV (7.5-11.0) fL Gran % (36.0-66.0) % Immature Gran % (Auto) (0.00-0.4) % Nucleat RBC Rel Count (0.00-0.1) % Eos # (Auto) (0-0.5) x10^3/uL Immature Gran # (Auto) (0.00-0.03) x10^3u/L Absolute Lymphs (auto) (1.0-4.6) x10^3/uL Absolute Monos (auto) (0.0-1.3) x10^3/uL Absolute Nucleated RBC (0.00-0.01) x10^3u/L Lymphocytes % (24.0-44.0) % Monocytes % (0.0-12.0) % Eosinophils % (0.00-5.0) % Basophils % (0.0-0.4) % Absolute Granulocytes (1.4-6.9) x10^3/uL Basophils # (0-0.4) x10^3/uL Sodium 140 (137-145) mmol/L Potassium 3.5 (3.5-5.1) mmol/L Chloride 106 (98-107) mmol/L Carbon Dioxide 23 (22-30) mmol/L Anion Gap 14.0 (5-15) MEQ/L BUN 6 L (7-17) mg/dL Creatinine 0.99 (0.52-1.04) mg/dL Estimated GFR > 60.0 ML/MIN Glucose 98 (74-106) mg/dL Lactic Acid (0.4-2.0) Calcium 9.1 (8.4-10.2) mg/dL Total Bilirubin 1.30 (0.2-1.3) mg/dL AST 50 H (14-36) U/L ALT 17 (0-35) U/L Alkaline Phosphatase 108 (38-126) U/L Creatine Kinase (30-135) U/L Serum Total Protein 6.6 (6.3-8.2) g/dL Albumin 4.0 (3.5-5.0) g/dL Prealbumin 18.90 (17.6-36.0) mg/dL Triglycerides (30-150) mg/dL Cholesterol (50-200) mg/dL LDL Cholesterol HDL Cholesterol (40-60) mg/dL Heart Disease Risk Ratio TSH 3rd Generation (0.47-4.68) mIU/L Urine Color (Yellow) Urine Appearance (Clear) Urine pH (4.6-8.0) Ur Specific [place] (1.005-1.030) Urine Protein (Negative) Urine Glucose (UA) (Negative) mg/dL Urine Ketones (Negative) Urine Blood (Negative) Urine Nitrite (Negative) Urine Bilirubin (Negative) Urine Urobilinogen (0.2) mg/dL Ur Leukocyte Esterase (Negative) U Hyaline Cast (Auto) (0-2) /LPF Urine Microscopic RBC (0-5) /HPF Urine Microscopic WBC (0-5) /HPF Ur Epithelial Cells (None Seen) /HPF Urine Bacteria (None Seen) /HPF Urine Culture Reflexed (NO) Influenza Type A Ag (NEGATIVE) Influenza Type B Ag (NEGATIVE) RSV (PCR) (NEGATIVE) SARS-CoV-2 (PCR) (NEGATIVE) Accuchecks Date 01/28/23 Time 19:30 - Radiology Impressions Radiology Exams & Impressions: Radiology Procedures Category Date Time Status CAROTID BILATERAL [US] Stat Exams 01/29/23 00:23 Completed CHEST 1 VIEW (PORTABLE) Stat Exams 01/28/23 20:39 Completed ECHO W/2D AND DOPPLER [US] Stat Exams 01/29/23 00:23 Taken HEAD WITHOUT CONTRAST [CT] Stat Exams 01/28/23 19:34 Completed HIPS WILLARD(2V) INCL PEL IF DONE Stat Exams 01/28/23 20:06 Completed MRI BRAIN W & W/O CONTRAST [MRI] Stat Exams 01/29/23 00:23 Taken SHOULDER Stat Exams 01/28/23 20:05 Completed - Other Procedures and Tests Respiratory Therapy 01/29/23 00:25 Respiratory Therapy Assessment DAILY Assessment/Plan (1) CVA (cerebral vascular accident) Current Visit: Yes Status: Acute Assessment & Plan: see MRI results Code(s): I63.9 - CEREBRAL INFARCTION, UNSPECIFIED (2) Fall Current Visit: Yes Status: Acute Code(s): W19.XXXA - UNSPECIFIED FALL, INITIAL ENCOUNTER (3) UTI (urinary tract infection) Current Visit: Yes Status: Acute Code(s): N39.0 - URINARY TRACT INFECTION, SITE NOT SPECIFIED (4) Elevated TSH Current Visit: Yes Status: Acute Assessment & Plan: hypothyroid on Levothyroxine ,dose adjusted up. Code(s): R79.89 - OTHER SPECIFIED ABNORMAL FINDINGS OF BLOOD CHEMISTRY (5) HTN (hypertension) Current Visit: Yes Status: Acute Assessment & Plan: Systolic high on admission to floor and Metoprolol added, monitor Code(s): I10 - ESSENTIAL (PRIMARY) HYPERTENSION (6) Bipolar 1 disorder Current Visit: Yes Status: Chronic Assessment & Plan: continue current meds Code(s): F31.9 - BIPOLAR DISORDER, UNSPECIFIED (7) Polypharmacy Current Visit: Yes Status: Suspected Assessment & Plan: hold Zanaflex-was on 12mg at bed per home meds Code(s): Z79.899 - OTHER [facility] (CURRENT) DRUG THERAPY
[2023-01-29] MEDS: KEPPRA PO SCH ×2 (13:21→21:46)
[2023-01-29] MEDS: Namenda 5 MG PO SCH ×2 (13:21→21:44)
[2023-01-29] MEDS: TOPIRAMATE PO SCH ×2 (13:21→21:45)
[2023-01-29] MEDS: Zanaflex 4 MG PO SCH (13:21)
[2023-01-29] MEDS: LEVOTHYROXINE SODIUM 112 MCG PO SCH (13:22)
--- NOTE | 2023-01-29 13:26 | XRAY ---
Indication: Stroke. Sagittal, coronal, and axial MRI brain performed using pre and post T1, T2, FLAIR, diffusion, and ADC sequences. 13 cc Dotarem contrast used. Comparison: None Right parietal lobe demonstrates large focus of restricted signal favoring acute ischemia. No acute intracranial hemorrhage, abnormal extra axial fluid collection, or mass effect. No abnormal enhancing intra or extra-axial mass. Fourth ventricle is midline without hydrocephalus. 7/8 cranial nerve complex bilaterally symmetric. Normal flow-void signal within the major intracerebral circulation. Normal appearing craniocervical junction and sella turcica. Paranasal sinuses are clear. Impression: Large right MCA acute ischemia. No acute intracranial hemorrhage/mass effect.
[2023-01-29 14:22] LABS: Amphetamine,Urine NEGATIVE (NEGATIVE); Benzodiazepine,Urine NEGATIVE (NEGATIVE); Cocaine,Urine NEGATIVE (NEGATIVE); Methadone,Urine NEGATIVE (NEGATIVE); Opiate,Urine NEGATIVE (NEGATIVE); PCP,Urine NEGATIVE (NEGATIVE); THC,Urine POSITIVE (NEGATIVE)
[2023-01-29 14:24] LABS: Barbiturate,Urine NEGATIVE (NEGATIVE)
[2023-01-29] MEDS ORDERED: Sodium Chloride 0.9% 1000 ML 1,000 ML IV SCH (17:15)
[2023-01-29] MEDS ORDERED: Sodium Chloride 0.9% 1000 ML 1,000 ML IV STA (18:28)
[2023-01-29] MEDS: XARELTO 10 MG TABLET PO SCH (18:34)
[2023-01-29] MEDS: Zetia 10 MG** 10 MG, ZOCOR 20MG** 40 MG PO SCH ×2 (21:45)
[2023-01-29] MEDS: Aricept 10 MG PO SCH (21:46)
[2023-01-29] MEDS ORDERED: NON-FORMULARY ITEM (Memantine Hcl [Memantine Hcl Er] 28 MG Cap.Spr.24) PO SCH (22:00)
[2023-01-29] MEDS ORDERED: Zanaflex 4 MG PO SCH (22:00)
[2023-01-29] MEDS ORDERED: Ecotrin 325 MG PO SCH (23:12)
[2023-01-30] MEDS: Lopressor 25MG Tab PO SCH ×2 (00:35→08:04)
[2023-01-30] MEDS ORDERED: Lactated Ringers 1,000 ML IV ONE (02:36)
[2023-01-30] MEDS: Sodium Chloride 0.9% 1000 ML 1,000 ML IV SCH ×2 (03:48→13:44)
[2023-01-30] MEDS: Advair Hfa 115/21 Common canister IH SCH ×2 (07:25→18:55)
--- NOTE | 2023-01-30 07:39 | ECHO ---
Transthoracic echocardiographic examination and color Doppler was done on01/29/2023. INDICATION: Stroke and hypertension. IMPRESSION: 1) NO REGIONAL WALL MOTION ABNORMALITY. ESTIMATED GLOBAL LEFT VENTRICULAR EJECTION FRACTION BETWEEN 60 TO 65%. 2) MILD MITRAL REGURGITATION. 3) TRACE TRICUSPID REGURGITATION. RIGHT VENTRICULAR SYSTOLIC PRESSURE OF 33 MM OF MERCURY. 4) LEFT VENTRICULAR DIASTOLIC DYSFUNCTION. 5) LEFT VENTRICULAR HYPERTROPHY. The left ventricle is visualized and demonstrated adequate motion of all the segments. Estimated global left ventricular ejection fraction between 60 to 65%. There is mild left ventricular hypertrophy. The mitral valve is seen and this opens adequately. There is mild mitral regurgitation. Left atrium is normal. Tissue Doppler study of the lateral mitral annulus is suggestive of left ventricular diastolic dysfunction. The aortic valve opens adequately. There is no significant gradient across the left ventricular outflow tract. The right side chambers are normal with normal right ventricular contractility. There is trace tricuspid regurgitation. The right ventricular systolic pressure of 33 mm of [place]. There is also trace pulmonic insufficiency.
[2023-01-30] MEDS: Zanaflex 4 MG PO SCH (09:52)
[2023-01-30] MEDS ORDERED: NON-FORMULARY ITEM (Cariprazine Hcl [Vraylar] 1.5 MG Capsule) PO SCH (10:00)
[2023-01-30] MEDS: ECOTRIN 81 MG PO SCH (10:05)
[2023-01-30] MEDS: Namenda 5 MG PO SCH ×2 (10:05→22:03)
[2023-01-30] MEDS: KEPPRA PO SCH ×2 (10:05→22:03)
[2023-01-30] MEDS: TOPIRAMATE PO SCH ×2 (10:05→22:03)
[2023-01-30] MEDS: LEVOTHYROXINE SODIUM 112 MCG PO SCH (11:49)
[2023-01-30] MEDS: SYNTHROID 112 MCG PO SCH (13:44)
--- NOTE | 2023-01-30 14:42 | XRAY ---
Indication: CVA. Comparison: January 28, 2023 Portable chest remains inflated and clear. Heart not enlarged. No new/acute findings.
[2023-01-30] MEDS ORDERED: ROCEPHIN 1 Gm-D5w 50 ml Bag** 1 G/50 ML IVPB IV SCH (15:00)
[2023-01-30 16:32] LABS: Appearance Clear (Clear); Bacteria Rare /HPF (None Seen); Bilirubin Negative (Negative); Blood Small (Negative); Epithelial Cells None Seen /HPF (None Seen); Glucose, Urine Negative (Negative); Ketones Negative (Negative); Leukocyte Esterase Trace (Negative); Nitrite Negative (Negative); Ph 8.5 (4.6-8.0); Protein,Urine Dip Negative (Negative)
[2023-01-30 17:19] LABS: ADD URINE CULTURE? ORDERED SEPARATELY (NO)
[2023-01-30] MEDS: Zofran 4 MG/2 ML VIAL IV PRN (18:26)
[2023-01-30] MEDS: XARELTO 10 MG TABLET PO SCH (19:14)
[2023-01-30] MEDS: Zetia 10 MG** 10 MG, ZOCOR 20MG** 40 MG PO SCH ×2 (22:02)
[2023-01-30] MEDS: Aricept 10 MG PO SCH (22:03)
[2023-01-31] MEDS: Zofran 4 MG/2 ML VIAL IV PRN (00:06)
[2023-01-31] MEDS: Sodium Chloride 0.9% 1000 ML 1,000 ML IV SCH (03:07)
[2023-01-31] MEDS: TYLENOL 325 MG PO PRN (03:07)
[2023-01-31 05:29] LABS: Mean Cell Volume 90.5 fL (78-100); Mean Corpuscular Hemoglobin 30.2 pg (26-32); Mean Corpuscular Hgb Concent. 33.3 g/dL (32-36); Platelet Count 264 x10^3/uL (150-450); Red Blood Count 3.98 x10^6/uL (4.1-5.4); Red Cell Distribution Width 14.4 % (11.5-14.0)
[2023-01-31 05:40] LABS: ANION GAP 13.2 MEQ/L (5-15); Calcium 8.7 mg/dL (8.4-10.2); Creatinine 1 1.15 mg/dL (0.52-1.04); EST GLOMERULAR FILTRATION RATE 51.5 ML/MIN; Potassium 3.4 mmol/L (3.5-5.1)
[2023-01-31] MEDS: Advair Hfa 115/21 Common canister IH SCH (06:54)
[2023-01-31 07:57] VITALS: O2SAT 95
[2023-01-31] MEDS ORDERED: Zestril 10 MG PO SCH (10:00)
[2023-01-31] MEDS: TOPIRAMATE PO SCH (11:06)
[2023-01-31] MEDS: ECOTRIN 81 MG PO SCH (11:06)
[2023-01-31] MEDS: SYNTHROID 112 MCG PO SCH (11:07)
[2023-01-31] MEDS: Namenda 5 MG PO SCH (11:07)
[2023-01-31] MEDS: KEPPRA PO SCH (11:07)
[2023-01-31] MEDS ORDERED: Klor Con PO ONE (11:22)
[2023-01-31] MEDS: Zanaflex 4 MG PO SCH (11:23)
[2023-01-31 12:32] VITALS: BP 188/103; PULSE 90
--- NOTE | 2023-02-11 23:29 | PCM.DS ---
Discharge Summary Date of Admission: 01/28/23 23:57 Date of Discharge: 01/31/23 Admitting Physician: FABBY COFFEY DO Primary Care Provider: FEMI NEGRON Allergies Allergies aripiprazole [From Abilify] Allergy (Verified 01/28/23 19:21) bee venom protein (honey bee) Allergy (Verified 01/28/23 19:21) clarithromycin [From Biaxin] Allergy (Verified 01/28/23 19:21) ketorolac [From Toradol] Allergy (Verified 01/28/23 19:21) lidocaine [From Lidoderm] Allergy (Verified 01/28/23 19:21) methocarbamol [From Robaxin] Allergy (Verified 01/28/23 19:21) methylprednisolone [From Medrol] Allergy (Verified 01/28/23 19:21) prednisone Allergy (Verified 01/28/23 19:21) Sulfa (Sulfonamide Antibiotics) Allergy (Verified 01/28/23 19:21) zolpidem [From Ambien] Allergy (Verified 01/28/23 19:21) triamcinolone [From Kenalog] Adverse Reaction (Verified 01/28/23 19:21) Hospital Summary - Hospital Course Hospital Course: Pt. admitted to hospital for acute CVA, subsequent fall, UTI, markedly elevated TSH, pt. initated on PT<ST<OT. Pt. was treated and improved from UTI, thyroid treatment initiated. Pt. with no marked improvements, pt. stable for discharge to DC for continued cva therapy. - Vitals & Intake/Output Vital Signs: Vital Signs Temperature 97 F 01/31/23 12:00 Pulse Rate 90 01/31/23 12:00 Respiratory Rate 17 01/31/23 12:00 Blood Pressure 188/103 01/31/23 12:00 O2 Sat by Pulse Oximetry 95 01/31/23 07:56 - Lab Result Diagrams: 01/31/23 05:06 01/31/23 05:06 Micro Results-Entire Visit: Microbiology 01/30/23 18:18 Urine Culture - Final Catherized Enterococcus Faecalis Staphylococcus Haemolyticus 01/28/23 22:41 Urine Culture - Final Clean Catch Midstream NO GROWTH - Procedures and Test Procedures and Tests throughout Hospitalization: Therapy Orders & Screens 01/29/23 00:23 PT Eval & Treat ( Order) ONCE Reason for Eval:: Patient status post CVA Diagnosis: CVA 01/29/23 00:25 Respiratory Therapy Assessment DAILY Comment: Diagnosis: CVA 01/29/23 10:04 ST Eval & Treat (MD Order) .as ordered Comment: Physician Instructions: Reason For Exam: Evaluate: Yes Treat: Yes Reason for Eval: EVAL AND TREAT IF INDICATED - CVA Diagnosis: CVA 01/29/23 12:37 OT Eval and Treat ( Order) ONCE Comment: Consulting Provider: Physician Instructions: Reason For Exam: cva Diagnosis: CVA 01/30/23 15:57 OT Clarification Order ROUTINE Comment: Physician Instructions: Reason For Exam: OT Clarification: Occupational Therapy to treat patient 5x/week to address I/ADL training, AE/AD/DME training, LUE ROM, and functional activity tolerance to include Evaluation, Therapeutic Activity/ADL, Neuromuscular Re-Education, Manual Therapy, and Therapeutic Exercise to promote increased function and performance in prep for discharge to next level of care. Discharge Exam General Appearance: no apparent distress, alert Neurologic Exam: alert, cooperative, normal mood/affect, No motor deficits Eye Exam: PERRL, EOMI Ears, Nose, Throat Exam: normal ENT inspection, pharynx normal, moist mucous membranes Neck Exam: normal inspection, non-tender, supple, full range of motion Respiratory Exam: normal breath sounds, lungs clear, No respiratory distress Cardiovascular Exam: regular rate/rhythm, normal heart sounds Gastrointestinal/Abdomen Exam: soft, No tenderness, No mass Pelvic Exam: deferred Rectal Exam: deferred Back Exam: normal inspection, normal range of motion, No CVA tenderness, No vertebral tenderness Extremity Exam: normal inspection, paralysis Skin Exam: normal color, warm, dry Final Diagnosis/Problem List - Final Discharge Diagnosis/Problem (1) CVA (cerebral vascular accident) Status: Acute Assessment & Plan: continue therapy. Code(s): I63.9 - CEREBRAL INFARCTION, UNSPECIFIED (2) Elevated TSH Status: Acute Code(s): R79.89 - OTHER SPECIFIED ABNORMAL FINDINGS OF BLOOD CHEMISTRY (3) UTI (urinary tract infection) Status: Acute Code(s): N39.0 - URINARY TRACT INFECTION, SITE NOT SPECIFIED - Discharge Discharge Date: 01/31/23 Disposition: DC TO ANY "OTHER" USP Condition: Stable Prescriptions: New Nitrofurantoin Macro 100 mg [Macrobid 100MG Capsule] 100 mg PO BID 7 Days #14 cap Aspirin [Adult Low Dose Aspirin EC] 81 mg PO DAILY #30 tablet Atorvastatin Calcium 80 mg PO QHS #30 tablet Continue Memantine HCl [Memantine HCl ER] 28 mg PO HS Lisinopril 10 mg [Zestril 10 MG] 10 mg PO BID Donepezil HCl 10 mg [Aricept 10 MG] 10 mg PO HS Fluticasone/Umeclidin/Vilanter [Trelegy Ellipta 200-62.5-25] 1 each IH DAILY Cariprazine HCl [Vraylar] 1.5 mg PO DAILY Topiramate 50 mg PO BID levETIRAcetam [Levetiracetam] 500 mg PO BID Levothyroxine Sodium [Tirosint] 112 mcg PO DAILY Rivaroxaban 10 mg Tablet [Xarelto 10 mg Tablet] 20 mg PO EVENING MEAL #60 Changed Tizanidine HCl 4 mg [Zanaflex 4 MG] 4 mg PO DAILY PRN PRN #30 tab PRN Reason: Muscle Spasms Tizanidine HCl 4 mg [Zanaflex 4 MG] 12 mg PO HS PRN PRN #90 tab PRN Reason: Muscle Spasms Instructions: Stroke Additional Instructions: USP ORDERS- ADMIT TO SHELTER CARE SOFT DIET MAKE SURE FOOD IS NOT POCKETED IN CHEEK BEFORE LAYING DOWN GIVE MEDS IN PUDDING OR APPLESAUCE BUT THEY DO NOT NEED CRUSHED PATIENT VISUALLY IMPAIRED ON LEFT- PLACE OBJECTS WITHIN VIEW ON PATIENT'S RIGHT SIDE PT/OT/ST EVAL AND TREAT XARELTO ON HOLD X 2 WEEKS RESUME ON 02/14/23- PATIENT NOW ON ATORVASTATIN AND ASPIRIN (SEE TELE NEURO CONSULT) SEE ATTACHED MED LIST Forms: Ambulance Transport Record, Transfer Record Residential
== END 2023-01-31 16:05 | DRG 65 ==
LOC: ED 19:17 → MED SURG 23:57
PROVIDERS: ADMIT Family Medicine; ATTEND Family Medicine
DX: I63.9 Cerebral infarction, unspecified (principal); N39.0 Urinary tract infection, site not specified; W19.XXXA Unspecified fall, initial encounter; R79.89 Other specified abnormal findings of blood chemistry; I10 Essential (primary) hypertension; F31.9 Bipolar disorder, unspecified; E03.9 Hypothyroidism, unspecified; Z79.899 Other long term (current) drug therapy; Z20.828 Contact with and (suspected) exposure to other viral communicable diseases; Z79.01 Long term (current) use of anticoagulants
CPT/HCPCS: 0241U; 36000; 36415; 51702; 70450; 70553; 71045; 73030; 73521; 80048; 80053; 80061; 80307; 81001; 82550; 83036; 83605; 83721; 84134; 84443; 84484; 85025; 85027; 87077; 87086; 87186; 92610; 93005; 93041; 93306; 93880; 94640; 94760; 96105; 97110; 97161; 97166; 97530; 99285; 99291; Q3014; J0696; J2405; A9270-GY

== ENCOUNTER 2023-04-27 15:15 | Emergency (ER) | payer MEDICARE ==
[2023-04-27] MEDS ORDERED: Sodium Chloride 0.9% 1000 ML 1,000 ML IV SCH (15:30)
[2023-04-27 15:43] LABS: Absolute Neutrophil Ct (ANC) 3.32 x10^3/uL (1.4-6.9); BASOPHIL % 0.6 % (0.0-0.4); Basophil (Absolute #) 0.04 x10^3/uL (0-0.4); Eosinophil % 2.6 % (0.00-5.0); Eosinophil (Absolute #) 0.16 x10^3/uL (0-0.5); Hematocrit 42.4 % (35-47); Hemoglobin 14.1 g/dL (12.0-16.0); IMMATURE GRAN # 0.01 x10^3u/L (0.00-0.03); IMMATURE GRAN % 0.2 % (0.00-0.4); Mean Cell Volume 88.9 fL (78-100); Mean Corpuscular Hemoglobin 29.6 pg (26-32); Mean Corpuscular Hgb Concent. 33.3 g/dL (32-36); Mean Platelet Volume 10.7 fL (7.5-11.0); Monocyte (Absolute #) 0.55 x10^3/uL (0.0-1.3); Monocytes % 8.9 % (0.0-12.0); Neutrophil % 53.7 % (36.0-66.0); Platelet Count 257 x10^3/uL (150-450); Red Blood Count 4.77 x10^6/uL (4.1-5.4); Red Cell Distribution Width 11.9 % (11.5-14.0); White Blood Count 6.2 x10^3/uL (4.0-10.5)
[2023-04-27] MEDS ORDERED: Sodium Chloride 0.9% 1000 ML 1,000 ML ONE (16:04)
[2023-04-27 16:06] LABS: ALBUMIN 3.4 g/dL (3.5-5.0); ALKALINE PHOSPHATASE 104 U/L (38-126); ANION GAP 12.7 MEQ/L (5-15); BLOOD UREA NITROGEN 10 mg/dL (7-17); CHLORIDE 112 mmol/L (98-107); Calcium 9.1 mg/dL (8.4-10.2); Carbon Dioxide 22 mmol/L (22-30); Creatinine 1 0.83 mg/dL (0.52-1.04); EST GLOMERULAR FILTRATION RATE > 60.0 ML/MIN; Glucose 91 mg/dL (74-106); Potassium 3.5 mmol/L (3.5-5.1); SGOT/AST 20 U/L (14-36); SGPT/ALT 19 U/L (0-35); SODIUM 143 mmol/L (137-145); Total Protein 5.8 g/dL (6.3-8.2)
--- NOTE | 2023-04-27 16:55 | ERPHSYRPT ---
- History of Present Illness Time Seen by Provider: 04/27/23 15:30 Historian: patient Exam Limitations: no limitations Patient Subjective Stated Complaint: pt here for pain to left side of chest today with some nausea Triage Nursing Assessment: pt alert, arrived per ambulance. resp easy, skin w/d/p. chest clear, pt left side flaccid from an old stroke, Physician History: Patient is a 57-year-old white female who presents with chest pain for 90 minutes. He rates his her pain as 5 of 10 but when picked up by EMS she was specifically denied any pain at all of any kind. When we were doing her interview she said she did have some left upper chest pain. She denied any shortness of breath or nausea or vomiting.Her history is therefore variable inconsistent. Timing/Duration: hour(s) (1.5) Activities at Onset: none Quality: pressure Location: other (Left upper anterior chest pain) Chest Pain Radiation: no radiation Severity of Pain-Max: moderate Severity of Pain-Current: moderate Modifying Factors: Improves With: nothing Associated Symptoms: nausea Nitro Today/Relief: no nitro taken today Aspirin Treatment Today: no aspirin today Allergies/Adverse Reactions: aripiprazole [From Abilify] Allergy (Verified 04/27/23 15:39) bee venom protein (honey bee) Allergy (Verified 04/27/23 15:39) clarithromycin [From Biaxin] Allergy (Verified 04/27/23 15:39) ketorolac [From Toradol] Allergy (Verified 04/27/23 15:39) lidocaine [From Lidoderm] Allergy (Verified 04/27/23 15:39) methocarbamol [From Robaxin] Allergy (Verified 04/27/23 15:39) methylprednisolone [From Medrol] Allergy (Verified 04/27/23 15:39) prednisone Allergy (Verified 04/27/23 15:39) Sulfa (Sulfonamide Antibiotics) Allergy (Verified 04/27/23 15:39) zolpidem [From Ambien] Allergy (Verified 04/27/23 15:39) triamcinolone [From Kenalog] Adverse Reaction (Verified 04/27/23 15:39) Home Medications: Donepezil HCl 10 mg [Aricept 10 MG] 10 mg PO HS 10/10/20 [History] Memantine HCl [Memantine HCl ER] 28 mg PO HS 10/10/20 [History] Cariprazine HCl [Vraylar] 1.5 mg PO DAILY 05/02/21 [History] Fluticasone/Umeclidin/Vilanter [Trelegy Ellipta 200-62.5-25] 1 each IH DAILY 05/02/21 [History] Topiramate 50 mg PO BID 05/02/21 [History] Levothyroxine Sodium [Tirosint] 112 mcg PO DAILY 01/29/23 [History] levETIRAcetam [Levetiracetam] 500 mg PO BID 01/29/23 [History] Baclofen 5 mg PO TID 04/27/23 [History] [place]-3 Fatty Acids/Fish Oil [Fish Oil 1,000 mg Capsule] 1,000 mg PO DAILY 04/27/23 [History] Polyethylene Glycol 3350 17 gm [Miralax Powder 17GM PACKET] 17 gm PO DAILY 04/27/23 [History] Hx Tetanus, Diphtheria Vaccination/Date Given: No Hx Influenza Vaccination/Date Given: No Hx Pneumococcal Vaccination/Date Given: No Immunizations Up to Date: Yes Travel Risk - International Travel Have you traveled outside of the country in past 3 weeks: No - Coronavirus Screening Are you exhibiting any of the following symptoms?: No Close contact with a COVID-19 positive Pt in past 14-21 Days: No - Vaccine Status Have you recieved a Covid-19 vaccination: Yes [employer] Super[employer]: [employer] - Vaccination Dates Date of 2cond Vaccination (if applicable): 2020 Dates if Unknown: 2020 - Review of Systems Constitutional: No Fever, No Chills Eyes: No Symptoms Ears, Nose, & Throat: No Symptoms Respiratory: No Cough, No Dyspnea Cardiac: Chest Pain, No Edema, No Syncope Abdominal/Gastrointestinal: No Abdominal Pain, No Nausea, No Vomiting, No Diarrhea Genitourinary Symptoms: No Dysuria Musculoskeletal: No Back Pain, No Neck Pain Skin: No Rash Neurological: Focal Weakness (Patient has previous CVA with left-sided weakness and residual), No Dizziness, No Sensory Changes Psychological: No Symptoms Endocrine: No Symptoms All Other Systems: Reviewed and Negative - Past Medical History Pertinent Past Medical History: Yes Neurological History: Dementia, Stroke ENT History: No Pertinent History Cardiac History: Arrhythmia, Hypertension, Other Respiratory History: Other Endocrine Medical History: Hypothyroidism Musculoskeletal History: Degenerative Disk Disease, Fractures, Osteoarthritis GI Medical History: Gallbladder Disease History: No Pertinent History Psycho-Social History: Bipolar, Depression Female Reproductive Disorders: No Pertinent History Other Medical History: RECENT DX (DURING HOSPITALIZATION) WITH CARDIOMYOPATHY WITH EJECTION FRACTION 15%. COVID AUGUST 2021. left side weakness - Past Surgical History Past Surgical History: Yes Neuro Surgical History: No Pertinent History Cardiac: No Pertinent History Respiratory: No Pertinent History Gastrointestinal: Cholecystectomy Genitourinary: No Pertinent History Musculoskeletal: Other Female Surgical History: Hysterectomy, Lumpectomy Other Surgical History: Lump removed from right breast. Tendon surgery right wrist. Exploratory surgery through belly button. Thyroid removed. R HIP REPLACEMENT - Social History Smoking Status: Former smoker Exposure to second hand smoke: No Drug Use: none Patient Lives Alone: Yes Significant Family History: no pertinent family hx - Nursing Vital Signs Nursing Vital Signs: Initial Vital Signs Temperature 97.0 F 04/27/23 15:21 Pulse Rate 79 04/27/23 15:21 Respiratory Rate 22 04/27/23 15:21 Blood Pressure 118/79 04/27/23 15:21 O2 Sat by Pulse Oximetry 97 04/27/23 15:21 Pain Scale Pain Intensity 6 - Physical Exam General Appearance: mild distress, alert Eye Exam: PERRL/EOMI, eyes nml inspection Ears, Nose, Throat Exam: normal ENT inspection, moist mucous membranes Neck Exam: normal inspection, non-tender, supple, full range of motion Respiratory Exam: normal breath sounds, lungs clear, No respiratory distress Cardiovascular Exam: regular rate/rhythm, normal heart sounds Gastrointestinal/Abdomen Exam: soft, No tenderness, No mass Back Exam: normal inspection, No CVA tenderness, No vertebral tenderness Extremity Exam: normal inspection, normal range of motion Neurologic Exam: alert, oriented x 3, cooperative, normal mood/affect, sensation nml, motor deficits (Left hemiparesis) Skin Exam: normal color, warm, dry SpO2 Interpretation: normal SpO2: 97 O2 Delivery: Room Air - Course Nursing assessment & vital signs reviewed: Yes EKG Interpreted by Me: RATE (78), Sinus Rhythm, Non-specific ST Changes, Other (Low voltage in the anterior leads) - Radiology Exams Chest X-ray Interpretation: Interpreted by me, Negative Ordered Tests: Active Orders 24 hr Category Date Time Status 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 04/27/23 15:31 Active EKG-ER Only STAT Care 04/27/23 15:19 Active IV Insertion STAT Care 04/27/23 15:19 Active CHEST 1 VIEW (PORTABLE) Stat Exams 04/27/23 15:20 Taken CBC W DIFF Stat Lab 04/27/23 15:25 Completed CMP Stat Lab 04/27/23 15:25 Completed CULTURE,URINE Stat Lab 04/27/23 15:22 Ordered D-DIMER QUANTITATIVE Stat Lab 04/27/23 15:25 Completed Lactic Acid Stat Lab 04/27/23 16:00 Completed TROPONIN Q4H Lab 04/27/23 15:25 Completed TROPONIN Q4H Lab 04/27/23 19:30 Ordered TROPONIN Q4H Lab 04/27/23 23:30 Ordered UA W/RFX UR CULTURE Stat Lab 04/27/23 15:20 Ordered Medication Summary Generic Name Dose Route Start Last Admin Trade Name Freq PRN Reason Stop Dose Admin Sodium Chloride 1,000 mls @ 100 mls/hr 04/27/23 15:30 04/27/23 16:06 Sodium Chloride 0.9% 1000 Ml IV 05/27/23 15:29 100 mls/hr .Q10H RIGOBERTO Administration Lab/Rad Data: Laboratory Result Diagrams 04/27/23 15:25 04/27/23 15:25 Laboratory Results 04/27/23 04/27/23 04/27/23 Range/Units 16:00 15:25 15:25 WBC (4.0-10.5) x10^3/uL RBC (4.1-5.4) x10^6/uL Hgb (12.0-16.0) g/dL Hct (35-47) % MCV (78-100) fL MCH (26-32) pg MCHC (32-36) g/dL RDW (11.5-14.0) % Plt Count (150-450) x10^3/uL MPV (7.5-11.0) fL Gran % (36.0-66.0) % Immature Gran % (Auto) (0.00-0.4) % Nucleat RBC Rel Count (0.00-0.1) % Eos # (Auto) (0-0.5) x10^3/uL Immature Gran # (Auto) (0.00-0.03) x10^3u/L Absolute Lymphs (auto) (1.0-4.6) x10^3/uL Absolute Monos (auto) (0.0-1.3) x10^3/uL Absolute Nucleated RBC (0.00-0.01) x10^3u/L Lymphocytes % (24.0-44.0) % Monocytes % (0.0-12.0) % Eosinophils % (0.00-5.0) % Basophils % (0.0-0.4) % Absolute Granulocytes (1.4-6.9) x10^3/uL Basophils # (0-0.4) x10^3/uL D-Dimer < 0.19 (0.0-0.50) mg/L Sodium (137-145) mmol/L Potassium (3.5-5.1) mmol/L Chloride (98-107) mmol/L Carbon Dioxide (22-30) mmol/L Anion Gap (5-15) MEQ/L BUN (7-17) mg/dL Creatinine (0.52-1.04) mg/dL Estimated GFR ML/MIN Glucose (74-106) mg/dL Lactic Acid 1.3 (0.4-2.0) Calcium (8.4-10.2) mg/dL Total Bilirubin (0.2-1.3) mg/dL AST (14-36) U/L ALT (0-35) U/L Alkaline Phosphatase (38-126) U/L Troponin I < 0.012 (0.000-0.034) ng/mL Serum Total Protein (6.3-8.2) g/dL Albumin (3.5-5.0) g/dL 04/27/23 04/27/23 Range/Units 15:25 15:25 WBC 6.2 (4.0-10.5) x10^3/uL RBC 4.77 (4.1-5.4) x10^6/uL Hgb 14.1 (12.0-16.0) g/dL Hct 42.4 (35-47) % MCV 88.9 (78-100) fL MCH 29.6 (26-32) pg MCHC 33.3 (32-36) g/dL RDW 11.9 (11.5-14.0) % Plt Count 257 (150-450) x10^3/uL MPV 10.7 (7.5-11.0) fL Gran % 53.7 (36.0-66.0) % Immature Gran % (Auto) 0.2 (0.00-0.4) % Nucleat RBC Rel Count 0.0 (0.00-0.1) % Eos # (Auto) 0.16 (0-0.5) x10^3/uL Immature Gran # (Auto) 0.01 (0.00-0.03) x10^3u/L Absolute Lymphs (auto) 2.10 (1.0-4.6) x10^3/uL Absolute Monos (auto) 0.55 (0.0-1.3) x10^3/uL Absolute Nucleated RBC 0.00 (0.00-0.01) x10^3u/L Lymphocytes % 34.0 (24.0-44.0) % Monocytes % 8.9 (0.0-12.0) % Eosinophils % 2.6 (0.00-5.0) % Basophils % 0.6 (0.0-0.4) % Absolute Granulocytes 3.32 (1.4-6.9) x10^3/uL Basophils # 0.04 (0-0.4) x10^3/uL D-Dimer (0.0-0.50) mg/L Sodium 143 (137-145) mmol/L Potassium 3.5 (3.5-5.1) mmol/L Chloride 112 H (98-107) mmol/L Carbon Dioxide 22 (22-30) mmol/L Anion Gap 12.7 (5-15) MEQ/L BUN 10 (7-17) mg/dL Creatinine 0.83 (0.52-1.04) mg/dL Estimated GFR > 60.0 ML/MIN Glucose 91 (74-106) mg/dL Lactic Acid (0.4-2.0) Calcium 9.1 (8.4-10.2) mg/dL Total Bilirubin 0.40 (0.2-1.3) mg/dL AST 20 (14-36) U/L ALT 19 (0-35) U/L Alkaline Phosphatase 104 (38-126) U/L Troponin I (0.000-0.034) ng/mL Serum Total Protein 5.8 L (6.3-8.2) g/dL Albumin 3.4 L (3.5-5.0) g/dL - Progress Progress: improved Air Movement: good Blood Culture(s) Obtained: No Antibiotics given: No Medical Desision Making - Independent Historian Additional History obtained from: Mother - Diagnostic Testing Diagnostic test were ordered, analyzed, and reviewed by me: Yes Radiological Interpretation: Interpreted by me - Risk of complications Low Risk: Low risk of morbidity from additional dx testing or treatment - Departure Departure Disposition: Home Clinical Impression: Chest pain Condition: Stable Critical Care Time: No Referrals: LUZ AGUILAR OF [Primary Care Provider] - Follow up/PCP as directed Instructions: Chest Pain (DC)
[2023-04-27] MEDS ORDERED: Hydromorphone 1 mg/ml Injection IV ONE (17:05)
[2023-04-27] MEDS ORDERED: Hydromorphone 1 mg/ml Injection ONE (17:08)
[2023-04-27 17:53] VITALS: BP 110/76; PULSE 63; O2SAT 94
--- NOTE | 2023-04-27 21:39 | XRAY ---
Indication: Chest pain. Comparison: January 30, 2023 Portable apical lordotic chest remains hyperinflated and clear. Heart not enlarged. Bony thorax intact. No new/acute findings.
== END 2023-04-27 17:55 | disposition home or self-care (01) ==
LOC: ED 15:15
DX: R07.9 Chest pain, unspecified (principal); I10 Essential (primary) hypertension; Z79.899 Other long term (current) drug therapy; Z86.16 Personal history of COVID-19
CPT/HCPCS: 36000; 36415; 71045; 80053; 83605; 84484; 85025; 85379; 93005; 93041; 96374; 99284; J1170

== ENCOUNTER 2023-06-17 09:34 | Emergency (ER) | payer MEDICARE ==
[2023-06-17 09:53] VITALS: TEMP 97
--- NOTE | 2023-06-17 10:00 | XRAY ---
Indication: Pain following twisting injury one week ago. Comparison: None 3 view left ankle demonstrates osteopenia. No other bony, articular, or soft tissue abnormalities.
--- NOTE | 2023-06-17 10:14 | ERPHSYRPT ---
- History of Present Illness Source: patient, EMS Exam Limitations: other (No h/o from [place]) Patient Subjective Stated Complaint: Per EMS staff at the [facility] said patients left ankle "pops out" when she walks for one week but did not complain of pain until yesterday. Per pt for approx one week left ankle has been hurting when walking on it and has complained of constant pain; states she feels and hears a "pop" when walking on it. No report was called by staff at the [facility]. All information obtained was from patient, EMS and paperwork sent with pt. Triage Nursing Assessment: Pt alert and oriented x3. No apparent respiratory distress. Transfered from EMS cot to ED cot by EMS and ED staff. Pt skin cool to touch/pink/dry. Spasms noted in left leg, pt states spasms have been present since her stroke January 29, 2023. Left outer aspect of ankle purple tint in color, tender to touch, minimal swelling, malleous bone appears abnormal. Physician History: 57 yo WF from [place] w L ankle pain x1week s/p fall. Pt states that pain is severe w weight bearing. She denies any other problems at this time. Method of Injury: fell Occurred: other (1week) Quality: aching Severity of Pain-Max: severe Severity of Pain-Current: moderate Lower Extremities Pain: ankle: left Modifying Factors: Improves With: movement Associated Symptoms: snapping sensation, popping sensation Allergies/Adverse Reactions: aripiprazole [From Abilify] Allergy (Verified 06/17/23 09:44) bee venom protein (honey bee) Allergy (Verified 06/17/23 09:44) clarithromycin [From Biaxin] Allergy (Verified 06/17/23 09:44) ketorolac [From Toradol] Allergy (Verified 06/17/23 09:44) lidocaine [From Lidoderm] Allergy (Verified 06/17/23 09:44) methocarbamol [From Robaxin] Allergy (Verified 06/17/23 09:44) methylprednisolone [From Medrol] Allergy (Verified 06/17/23 09:44) prednisone Allergy (Verified 06/17/23 09:44) Sulfa (Sulfonamide Antibiotics) Allergy (Verified 06/17/23 09:44) zolpidem [From Ambien] Allergy (Verified 06/17/23 09:44) triamcinolone [From Kenalog] Adverse Reaction (Verified 04/27/23 15:39) Home Medications: Donepezil HCl 10 mg [Aricept 10 MG] 10 mg PO HS 10/10/20 [History] Cariprazine HCl [Vraylar] 1.5 mg PO DAILY 05/02/21 [History] Fluticasone/Umeclidin/Vilanter [Trelegy Ellipta 200-62.5-25] 1 each IH DAILY 05/02/21 [History] Topiramate 50 mg PO BID 05/02/21 [History] Levothyroxine Sodium [Tirosint] 112 mcg PO DAILY 01/29/23 [History] levETIRAcetam [Levetiracetam] 500 mg PO BID 01/29/23 [History] Baclofen 10 mg PO TID 04/27/23 [History] [place]-3 Fatty Acids/Fish Oil [Fish Oil 1,000 mg Capsule] 1,000 mg PO DAILY 04/27/23 [History] Polyethylene Glycol 3350 17 gm [Miralax Powder 17GM PACKET] 17 gm PO BID PRN 04/27/23 [History] Doxycycline Hyclate 100 mg [Vibramycin 100 MG] 100 mg PO BID 06/17/23 [History] Ergocalciferol (Vitamin D2) [Vitamin D2] 50,000 unit PO DAILY 06/17/23 [History] Famotidine 40 mg PO DAILY 06/17/23 [History] Memantine HCl 10 mg .ROUTE BID 06/17/23 [History] Potassium Chloride 20 meq PO DAILY 06/17/23 [History] Tolterodine Tartrate [Detrol LA] 4 mg PO DAILY 06/17/23 [History] Hx Tetanus, Diphtheria Vaccination/Date Given: Yes Hx Influenza Vaccination/Date Given: Yes Hx Pneumococcal Vaccination/Date Given: No Travel Risk - International Travel Have you traveled outside of the country in past 3 weeks: No - Coronavirus Screening Are you exhibiting any of the following symptoms?: No Close contact with a COVID-19 positive Pt in past 14-21 Days: No - Vaccine Status Have you recieved a Covid-19 vaccination: Yes Death Claim Clerk: Unknown - Vaccination Dates Dates if Unknown: ? - Review of Systems Constitutional: No Symptoms Eyes: No Symptoms Ears, Nose, & Throat: No Symptoms Respiratory: No Symptoms Cardiac: No Symptoms Abdominal/Gastrointestinal: No Symptoms Genitourinary Symptoms: No Symptoms Skin: No Symptoms Neurological: No Symptoms Psychological: No Symptoms Endocrine: No Symptoms Hematologic/Lymphatic: No Symptoms Immunological/Allergic: No Symptoms - Past Medical History Pertinent Past Medical History: Yes Neurological History: Dementia, Stroke ENT History: No Pertinent History Cardiac History: Arrhythmia, Hypertension, Other Respiratory History: Other Endocrine Medical History: Hypothyroidism Musculoskeletal History: Degenerative Disk Disease, Fractures, Osteoarthritis GI Medical History: Gallbladder Disease History: No Pertinent History Psycho-Social History: Bipolar, Depression Female Reproductive Disorders: No Pertinent History Other Medical History: RECENT DX (DURING HOSPITALIZATION) WITH CARDIOMYOPATHY WITH EJECTION FRACTION 15%. COVID AUGUST 2021. left side weakness - Past Surgical History Past Surgical History: Yes Neuro Surgical History: No Pertinent History Cardiac: No Pertinent History Respiratory: No Pertinent History Gastrointestinal: Cholecystectomy Genitourinary: No Pertinent History Musculoskeletal: Other Female Surgical History: Hysterectomy, Lumpectomy Other Surgical History: Lump removed from right breast. Tendon surgery right wrist. Exploratory surgery through belly button. Thyroid removed. R HIP REPLACEMENT - Social History Smoking Status: Former smoker Exposure to second hand smoke: No Drug Use: none Patient Lives Alone: No Significant Family History: no pertinent family hx - Nursing Vital Signs Nursing Vital Signs: Initial Vital Signs Temperature 97 F 06/17/23 09:38 Pulse Rate 94 H 06/17/23 09:38 Respiratory Rate 17 06/17/23 09:38 Blood Pressure 135/114 06/17/23 09:38 O2 Sat by Pulse Oximetry 90 L 06/17/23 09:38 Pain Scale Pain Intensity 5 Hypertensive/Borderline sats - Physical Exam General Appearance: no apparent distress Eyes, Ears, Nose, Throat Exam: normal ENT inspection, TMs normal, pharynx normal, moist mucous membranes Neck Exam: normal inspection, non-tender, supple, full range of motion, No Brudzinski, No Kernig's, No meningismus, No carotid bruit Cardiovascular/Respiratory Exam: chest non-tender, normal breath sounds, regular rate/rhythm, heart sounds normal Gastrointestinal/Abdominal Exam: non-tender, soft Back Exam: normal inspection, normal range of motion Hips Exam: bilateral: non-tender, normal inspection, normal range of motion, no evidence of injury Legs Exam: bilateral leg: non-tender, normal inspection, normal range of motion, no evidence of injury Knees Exam: bilateral knee: non-tender, normal inspection, normal range of motion, no evidence of injury Ankle Exam: left ankle: pain (TTP laterally/Good pedal pulse, distal sensation, and capillary return) Foot Exam: bilateral foot: non-tender, normal inspection, normal range of motion, no evidence of injury Neuro/Tendon Exam: normal sensation, normal motor functions, normal tendon functions, responds to pain, no evidence tendon injury Mental Status Exam: alert, oriented x 3, cooperative Skin Exam: normal color, warm, dry SpO2: 100 O2 Delivery: Room Air - Course Nursing assessment & vital signs reviewed: Yes - Radiology Exams Ankle X-ray Interpretation: Reviewed by me (No fx) - CT Exams Lower Extremity CT Interpretation: Other (Tiny old cortical fx lateral margin talus) Ordered Tests: Active Orders 24 hr Category Date Time Status Afshin Bandage Application -[facility] STAT Care 06/17/23 10:38 Completed Splint STAT Care 06/17/23 11:01 Completed ANKLE (3 VIEWS) Stat Exams 06/17/23 09:43 Completed LOWER EXTREMITY WO CONTRAST [CT] Stat Exams 06/17/23 10:16 Completed Medication Summary Discontinued Medications Generic Name Dose Route Start Last Admin Trade Name Freq PRN Reason Stop Dose Admin Hydrocodone Bitart/Acetaminophen 1 tab 06/17/23 10:37 06/17/23 10:41 Hydrocodone/Apap 5/325 1 Tab Tablet PO 06/17/23 10:38 1 tab STAT ONE Administration Hydrocodone Bitart/Acetaminophen Confirm 06/17/23 10:41 Hydrocodone/Apap 5/325 1 Tab Tablet Administered 06/17/23 10:42 Dose 1 tab .ROUTE .STK-MED ONE - Progress Progress Note: 06/17/23 11:11 Nursing note and vital signs reviewed No food or housing insecurities noted XR result reviewed and negative CT LLE w old cortical talus fx Afshin wrap L ankle per nursing/NVI Air cast L ankle per nursing NVI [place] 5/325 po x1 06/17/23 18:55 Cortical talus fx old per Rad, so will have pt f/u w ortho clinic Counseled pt/family regarding: diagnosis, need for follow-up, rad results Medical Desision Making - Independent Historian Additional History obtained from: Half-Way nurse (Report late in visit) - External Record(s) Reviewed Records reviewed as a part of evaluation & management: USP - Diagnostic Testing Radiological Interpretation: Reviewed by me - Risk of complications The pt has a mod risk of morbidity or mortality based on: Need for prescription drug management - Departure Departure Disposition: Home Clinical Impression: Left ankle sprain, Talus fracture Condition: Stable Critical Care Time: No Referrals: JACKIE AGUILAR [Primary Care Provider] - Follow up/PCP as directed ORTHO - RAMIREZ HESS NP [NON-STAFF PHY W/O PRIVILEGES] - Follow up/PCP as directed Instructions: Ankle Sprain (DC), Foot Fracture (DC) Additional Instructions: Follow up in Ortho clinic No weight bearing Return to ER as needed
[2023-06-17] MEDS ORDERED: NORCO 5/325 MG PO ONE (10:37)
[2023-06-17] MEDS ORDERED: NORCO 5/325 MG ONE (10:41)
--- NOTE | 2023-06-17 11:05 | XRAY ---
Indication: Pain following twisting injury one week ago. Multiple contiguous axial images obtained through the left ankle. Sagittal and coronal reformatted images obtained. Comparison: None Left ankle mortise appears anatomic. Osseous structures demineralized consistent with patient's age. Tibial plafond and talar dome appears smooth. 1 x 4 mm curvilinear ossification emanates from lateral margin talus, possible remote cortical fracture as there are no callus or soft tissue changes. 1-2 mm heterotopic ossification interposed between medial malleolus and medial margin talus without donor site. Similar punctate heterotopic ossification interposed between lateral malleolus and lateral margin talus without donor site. Heterotopic ossifications either degenerative versus sequela old injury. No acute fracture, suspicious bony lesions, or tarsal coalition. Visualized noncontrasted soft tissues including the Achilles tendon and plantar aponeurosis unremarkable. Impression: 1. Probable tiny old cortical fracture lateral margin talus. 2. Medial and lateral ankle punctate heterotopic ossifications without donor site as detailed. Findings either degenerative versus sequela old injury. 3. Osteopenia
[2023-06-17 12:07] VITALS: BP 146/108; PULSE 96; RESP 16
[2023-06-17 17:14] VITALS: O2SAT 100
== END 2023-06-17 12:16 | disposition home or self-care (01) ==
LOC: ED 09:34
DX: S93.402A Sprain of unspecified ligament of left ankle, initial encounter (principal); S92.102A Unspecified fracture of left talus, initial encounter for closed fracture; W19.XXXA Unspecified fall, initial encounter; I10 Essential (primary) hypertension; Z79.899 Other long term (current) drug therapy; Z86.16 Personal history of COVID-19
CPT/HCPCS: 73610; 73700; 99284; A9270-GY

== ENCOUNTER 2023-07-10 15:50 | Emergency (ER) | payer MEDICARE ==
--- NOTE | 2023-07-10 15:53 | ERPHSYRPT ---
- History of Present Illness Time Seen by Provider: 07/10/23 15:53 Historian: patient, EMS, old records Exam Limitations: clinical condition Physician History: This is a 57-year-old white female patient who lives at the [facility] and has a history of dementia and was brought to the emergency department by paramedics. Independent, additional history was provided by the care home staff, paperwork and paramedics. Patient was watching TV earlier today and noticed some left-sided chest pain without radiation. It is sharp. Patient was diagnosed with COVID-19 infection 6 days ago. Patient has no diagnosed history of coronary artery disease. However, she does have a history of cardiomyopathy and arrhythmia. Patient has a history of hypothyroidism and bipolar disorder. Patient has chronic left-sided weakness following her stroke. Timing/Duration: today Quality: sharpness Location: other (Left anterior chest) Chest Pain Radiation: no radiation Severity of Pain-Max: mild (Moderate) Severity of Pain-Current: mild Modifying Factors: Improves With: nothing Associated Symptoms: denies symptoms Prior Chest Pain/Cardiac Workup: no prior chest pain Nitro Today/Relief: no nitro taken today Aspirin Treatment Today: no aspirin today, 81 mg x 4, provided by ED Allergies/Adverse Reactions: aripiprazole [From Abilify] Allergy (Verified 07/10/23 16:04) bee venom protein (honey bee) Allergy (Verified 07/10/23 16:04) clarithromycin [From Biaxin] Allergy (Verified 07/10/23 16:04) ketorolac [From Toradol] Allergy (Verified 07/10/23 16:04) lidocaine [From Lidoderm] Allergy (Verified 07/10/23 16:04) methocarbamol [From Robaxin] Allergy (Verified 07/10/23 16:04) methylprednisolone [From Medrol] Allergy (Verified 07/10/23 16:04) prednisone Allergy (Verified 07/10/23 16:04) Sulfa (Sulfonamide Antibiotics) Allergy (Verified 07/10/23 16:04) zolpidem [From Ambien] Allergy (Verified 07/10/23 16:04) triamcinolone [From Kenalog] Adverse Reaction (Verified 07/10/23 16:04) Home Medications: Donepezil HCl 10 mg [Aricept 10 MG] 10 mg PO HS 12/21/20 [History] Cariprazine HCl [Vraylar] 1.5 mg PO DAILY 05/02/21 [History] Fluticasone/Umeclidin/Vilanter [Trelegy Ellipta 200-62.5-25] 1 each IH DAILY 05/02/21 [History] Topiramate 50 mg PO BID 05/02/21 [History] Levothyroxine Sodium [Tirosint] 100 mcg PO DAILY 01/29/23 [History] levETIRAcetam [Levetiracetam] 500 mg PO BID 01/29/23 [History] Baclofen 10 mg PO TID 04/27/23 [History] [place]-3 Fatty Acids/Fish Oil [Fish Oil 1,000 mg Capsule] 1,000 mg PO DAILY 04/27/23 [History] Polyethylene Glycol 3350 17 gm [Miralax Powder 17GM PACKET] 17 gm PO BID PRN 04/27/23 [History] Ergocalciferol (Vitamin D2) [Vitamin D2] 50,000 unit PO DAILY 06/17/23 [History] Famotidine 40 mg PO DAILY 06/17/23 [History] Memantine HCl 10 mg .ROUTE BID 06/17/23 [History] Potassium Chloride 20 meq PO DAILY 06/17/23 [History] Tolterodine Tartrate [Detrol LA] 4 mg PO DAILY 06/17/23 [History] Acetaminophen 325 mg [Tylenol 325 mg] 2 tab PO Q6HPRN PRN 07/10/23 [History] Ascorbic Acid 500 mg [Vitamin C 500 MG] 1,000 mg PO DAILY 07/10/23 [History] Melatonin 10 mg PO DAILY 07/10/23 [History] Zinc Gluconate [Zinc] 50 mg PO DAILY 07/10/23 [History] Hx Tetanus, Diphtheria Vaccination/Date Given: Yes Hx Influenza Vaccination/Date Given: Yes Hx Pneumococcal Vaccination/Date Given: No Travel Risk - International Travel Have you traveled outside of the country in past 3 weeks: No - Coronavirus Screening Are you exhibiting any of the following symptoms?: No Close contact with a COVID-19 positive Pt in past 14-21 Days: No - Vaccine Status Have you recieved a Covid-19 vaccination: Yes Hvac Service Tech: Unknown - Vaccination Dates Dates if Unknown: ? - Review of Systems Constitutional: No Symptoms Eyes: No Symptoms Ears, Nose, & Throat: No Symptoms Respiratory: No Symptoms, No Cough Cardiac: Chest Pain Abdominal/Gastrointestinal: No Symptoms Genitourinary Symptoms: No Symptoms Musculoskeletal: No Symptoms Skin: No Symptoms Neurological: No Symptoms Psychological: No Symptoms Endocrine: No Symptoms Hematologic/Lymphatic: No Symptoms Immunological/Allergic: No Symptoms All Other Systems: Reviewed and Negative - Past Medical History Pertinent Past Medical History: Yes Neurological History: Dementia, Stroke ENT History: No Pertinent History Cardiac History: Arrhythmia, Hypertension, Other Respiratory History: Other Endocrine Medical History: Hypothyroidism Musculoskeletal History: Degenerative Disk Disease, Fractures, Osteoarthritis GI Medical History: Gallbladder Disease History: No Pertinent History Psycho-Social History: Bipolar, Depression Female Reproductive Disorders: No Pertinent History Other Medical History: RECENT DX (DURING HOSPITALIZATION) WITH CARDIOMYOPATHY WITH EJECTION FRACTION 15%. COVID AUGUST 2021. left side weakness - Past Surgical History Past Surgical History: Yes Neuro Surgical History: No Pertinent History Cardiac: No Pertinent History Respiratory: No Pertinent History Gastrointestinal: Cholecystectomy Genitourinary: No Pertinent History Musculoskeletal: Other Female Surgical History: Hysterectomy, Lumpectomy Other Surgical History: Lump removed from right breast. Tendon surgery right wrist. Exploratory surgery through belly button. Thyroid removed. R HIP REPLACEMENT - Social History Smoking Status: Former smoker Exposure to second hand smoke: No Drug Use: none Patient Lives Alone: No Significant Family History: no pertinent family hx - Nursing Vital Signs Nursing Vital Signs: Initial Vital Signs Temperature 98.7 F 07/10/23 15:52 Pulse Rate 93 H 07/10/23 15:52 Respiratory Rate 18 07/10/23 15:52 Blood Pressure 140/103 07/10/23 15:52 O2 Sat by Pulse Oximetry 98 07/10/23 15:52 Pain Scale Pain Intensity 6 - Physical Exam General Appearance: no apparent distress, alert Eye Exam: PERRL/EOMI, eyes nml inspection Ears, Nose, Throat Exam: normal ENT inspection, moist mucous membranes Neck Exam: normal inspection, non-tender, supple, full range of motion Respiratory Exam: normal breath sounds, lungs clear, airway intact, No chest tenderness, No respiratory distress Cardiovascular Exam: regular rate/rhythm, normal heart sounds, normal peripheral pulses Gastrointestinal/Abdomen Exam: soft, normal bowel sounds, No tenderness Pelvic Exam: not done Rectal Exam: not done Back Exam: normal inspection, normal range of motion, No CVA tenderness, No vertebral tenderness Extremity Exam: normal inspection, normal range of motion, pelvis stable Neurologic Exam: alert, cooperative, social studies teacher II-XII nml as tested, normal mood/affect, sensation nml Skin Exam: normal color, warm, dry Lymphatic Exam: No adenopathy SpO2 Interpretation: normal O2 Delivery: Room Air - Course Nursing assessment & vital signs reviewed: Yes EKG Interpreted by Me: RATE (99), Sinus Rhythm, NORMAL AXIS, prolonged QT interval ( twelve-lead EKG), NORMAL QRS, Non-specific ST Changes, Other (No acute ischemic changes on today's) Ordered Tests: Active Orders 24 hr Category Date Time Status Radiology Teacher STAT Care 07/10/23 15:56 Active EKG-ER Only STAT Care 07/10/23 15:56 Active IV Insertion STAT Care 07/10/23 15:56 Active Pulse Oximetry (ED) STAT Care 07/10/23 15:56 Active CHEST 1 VIEW (PORTABLE) Stat Exams 07/10/23 15:56 Completed CBC W DIFF Stat Lab 07/10/23 16:40 Completed CMP Stat Lab 07/10/23 16:40 Completed NT PRO BNPII Stat Lab 07/10/23 16:40 Completed TROPONIN Q4H Lab 07/10/23 16:40 Completed TROPONIN Q4H Lab 07/10/23 20:00 Ordered TROPONIN Q4H Lab 07/11/23 00:00 Ordered Medication Summary Discontinued Medications Generic Name Dose Route Start Last Admin Trade Name Freq PRN Reason Stop Dose Admin Morphine Sulfate 2 mg 07/10/23 17:27 07/10/23 17:34 Morphine Sulfate 2 Mg/Ml Inj IV 07/10/23 17:28 2 mg STAT ONE Administration Morphine Sulfate Confirm 07/10/23 17:33 Morphine Sulfate 2 Mg/Ml Inj Administered 07/10/23 17:34 Dose 2 mg .ROUTE .STK-MED ONE Ondansetron HCl 4 mg 07/10/23 17:27 07/10/23 17:34 Ondansetron Hcl 4 Mg/2 Ml Vial IV 07/10/23 17:28 4 mg STAT ONE Administration Ondansetron HCl Confirm 07/10/23 17:33 Ondansetron Hcl 4 Mg/2 Ml Vial Administered 07/10/23 17:34 Dose 4 mg .ROUTE .STK-MED ONE Lab/Rad Data: Laboratory Result Diagrams 07/10/23 16:40 07/10/23 16:40 Laboratory Results 07/10/23 07/10/23 07/10/23 Range/Units 16:40 16:40 16:40 WBC 7.9 (4.0-10.5) x10^3/uL RBC 5.55 H (4.1-5.4) x10^6/uL Hgb 15.7 (12.0-16.0) g/dL Hct 47.9 H (35-47) % MCV 86.3 (78-100) fL MCH 28.3 (26-32) pg MCHC 32.8 (32-36) g/dL RDW 11.8 (11.5-14.0) % Plt Count 335 (150-450) x10^3/uL MPV 10.2 (7.5-11.0) fL Gran % 57.9 (36.0-66.0) % Immature Gran % (Auto) 0.4 (0.00-0.4) % Nucleat RBC Rel Count 0.0 (0.00-0.1) % Eos # (Auto) 0.23 (0-0.5) x10^3/uL Immature Gran # (Auto) 0.03 (0.00-0.03) x10^3u/L Absolute Lymphs (auto) 2.35 (1.0-4.6) x10^3/uL Absolute Monos (auto) 0.65 (0.0-1.3) x10^3/uL Absolute Nucleated RBC 0.00 (0.00-0.01) x10^3u/L Lymphocytes % 29.9 (24.0-44.0) % Monocytes % 8.3 (0.0-12.0) % Eosinophils % 2.9 (0.00-5.0) % Basophils % 0.6 (0.0-0.4) % Absolute Granulocytes 4.55 (1.4-6.9) x10^3/uL Basophils # 0.05 (0-0.4) x10^3/uL Sodium 142 (137-145) mmol/L Potassium 3.6 (3.5-5.1) mmol/L Chloride 110 H (98-107) mmol/L Carbon Dioxide 19 L (22-30) mmol/L Anion Gap 16.5 H (5-15) MEQ/L BUN 15 (7-17) mg/dL Creatinine 1.03 (0.52-1.04) mg/dL Estimated GFR 58.5 ML/MIN Glucose 89 (74-106) mg/dL Calcium 9.9 (8.4-10.2) mg/dL Total Bilirubin 0.30 (0.2-1.3) mg/dL AST 24 (14-36) U/L ALT 20 (0-35) U/L Alkaline Phosphatase 118 (38-126) U/L Troponin I < 0.012 (0.000-0.034) ng/mL NT-Pro-B Natriuret Pep 27.1 (<300) pg/mL Serum Total Protein 7.0 (6.3-8.2) g/dL Albumin 4.4 (3.5-5.0) g/dL - Progress Progress: improved, re-examined Air Movement: good Progress Note: 07/10/23 17:32 This patient's medical issue is 1 of moderate complexity. Level complex in the work-up performed is based on review of the patient's past medical history, review of the patient's medication list, review the patient drug allergy list, review of the history of present illness and physical findings on examination. This patient is to undergo intravenous line placement, CBC, CMP, troponin level, chest x-ray and twelve-lead EKG. I interpreted the twelve-lead EKG. 07/10/23 17:33 Chest x-ray was interpreted by the radiologist and I reviewed the impression. There is no acute cardiopulmonary process on today's chest x-ray Blood Culture(s) Obtained: No Antibiotics given: No Counseled pt/family regarding: lab results, diagnosis, need for follow-up, rad results Medical Desision Making - Independent Historian Additional History obtained from: [facility] nurse, Support Architect/EMT - Diagnostic Testing Diagnostic test were ordered, analyzed, and reviewed by me: Yes Radiological Interpretation: Reviewed by me, Teleradiologist Report - Risk of complications Low Risk: Low risk of morbidity from additional dx testing or treatment - Departure Departure Disposition: Home Clinical Impression: Chest pain Condition: Stable Critical Care Time: No Referrals: LZU AGUILAR OF [Primary Care Provider] - Follow up/PCP as directed Additional Instructions: Continue your medication as prescribed. Continue the same orders at the [facility] facility.
[2023-07-10 16:04] VITALS: PULSE 93; RESP 18; TEMP 98.7
--- NOTE | 2023-07-10 16:48 | XRAY ---
Indication: Chest pain. Comparison: April 27, 2023 Portable chest remains hyperinflated and clear. Heart not enlarged. Bony thorax intact. No new/acute findings.
[2023-07-10 16:50] LABS: Absolute Neutrophil Ct (ANC) 4.55 x10^3/uL (1.4-6.9); BASOPHIL % 0.6 % (0.0-0.4); Basophil (Absolute #) 0.05 x10^3/uL (0-0.4); Eosinophil % 2.9 % (0.00-5.0); Eosinophil (Absolute #) 0.23 x10^3/uL (0-0.5); Hematocrit 47.9 % (35-47); Hemoglobin 15.7 g/dL (12.0-16.0); IMMATURE GRAN # 0.03 x10^3u/L (0.00-0.03); IMMATURE GRAN % 0.4 % (0.00-0.4); Lymphocyte (Absolute #) 2.35 x10^3/uL (1.0-4.6); Lymphocytes % 29.9 % (24.0-44.0); Mean Cell Volume 86.3 fL (78-100); Mean Corpuscular Hemoglobin 28.3 pg (26-32); Mean Corpuscular Hgb Concent. 32.8 g/dL (32-36); Mean Platelet Volume 10.2 fL (7.5-11.0); Monocyte (Absolute #) 0.65 x10^3/uL (0.0-1.3); Monocytes % 8.3 % (0.0-12.0); Neutrophil % 57.9 % (36.0-66.0); Platelet Count 335 x10^3/uL (150-450); Red Blood Count 5.55 x10^6/uL (4.1-5.4); Red Cell Distribution Width 11.8 % (11.5-14.0); White Blood Count 7.9 x10^3/uL (4.0-10.5)
[2023-07-10 17:13] LABS: ALBUMIN 4.4 g/dL (3.5-5.0); ANION GAP 16.5 MEQ/L (5-15); BILIRUBIN,TOTAL 0.3 mg/dL (0.2-1.3); Calcium 9.9 mg/dL (8.4-10.2); Creatinine 1 1.03 mg/dL (0.52-1.04); EST GLOMERULAR FILTRATION RATE 58.5 ML/MIN; NT PRO BNPII 27.1 pg/mL (<300); Potassium 3.6 mmol/L (3.5-5.1)
[2023-07-10 17:24] VITALS: BP 130/89; O2SAT 97
[2023-07-10] MEDS ORDERED: MORPHINE SULFATE 2 MG INJ IV ONE (17:27)
[2023-07-10] MEDS ORDERED: Zofran 4 MG/2 ML VIAL IV ONE (17:27)
[2023-07-10] MEDS ORDERED: MORPHINE SULFATE 2 MG INJ ONE (17:33)
[2023-07-10] MEDS ORDERED: Zofran 4 MG/2 ML VIAL ONE (17:33)
== END 2023-07-10 19:25 | disposition home or self-care (01) ==
LOC: ED 15:50
DX: R07.9 Chest pain, unspecified (principal); I10 Essential (primary) hypertension; Z79.899 Other long term (current) drug therapy; Z86.16 Personal history of COVID-19
CPT/HCPCS: 36000; 36415; 71045; 80053; 83880; 84484; 85025; 93005; 93041; 94760; 96374; 96375; 99284; J2270; J2405

== ENCOUNTER 2023-10-11 07:27 | Day surgery (SDC) | payer MEDICARE ==
[2023-10-11] MEDS ORDERED: CEFAZOLIN 2 GM-D5W BAG** 2 GM/50 ML ML IV SCH (08:00)
[2023-10-11] MEDS ORDERED: Lactated Ringers 1,000 ML IV SCH (08:00)
[2023-10-11] MEDS ORDERED: Sodium Chloride 0.9% 1000 ML 1,000 ML ONE ×2 (08:24→14:07)
[2023-10-11 08:34] VITALS: O2SAT 96
[2023-10-11] MEDS ORDERED: Sodium Chloride 0.9% 1000 ML 1,000 ML IV SCH (08:45)
[2023-10-11] MEDS ORDERED: Epinephrine Preservative Free 1 MG/ML ONE (08:48)
[2023-10-11 09:16] LABS: Hematocrit 39.9 % (35-47); Hemoglobin 12.7 g/dL (12.0-16.0); Mean Cell Volume 88.5 fL (78-100); Mean Corpuscular Hemoglobin 28.2 pg (26-32); Mean Corpuscular Hgb Concent. 31.8 g/dL (32-36); Mean Platelet Volume 9.7 fL (7.5-11.0); Platelet Count 279 x10^3/uL (150-450); Red Blood Count 4.51 x10^6/uL (4.1-5.4); Red Cell Distribution Width 12.7 % (11.5-14.0); White Blood Count 7.6 x10^3/uL (4.0-10.5)
[2023-10-11] MEDS ORDERED: Xylocaine-Mpf 2% 5 Ml Vial ONE (09:18)
[2023-10-11] MEDS ORDERED: Naropin 0.5% 30 ML VIAL ONE (09:18)
[2023-10-11] MEDS ORDERED: Marcaine 0.5%/Epinephrine 10 ML ONE (09:18)
[2023-10-11] MEDS ORDERED: Versed 2 MG/2 ML Injection ONE (09:21)
[2023-10-11] MEDS ORDERED: SUBLIMAZE 100 MCG/2 ML ONE ×2 (09:21→12:13)
[2023-10-11 09:41] LABS: ALBUMIN 3.7 g/dL (3.5-5.0); ANION GAP 13.2 MEQ/L (5-15); BILIRUBIN,TOTAL 0.3 mg/dL (0.2-1.3); Calcium 9.7 mg/dL (8.4-10.2); Creatinine 1 1.27 mg/dL (0.52-1.04); EST GLOMERULAR FILTRATION RATE 48.7 ML/MIN; Potassium 4.2 mmol/L (3.5-5.1); Total Protein 6.1 g/dL (6.3-8.2)
[2023-10-11 10:18] LABS: NT PRO BNPII 44.7 pg/mL (<300)
[2023-10-11] MEDS ORDERED: Sodium Chloride 0.9% 500 ML IV ONE (11:00)
[2023-10-11] MEDS ORDERED: Amidate 20 MG/10 ML IV ONE (11:55)
[2023-10-11] MEDS ORDERED: Zemuron 100 MG/10 ML ONE ×2 (11:55→12:34)
[2023-10-11] MEDS ORDERED: PHENYLEPHRINE HCL ONE (12:15)
[2023-10-11] MEDS ORDERED: PHENYLEPHRINE HCL 10 MG in Dextrose 5%/Water IV Soln. 250 ML 249 ML IV PRN (12:29)
[2023-10-11] MEDS ORDERED: Ephedrine Sulfate 50 MG/ML ONE (12:44)
[2023-10-11 12:56] LABS: ABO TYPING B; Antibody Screen NEGATIVE (NEGATIVE); RH TYPING POSITIVE
[2023-10-11 13:14] LABS: A-aADO2 237; ABG HEMOGLOBIN 12.2; ABG POTASSIUM 3.4 (3.5-5.1); ARTERIAL BLD GAS O2 SATURATION 94.5 % (95-100); ARTERIAL BLOOD GAS BASE EXCESS -2.5 (-2.0-2.0); ARTERIAL BLOOD GAS FIO2 50 %; ARTERIAL BLOOD GAS PCO2 39 mmHg (35-45); ARTERIAL BLOOD GAS PO2 71 mmHg (75-100); ARTERIAL BLOOD GAS pH 7.37 (7.35-7.45); CARBOXYHEMOGLOBIN 1.2 % THgb (0.0-6.9); HCO3- 22.5 (22-28); HGB O2 SAT 92.4 g/dF (94-100); paO2 pAO1 0.23
[2023-10-11 13:15] LABS: ABG SITE ALINE
[2023-10-11] MEDS ORDERED: BRIDION 200MG/2ML IV ONE (13:57)
[2023-10-11] MEDS ORDERED: BREVIBLOC 100 MG/10 ML IV ONE (14:09)
--- NOTE | 2023-10-11 14:18 | XRAY ---
Indication: Left ankle arthroscopy with synovectomy syndesmotic reduction, lateral ankle stabilization, and possible deltoid ligament repair. Intraoperative fluoroscopy provided for 3 minutes 30 seconds. Multiple cinematic images obtained. Ultimately 2 transverse radiolucencies traverse distal tibia/fibula with medial/lateral orthopedic buttons. Correlate with intraoperative findings/report.
[2023-10-11] MEDS ORDERED: MORPHINE SULFATE 2 MG INJ ONE ×2 (14:40→14:52)
[2023-10-11 15:29] VITALS: RESP 18
[2023-10-11 15:52] VITALS: TEMP 98
[2023-10-11 16:00] VITALS: BP 127/83; PULSE 68
--- NOTE | 2023-10-15 10:16 | OP ---
SURGERY DATE/TIME: 10/11/2023 1236 PREOPERATIVE DIAGNOSES: 1) Left ankle pain. 2) Syndesmotic instability acute rupture. 3) Lateral ankle instability. 4) CVA in November 2022. 5) Difficulty with ambulation. 6) Ankle synovitis, left ankle. POSTOPERATIVE DIAGNOSES: 1) Left ankle pain. 2) Syndesmotic instability acute rupture. 3) Lateral ankle instability. 4) Cerebrovascular accident in November 2022. 5) Difficulty with ambulation. 6) Ankle synovitis, left ankle. PROCEDURES: 1) Ankle arthroscopy with synovectomy. 2) Syndesmotic open reduction internal fixation. 3) Lateral ankle stabilization with internal brace and repair of both anterior talofibular ligament and calcaneofibular ligament. SURGEON: Se Castaneda DPM. DIRECTOR TECHNICAL: None. ANESTHESIA: General plus a preoperative block consisting of femoral and abductor canal. See anesthesia report for details. HEMOSTASIS: Thigh tourniquet to the left lower extremity set to 325 mm of Mercury for approximately 50 total tourniquet minutes. ESTIMATED BLOOD LOSS: [id number] cc. MATERIALS: Three - 1.45 JuggerKnot with MaxBraid, 2.15 JuggerKnot to 3.25 Betta Link Esequiel, two ZipTight, two hole one-third tibial plate, 3-0 Nylon, 4-0 Monocryl. Estimated blood loss is approximately 10 cc. INJECTABLES: See anesthesia report for details. INDICATION FOR SURGERY: Ely is a very pleasant 58-year-old patient who was seen by my service in May 2023 for instability of gait after a CVA and a recent fall at the long-term she was staying in. The patient had a CVA that affected her left side. As a result, the patient was bedridden for some period of time however did make a significant amount of progress with physical therapy and was ambulating with a walker at the time of the injury. As a result the patient did roll her ankle pretty significantly. Being that she had a significant amount of pain and she was unable bear weight and unable to tolerate clinical examination. From that standpoint it was clear that she had lateral ankle ligament that were out and as a result the recommendation was to proceed with conservative therapy with physical therapy and bracing. Over the course of the last three months, the patient has slowly deteriorated in her weightbearing status secondary to pain primarily. However, if she is up and on it and able to tolerate it she does have some significant instability. Her clinical exam did demonstrate a significant amount of anterior subluxation with the anterior drawer as well as talar tilt. As a result, multiple other exams were performed demonstrating a positive medial to lateral tib-fib squeeze as well as external rotation exam to assess the quality of the syndesmosis where a majority of her pain feels isolated and this demonstrated some gapping as well as instability. As a result stress views were taken demonstrating gapping of the syndesmosis. At this time discussion was held with the family in regards to expectations as a result of surgical intervention. The patient is 58 years old and did have a CVA, however was progressing without significant complication at the time of the incident which has come to a significant standstill at this time. The Power of Senior Ruby [employer] is the daughter and discussion was held with her mother as well in regards to the expectations for surgical intervention. There would be no improved outcomes for proceeding with surgical intervention from a functional standpoint other than stability but given her recent CVA it is unpredictable where her outcome will land as far as from a functional status also given the time off he has had from working with physical therapy secondary to the pain that does throw a variable into the equation. This also being said most of what we are trying to accomplish today is to alleviate the pain that she is having as a result of the instability at the syndesmosis and the lateral ankle ligament. At that time the patient and family agreed to proceed with surgical intervention. Plenty of time was allowed for the patient to ask questions which were answered. No guarantees were provided as to the outcome of surgical intervention. The patient was made aware of all risks, complications and benefits of surgical intervention including but not limited to infection, hematoma, seroma, possibility of delayed wound healing, nonwound healing, possibility of failure of surgical intervention, continued instability and continued pain. There is also the possibility given the patients neurological issues that she may develop chronic regionalized pain syndrome or some chronic pain as a result. The patient understands all of this and is able to verbalize her concerns. It is at this point she wishes to proceed. The family is in agreement with this. It is with this we proceed. DESCRIPTION OF PROCEDURE AND FINDINGS: The patient was brought into the postoperative anesthesia care unit and provided a femoral and abductor canal block. See anesthesia report for details. Following this, the patient was brought into the OR and placed on the OR table in the supine position. At this time general anesthesia was administered until the patient was sedated. A well-padded thigh tourniquet was applied to the patient's left thigh and the tourniquet was set to 325 mm of Mercury. At this time the left lower extremity was prepped and draped in the typical sterile fashion and lowered onto the surgical field. At this time attention was directed under fluoroscopic guidance for stress views. First stress view was performed of the anterior drawer which demonstrated a significant amount of dislocation almost 40 to 50% dislocation as well as a positive talar tilt on the mortise view. Syndesmosis was stressed utilizing external rotation maneuver which demonstrated some gapping this confirmed our suspicion and we decided to proceed with surgical intervention at this time. Attention was directed to the medial and the lateral aspect of the ankle where the medial and lateral malleolus were identified as well as the palpable dell at the front of the ankle joint. Lines were utilized to indicate our anteromedial portal and anterolateral portal. As a result insufflation took place at the anteromedial portal obtaining approximately 20 of insufflation fluid. At this time an 11 blade was utilized to make an incision at the anteromedial portal site this was carried down utilizing blunt dissection utilizing a curved mini-hemostat watching the fluid insufflate out of the ankle joint. Blunt obturator and trocar were introduced and then 30 degree 4.0 mm camera was introduced into the anteromedial portal site. Lights were turned off and the anterolateral portal was established utilizing an 11 blade. Blunt dissection was carried down to prevent any neurovascular damage to the lateral aspect of the ankle capsule. The shaver was then introduced. Significant amount of hemorrhagic synovitis was identified at this time at the anterior aspect of the joint and the posterior aspect of the joint. However, largely the joint did look healthy. Probe was utilized to probe the cartilage on top of the ankle joint as well as the tibial side which demonstrated no delamination or osteochondral defect. The shaver was able to be wedged in between the syndesmosis and the tibia incisura and that confirmed our suspicions that the syndesmosis was out. As a result, the extensive synovectomy was completed. Portals were changed and once again inspection of the joint was removed of all remaining synovitis. The scope was withdrawn. Esmarch was utilized to exsanguinate the leg and a tourniquet was inflated to 325 mm of Mercury. At this time a small incision was made at the posterior border of the fibula at the level of the incisura of the syndesmosis. A 2-hole plate was placed in the position we preferred. As a result, two K-wires were drilled across and the position was checked to make sure that the syndesmosis was reduced adequately. Two ZipTight were then introduced after drilling through and through and gaining excellent apposition of the syndesmosis. External rotation test was performed once again demonstrating no laxity at the incisura or the Shenton's line. From that standpoint, we moved onto lateral ankle stabilization where the incision was carried further distally in a curvilinear fashion once past the fibular tip to the anterior process of the calcaneus. Careful dissection was carried down and the ligament was not intact. It was retrieved from the distal aspect of the joint laterally which was tagged for later use. The calcaneofibular ligament was also found in similar fashion. From that standpoint, two - 4.5 JuggerKnot were introduced just superior and inferior to the anchor site. Following this, 2.9 JuggerKnot was introduced into the palpable dell between the neck of the talus as well as the body of the talus laterally making sure not to violate the articular cartilage of the subtalar joint this was checked and deemed to be in excellent apposition this was utilized to anchor into the fibula utilizing a 2.9 Betta Link into the fibula. The Brostrom portion of the procedure was performed at this time repairing the anterior talofibular ligament and resecting any diseased tissue this helped significantly to improve the position of the foot and improve the instability of the ankle joint. At this time, the 1.45 JuggerKnot were tied down repairing the calcaneofibular ligament and anterior talofibular ligament in its anatomic footprint. Following this, the sutures were then retrograded into the inferior extensor retinaculum in order to improve the strength of the construct through the Henley modification of the Brostrom-Henley procedure. As a result, the position of the foot was assessed. Stress views were taken demonstrating significant improvement in the laxity of the ligament. Following this copious amounts of sterile saline were utilized to flush the surgical site. 4-0 Monocryl was utilized to coapt the subcutaneous edges in a simple interrupted buried-type fashion and then 3-0 Nylon was utilized in a horizontal mattress-type fashion to tierney the skin edges. Following this, the portal holes were closed utilizing horizontal mattress. A dressing consisting of Betadine, Adaptic, 4x4, Kerlix and a well-padded posterior splint with Sugar Tong was applied to the patient's left lower extremity with the foot orthogonal relative to longitudinal axis of the leg. The patient handled the anesthesia as well as the procedure without significant complication. Postoperative orders as indicated in the patient's discharge chart.
--- NOTE | 2023-10-16 11:57 | XRAY ---
Three minutes and 38 seconds of fluoroscopy was used in surgery for a left ankle arthroscopy with synovectomy syndesmotic reduction, lateral ankle stabilization, and possible deltoid ligament repair.
== END 2023-10-11 17:30 ==
LOC: SDC 07:27
PROVIDERS: ATTEND Podiatrist Foot & Ankle Surgery
DX: S93.432A Sprain of tibiofibular ligament of left ankle, initial encounter (principal); M25.572 Pain in left ankle and joints of left foot; M25.372 Other instability, left ankle; Z86.73 Personal history of transient ischemic attack (TIA), and cerebral infarction without residual deficits; R26.2 Difficulty in walking, not elsewhere classified; M65.872 Other synovitis and tenosynovitis, left ankle and foot
CPT/HCPCS: 27696; 27829; 29898; 36415; 36600; 73610; 76000; 76937; 80053; 82375; 82803; 83880; 85027; 86850; 86900; 86901; 93005; C1713; J0171; J0690; J2250; J2270; J2371; J2795; J3010